=== PATIENT | male | born 1960 | race Caucasian/White ===

== ENCOUNTER 2016-12-08 14:59 | Outpatient (RCR) | payer MEDICAID ==
--- OUTSIDE RECORDS SUMMARY | 2016-09-20 13:55 | XMS REPORT | Continuity of Care Document ---
Author Author [facility] Organization [facility] Address Unknown Phone Unavailable Care Team Providers Care Search Analyst Name Role Phone [facility] PCP Insurance Providers Payer Name Policy Number Subscriber Name Relationship [facility]p [id number] Fior Bernal 18 Self / Same As Patient Advance Directives Directive Response Recorded Date/Time Advance Directives No 05/20/16 11:59am Health Care Power of Gate Supervisor No 05/20/16 11:59am Organ Donor No 05/20/16 11:59am Problems Active Problems Medical Problem Onset Date Status Abdominal wall pain Unknown Acute Atelectasis Unknown Acute Diarrhea Unknown Acute History of lymphoma Unknown Acute History of lymphoma Unknown Acute Nausea and vomiting Unknown Acute Right hip pain Unknown Acute Medications Current Home Medications Medication Dose Units Route Directions Days/Qty Instructions Start Date Metoprolol Tartrate (Lopressor) 50 Mg 50 Mg Oral Twice A Day Hydrocodone Bit/Acetaminophen 1 Each 1 Tab Oral Three Times A Day Escitalopram Oxalate 20 Mg 20 Mg Oral Daily 05/23/14 Potassium Chloride 20 Meq 20 Meq Oral Three Times A Day 05/23/14 Calcium Carbonate 500 Mg 500 Mg Oral As Needed for Indigestion 05/23 Ondansetron 8 Mg 8 Mg Oral Every 6 Hours as needed for Nausea/Vomiting 10 11/06/14 Ibrutinib 140 Mg 420 Mg Oral Daily@1100 take 3 (140mg) tabs 12/24/15 Cyclobenzaprine Hcl 10 Mg 10 Mg Oral Three Times A Day as needed for Muscle Spasms 12/24/15 Ibuprofen 800 Mg 800 Mg Oral Three Times A Day 12/24/15 Fluticasone/Vilanterol 1 Each 1 Each Inhalation Bedtime 12/24/15 Venlafaxine Hcl 37.5 Mg 37.5 Mg Oral Twice A Day 12/24/15 Tiotropium [place] 1 Inh 1 Inh Inhalation Daily 12/24/15 Trazodone Hcl 100 Mg 100 Mg Oral Twice A Day 12/24/15 Furosemide 40 Mg 40 Mg Oral Daily 12/24/15 Omeprazole 40 Mg 40 Mg Oral Daily 12/24/15 Diazepam 10 Mg 10 Mg Oral Twice A Day 12/24/15 Hydralazine Hcl 10 Mg 20 Mg Oral Bedtime take 2 (10mg) tabs 12/24/15 Amitriptyline Hcl 50 Mg 50 Mg Oral Bedtime 12/24/15 Prednisone 10 Mg 10 Mg Oral Daily 12/24/15 Levalbuterol Hcl 1.25 Mg/0.5 Ml 1.25 Mg Inhalation Every 8HRS as needed for Shortness Of Breath 12/25/15 Albuterol Sulfate 90 Mcg 90 Mcg Inhalation Every 4HRS as needed for Shortness Of Breath 12/25/15 Cyclosporine 1 Each 1 Each Ophthalmic Twice A Day 12/25/15 Cetirizine Hcl 10 Mg 10 Mg Oral Daily 12/25/15 Oxycodone Hcl/Acetaminophen 1 Each 1 Each Oral Every 4HRS as needed for Pain 14 05/20/16 Levofloxacin 750 Mg 750 Mg Oral Daily 5 05/20/16 Past Home Medications Medication Directions Ordered Status Lisinopril 10 Mg Tab, 20 Mg Oral Daily 09/24/08 Discontinued Cyclobenzaprine Hcl 10 Mg Tablet, 10 Mg Oral Three Times A Day as needed 25/07 Discontinued Duloxetine Hcl 20 Mg Cap, 09/24/08 Discontinued Omeprazole 20 Mg Capsule., 09/24/08 Discontinued [Clonopin] , 09/24/08 Discontinued Albuterol 17 Gm Inh, 09/24/08 Discontinued Acetaminophen/Hydrocodone Bitart 1 Ea Tab, 1 Tab Oral Every 4HRS as needed Discontinued Tramadol Hcl 50 Mg Tab, 09/24/08 Discontinued Multivitamins 1 Ea Tablet, 09/24/08 Discontinued Metoprolol Succinate (Toprol Xl) 50 Mg Tab.sr.24h, 08/05/09 Discontinued Trazodone Hcl 50 Mg Tablet, 100 Mg Oral Daily 08/05/09 Discontinued Diazepam 10 Mg Tablet, 1 Each Oral Three Times A Day 11/19/11 Discontinued Fluticasone Propionate 50 Mcg/16 G [place], 50 Mcg Nasal Twice A Day 11/19/11 Discontinued Montelukast Sodium 10 Mg Tablet, 1 Tab Oral Daily 11/19/11 Discontinued Prednisone 10 Mg Tab, 10 Mg Oral Three Times A Day 11/19/11 Discontinued Ipratropium/Albuterol Sulfate 14.7 Gm Aer.w.adap, 2 Puff Inhalation Four Times Daily as needed for Wheezing 11/19/11 Discontinued Furosemide (Lasix) 20 Mg Tablet, 1 Each Oral Daily 05/23/14 Discontinued Ibuprofen (Motrin) 200 Mg Capsule, 600 Mg Oral Three Times A Day 05/23/14 Discontinued Atorvastatin Calcium 10 Mg Tablet, 10 Mg Oral Daily 05/23/14 Discontinued Nicotine 1 Each Patch.td24, 1 Each Transderm Daily 05/23/14 Discontinued Omeprazole 20 Mg Capsule.dr, 20 Mg Oral Daily 05/23/14 Discontinued Social History Social History Problem Response Recorded Date/Time Alcohol Use Occasionally Uses 05/20/2016 11:59am Recreational Drug Use No 05/20/2016 11:59am Recent Foreign Travel N see kennedi 06/14/2016 12:52pm Sexually Transmitted Disease No 05/20/2016 11:59am Do you dip or chew tobacco? No 05/20/2016 11:59am Sexually Transmitted Disease No 05/20/2016 11:59am Hx Sexually Transmitted Disorders No 11/19/2011 11:35pm Hospital Discharge Instructions No hospital discharge instructions. Plan of Care Prescriptions See Medication Section Functional Status No functional status results. Allergies, Adverse Reactions, Alerts Allergen Type Severity Reaction Status Last Updated Alprazolam Adverse Reaction Unknown MAKES CRAZY Active 11/06/14 Immunizations No immunization records. Vital Signs No known vital signs results. Results Laboratory Results Test Name Result Units Flags Reference Collection Date/Time Result Date/ Time Comments White Blood Count 28.4 10^3/uL H 4.3-11.0 07/12/2016 10:35am 07/12/2016 10:47am Red Blood Count 3.90 10^6/uL L 4.35-5.85 07/12/2016 10:35am 07/12/2016 10 :47am Hemoglobin 12.2 G/DL L 13.3-17.7 07/12/2016 10:35am 07/12/2016 10:47am Hematocrit 37 % L 40-54 07/12/2016 10:35am 07/12/2016 10:47am Mean Corpuscular Volume 95 FL 80-99 07/12/2016 10:35am 07/12/2016 10: 47am Mean Corpuscular Hemoglobin 31 PG 25-34 07/12/2016 10:35am 07/12/2016 10:47am Mean Corpuscular Hemoglobin Concent 33 G/DL 32-36 07/12/2016 10:35am 10:47am Red Cell Distribution Width 16.6 % H 10.0-14.5 07/12/2016 10:35am 2015 10:47am Platelet Count 219 10^3/uL 130-400 07/12/2016 10:35am 07/12/2016 10: 47am Mean Platelet Volume 10.6 FL H 7.4-10.4 07/12/2016 10:35am 07/12/2016 10: 47am Neutrophils (%) (Auto) 25 % L 42-75 07/12/2016 10:35am 07/12/2016 10: 47am Lymphocytes (%) (Auto) 67 % H 12-44 07/12/2016 10:35am 07/12/2016 10: 47am Monocytes (%) (Auto) 6 % 0-12 07/12/2016 10:35am 07/12/2016 10:47am Eosinophils (%) (Auto) 2 % 0-10 07/12/2016 10:35am 07/12/2016 10:47am Basophils (%) (Auto) 0 % 0-10 07/12/2016 10:35am 07/12/2016 10:47am Neutrophils # (Auto) 6.9 X 10^3 1.8-7.8 07/12/2016 10:35am 07/12/2016 10:47am Lymphocytes # (Auto) 19.0 X 10^3 H 1.0-4.0 07/12/2016 10:35am 07/12/2016 10:47am Monocytes # (Auto) 1.8 X 10^3 H 0.0-1.0 07/12/2016 10:35am 07/12/2016 10: 47am Eosinophils # (Auto) 0.6 10^3/uL H 0.0-0.3 07/12/2016 10:35am 07/12/2016 10:47am Basophils # (Auto) 0.1 10^3/uL 0.0-0.1 07/12/2016 10:35am 07/12/2016 10 :47am Sodium Level 138 MMOL/L 135-145 07/12/2016 10:35am 07/12/2016 11:34am Potassium Level 4.3 MMOL/L 3.6-5.0 07/12/2016 10:35am 07/12/2016 11: 34am Chloride Level 107 MMOL/L 98-107 07/12/2016 10:35am 07/12/2016 11:34am Carbon Dioxide Level 22 MMOL/L 21-32 07/12/2016 10:35am 07/12/2016 11: 34am Anion Gap 9 MMOL/L 5-14 07/12/2016 10:35am 07/12/2016 11:34am Blood Urea Nitrogen 20 MG/DL H 7-18 07/12/2016 10:35am 07/12/2016 11: 34am Creatinine 1.24 MG/DL 0.60-1.30 07/12/2016 10:35am 07/12/2016 11:34am BUN/Creatinine Ratio 16 07/12/2016 10:35am 07/12/2016 11:34am Estimat Glomerular Filtration Rate > 60 07/12/2016 10:35am 2015 11:34am GFR INTERPRETIVE DATA UNITS FOR ESTIMATED GFR (eGFR): mL/min/1.73 M2 REFERENCE RANGE FOR ESTIMATED GFR (eGFR) eGFR NORMAL eGFR >60 MODERATELY DECREASED eGFR 30-59 SEVERLY DECREASED eGFR 15-29 KIDNEY FAILURE <15 (OR DIALYSIS) Glucose Level 115 MG/DL H 70-105 07/12/2016 10:35am 07/12/2016 11:34am Uric Acid 7.4 MG/DL H 2.6-7.2 07/12/2016 10:35am 07/12/2016 11:34am Calcium Level 8.9 MG/DL 8.5-10.1 07/12/2016 10:35am 07/12/2016 11:34am Magnesium Level 2.1 MG/DL 1.8-2.4 05/10/2016 1:24pm 05/10/2016 2:06pm Total Bilirubin 0.4 MG/DL 0.1-1.0 07/12/2016 10:35am 07/12/2016 11: 34am Alkaline Phosphatase 105 U/L 40-136 07/12/2016 10:35am 07/12/2016 11: 34am Aspartate Amino Transf (AST/SGOT) 31 U/L 5-34 07/12/2016 10:35am 2015 11:34am Alanine Aminotransferase (ALT/SGPT) 18 U/L 0-55 07/12/2016 10:35am 11:34am Lactate Dehydrogenase 319 U/L H 125-220 06/14/2016 1:05pm 06/14/2016 1: 53pm Total Protein 6.0 G/DL L 6.4-8.2 07/12/2016 10:35am 07/12/2016 11:34am Albumin 3.6 G/DL 3.2-4.5 07/12/2016 10:35am 07/12/2016 11:34am Cyae-5-Qkisircawxhxn 2.59 mg/L H 0.00-1.85 06/14/2016 1:05pm 06/15/2016 8 :19am Test performed at [facility], CLIA# [id number] [address] [place] [address] Procedures No known history of procedures. Encounters Encounter Location Arrival/Admit Date Discharge/Depart Date Attending Provider Discharged Recurring [facility] 07/12/16 10:26am 11:59pm MASOOD MEYER MD
[2016-09-20 14:07] LABS: BASOPHILS % (AUTO) 0 % (0-10); EOSINOPHILS # (AUTO) 0.1 10^3/uL (0.0-0.3); EOSINOPHILS % (AUTO) 1 % (0-10); LYMPHOCYTES % (AUTO) 33 % (12-44); MEAN CORPUSCULAR HEMOGLOBIN 31 PG (25-34); MEAN CORPUSCULAR HGB CONC 33 G/DL (32-36); MEAN CORPUSCULAR VOLUME 93 FL (80-99); MEAN PLATELET VOLUME 10.2 FL (7.4-10.4); MONOCYTES # (AUTO) 1.4 X 10^3 (0.0-1.0); MONOCYTES % (AUTO) 12 % (0-12); NEUTROPHILS # (AUTO) 6.6 X 10^3 (1.8-7.8); NEUTROPHILS % (AUTO) 54 % (42-75); PLATELET COUNT 221 10^3/uL (130-400); RED BLOOD COUNT 4.46 10^6/uL (4.35-5.85); RED CELL DISTRIBUTION WIDTH 14.1 % (10.0-14.5); WHITE BLOOD COUNT 12.2 10^3/uL (4.3-11.0)
[2016-09-20 14:33] LABS: ALANINE AMINOTRANSFERASE 14 U/L (0-55); ALBUMIN 3.7 G/DL (3.2-4.5); ANION GAP 9 MMOL/L (5-14); ASPARTATE AMINO TRANSFERASE 13 U/L (5-34); BILIRUBIN,TOTAL 0.3 MG/DL (0.1-1.0); BLOOD UREA NITROGEN 12 MG/DL (7-18); BUN/CREATININE RATIO 10; CALCIUM 8.9 MG/DL (8.5-10.1); CARBON DIOXIDE 24 MMOL/L (21-32); CHLORIDE 104 MMOL/L (98-107); CREATININE SERUM 1.24 MG/DL (0.60-1.30); GFR ESTIMATED > 60; GLUCOSE 92 MG/DL (70-105); LACTATE DEHYDROGENASE 194 U/L (125-220); POTASSIUM 4.3 MMOL/L (3.6-5.0); SODIUM 137 MMOL/L (135-145); TOTAL PROTEIN 6.4 G/DL (6.4-8.2); URIC ACID 5.2 MG/DL (2.6-7.2)
[2016-10-19 13:06] LABS: BASOPHILS # (AUTO) 0.1 10^3/uL (0.0-0.1); BASOPHILS % (AUTO) 0 % (0-10); EOSINOPHILS # (AUTO) 0.2 10^3/uL (0.0-0.3); EOSINOPHILS % (AUTO) 2 % (0-10); LYMPHOCYTES # (AUTO) 3.1 X 10^3 (1.0-4.0); LYMPHOCYTES % (AUTO) 27 % (12-44); MEAN CORPUSCULAR HEMOGLOBIN 30 PG (25-34); MEAN CORPUSCULAR HGB CONC 33 G/DL (32-36); MEAN CORPUSCULAR VOLUME 93 FL (80-99); MEAN PLATELET VOLUME 10.4 FL (7.4-10.4); MONOCYTES % (AUTO) 9 % (0-12); NEUTROPHILS # (AUTO) 7.1 X 10^3 (1.8-7.8); NEUTROPHILS % (AUTO) 62 % (42-75); PLATELET COUNT 213 10^3/uL (130-400); RED CELL DISTRIBUTION WIDTH 14.9 % (10.0-14.5); WHITE BLOOD COUNT 11.5 10^3/uL (4.3-11.0)
[2016-10-19 13:34] LABS: ALANINE AMINOTRANSFERASE 16 U/L (0-55); ALBUMIN 3.9 G/DL (3.2-4.5); ANION GAP 8 MMOL/L (5-14); ASPARTATE AMINO TRANSFERASE 15 U/L (5-34); BILIRUBIN,TOTAL 0.2 MG/DL (0.1-1.0); BLOOD UREA NITROGEN 13 MG/DL (7-18); BUN/CREATININE RATIO 11; CALCIUM 9.3 MG/DL (8.5-10.1); CARBON DIOXIDE 28 MMOL/L (21-32); CHLORIDE 102 MMOL/L (98-107); CREATININE SERUM 1.21 MG/DL (0.60-1.30); GFR ESTIMATED > 60; GLUCOSE 76 MG/DL (70-105); LACTATE DEHYDROGENASE 166 U/L (125-220); POTASSIUM 4.1 MMOL/L (3.6-5.0); SODIUM 138 MMOL/L (135-145); TOTAL PROTEIN 6.5 G/DL (6.4-8.2)
[2016-10-19 14:14] LABS: URIC ACID 5.2 MG/DL (2.6-7.2)
[~2016-12-08 14:59] MED LIST: ALB6.8IN; ALBU90AE IH; AMIT50TA3 PO; ATOR10TA PO; CETI10TA20 PO; CLC500CT PO; CLONOPIN; CYCL10TA45 PO; CYCL10TA9 PO; CYCL1DRO OP; DIAZ10TA PO; DIAZ10TA3 PO; DULO20CA; ESCI20TA2 PO; FLUT1BLS IH; FURO20TA4 PO; FURO40TA4 PO; HYDR-2890 PO; HYDR-31 PO; HYDR-3922 PO; IBRU140C PO; IBUP-1780 PO; IBUP200C PO; LEVA1.2521 IH; LEVO750T9 PO; LSNP10T PO; METO-272; MNTL10T PO; MTP50T PO; MULT1TAB63; NF-FLON16G; NICO1PAT6 TD; OMEP-10; OMEP20CA6 PO; OMEP40CA36 PO; ONDA8TAB13 PO; OXYC-12 PO; OXYC-201 PO; POTA20TA15 PO; PRD10T PO; RT-COMBINH IH; TIOT18CA2 IH; TRAZ100T92 PO; TRAZ50TA67 PO; TRM50T; VNL37.5T PO
[2016-12-08 15:49] LABS: BASOPHILS % (AUTO) 0 % (0-10); EOSINOPHILS # (AUTO) 0.1 10^3/uL (0.0-0.3); EOSINOPHILS % (AUTO) 1 % (0-10); LYMPHOCYTES # (AUTO) 2.3 X 10^3 (1.0-4.0); LYMPHOCYTES % (AUTO) 21 % (12-44); MEAN CORPUSCULAR HEMOGLOBIN 29 PG (25-34); MEAN CORPUSCULAR HGB CONC 32 G/DL (32-36); MEAN CORPUSCULAR VOLUME 91 FL (80-99); MEAN PLATELET VOLUME 11.2 FL (7.4-10.4); MONOCYTES # (AUTO) 0.7 X 10^3 (0.0-1.0); MONOCYTES % (AUTO) 6 % (0-12); NEUTROPHILS # (AUTO) 7.9 X 10^3 (1.8-7.8); NEUTROPHILS % (AUTO) 71 % (42-75); PLATELET COUNT 187 10^3/uL (130-400); RED BLOOD COUNT 4.31 10^6/uL (4.35-5.85); RED CELL DISTRIBUTION WIDTH 16.7 % (10.0-14.5); WHITE BLOOD COUNT 11.1 10^3/uL (4.3-11.0)
[2016-12-08 16:11] LABS: ALBUMIN 3.5 G/DL (3.2-4.5); BILIRUBIN,TOTAL 0.4 MG/DL (0.1-1.0); CALCIUM 8.4 MG/DL (8.5-10.1); CREATININE SERUM 1.33 MG/DL (0.60-1.30); POTASSIUM 4.1 MMOL/L (3.6-5.0); TOTAL PROTEIN 6.2 G/DL (6.4-8.2); URIC ACID 5.4 MG/DL (2.6-7.2)
[2016-12-08 16:32] LABS: THYROID STIMULATING HORMONE 1.56 UIU/ML (0.35-4.94)
== END 2016-12-19 | disposition home or self-care (01) ==
LOC: ONC 14:59
PROVIDERS: ATTEND Internal Medicine Hematology & Oncology
DX: C91.10 Chronic lymphocytic leukemia of B-cell type not having achieved remission (principal); J44.9 Chronic obstructive pulmonary disease, unspecified; K21.9 Gastro-esophageal reflux disease without esophagitis; N18.3 Chronic kidney disease, stage 3 (moderate); F17.210 Nicotine dependence, cigarettes, uncomplicated; B18.2 Chronic viral hepatitis C; Z92.21 Personal history of antineoplastic chemotherapy; Z79.899 Other long term (current) drug therapy
CPT/HCPCS: 36591; 80053; 82232; 83615; 84439; 84443; 84550; 85025; 99213

== ENCOUNTER 2017-02-01 17:42 | Inpatient (IN) | payer MEDICAID ==
[~2017-02-01] VITALS: Ht 177.8 cm; Wt 104.8 kg
--- OUTSIDE RECORDS SUMMARY | 2017-02-01 17:48 | XMS REPORT | Continuity of Care Document ---
Author Author [facility] Organization [facility] Address Unknown Phone Unavailable Care Team Providers Care Packing Line Operator Name Role Phone [facility] PCP Insurance Providers Payer Name Policy Number Subscriber Name Relationship [facility] Amerigrp [id number] Fior Bernal 18 Self / Same As Patient Advance Directives Directive Response Recorded Date/Time Advance Directives No 05/20/16 11:59am Health Care Power of Folder Seamer Automatic No 05/20/16 11:59am Organ Donor No 05/20/16 [...] Mg Oral Twice A Day 12/24/15 Tiotropium [place] 1 Inh 1 Inh Inhalation Daily 12/24/15 [...] 11/19/11 Discontinued Fluticasone Propionate 50 Mcg/16 G [place], 50 Mcg Nasal Twice A Day 11/19/11 [...] 3.6 G/DL 3.2-4.5 07/12/2016 10:35am 07/12/2016 11:34am Sqsy-4-Zrvvciieqvgdh 2.59 mg/L H 0.00-1.85 06/14/2016 1:05pm 06/15/2016 8 :19am Test performed at [facility], CLIA# [id number] [address] [place] [address] Procedures No known history of procedures. Encounters Encounter Location Arrival/Admit Date Discharge/Depart Date Attending Provider Discharged Recurring [facility] 07/12/16 10:26am 11:59pm MASOOD MEYER MD
--- NOTE | 2017-02-01 17:58 | ED General ---
General Stated Complaint: WEAKNESS Source of Information: Patient Exam Limitations: No Limitations History of Present Illness Time Seen by Provider: 17:55 Initial Comments 3.35 To ER from [facility] in [place] with reports of nausea vomiting and general malaise for the past few days. His brought him there seeking care for this complaint. He is currently being treated by Dr. Lopez for CLL. He was found to be hypotensive at that hospital with an initial blood pressure 50 systolic. He was given 1 L of fluids which increased his pressure to 70 systolic. He was given a second liter of fluids and then dopamine was started via a peripheral line. He does have a left [place]. X-ray reportedly showed a right lung base infiltrate. He was given 2 g of Rocephin in route to our hospital. Patient does report a productive cough quite intense for several days Timing/Duration: 2-3 Days Severity: Moderate Associated Systoms: CoughNo Fever/Chills, Weakness Allergies and Home Medications Allergies Coded Allergies: alprazolam (Unverified Adverse Reaction, Unknown, MAKES DIYA , 11/06/14) Home Medications Albuterol Sulfate 90 Mcg Aer.pow.ba 90 MCG IH Q4H PRN PRN SHORTNESS OF BREATH ( Reported) Amitriptyline HCl 50 Mg Tablet 50 MG PO HS (Reported) Calcium Carbonate 500 Mg Tab.chew 500 MG PO PRN (Reported) Cetirizine HCl 10 Mg Tablet 10 MG PO DAILY (Reported) Cyclobenzaprine HCl 10 Mg Tablet 10 MG PO TID PRN PRN MUSCLE SPASMS (Reported) Cyclosporine 1 Each [place] 1 EACH OP BID (Reported) Diazepam 10 Mg Tablet 10 MG PO BID (Reported) Escitalopram Oxalate 20 Mg Tablet 20 MG PO DAILY (Reported) Fluticasone/Vilanterol 1 Each Blst.w.dev 1 EACH IH HS (Reported) Furosemide 40 Mg Tablet 40 MG PO DAILY (Reported) Hydralazine HCl 10 Mg Tablet 20 MG PO HS (Reported) take 2 (10mg) tabs Hydrocodone Bit/Acetaminophen 1 Each Tablet 1 TAB PO TID (Reported) Ibrutinib 140 Mg Capsule 420 MG PO DAILY@1100 (Reported) take 3 (140mg) tabs Ibuprofen 800 Mg Tablet 800 MG PO TID (Reported) Levalbuterol HCl 1.25 Mg/0.5 Ml Vial.neb 1.25 MG IH Q8H PRN PRN SHORTNESS OF BREATH (Reported) Levofloxacin 750 Mg Tablet #5 750 MG PO DAILY Prescribed by: MARGARITA JOHNSON on 05/20/16 1509 Metoprolol Tartrate 50 Mg Tablet 50 MG PO BID (Reported) Omeprazole 40 Mg Capsule.dr 40 MG PO DAILY (Reported) Ondansetron 8 Mg Tab.rapdis #10 8 MG PO Q6H PRN PRN NAUSEA/VOMITING Prescribed by: IBETH CABRERA on 11/06/14 1512 Oxycodone HCl/Acetaminophen 1 Each Tablet #14 1 EACH PO Q4H PRN PRN PAIN Prescribed by: MARGARITA JOHNSON on 05/20/16 1509 Potassium Chloride 20 Meq Tab.prt.sr 20 MEQ PO TID (Reported) Prednisone 10 Mg Tab 10 MG PO DAILY (Reported) Tiotropium [place] 1 Inh Aerp 1 INH IH DAILY (Reported) Trazodone HCl 100 Mg Tablet 100 MG PO BID (Reported) Venlafaxine HCl 37.5 Mg Tab 37.5 MG PO BID (Reported) Constitutional: see HPI weakness EENTM: see HPI Respiratory: see HPI cough Cardiovascular: no symptoms reported Genitourinary: no symptoms reported Musculoskeletal: no symptoms reported Skin: no symptoms reported Psychiatric/Neurological: No Symptoms Reported Hematologic/Lymphatic: No Symptoms Reported Immunological/Allergic: no symptoms reported Past Tyhbrsp-Njjnfa-Gwzjpf Hx Immunizations Up To Date Date of Pneumonia Vaccine: Sep 30, 2014 Date of Influenza Vaccine: Sep 30, 2014 Surgeries HX Surgeries: Yes (lymph node biopsy x3, port placed and removed) Surgeries: Orthopedic Respiratory Hx Respiratory Disorders: Yes (COPD/CHRONIC BRONCHITIS) Respiratory Disorders: Asthma, Chronic Bronchitis, COPD, Emphysema Cardiovascular Hx Cardiac Disorders: Yes Cardiac Disorders: Hypertension Neurological Hx Neurological Disorders: No Reproductive System Hx Reproductive Disorders: No Sexually Transmitted Disease: No Genitourinary Hx Genitourinary Disorders: No Gastrointestinal Hx Gastrointestinal Disorders: Yes Gastrointestinal Disorders: Gastroesophageal Reflux, Hepatitis Musculoskeletal Hx Musculoskeletal Disorders: Yes (DJD CERVICAL SPINE) Endocrine Hx Endocrine Disorders: No HEENT HX ENT Disorders: Yes HEENT Disorders: Glaucoma Hearing Impairment: Hard of Hearing Cancer Hx Cancer: Yes (CLL, SLL) Cancer: Leukemia, Lymphoma Psychosocial Hx Psychiatric Problems: Yes Behavioral Health Disorders: Anxiety, Depression Integumentary HX Skin/Integumentary Disorder: No Blood Transfusions Hx Blood Disorders: Yes (LYMPHOMA AND LEUKEMIA HISTORY/HEP C) Adverse Reaction to a Blood Tr: No Physical Exam Vital Signs Vital Sign - Last 12Hours 02/01/17 02/01/17 02/01/17 17:45 19:35 20:18 Temp 97.0 Pulse 101 Resp 24 B/P 82/58 Pulse Ox 96 O2 Delivery Nasal Cannula O2 Flow Rate 5 Capillary Refill : General Appearance: No Apparent Distress WD/WN Eyes: Bilateral Eye EOMI, Bilateral Eye Normal Inspection, Bilateral Eye PERRL HEENT: PERRL/EOMI TMs Normal Neck: Full Range of Motion Normal Inspection Respiratory: No Accessory Muscle Use No Respiratory Distress Decreased Breath Sounds Cardiovascular: Regular Rate, Rhythm No Edema Other (weak peripheral pulses. Blanching of the fingertips bilaterally noted. Upon arrival to our ER initial blood pressure 128/63 ) Gastrointestinal: Non Tender Soft Extremity: Normal Capillary Refill Normal Inspection Neurologic/Psychiatric: Alert Oriented x3 Skin: Normal Color Warm/Dry Progress/Results/Core Measures Results/Orders Lab Results Laboratory Tests Test 02/01/17 17:54 02/01/17 17:55 02/01/17 17:58 02/01/17 19:52 Range/Units Glucometer 107 70-110 MG/DL Alanine Aminotransferase (ALT/SGPT) 8 0-55 U/L Albumin 2.5 L 3.2-4.5 G/DL Alkaline Phosphatase 53 40-136 U/L Anion Gap 11 5-14 MMOL/L Aspartate Amino Transf (AST/SGOT) 10 5-34 U/L BUN/Creatinine Ratio 6 Basophils # (Auto) 0.0 0.0-0.1 10^3/uL Basophils (%) (Auto) 2 0-10 % Blood Urea Nitrogen 12 7-18 MG/DL Calcium Level 7.4 L 8.5-10.1 MG/DL Carbon Dioxide Level 17 L 21-32 MMOL/L Chloride Level 107 98-107 MMOL/L Creatinine 1.99 H 0.60-1.30 MG/DL Eosinophils # (Auto) 0.1 0.0-0.3 10^3/uL Eosinophils (%) (Auto) 7 0-10 % Estimat Glomerular Filtration Rate 35 Glucose Level 104 70-105 MG/DL Hematocrit 31 L 40-54 % Hemoglobin 10.2 L 13.3-17.7 G/DL Lactic Acid Level 3.35 *H 5.84 *H 0.50-2.00 MMOL/L Lymphocytes # (Auto) 0.8 L 1.0-4.0 X 10^3 Lymphocytes (%) (Auto) 62 H 12-44 % Mean Corpuscular Hemoglobin 30 25-34 PG Mean Corpuscular Hemoglobin Concent 33 32-36 G/DL Mean Corpuscular Volume 91 80-99 FL Mean Platelet Volume 11.0 H 7.4-10.4 FL Monocytes # (Auto) 0.2 0.0-1.0 X 10^3 Monocytes (%) (Auto) 12 0-12 % Neutrophils # (Auto) 0.3 L 1.8-7.8 X 10^3 Neutrophils (%) (Auto) 18 L 42-75 % Platelet Count 167 130-400 10^3/uL Potassium Level 3.4 L 3.6-5.0 MMOL/L Red Blood Count 3.45 L 4.35-5.85 10^6/uL Red Cell Distribution Width 15.6 H 10.0-14.5 % Sodium Level 135 135-145 MMOL/L Total Bilirubin 0.3 0.1-1.0 MG/DL Total Protein 4.4 L 6.4-8.2 G/DL Troponin I < 0.30 <0.30 NG/ML White Blood Count 1.4 *L 4.3-11.0 10^3/uL INR Comment 1.2 0.8-1.4 Prothrombin Time 14.6 12.2-14.7 SEC Ur Tricyclic Antidepressants Screen POSITIVE H NEGATIVE Urine Amphetamines Screen POSITIVE H NEGATIVE Urine Bacteria NONE /HPF Urine Barbiturates Screen NEGATIVE NEGATIVE Urine Benzodiazepines Screen POSITIVE H NEGATIVE Urine Bilirubin NEGATIVE NEGATIVE Urine Cannabinoids Screen POSITIVE H NEGATIVE Urine Casts NONE /LPF Urine Clarity CLEAR Urine Cocaine Screen NEGATIVE NEGATIVE Urine Color YELLOW Urine Crystals NONE /LPF Urine Culture Indicated NO Urine Glucose (UA) NEGATIVE NEGATIVE Urine Ketones NEGATIVE NEGATIVE Urine Leukocyte Esterase NEGATIVE NEGATIVE Urine Methadone Screen NEGATIVE NEGATIVE Urine Methamphetamines Screen POSITIVE H NEGATIVE Urine Mucus NEGATIVE /LPF Urine Nitrite NEGATIVE NEGATIVE Urine Opiates Screen POSITIVE H NEGATIVE Urine Oxycodone Screen NEGATIVE NEGATIVE Urine Phencyclidine Screen NEGATIVE NEGATIVE Urine Propoxyphene Screen NEGATIVE NEGATIVE Urine Protein NEGATIVE NEGATIVE Urine RBC NONE /HPF Urine RBC (Auto) NEGATIVE NEGATIVE Urine Specific [place] 1.005 L 1.016-1.022 Urine Squamous Epithelial Cells RARE /HPF Urine Urobilinogen NORMAL NORMAL MG/DL Urine WBC NONE /HPF Urine pH 6 5-9 Test 02/01/17 20:00 Range/Units [place] Test YES-POS Arterial Blood Base Excess -7.7 L -2.5-2.5 MMOL/L Arterial Blood HCO3 17 *L 23-27 MMOL/L Arterial Blood Oxygen Saturation 88 L 94-100 % Arterial Blood Partial Pressure CO2 32 L 35-45 MMHG Arterial Blood Partial Pressure O2 55 L 79-93 MMHG Arterial Blood Total CO2 17.8 L 21.0-31.0 MMOL/L Arterial Blood pH 7.35 L 7.37-7.43 Blood Gas Inspired Oxygen 4L Blood Gas Patient Temperature 99.1 Blood Gas Puncture Site L RAD Blood Gas Ventilator Setting NO My Orders Orders-MARGARITA JOHNSON APRN Fentanyl Injection (Sublimaze Injection (02/01/17 18:15) D5w 250 Ml (Ivpb) (... W/Norepinephrine (02/01/17 18:15) Ns Iv 1000 Ml (Sodium Chloride 0.9%) (02/01/17 18:15) D5w 250 Ml (Ivpb) (Dextrose 5% Water Iv (02/01/17 18:03) Levofloxacin 750 Mg/150 Ml Iv (Levaquin (02/01/17 18:15) Protime With Inr (02/01/17 18:16) Drug Screen Stat (Urine) (02/01/17 18:23) Vancomycin Iv Add-[place] (Vancomycin Iv (02/01/17 19:30) Arterial Blood Gas (02/01/17 20:06) Medications Given in ED Current Medications Medications Dose Ordered Sig/Marly Route Start Time Stop Time Status Last Admin Dose Admin Fentanyl Citrate 50 mcg ONCE ONCE IVP 02/01/17 18:15 02/01/17 18:16 DC 02/01/17 19:17 50 MCG Levofloxacin/ Dextrose 150 ml @ 100 mls/hr ONCE ONCE IV 02/01/17 18:15 02/01/17 19:44 DC 02/01/17 18:19 100 MLS/HR Norepinephrine 4 mg 4 mg STK-MED ONCE IV 02/01/17 18:03 02/01/17 18:06 DC 02/01/17 18:13 4 MG Vital Signs/I&O Vital Sign - Last 12Hours 3/06/1302/01/17 02/01/17 02/01/17 17:45 19:35 19:58 20:18 Temp 97.0 99.6 Pulse 101 106 110 111 Resp 24 21 20 24 B/P 82/58 79/56 102/84 Pulse Ox 96 97 98 100 O2 Delivery Nasal Cannula O2 Flow Rate 5 5 4 Diagnostic Imaging Diagonstic Imaging: Xray Plain Films/CT/US/NM/MRI: chest Comments NAME: [facility] REC#: [id number] PT STATUS: REG ER : 1960 PHYSICIAN: SANJIV CORBIN MD ADMIT DATE: 02/01/17/ER Draft Date of Exam:02/01/17 CHEST 1 VIEW, AP/PA ONLY INDICATION: Febrile. Weakness. Comparison with 12/25/2015. FINDINGS: There is a dense consolidated infiltrate involving the right lower lung. Left lung is clear. Right upper lung is well-aerated and clear. Heart is mildly enlarged. No evidence of pulmonary edema. No pneumothorax or effusion. IMPRESSION: 1. Findings are consistent with consolidated pneumonia right lower lobe. Dictated on workstation # [id number] Dict: 02/01/17 1818 Trans: 02/01/17 1821 KB [id number] Interpreted by: TANGELA NAVARRO MD Electronically signed by: Departure Communication Communication 1808-BP 69/56 Pulse 85. Dopamine discontinued, levophed started at 5mcg. additional fluid bolus given which will be 3rd liter bolus. port accessed by RN. 2004-BP 82/53 with levophed at 15mcg/min. HR 109. levophed increased to 20mcg/ min. no urine in the Kang catheter which was placed at [facility]. This was replaced by our nurses and still no urine output over the course of the past hour. Bladder scan at the bedside showed 56 mL of urine in the bladder. I did update his fianc and daughter on the possibility that he may not pull through this/severity of his illness but that we were doing everything he could to support him. Oxygen remains 100 percent on 2 L nasal cannula. He does state that he feels short of breath. An ABG has been ordered. 2019-lactic elevated from previous measurement currently at 5. Patient has received 3.5 L of fluids as bolus and currently normal saline at 250 mL per hour. He is received Levaquin 750 mg IV here, vancomycin 1 g IV is infusing currently and he received Rocephin 2 g in route to this hospital. Currently we have fed running at 20 mics per minute with a blood pressure of 102/82, heart rate 115 sinus. Progress Notes 2012-I spoke with Dr. Lopez from [facility] to update him on the patient's status and treatments up to this point. Impression Impression: Primary Impression: RLL pneumonia Qualified Code: J18.1 - Lobar pneumonia, unspecified organism Additional Impression: Septic shock Disposition: ADMITTED INPATIENT Condition: Stable Decision to Admit Reason: Admit from ER (General) Decision to Admit/Date: Feb 01, 2017 Time/Decision to Admit Time: 18:08 Departure-Patient Inst. Referrals: [facility] (PCP[facility]Family) Primary Care Physician MARGARITA JOHNSON APRN Feb 01, 2017 17:58
[2017-02-01] MEDS ORDERED: NOREPINEPHRINE 4 MG/4 ML (LEVOPHED) AMP IV ONE (18:03)
[2017-02-01] MEDS ORDERED: D5W 250 ML (IVPB) 250 ML IV ONE (18:03)
[2017-02-01] MEDS ORDERED: LEVOFLOXACIN 750 MG/150 ML IV 150 ML IV ONE (18:15)
[2017-02-01] MEDS ORDERED: fentaNYL INJECTION 100 MCG/2 ML AMP IVP ONE (18:15)
[2017-02-01] MEDS ORDERED: NOREPINEPHRINE 4 MG in D5W 250 ML (IVPB) 250 ML IV SCH (18:15)
[2017-02-01] MEDS ORDERED: NS IV 1000 ML 1,000 ML IV SCH ×2 (18:15→21:30)
[2017-02-01 18:18] LABS: BASOPHILS % (AUTO) 2 % (0-10); EOSINOPHILS # (AUTO) 0.1 10^3/uL (0.0-0.3); EOSINOPHILS % (AUTO) 7 % (0-10); LYMPHOCYTES # (AUTO) 0.8 X 10^3 (1.0-4.0); LYMPHOCYTES % (AUTO) 62 % (12-44); MEAN CORPUSCULAR HEMOGLOBIN 30 PG (25-34); MEAN CORPUSCULAR HGB CONC 33 G/DL (32-36); MEAN CORPUSCULAR VOLUME 91 FL (80-99); MONOCYTES # (AUTO) 0.2 X 10^3 (0.0-1.0); MONOCYTES % (AUTO) 12 % (0-12); NEUTROPHILS # (AUTO) 0.3 X 10^3 (1.8-7.8); NEUTROPHILS % (AUTO) 18 % (42-75); PLATELET COUNT 167 10^3/uL (130-400); RED BLOOD COUNT 3.45 10^6/uL (4.35-5.85); RED CELL DISTRIBUTION WIDTH 15.6 % (10.0-14.5)
[2017-02-01 18:20] LABS: WHITE BLOOD COUNT 1.4 10^3/uL (4.3-11.0)
--- NOTE | 2017-02-01 18:21 | Diagnostic Imaging Report ---
INDICATION: Febrile. Weakness. Comparison with 12/25/2015. FINDINGS: There is a dense consolidated infiltrate involving the right lower lung. Left lung is clear. Right upper lung is well-aerated and clear. Heart is mildly enlarged. No evidence of pulmonary edema. No pneumothorax or effusion. IMPRESSION: 1. Findings are consistent with consolidated pneumonia right lower lobe. Dictated by: Dictated on workstation # [id number]
[2017-02-01 18:25] LABS: BILIRUBIN,URINE NEGATIVE (NEGATIVE); KETONES,URINE NEGATIVE (NEGATIVE); LEUKOCYTE ESTERASE ,URINE NEGATIVE (NEGATIVE); NITRITE,URINE NEGATIVE (NEGATIVE); PH,URINE 6 (5-9); PROTEIN,URINE NEGATIVE (NEGATIVE); UROBILINOGEN,URINE NORMAL (NORMAL)
[2017-02-01 18:26] LABS: SQUAMOUS EPITHELIAL CELL,UR RARE /HPF
[2017-02-01 18:27] LABS: INR 1.2 (0.8-1.4); PROTHROMBIN TIME PATIENT 14.6 SEC (12.2-14.7)
[2017-02-01 18:38] LABS: ALANINE AMINOTRANSFERASE 8 U/L (0-55); ALBUMIN 2.5 G/DL (3.2-4.5); ANION GAP 11 MMOL/L (5-14); ASPARTATE AMINO TRANSFERASE 10 U/L (5-34); BILIRUBIN,TOTAL 0.3 MG/DL (0.1-1.0); BLOOD UREA NITROGEN 12 MG/DL (7-18); BUN/CREATININE RATIO 6; CALCIUM 7.4 MG/DL (8.5-10.1); CARBON DIOXIDE 17 MMOL/L (21-32); CHLORIDE 107 MMOL/L (98-107); CREATININE SERUM 1.99 MG/DL (0.60-1.30); GFR ESTIMATED 35; GLUCOSE 104 MG/DL (70-105); POTASSIUM 3.4 MMOL/L (3.6-5.0); SODIUM 135 MMOL/L (135-145); TOTAL PROTEIN 4.4 G/DL (6.4-8.2)
[2017-02-01 18:48] LABS: TROPONIN I < 0.30 NG/ML (<0.30)
[2017-02-01] MEDS ORDERED: VANCOMYCIN IV ADD-VANTAGE 1,000 MG in SODIUM CHLORIDE (ADD-VANTAGE) 250 ML IV ONE (19:30)
[2017-02-01 19:58] VITALS: BP 79/56
[2017-02-01 20:11] LABS: ABG BASE EXCESS -7.7 MMOL/L (-2.5-2.5); ABG OXYGEN SATURATION 88 % (94-100); ABG PCO2 32 MMHG (35-45); ABG PH 7.35 (7.37-7.43); ABG PO2 55 MMHG (79-93); ABG TCO2 17.8 MMOL/L (21.0-31.0)
[2017-02-01 20:12] LABS: ALLENS TEST YES-POS; PATIENT TEMP 99.1
[2017-02-01 20:18] VITALS: BP 102/84
[2017-02-01 20:18] LABS: ABG HCO3 17 MMOL/L (23-27)
[2017-02-01] MEDS ORDERED: NS IV 1000 ML 1,000 ML ONE (20:55)
[2017-02-01 21:15] VITALS: BP 114/64
[2017-02-01] MEDS ORDERED: ACETAMINOPHEN 325 MG TABLET/CAPLET (TYLENOL) ONE (21:22)
[2017-02-01] MEDS: NS IV 1000 ML 1,000 ML IV SCH (21:29)
[2017-02-01] MEDS ORDERED: ENOXAPARIN 30 MG/0.3 ML (LOVENOX) SYR SC ONE (21:30)
[2017-02-01] MEDS ORDERED: PIPERACILLIN/TAZOBACTAM 4.5 GM/NS 100 ML IV ONE ×2 (21:30)
[2017-02-01] MEDS ORDERED: ACETAMINOPHEN 325 MG TABLET/CAPLET (TYLENOL) PO PRN ×2 (21:30)
[2017-02-01 22:00] VITALS: BP 96/38
[2017-02-01] MEDS ORDERED: VASOPRESSIN INJECTION 20 UNIT/ML VIAL ONE (22:42)
[2017-02-01] MEDS ORDERED: SODIUM BICARB 8.4% 50 MEQ/50 ML (ABBOTT) SYR ONE (22:42)
[2017-02-01] MEDS ORDERED: HYDROCORTISONE 100 MG/2 ML (Solu-CORTEF) VIAL ONE (22:42)
[2017-02-01] MEDS ORDERED: NS (IVPB) 50 ML ONE (22:43)
[2017-02-01 23:00] VITALS: BP 110/65
[2017-02-01] MEDS ORDERED: SODIUM BICARB 8.4% 50 MEQ/50 ML (ABBOTT) SYR IV ONE (23:00)
[2017-02-01] MEDS ORDERED: CATHETER FLUSH 10 ML SYR IV PRN (23:00)
[2017-02-01] MEDS: VASOPRESSIN INJECTION 20 UNIT in NS (IVPB) 50 ML IV SCH (23:11)
[2017-02-01] MEDS: NOREPINEPHRINE 4 MG in D5W 250 ML (IVPB) IV SCH (23:21)
[2017-02-01] MEDS ORDERED: MIDAZOLAM 5 MG/5 ML (VERSED) VIAL INJ ONE (23:59)
[2017-02-01] MEDS ORDERED: ROCURONIUM 50 MG/5 ML (ZEMURON) VIAL IV ONE (23:59)
[2017-02-02] VITALS (25 sets, daily range): BP systolic 83–181; BP diastolic 46–125
[2017-02-02] MEDS ORDERED: HYDROcodone/APAP 5 MG/325 MG (LORTAB) TAB PO ONE (00:30)
[2017-02-02] MEDS: fentaNYL INJECTION 100 MCG/2 ML AMP IVP PRN ×5 (00:43→23:01)
[2017-02-02] MEDS: NOREPINEPHRINE 4 MG in D5W 250 ML (IVPB) IV SCH ×7 (00:55→23:12)
[2017-02-02] MEDS: NS IV 1000 ML 1,000 ML IV SCH ×7 (00:56→23:07)
[2017-02-02] MEDS: RT-ALBUTEROL SULF 2.5 MG/3 ML PRE-MIX VIAL INH SCH ×2 (02:02→06:37)
[2017-02-02] MEDS ORDERED: NAPR500T3 PO (02:09)
[2017-02-02] MEDS ORDERED: MONT10TA21 PO (02:09)
[2017-02-02] MEDS ORDERED: BUDE10.2 IH (02:09)
[2017-02-02] MEDS: PIPERACILLIN/TAZOBACTAM 4.5 GM/NS 100 ML IVPB IV SCH ×6 (03:38→18:42)
[2017-02-02] MEDS ORDERED: PANTOPRAZOLE 40 MG/10 ML (PROTONIX) VIAL IV ONE (04:00)
[2017-02-02 04:01] LABS: BASOPHILS % (AUTO) 2 % (0-10); EOSINOPHILS # (AUTO) 0.1 10^3/uL (0.0-0.3); EOSINOPHILS % (AUTO) 8 % (0-10); LYMPHOCYTES # (AUTO) 0.8 X 10^3 (1.0-4.0); LYMPHOCYTES % (AUTO) 44 % (12-44); MEAN CORPUSCULAR HEMOGLOBIN 29 PG (25-34); MEAN CORPUSCULAR HGB CONC 33 G/DL (32-36); MEAN CORPUSCULAR VOLUME 90 FL (80-99); MEAN PLATELET VOLUME 11.1 FL (7.4-10.4); MONOCYTES # (AUTO) 0.2 X 10^3 (0.0-1.0); MONOCYTES % (AUTO) 11 % (0-12); NEUTROPHILS # (AUTO) 0.7 X 10^3 (1.8-7.8); NEUTROPHILS % (AUTO) 35 % (42-75); PLATELET COUNT 205 10^3/uL (130-400); RED BLOOD COUNT 3.42 10^6/uL (4.35-5.85); RED CELL DISTRIBUTION WIDTH 15.4 % (10.0-14.5); WHITE BLOOD COUNT 1.8 10^3/uL (4.3-11.0)
[2017-02-02] MEDS ORDERED: NS (IVPB) 50 ML ONE ×2 (04:13→21:45)
[2017-02-02] MEDS ORDERED: VASOPRESSIN INJECTION 20 UNIT/ML VIAL ONE ×2 (04:13→21:45)
[2017-02-02 04:25] LABS: ALBUMIN 2.4 G/DL (3.2-4.5); BILIRUBIN,TOTAL 0.3 MG/DL (0.1-1.0); CALCIUM 6.9 MG/DL (8.5-10.1); CREATININE SERUM 2.21 MG/DL (0.60-1.30); PHOSPHORUS 1.1 MG/DL (2.3-4.7); POTASSIUM 4.9 MMOL/L (3.6-5.0); TOTAL PROTEIN 4.3 G/DL (6.4-8.2)
[2017-02-02] MEDS: VASOPRESSIN INJECTION 20 UNIT in NS (IVPB) 50 ML IV SCH ×4 (04:45→23:11)
[2017-02-02] MEDS: CATHETER FLUSH 10 ML SYR IV SCH ×3 (04:48→19:46)
[2017-02-02 04:53] LABS: MAGNESIUM 0.7 MG/DL (1.8-2.4)
[2017-02-02] MEDS: POTASSIUM CL 10MEQ/50ML IVPB 50 ML IV SCH (04:59)
[2017-02-02] MEDS: KCL 20 MEQ TAB (K-DUR) PO SCH (05:00)
[2017-02-02] MEDS: inSUlin (REGULAR) HUMAN 1 UNIT/0.01 ML (CHARGE PER UNIT) SC SCH ×5 (05:00→23:08)
[2017-02-02] MEDS: MAGNESIUM 1 GM/100 ML IVPB 100 ML IV SCH ×7 (05:23→08:20)
[2017-02-02] MEDS: HYDROCORTISONE 100 MG/2 ML (Solu-CORTEF) VIAL IV SCH ×5 (05:27→23:07)
[2017-02-02] MEDS ORDERED: inSUlin (REGULAR) HUMAN 1 UNIT/0.01 ML (CHARGE PER UNIT) SC SCH (06:00)
--- NOTE | 2017-02-02 06:47 | Pulmonary Consultation ---
History of Present Illness History of Present Illness Date of Consultation 02/02/17 06:42 Date of Admission History of Present Illness 56yo with hx of CLL known to Dr. Lopez upon ED admission he was found to be hypotensive with SBP in50's. Pt was admitted to ICU and is currently on Levophed and vasopressin. He has severe sepsis with septic shock and has received over 30ml/kg of IVF. UDS is positive for marijuana and methamphetamines. No prior episodes like this. I am consulted for pulmonary/cc management. Allergies and Home Medications Allergies Coded Allergies: alprazolam (Unverified Adverse Reaction, Unknown, EZRA KEANE , 11/06/14) Home Medications Albuterol Sulfate 90 Mcg Aer.pow.ba 90 MCG IH Q4H PRN PRN SHORTNESS OF BREATH ( Reported) Amitriptyline HCl 50 Mg Tablet 75 MG PO HS (Reported) Budesonide/Formoterol Fumarate 10.2 Gm Hfa.aer.ad 2 PUFF IH BID (Reported) Calcium Carbonate 500 Mg Tab.chew 500 MG PO PRN (Reported) Cetirizine HCl 10 Mg Tablet 10 MG PO DAILY (Reported) Cyclobenzaprine HCl 10 Mg Tablet 10 MG PO BID (Reported) Diazepam 10 Mg Tablet 10 MG PO BID (Reported) Escitalopram Oxalate 20 Mg Tablet 20 MG PO DAILY (Reported) Furosemide 40 Mg Tablet 20 MG PO DAILY (Reported) Hydralazine HCl 10 Mg Tablet 20 MG PO HS (Reported) take 2 (10mg) tabs Hydrocodone Bit/Acetaminophen 1 Each Tablet 1 TAB PO TID (Reported) Ibrutinib 140 Mg Capsule 280 MG PO DAILY (Reported) take 3 (140mg) tabs Ibuprofen 800 Mg Tablet 800 MG PO TID (Reported) Levalbuterol HCl 1.25 Mg/0.5 Ml Vial.neb 1.25 MG IH Q8H PRN PRN SHORTNESS OF BREATH (Reported) Metoprolol Tartrate 50 Mg Tablet 50 MG PO BID (Reported) Montelukast Sodium 10 Mg Tablet 10 MG PO HS (Reported) Naproxen 500 Mg Tablet 500 MG PO BID (Reported) Omeprazole 40 Mg Capsule.dr 40 MG PO DAILY (Reported) Ondansetron 8 Mg Tab.rapdis #10 8 MG PO Q6H PRN PRN NAUSEA/VOMITING Prescribed by: IBETH CABRERA on 11/06/14 1512 Potassium Chloride 20 Meq Tab.prt.sr 20 MEQ PO TID (Reported) Prednisone 10 Mg Tab 5 MG PO DAILY (Reported) Trazodone HCl 100 Mg Tablet 100 MG PO BID (Reported) Venlafaxine HCl 37.5 Mg Tab 75 MG PO BID (Reported) Past Ougygqv-Mdfvkj-Vuqopu Hx Patient Social History Alcohol Use: Occasionally Uses Recreational Drug Use: Yes Drug of Choice: METH/POT Smoking Status: Current Everyday Smoker Type Used: Cigarettes Recent Foreign Travel: No Contact w/Someone Who Travel: No Recent Infectious Disease Expo: No Recent Hopitalizations: No Physical Abuse Screen: No Sexual Abuse: No Immunizations Up To Date PED Vaccines UTD: No Date of Pneumonia Vaccine: Sep 30, 2014 Date of Influenza Vaccine: Sep 30, 2014 Seasonal Allergies Seasonal Allergies: No Surgeries HX Surgeries: Yes (lymph node biopsy x3, port placed and removed) Surgeries: Orthopedic Respiratory Hx Respiratory Disorders: Yes (COPD/CHRONIC BRONCHITIS) Respiratory Disorders: Asthma, Chronic Bronchitis, COPD, Emphysema Cardiovascular Hx Cardiac Disorders: Yes Cardiac Disorders: Hypertension Neurological Hx Neurological Disorders: No Reproductive System Hx Reproductive Disorders: No Sexually Transmitted Disease: No HIV/AIDS: No Genitourinary Hx Genitourinary Disorders: No Gastrointestinal Hx Gastrointestinal Disorders: Yes Gastrointestinal Disorders: Gastroesophageal Reflux, Hepatitis Musculoskeletal Hx Musculoskeletal Disorders: Yes (DJD CERVICAL SPINE) Musculoskeletal Disorders: Chronic Back Pain Endocrine Hx Endocrine Disorders: No HEENT HX ENT Disorders: Yes HEENT Disorders: Glaucoma Loss of Vision: Denies Hearing Impairment: Hard of Hearing Cancer Hx Cancer: Yes (CLL, SLL) Cancer: Leukemia, Lymphoma Psychosocial Hx Psychiatric Problems: Yes Behavioral Health Disorders: Anxiety, Depression Integumentary HX Skin/Integumentary Disorder: No Blood Transfusions Hx Blood Disorders: Yes (LYMPHOMA AND LEUKEMIA HISTORY/HEP C) Adverse Reaction to a Blood Tr: No Family Medical History Family Medial History: Alcoholism G8 BROTHER Colon cancer G8 BROTHER, , Onset:Unknown FHx: heart disease G8 BROTHER, Onset:Unknown G8 BROTHER, Onset:Unknown Hypertension 19 MOTHER, , Onset:Unknown Myocardial infarction 19 FATHER, , Onset:60 years & older 19 MOTHER, , Onset:Unknown G8 BROTHER, , Onset:Unknown G8 BROTHER, , Onset:Unknown Neoplasm Exam Exam Vital Signs Date Time Temp Pulse Resp B/P Pulse Ox O2 Delivery O2 Flow Rate FiO2 02/02/17 06:37 94 2.00 02/02/17 06:00 105 28 92/58 92 Nasal Cannula 2.00 02/02/17 05:00 98.2 106 32 83/59 94 Nasal Cannula 2.00 02/02/17 03:43 99.0 112 26 88/73 94 Nasal Cannula 2.00 02/02/17 03:40 94 2.00 02/02/17 02:02 98 4.00 02/02/17 02:00 99.6 112 23 105/68 96 Nasal Cannula 2.00 02/02/17 01:00 99.8 114 26 134/81 94 Nasal Cannula 4.00 02/02/17 01:00 112 02/02/17 00:15 96 2.00 02/02/17 00:00 100.7 107 16 111/73 88 Nasal Cannula 2.00 02/01/17 23:00 113 36 110/65 96 Nasal Cannula 2.00 02/01/17 22:01 98 2.00 02/01/17 22:00 101.8 114 36 96/38 94 Nasal Cannula 2.00 02/01/17 21:57 98 02/01/17 21:27 101.0 02/01/17 21:22 116 02/01/17 21:15 101.0 116 30 114/64 100 Nasal Cannula 2.00 02/01/17 21:03 2.00 02/01/17 20:50 100.3 115 19 100 02/01/17 20:18 111 24 102/84 100 Nasal Cannula 4 02/01/17 19:58 110 20 79/56 98 5 02/01/17 19:35 99.6 106 21 82/58 97 5 02/01/17 17:45 97.0 101 24 96 I & O 02/02/17 07:00 Intake Total 5051 ml Output Total 250 ml Balance 4801 ml General Appearance: No Apparent Distress WD/WN HEENT: PERRL/EOMI TMs Normal Neck: Full Range of Motion Normal Inspection Respiratory: No Accessory Muscle Use No Respiratory Distress Decreased Breath Sounds Cardiovascular: Regular Rate, Rhythm No Edema Other (weak peripheral pulses. Blanching of the fingertips bilaterally noted. Upon arrival to our ER initial blood pressure 128/63 ) Capillary Refill: Less Than 3 Seconds Extremity: Normal Capillary Refill Normal Inspection Neurologic/Psychiatric: Alert Oriented x3 Skin: Normal Color Warm/Dry Results Lab Laboratory Tests 02/01/17 17:55 02/02/17 03:45 Assessment/Plan Assessment/Plan Acute severe sepsis with septic shock secondary to pneumonia -- immunosuppressed -Continue aggressive IVF -Pt currently has left Groshong -Olson cultures -continue broad spectrum Abx -solucortef Severe R>L pneumonia with dyspnea and accessory muscle use -check ABG -Pt will most likely end up needing ventilator will have low threshold for intubation UDS is + for methamphetamines and Marijuana -- pt denies use Anemia - monitor Metabolic lactic acidosis -IVF CLL -on chemotherapy Clinical Quality Measures DVT/VTE Risk/Contraindication: Risk Factor Score Per Nursin RFS Level Per Nursing on Admit: 4+=Very High LOLA CLAIRE DO Feb 02, 2017 06:47
[2017-02-02] MEDS ORDERED: ALLO300T2 PO (07:08)
[2017-02-02] MEDS ORDERED: ALLO100T PO ×2 (07:08→08:53)
[2017-02-02] MEDS ORDERED: RT-ALBUTEROL/IPRATROPIUM 3 ML (DUONEB) VIAL INH PRN (07:15)
[2017-02-02] MEDS ORDERED: VANCOMYCIN 1 GM/NS 250 ML IVPB IV SCH ×2 (07:30)
[2017-02-02 08:14] LABS: ABG OXYGEN SATURATION 81 % (94-100); ABG PCO2 31 MMHG (35-45); ABG PO2 47 MMHG (79-93); ABG TCO2 16.8 MMOL/L (21.0-31.0)
[2017-02-02 08:16] LABS: ABG HCO3 16 MMOL/L (23-27); ABG PH 7.33 (7.37-7.43); ALLENS TEST YES-POS
[2017-02-02] MEDS: PANTOPRAZOLE 40 MG/10 ML (PROTONIX) VIAL IV SCH ×2 (08:26→19:46)
[2017-02-02] MEDS ORDERED: PRED5TAB PO (08:36)
[2017-02-02] MEDS ORDERED: VNL75T PO (08:36)
[2017-02-02] MEDS ORDERED: ONDA8TAB12 PO (08:36)
[2017-02-02] MEDS ORDERED: TIOT18CA2 IH (08:53)
[2017-02-02] MEDS ORDERED: LEVA1.2527 NEB (08:53)
[2017-02-02] MEDS ORDERED: RT-ALBUINH INH (08:53)
[2017-02-02] MEDS ORDERED: ACET-2267 PO (08:54)
[2017-02-02] MEDS ORDERED: proPOfol 200 MG/20 ML (DIPRIVAN) VIAL IV ONE (09:37)
[2017-02-02] MEDS ORDERED: PHENYLEPHRINE INJ 10 MG/ML (NEO-SYNEPHRINE 1%) ONE (09:39)
[2017-02-02] MEDS ORDERED: PROPOFOL DRIP (ICU) 100 ML IV ONE (09:42)
--- NOTE | 2017-02-02 10:19 | Anesthesia-Procedure Note ---
Procedure Start/Stop Time Date of Procedure: Feb 02, 2017 Start Time: 09:40 Stop Time: 10:10 Procedures/Interventions Reason for Intubation: Sepsis, impending respiratory failure RSI: No 100% pre-Ox, [id number]: Yes Intubation Method: orotracheal Videoscope used: Yes Grade View: 1 Medications: Propofol (100 mg), Succinylcholine (80 mg), Versed (3 mg) Positive End Tide CO2: Yes Breath Sounds after Intubation: bilateral-equal ETT Securred @ (cm): 23 Intubated with ease: Yes Intubation Complications: no complications Post Intubation Xray-done: Yes Progress Care turned over to BRUSH PAINTER and RT Arterial Line Catheter: 20G Type: Radial Location: Right Procedure: prepped, draped in sterile fashion, good wave-form was obtained, patient tolerated procedure well, no immediate complications, post procedure area cleaned, post procedure dressing applied PILY DOWELL CRNA Feb 02, 2017 10:19
--- NOTE | 2017-02-02 11:17 | Diagnostic Imaging Report ---
INDICATION: Intubated patient. COMPARISON: Earlier same day FINDINGS: Single frontal radiographic view of the chest was obtained and demonstrates interval placement of endotracheal tube, tip of which is below the clavicular heads and above the max. Enteric tube extends inferiorly beyond the aqyon-ev-[id number]. Lung allred show interval progression of interstitial and likely early alveolar opacities within the left upper lung. Dense consolidations remain on the right. There is no large effusion or pneumothorax. Cardiac silhouette is enlarged. IMPRESSION: 1. Lines and tubes as above. 2. Increased infiltrates within the left upper lobe. 3. Stable diffuse infiltrates on the right. Dictated by: Dictated on workstation # [id number]
[2017-02-02 11:27] LABS: ABG BASE EXCESS -9.6 MMOL/L (-2.5-2.5); ABG HCO3 18 MMOL/L (23-27); ABG OXYGEN SATURATION 87 % (94-100); ABG PCO2 62 MMHG (35-45); ABG PO2 69 MMHG (79-93); ABG TCO2 20.3 MMOL/L (21.0-31.0)
[2017-02-02 11:32] LABS: ALLENS TEST YES-POS; PATIENT TEMP 99.1
[2017-02-02] MEDS: ENOXAPARIN 40 MG/0.4 ML (LOVENOX) SYR SC SCH (11:32)
--- NOTE | 2017-02-02 11:37 | Occ Therapy Progress Note ---
Therapy Progress Note Order received for OT eval and treat. Chart review completed. Pt is currently on vent. Will continue to monitor and will evaluate once pt is extubated. CHRIS PHAN OT Feb 02, 2017 11:37
[2017-02-02] MEDS: RT-ALBUTEROL/IPRATROPIUM 3 ML (DUONEB) VIAL INH SCH ×4 (11:50→22:13)
--- NOTE | 2017-02-02 12:03 | History & Physical-Hospitalist ---
HPI History of Present Illness: HPI/Chief Complaint CC: Fever and weakness HPI: This is a 56yoWM pt of [facility] that presented to ER from [facility] due to nausea and vomiting with fever. He is currently being treated by Dr. Lopez for CLL. He was hypotension with SBP of 50, receive IV fluids and improved SBP of 70. RLL revealed pneumonia, pt receive Rocephin before transfer , and pt has been treated for septic shock through the night, requiring presser therapy. He is currently being urgently intubated due to multisystem organ failure. Chart Review: WBC was 1.4 on admission, today 1.8 Hgb 10 ABG 7.33/31/47 requiring intubation Na+ 132 Creat 2.2 up from 1.9 Mg 0.7 Ua negative UDS positive for meth and marijuana Pt will be intubated Patient Interview: Pt not fully alert during visit. Pt requiring intubation urgently. Scribed by Paul Dejesus under the direct supervision of Dr. Ward. Source: RN/MD Exam Limitations: clinical condition Date Seen 02/02/17 Attending Physician Zackary Carpio MD PCP [facility] Referring Physician Date of Admission Feb 01, 2017 at 18:46 Home Medications & Allergies Home Medications Reviewed patient Home Medication Reconciliation Form Allergies Coded Allergies: alprazolam (Unverified Adverse Reaction, Unknown, MAKES DIYA , 11/06/14) Past Ojnedqt-Elkibr-Vaoczw Hx Patient Social History Employed/Student: unemployed Alcohol Use: Occasionally Uses Recreational Drug Use: Yes Drug of Choice: METH/POT Smoking Status: Current Everyday Smoker Type Used: Cigarettes Physical Abuse Screen: No Sexual Abuse: No Recent Foreign Travel: No Contact w/other who traveled: No Recent Hopitalizations: No Recent Infectious Disease Expo: No Immunizations Up To Date Date of Pneumonia Vaccine: Sep 30, 2014 Date of Influenza Vaccine: Sep 30, 2014 Seasonal Allergies Seasonal Allergies: No Surgeries HX Surgeries: Yes (lymph node biopsy x3, port placed and removed) Surgeries: Orthopedic Respiratory Hx Respiratory Disorders: Yes (COPD/CHRONIC BRONCHITIS) Respiratory Disorders: COPD Cardiovascular Hx Cardiovascular Disorders: Yes Cardiac Disorders: Hypertension Neurological Hx Neurological Disorders: No Reproductive System Hx Reproductive Disorders: No Sexually Transmitted Disease: No HIV/AIDS: No Genitourinary Hx Genitourinary Disorders: No Gastrointestinal Hx Gastrointestinal Disorders: Yes Gastrointestinal Disorders: Gastroesophageal Reflux, Hepatitis Musculoskeletal Hx Musculoskeletal Disorders: Yes (DJD CERVICAL SPINE) Musculoskeletal Disorders: Chronic Back Pain Endocrine Hx Endocrine Disorders: No HEENT HX ENT Disorders: Yes HEENT Disorders: Glaucoma Loss of Vision: Denies Hearing Impairment: Hard of Hearing Cancer Hx Cancer: Yes (CLL, SLL) Cancer: Leukemia, Lymphoma Psychosocial Hx Psychiatric Problems: Yes Behavioral Health Disorders: Anxiety, Depression Integumentary HX Skin/Integumentary Disorder: No Blood Transfusions Hx Blood Disorders: Yes (LYMPHOMA AND LEUKEMIA HISTORY/HEP C) Adverse Reaction to a Blood Tr: No Family Medical History Family Hx: Alcoholism G8 BROTHER Colon cancer G8 BROTHER, , Onset:Unknown FHx: heart disease G8 BROTHER, Onset:Unknown G8 BROTHER, Onset:Unknown Hypertension 19 MOTHER, , Onset:Unknown Myocardial infarction 19 FATHER, , Onset:60 years & older 19 MOTHER, , Onset:Unknown G8 BROTHER, , Onset:Unknown G8 BROTHER, , Onset:Unknown Neoplasm Review of Systems Constitutional: see HPI fever malaise weakness EENTM: no symptoms reported Respiratory: cough short of breath Cardiovascular: no symptoms reported Gastrointestinal: no symptoms reported Genitourinary: no symptoms reported Musculoskeletal: no symptoms reported Skin: no symptoms reported Psychiatric/Neurological: No Symptoms Reported All Other Systems Reviewed Negative Unless Noted: Yes Physical Exam Physical Exam Vital Signs Vital Sign - Last 12Hours 02/01/17 02/01/17 02/01/17 02/02/17 17:45 19:35 20:18 10:39 Temp 97.0 Pulse 101 Resp 24 B/P 82/58 Pulse Ox 96 O2 Delivery Nasal Cannula O2 Flow Rate 5 FiO2 95 Capillary Refill : Less Than 3 Seconds General Appearance: Anxious Chronically ill Obese HEENT: PERRL/EOMI Neck: Full Range of Motion Normal Inspection Non Tender Supple Respiratory: Crackles Decreased Breath Sounds Wheezing Cardiovascular: Regular Rate, Rhythm No Edema No Gallop No JVD Gastrointestinal: Normal Bowel Sounds No Organomegaly No Pulsatile Mass Non Tender Extremity: Non Tender Slow Capillary Refill Neurologic/Psychiatric: Alert Disoriented x3 Skin: Normal Color Warm/Dry Lymphatic: No Adenopathy Results Results/Procedures Lab Laboratory Tests 02/01/17 17:55 02/02/17 03:45 Assessment/Plan Admission Diagnosis Assessment: Multisystem organ failure due to immune suppression from chemo for CLL with RLL pneumonia with septic shock requiring intubation Methamphetamine on UDS with marijuana Assessment and Plan Plan: Intubation Monitor closely Poor prognosis long-term Clinical Quality Measures DVT/VTE Risk/Contraindication: Risk Factor Score Per Nursin RFS Level Per Nursing on Admit: 4+=Very High KIMBERLY WARD DO Feb 02, 2017 12:03
--- NOTE | 2017-02-02 12:16 | Diagnostic Imaging Report ---
INDICATION: Septic shock, pneumonia. COMPARISON: 02/01/2017. FINDINGS: Bilateral infiltrates right greater than left are not substantially changed. Upper limits heart size and some prominence of the upper lobe pulmonary venous structures not significantly changed. No pleural fluid or pneumothorax. Catheter via left subclavian has its tip overlying the lower SVC stable. IMPRESSION: No significant interval change in bilateral infiltrates greater right. Dictated by: Dictated on workstation # [id number]
[2017-02-02 12:58] LABS: ABG BASE EXCESS -9.2 MMOL/L (-2.5-2.5); ABG HCO3 19 MMOL/L (23-27); ABG OXYGEN SATURATION 90 % (94-100); ABG PCO2 58 MMHG (35-45); ABG PO2 74 MMHG (79-93); ABG TCO2 20.3 MMOL/L (21.0-31.0)
[2017-02-02 13:02] LABS: ABG PH 7.13 (7.37-7.43)
[2017-02-02 13:03] LABS: ALLENS TEST YES-POS; PATIENT TEMP 98.4
--- NOTE | 2017-02-02 13:34 | Consultation ---
History of Present Illness History of Present Illness Patient Consulted On(chanel/time) 02/02/17 13:24 Date of Admission 02/01/17 History of Present Illness This is a 56-year-old male who is well known to me and has been admitted admitted to the ICU bed 11 with septic shock. Patient has known history of CLL/SLL most recently was being treated with improvement, which was initially started in November 2015. He was last seen by me on 01/05/17 when his total WBC was 11,600 with an ANC of 7700. The last several months patient has had a WBC in the same range (around 11,000) with ANCs in the 7000 and total lymphocyte counts around 3000. Patient is currently intubated but medical record reflects that he had had fever nausea and vomiting for several days prior to admission. Chest x-ray was done and showed right lower lobe infiltrate /consolidation in [place] and here. He was transferred from [place] ER where he received IV fluids and IV Rocephin 2 gms prior to transfer. He continues to receive pressor support and is receiving IV Vancomycin, levofloxacin, and Zosyn. Patient has known history of COPD; he also has known history of polysubstance abuse including methamphetamines, marijuana, and alcohol. Urine drug screen is positive for methamphetamine, marijuana, among others. Allergies and Home Medications Allergies Coded Allergies: alprazolam (Unverified Adverse Reaction, Unknown, EZRA KEANE , 11/06/14) Home Medications Acetaminophen 500 Mg Tablet 500-1,000 MG PO Q6H PRN PRN PAIN (Reported) Albuterol Sulfate 1 Puff Puff 2 PUFF INH Q4H PRN PRN SHORTNESS OF BREATH ( Reported) Allopurinol 100 Mg Tablet 300 MG PO MoWeFr (Reported) TAKES 3 (100MG) TABLETS Allopurinol 100 Mg Tablet 200 MG PO SuTuThSa (Reported) TAKES 2 (100MG) TABLETS Amitriptyline HCl 50 Mg Tablet 75 MG PO HS (Reported) TAKES 1 & 1/2 (50MG) TABLETS Budesonide/Formoterol Fumarate 10.2 Gm Hfa.aer.ad 2 PUFF IH BID (Reported) Calcium Carbonate 500 Mg Tab.chew 500 MG PO TID PRN PRN INDIGESTION (Reported) Cetirizine HCl 10 Mg Tablet 10 MG PO DAILY (Reported) Cyclobenzaprine HCl 10 Mg Tablet 10 MG PO BID (Reported) Diazepam 10 Mg Tablet 10 MG PO BID (Reported) Escitalopram Oxalate 20 Mg Tablet 20 MG PO DAILY (Reported) Furosemide 40 Mg Tablet 20 MG PO DAILY (Reported) TAKES 1/2 (40MG) TABLET Hydralazine HCl 10 Mg Tablet 20 MG PO HS (Reported) TAKES 2 (10MG) TABLETS Hydrocodone Bit/Acetaminophen 1 Each Tablet 1 TAB PO TID (Reported) Ibrutinib 140 Mg Capsule 280 MG PO DAILY (Reported) TAKES 2 (140MG) CAPSULES Levalbuterol HCl 1.25 Mg/3 Ml Vial.neb 1.25 MG NEB Q8H PRN PRN SHORTNESS OF BREATH (Reported) Metoprolol Tartrate 50 Mg Tablet 50 MG PO BID (Reported) Montelukast Sodium 10 Mg Tablet 10 MG PO HS (Reported) Naproxen 500 Mg Tablet 500 MG PO BID (Reported) Omeprazole 40 Mg Capsule.dr 40 MG PO DAILY (Reported) Ondansetron HCl 8 Mg Tablet 8 MG PO TID PRN PRN NAUSEA/VOMITING (Reported) Potassium Chloride 20 Meq Tab.prt.sr 20 MEQ PO BID (Reported) Prednisone 5 Mg Tablet 5 MG PO DAILY (Reported) Tiotropium [place] 1 Inh Aerp 1 CAP IH DAILY (Reported) Trazodone HCl 100 Mg Tablet 100 MG PO BID (Reported) Venlafaxine HCl 75 Mg Tab 75 MG PO BID (Reported) Past Rowuzdz-Hebdtm-Clsjej Hx Patient Social History Alcohol Use: Occasionally Uses Recreational Drug Use: Yes Drug of Choice: METH/POT Smoking Status: Current Everyday Smoker Type Used: Cigarettes Recent Foreign Travel: No Contact w/Someone Who Travel: No Recent Infectious Disease Expo: No Recent Hopitalizations: No Physical Abuse Screen: No Sexual Abuse: No Immunizations Up To Date PED Vaccines UTD: No Date of Pneumonia Vaccine: Sep 30, 2014 Date of Influenza Vaccine: Sep 30, 2016 Seasonal Allergies Seasonal Allergies: No Surgeries HX Surgeries: Yes (lymph node biopsy x3, port placed and removed) Surgeries: Orthopedic Respiratory Hx Respiratory Disorders: Yes (COPD/CHRONIC BRONCHITIS) Respiratory Disorders: Asthma, Chronic Bronchitis, COPD, Emphysema Cardiovascular Hx Cardiac Disorders: Yes Cardiac Disorders: Hypertension Neurological Hx Neurological Disorders: No Reproductive System Hx Reproductive Disorders: No Sexually Transmitted Disease: No HIV/AIDS: No Genitourinary Hx Genitourinary Disorders: No Gastrointestinal Hx Gastrointestinal Disorders: Yes Gastrointestinal Disorders: Gastroesophageal Reflux, Hepatitis Musculoskeletal Hx Musculoskeletal Disorders: Yes (DJD CERVICAL SPINE) Musculoskeletal Disorders: Chronic Back Pain Endocrine Hx Endocrine Disorders: No HEENT HX ENT Disorders: Yes HEENT Disorders: Glaucoma Loss of Vision: Denies Hearing Impairment: Hard of Hearing Cancer Hx Cancer: Yes (CLL, SLL) Cancer: Leukemia, Lymphoma Psychosocial Hx Psychiatric Problems: Yes Behavioral Health Disorders: Anxiety, Depression Integumentary HX Skin/Integumentary Disorder: No Blood Transfusions Hx Blood Disorders: Yes (LYMPHOMA AND LEUKEMIA HISTORY/HEP C) Adverse Reaction to a Blood Tr: No Family Medical History Family Medial History: Alcoholism G8 BROTHER Colon cancer G8 BROTHER, , Onset:Unknown FHx: heart disease G8 BROTHER, Onset:Unknown G8 BROTHER, Onset:Unknown Hypertension 19 MOTHER, , Onset:Unknown Myocardial infarction 19 FATHER, , Onset:60 years & older 19 MOTHER, , Onset:Unknown G8 BROTHER, , Onset:Unknown G8 BROTHER, , Onset:Unknown Neoplasm Review of Systems-General Constitutional: see HPI fever weakness Respiratory: cough short of breath Physical Exam-General Problems Physical Exam Vital Signs Vital Sign - Last 12Hours 02/01/17 02/01/17 02/01/17 02/02/17 17:45 19:35 20:18 10:39 Temp 97.0 Pulse 101 Resp 24 B/P 82/58 Pulse Ox 96 O2 Delivery Nasal Cannula O2 Flow Rate 5 FiO2 95 Capillary Refill : Less Than 3 Seconds General Appearance: other (patient is intubated and sedated) Respiratory: crackles rhonchi Cardiovascular: tachycardia Gastrointestinal: normal bowel sounds soft Extremities: no pedal edema Comments Laboratory Tests 02/01/17 17:54: 02/01/17 17:55: Albumin 2.5L, Calcium Level 7.4L, Carbon Dioxide Level 17L, Creatinine 1.99H, Hematocrit 31L, Hemoglobin 10.2L, Lactic Acid Level 3.35*H, Lymphocytes # (Auto ) 0.8L, Lymphocytes (%) (Auto) 62H, Mean Platelet Volume 11.0H, Neutrophils # ( Auto) 0.3L, Neutrophils (%) (Auto) 18L, Potassium Level 3.4L, Red Blood Count 3.45L, Red Cell Distribution Width 15.6H, Total Protein 4.4L, White Blood Count 1.4*L 3/7/17 17:58: Ur Tricyclic Antidepressants Screen POSITIVEH, Urine Amphetamines Screen POSITIVEH, Urine Benzodiazepines Screen POSITIVEH, Urine Cannabinoids Screen POSITIVEH, Urine Methamphetamines Screen POSITIVEH, Urine Opiates Screen POSITIVEH, Urine Specific [place] 1.005L 02/01/17 19:52: Lactic Acid Level 5.84*H 02/01/17 20:00: Arterial Blood Base Excess -7.7L, Arterial Blood HCO3 17*L, Arterial Blood Oxygen Saturation 88L, Arterial Blood Partial Pressure CO2 32L, Arterial Blood Partial Pressure O2 55L, Arterial Blood Total CO2 17.8L, Arterial Blood pH 7.35L 02/01/17 23:19: 02/02/17 00:07: 02/02/17 01:21: 02/02/17 02:52: Glucometer 118H 02/02/17 03:45: Albumin 2.4L, Calcium Level 6.9L, Carbon Dioxide Level 17L, Creatinine 2.21H, Glucose Level 125H, Hematocrit 31L, Hemoglobin 10.0L, Lymphocytes # (Auto) 0.8L , Magnesium Level 0.7*L, Mean Platelet Volume 11.1H, Neutrophils # (Auto) 0.7L, Neutrophils (%) (Auto) 35L, Phosphorus Level 1.1L, Red Blood Count 3.42L, Red Cell Distribution Width 15.4H, Sodium Level 132L, Total Protein 4.3L, White Blood Count 1.8L 02/02/17 03:53: Glucometer 113H 02/02/17 08:05: Arterial Blood Base Excess -9.0L, Arterial Blood HCO3 16*L, Arterial Blood Oxygen Saturation 81L, Arterial Blood Partial Pressure CO2 31L, Arterial Blood Partial Pressure O2 47L, Arterial Blood Total CO2 16.8L, Arterial Blood pH 7.33* L 02/02/17 08:18: Glucometer 203H 02/02/17 10:34: Lactic Acid Level 4.41*H 02/02/17 11:23: Arterial Blood Base Excess -9.6L, Arterial Blood HCO3 18L, Arterial Blood Oxygen Saturation 87L, Arterial Blood Partial Pressure CO2 62H, Arterial Blood Partial Pressure O2 69L, Arterial Blood Total CO2 20.3L, Arterial Blood pH 7.10* L 02/02/17 12:51: Arterial Blood Base Excess -9.2L, Arterial Blood HCO3 19L, Arterial Blood Oxygen Saturation 90L, Arterial Blood Partial Pressure CO2 58H, Arterial Blood Partial Pressure O2 74L, Arterial Blood Total CO2 20.3L, Arterial Blood pH 7.13* L 02/02/17 12:59: Lactic Acid Level 2.22*H 02/02/17 15:25: Arterial Blood Base Excess -9.8L, Arterial Blood HCO3 17*L, Arterial Blood Partial Pressure CO2 46H, Arterial Blood Partial Pressure O2 138H, Arterial Blood Total CO2 18.3L, Arterial Blood pH 7.19*L 02/02/17 16:51: Laboratory Tests 02/01/17 17:55 02/02/17 03:45 Chest x-ray done in 02/02/17:FINDINGS: Single frontal radiographic view of the chest was obtained and demonstrates interval placement of endotracheal tube, tip of which is below the clavicular heads and above the max. Enteric tube extends inferiorly beyond the [id number]. Lung allred show interval progression of interstitial and likely early alveolar opacities within the left upper lung. Dense consolidations remain on the right. There isno large effusion or pneumothorax. Cardiac silhouette is enlarged. IMPRESSION: 1. Lines and tubes as above. 2. Increased infiltrates within the left upper lobe. 3. Stable diffuse infiltrates on the right. Assessment/Plan Assessment/Plan Admission Diagnosis/Plan 1. Septic shock in an immunocompromised host; chest x-ray showing multilobar pneumonia with dense consolidation and right lower lobe. a. Currently receiving aggressive IV fluid replacement 30ml/kg, IV vancomycin, levofloxacin and Zosyn, IV pressors, and ventilatory support. b. Multiorgan failure present with hypoxemia respiratory failure, resp acidosis, elevated creatinine. c. Continue management as outlined by ICU team 2. Neutropenia and fever impacted by number 1. 3. CLL/SLL was being treated with Imbruvica (Ibrutinib), 2 tabs daily with stable counts at last visit on 01/05/17. 4. Positive urine drug screen with agents that may have increased effective dose of Imbruvica (Ibrutinib). Well-documented history of prior use of heavy alcohol, marijuana, and methamphetamines which patient states he had eliminated prior to starting current therapy with Imbruvica (Ibrutinib). 5. Chronic hepatitis C 6. COPD 7. History of multiple comorbidities including chronic tobaccoism, depression, history of excessive alcohol intake, history of multiple head traumas, and history GERD and depression 8. [place] is poor. Clinical Quality Measures DVT/VTE Risk/Contraindication: Risk Factor Score Per Nursin RFS Level Per Nursing on Admit: 4+=Very High MASOOD MEYER MD Feb 02, 2017 13:34
[2017-02-02] MEDS: PROPOFOL DRIP (ICU) 100 ML IV SCH ×3 (13:35→21:45)
--- NOTE | 2017-02-02 13:59 | Physical Therapy Progress Note ---
Therapy Progress Note Evaluation attempted but patient is still intubated. Medical chart review complete. Will check back in the morning. LALITA COOK PT Feb 02, 2017 13:59
[2017-02-02 15:33] LABS: ABG BASE EXCESS -9.8 MMOL/L (-2.5-2.5); ABG OXYGEN SATURATION 98 % (94-100); ABG PCO2 46 MMHG (35-45); ABG PO2 138 MMHG (79-93); ABG TCO2 18.3 MMOL/L (21.0-31.0)
[2017-02-02 15:36] LABS: ABG PH 7.19 (7.37-7.43)
[2017-02-02 15:37] LABS: ABG HCO3 17 MMOL/L (23-27); ALLENS TEST YES-POS
[2017-02-02] MEDS ORDERED: SODIUM BICARB 8.4% 50 MEQ/50 ML (ABBOTT) SYR IV NR (16:00)
[2017-02-02] MEDS ORDERED: NS INJ ONE (16:58)
[2017-02-02] MEDS ORDERED: SODIUM PHOSPHATE INJ ONE (16:58)
[2017-02-02 17:22] LABS: MAGNESIUM 1.8 MG/DL (1.8-2.4); PHOSPHORUS 4.3 MG/DL (2.3-4.7)
[2017-02-02] MEDS ORDERED: LEVOFLOXACIN 750 MG/D5W 150 ML PRE-MIX IV SCH (18:00)
[2017-02-03] VITALS (30 sets, daily range): BP systolic 84–151; BP diastolic 42–73
[2017-02-03] MEDS: fentaNYL INJECTION 100 MCG/2 ML AMP IVP PRN ×2 (01:00→05:12)
[2017-02-03] MEDS: PROPOFOL DRIP (ICU) 100 ML IV SCH ×5 (01:58→20:32)
[2017-02-03] MEDS: RT-ALBUTEROL/IPRATROPIUM 3 ML (DUONEB) VIAL INH SCH ×5 (02:07→18:25)
[2017-02-03] MEDS: PIPERACILLIN/TAZOBACTAM 4.5 GM/NS 100 ML IVPB IV SCH ×4 (03:24→14:04)
[2017-02-03 04:21] LABS: ABG BASE EXCESS -6.3 MMOL/L (-2.5-2.5); ABG HCO3 21 MMOL/L (23-27); ABG OXYGEN SATURATION 97 % (94-100); ABG PCO2 57 MMHG (35-45); ABG PO2 93 MMHG (79-93); ABG TCO2 22.6 MMOL/L (21.0-31.0)
[2017-02-03 04:22] LABS: BASOPHILS % (AUTO) 0 % (0-10); EOSINOPHILS % (AUTO) 0 % (0-10); LYMPHOCYTES # (AUTO) 1.3 X 10^3 (1.0-4.0); LYMPHOCYTES % (AUTO) 14 % (12-44); MEAN CORPUSCULAR HEMOGLOBIN 30 PG (25-34); MEAN CORPUSCULAR HGB CONC 32 G/DL (32-36); MEAN CORPUSCULAR VOLUME 93 FL (80-99); MEAN PLATELET VOLUME 10.8 FL (7.4-10.4); MONOCYTES # (AUTO) 1.1 X 10^3 (0.0-1.0); MONOCYTES % (AUTO) 11 % (0-12); NEUTROPHILS # (AUTO) 6.9 X 10^3 (1.8-7.8); NEUTROPHILS % (AUTO) 74 % (42-75); PLATELET COUNT 156 10^3/uL (130-400); RED BLOOD COUNT 3.45 10^6/uL (4.35-5.85); RED CELL DISTRIBUTION WIDTH 16.4 % (10.0-14.5); WHITE BLOOD COUNT 9.4 10^3/uL (4.3-11.0)
[2017-02-03 04:25] LABS: ABG PH 7.18 (7.37-7.43); ALLENS TEST ART LINE; PATIENT TEMP 97.9
[2017-02-03 04:44] LABS: CREATININE SERUM 1.52 MG/DL (0.60-1.30)
[2017-02-03] MEDS: POTASSIUM CL 10MEQ/50ML IVPB 50 ML IV SCH (04:57)
[2017-02-03 05:10] LABS: MAGNESIUM 1.8 MG/DL (1.8-2.4); PHOSPHORUS 4.6 MG/DL (2.3-4.7)
[2017-02-03] MEDS: HYDROCORTISONE 100 MG/2 ML (Solu-CORTEF) VIAL IV SCH ×3 (05:11→18:53)
[2017-02-03] MEDS: KCL 20 MEQ TAB (K-DUR) PO SCH (05:12)
[2017-02-03] MEDS: CATHETER FLUSH 10 ML SYR IV SCH ×3 (05:12→20:28)
[2017-02-03 05:13] LABS: BAND NEUTROPHILS 40 %; BASOPHILS % (MANUAL) 0 %; EOSINOPHILS % (MANUAL) 0 %; LYMPHOCYTES % (MANUAL) 16 %; METAMYELOCYTES % 5 %; NEUTROPHILS % (MANUAL) 27 %
[2017-02-03] MEDS: NOREPINEPHRINE 4 MG in D5W 250 ML (IVPB) IV SCH (05:13)
[2017-02-03 05:14] LABS: ANISOCYTOSIS SLIGHT; CRENATED RBC MODERATE; POIKILOCYTOSIS SLIGHT; POLYCHROMASIA SLIGHT
[2017-02-03 05:15] LABS: SCHISTOCYTES SLIGHT
[2017-02-03] MEDS: inSUlin (REGULAR) HUMAN 1 UNIT/0.01 ML (CHARGE PER UNIT) SC SCH ×3 (05:16→17:31)
[2017-02-03] MEDS: MAGNESIUM 1 GM/100 ML IVPB 100 ML IV SCH (05:18)
[2017-02-03] MEDS ORDERED: ALBUMIN 25% 25 GM/100 ML 200 ML IV ONE (05:37)
[2017-02-03] MEDS ORDERED: SODIUM BICARB 8.4% 50 MEQ/50 ML (ABBOTT) SYR ONE (05:37)
--- NOTE | 2017-02-03 06:11 | Pulmonary Progress Note ---
Subjective Subjective/Events-last exam Pt appears worse today. Family at bedside. Exam Exam Vital Signs Date Time Temp Pulse Resp B/P Pulse Ox O2 Delivery O2 Flow Rate FiO2 02/03/17 06:03 106 02/03/17 05:55 97.8 02/03/17 04:07 115 20 94 70 02/03/17 04:03 98.1 02/03/17 04:00 91 70 02/03/17 03:30 97.8 02/03/17 02:07 128 22 93 70 02/03/17 02:00 129 22 137/59 93 Mechanical Ventilator 70.00 02/03/17 01:58 101.8 131 22 136/61 91 Mechanical Ventilator 4.00 02/03/17 01:00 131 02/03/17 01:00 101.8 02/03/17 01:00 131 21 151/56 92 Mechanical Ventilator 70.00 02/03/17 00:06 129 22 91 70 02/03/17 00:00 129 20 140/56 91 Mechanical Ventilator 70.00 02/03/17 00:00 91 70 02/02/17 23:48 100.8 Mechanical Ventilator 70.00 02/02/17 23:00 134 19 106/46 91 Mechanical Ventilator 70.00 02/02/17 22:13 123 26 94 70 02/02/17 22:00 118 21 145/68 94 Mechanical Ventilator 70.00 02/02/17 21:45 117 02/02/17 21:00 114 20 132/66 95 Mechanical Ventilator 70.00 02/02/17 20:02 118 22 94 70 02/02/17 20:00 92 70 02/02/17 20:00 118 22 118/68 94 Mechanical Ventilator 70.00 02/02/17 19:55 99.0 Mechanical Ventilator 70.00 02/02/17 19:00 116 20 117/68 94 Mechanical Ventilator 70.00 02/02/17 19:00 116 02/02/17 18:30 93 Mechanical Ventilator 70.00 02/02/17 18:26 113 20 95 80 02/02/17 18:00 94 Mechanical Ventilator 80.00 02/02/17 17:57 113 20 100/69 93 Mechanical Ventilator 80.00 02/02/17 17:53 97/67 02/02/17 16:01 112 20 99 80 02/02/17 16:00 94 Mechanical Ventilator 80.00 02/02/17 15:35 99.0 108 20 102/69 99 Mechanical Ventilator 100.00 02/02/17 15:34 92 95 02/02/17 14:30 100 24 92 100 02/02/17 14:00 108 21 110/79 96 Mechanical Ventilator 95.00 02/02/17 13:35 108/63 02/02/17 13:00 115 02/02/17 11:50 112 17 89 95 02/02/17 11:43 99.1 112 15 118/64 92 Mechanical Ventilator 95.00 02/02/17 11:40 92 95 02/02/17 11:00 112 17 181/80 89 Mechanical Ventilator 95.00 02/02/17 10:39 112 18 89 95 02/02/17 10:00 112 13 96 Mechanical Ventilator 95.00 02/02/17 10:00 Mechanical Ventilator 100.00 02/02/17 09:07 105 20 105/76 92 Nasal Cannula 4.00 02/02/17 08:13 98.0 105 31 112/78 91 Nasal Cannula 3.00 02/02/17 08:00 91 3.00 02/02/17 07:00 106 02/02/17 06:37 94 2.00 I & O 02/03/17 07:00 Intake Total 5450 ml Output Total 4000 ml Balance 1450 ml General Appearance: Chronically ill Moderate Distress Obese Other (sedated on vent ) HEENT: PERRL/EOMI Neck: Full Range of Motion Normal Inspection Non Tender Supple Respiratory: Crackles Decreased Breath Sounds Wheezing Cardiovascular: Regular Rate, Rhythm No Edema No Gallop No JVD Capillary Refill: Less Than 3 Seconds Gastrointestinal: normal bowel sounds soft Extremity: Non Tender Slow Capillary Refill Skin: Normal Color Warm/Dry Lymphatic: No Adenopathy Results Lab Laboratory Tests 02/01/17 17:55 02/02/17 03:45 02/03/17 04:15 Assessment/Plan Assessment/Plan Acute severe sepsis with septic shock secondary to pneumonia -- immunosuppressed Tm101.8 -currently on bicarb gtt -Pt is on Levophed and vasopressin - Pt has left [place], midline, and arterial line -Olson cultures - pending -Levaquin, Zosyn, Vanco -solucortef -Pt has had total 8751 NS since admission -UO was around 3liters over last 11hrs ARDS -- Pa02/Fi02 is 133 Severe R>L pneumonia with dyspnea and accessory muscle use -Currently requiring ventilator //10 and currently 60% fi02 UDS is + for methamphetamines and Marijuana -- COPD Anemia - monitor Metabolic lactic acidosis -IVF CLL/SLL -on chemotherapy---Imbruvica (Ibrutinib), 2 tabs daily since 01/05/17 Chronic hepatitis C I spent total of 60min working with patient, RN and discussing with family. They understand patient's prognosis is very poor. 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 They are going think about options. Clinical Quality Measures DVT/VTE Risk/Contraindication: Risk Factor Score Per Nursin RFS Level Per Nursing on Admit: 4+=Very High LOLA CLAIRE DO Feb 03, 2017 06:11 8. [place] is poor. Clinical Quality Measures DVT/VTE Risk/Contraindication: Risk Factor Score Per Nursin RFS Level Per Nursing on Admit: 4+=Very High LOLA CLAIRE DO Feb 03, 2017 06:11
[2017-02-03] MEDS ORDERED: SODIUM BICARB 8.4% 50 MEQ/50 ML (ABBOTT) SYR IV ONE (06:15)
[2017-02-03] MEDS ORDERED: SODIUM BICARBONATE 8.4% VIAL 150 MEQ in WATER FOR INJECTION, STERILE 1,000 ML IV SCH (06:15)
[2017-02-03] MEDS ORDERED: D5W 1000 ML IV SOLUTION 1,000 ML ONE (06:31)
[2017-02-03] MEDS: SODIUM BICARBONATE 8.4% VIAL 100 MEQ in D5W 1000 ML IV SOLUTION 1,000 ML IV SCH ×2 (06:51→17:31)
[2017-02-03] MEDS ORDERED: TROUGH ORDER-PHARMACY XX NR (07:00)
[2017-02-03] MEDS ORDERED: VANCOMYCIN INJECTION 1,500 MG in NS IV 500 ML 500 ML IV SCH (08:00)
[2017-02-03] MEDS ORDERED: LORazepam INJ 2 MG/ML (ATIVAN) VIAL IVP PRN (08:15)
--- NOTE | 2017-02-03 08:16 | Diagnostic Imaging Report ---
INDICATION: Septic shock. COMPARISON STUDY: Chest radiograph from yesterday. FINDINGS: Portable upright view of the chest demonstrates an endotracheal tube, enteric tube and Port-A-Cath remain in place. Heart size remains upper normal. Bilateral pulmonary infiltrates have increased in the right base. There is questionable right pleural effusion. IMPRESSION: Bilateral pulmonary infiltrates have increased in the right base. Dictated by: Dictated on workstation # [id number]
[2017-02-03] MEDS ORDERED: VANCOMYCIN 2000 MG/NS 500 ML IVPB IV NR ×2 (08:26)
[2017-02-03] MEDS: morphine INJ 4 MG/ML 1 ML (VIAL/SYRINGE) IVP PRN ×2 (08:33→10:50)
[2017-02-03] MEDS: PANTOPRAZOLE 40 MG/10 ML (PROTONIX) VIAL IV SCH ×2 (08:33→20:28)
[2017-02-03] MEDS ORDERED: SODIUM BICARB 8.4% 50 MEQ/50 ML (ABBOTT) SYR INJ ONE (10:40)
[2017-02-03] MEDS: ENOXAPARIN 40 MG/0.4 ML (LOVENOX) SYR SC SCH (11:00)
--- NOTE | 2017-02-03 11:04 | Physical Therapy Progress Note ---
Therapy Progress Note No skilled PT indicated due to patient's decline in medical status. HREA SANDERS PT Feb 03, 2017 11:04
--- NOTE | 2017-02-03 11:12 | Occ Therapy Progress Note ---
Therapy Progress Note 1100 Will discontinue OT. Per nursing, pt is being transitioned to [facility]. ABBEY HOUGH OT Feb 03, 2017 11:12
--- NOTE | 2017-02-03 11:13 | Progress Note-Hospitalist ---
Progress Note HPI/CC on Admission CC: Fever and weakness HPI: This is a 56yoWM pt of [facility] that presented to ER from [facility] due to nausea and vomiting with fever. He is currently being treated by Dr. Lopez for CLL. He was hypotension with SBP of 50, receive IV fluids and improved SBP of 70. RLL revealed pneumonia, pt receive Rocephin before transfer , and pt has been treated for septic shock through the night, requiring presser therapy. He is currently being urgently intubated due to multisystem organ failure. Chart Review: WBC was 1.4 on admission, today 1.8 Hgb 10 ABG 7.33/31/47 requiring intubation Na+ 132 Creat 2.2 up from 1.9 Mg 0.7 Ua negative UDS positive for meth and marijuana Pt will be intubated Patient Interview: Pt not fully alert during visit. Pt requiring intubation urgently. Scribed by Paul Dejesus under the direct supervision of Dr. Dawn. Progress Notes/Assess & Plan Date Seen 02/03/17 Admission Dx/Process Assessment: Multisystem organ failure due to immune suppression from chemo for CLL with RLL pneumonia with septic shock requiring intubation Methamphetamine on UDS with marijuana Diagonsis/Assessment & Plan Chart Review: Still febrile WBC 9.4 ABG reveals 7.18/57/93 Creat 1.5 Lactic acid more elevated now at 6.45 Patient Interview: Dr. Dawn discusses worsening labs with pt's family, and suggests palliative care. Family members are emotionally stable overall, and handing situation well. noted vitals, intubated, in no distress Assessment: Multisystem organ failure due to immune suppression from chemo for CLL with RLL pneumonia with septic shock requiring intubation now with further decline and unrecoverable placing on comfort care Methamphetamine on UDS with marijuana Plan: Palliative care Monitor closely Poor prognosis is imminent Scribed by Paul Dejesus under the direct supervision of Dr. Dawn. KIMBERLY DAWN DO Feb 03, 2017 11:13
--- NOTE | 2017-02-03 11:57 | Progress Note (SOAP) ---
Subjective Subjective/Events-last exam Patient remains on Ventilator with family at bedside. Family has reconsidered their options and wants the patient to be transferred to [facility] for higher level of care. Objective Exam Vital Signs Date Time Temp Pulse Resp B/P Pulse Ox O2 Delivery O2 Flow Rate FiO2 02/03/17 11:04 94 50 02/03/17 11:00 130 24 108/51 90 Mechanical Ventilator 50.00 02/03/17 10:45 140 160/84 02/03/17 10:18 131 25 91 50 02/03/17 10:00 130 25 129/64 90 Mechanical Ventilator 50.00 02/03/17 09:00 115 24 108/60 91 Mechanical Ventilator 50.00 02/03/17 08:53 91 50 02/03/17 08:40 100.8 02/03/17 08:36 114 23 131/67 95 Mechanical Ventilator 50.00 02/03/17 08:32 114 24 95 50 02/03/17 08:00 112 24 123/66 96 Mechanical Ventilator 50.00 02/03/17 07:00 Mechanical Ventilator 50.00 02/03/17 07:00 107 02/03/17 07:00 108 24 108/62 95 Mechanical Ventilator 50.00 02/03/17 06:32 105 26 99 60 02/03/17 06:03 106 02/03/17 06:00 106 24 95/58 100 Mechanical Ventilator 70.00 02/03/17 05:55 97.8 02/03/17 05:00 114 19 110/58 97 Mechanical Ventilator 70.00 02/03/17 04:07 115 20 94 70 02/03/17 04:03 98.1 02/03/17 04:00 116 20 114/52 94 Mechanical Ventilator 70.00 02/03/17 04:00 91 70 02/03/17 03:30 97.8 02/03/17 03:00 123 22 114/52 94 Mechanical Ventilator 70.00 02/03/17 02:07 128 22 93 70 02/03/17 02:00 129 22 137/59 93 Mechanical Ventilator 70.00 02/03/17 01:58 101.8 131 22 136/61 91 Mechanical Ventilator 4.00 02/03/17 01:00 131 02/03/17 01:00 101.8 02/03/17 01:00 131 21 151/56 92 Mechanical Ventilator 70.00 02/03/17 00:06 129 22 91 70 02/03/17 00:00 129 20 140/56 91 Mechanical Ventilator 70.00 02/03/17 00:00 91 70 02/02/17 23:48 100.8 Mechanical Ventilator 70.00 02/02/17 23:00 134 19 106/46 91 Mechanical Ventilator 70.00 02/02/17 22:13 123 26 94 70 02/02/17 22:00 118 21 145/68 94 Mechanical Ventilator 70.00 02/02/17 21:45 117 02/02/17 21:00 114 20 132/66 95 Mechanical Ventilator 70.00 02/02/17 20:02 118 22 94 70 02/02/17 20:00 92 70 02/02/17 20:00 118 22 118/68 94 Mechanical Ventilator 70.00 02/02/17 19:55 99.0 Mechanical Ventilator 70.00 02/02/17 19:00 116 20 117/68 94 Mechanical Ventilator 70.00 02/02/17 19:00 116 02/02/17 18:30 93 Mechanical Ventilator 70.00 02/02/17 18:26 113 20 95 80 02/02/17 18:00 94 Mechanical Ventilator 80.00 02/02/17 17:57 113 20 100/69 93 Mechanical Ventilator 80.00 02/02/17 17:53 97/67 02/02/17 16:01 112 20 99 80 02/02/17 16:00 94 Mechanical Ventilator 80.00 02/02/17 15:35 99.0 108 20 102/69 99 Mechanical Ventilator 100.00 02/02/17 15:34 92 95 02/02/17 14:30 100 24 92 100 02/02/17 14:00 108 21 110/79 96 Mechanical Ventilator 95.00 02/02/17 13:35 108/63 02/02/17 13:00 115 I & O 02/03/17 07:00 Intake Total 5450 ml Output Total 5250 ml Balance 200 ml Capillary Refill : Less Than 3 Seconds General Appearance: Other (Intubated acutely ill;) Respiratory: Crackles Decreased Breath Sounds Cardiovascular: Tachycardia Gastrointestinal: normal bowel sounds non tender soft Extremity: No Pedal Edema Results Lab Laboratory Tests 02/01/17 17:55 02/02/17 03:45 02/03/17 04:15 Laboratory Tests 02/02/17 12:51: Prince Test YES-POS, Arterial Blood Base Excess -9.2L, Arterial Blood HCO3 19L, Arterial Blood Oxygen Saturation 90L, Arterial Blood Partial Pressure CO2 58H, Arterial Blood Partial Pressure O2 74L, Arterial Blood Total CO2 20.3L, Arterial Blood pH 7.13*L, Blood Gas Inspired Oxygen 95%, Blood Gas Patient Temperature 98.4, Blood Gas Puncture Site RT RAD, Blood Gas Ventilator Setting YES 02/02/17 12:59: Lactic Acid Level 2.22*H 02/02/17 15:25: Prince Test YES-POS, Arterial Blood Base Excess -9.8L, Arterial Blood HCO3 17*L, Arterial Blood Oxygen Saturation 98, Arterial Blood Partial Pressure CO2 46H, Arterial Blood Partial Pressure O2 138H, Arterial Blood Total CO2 18.3L, Arterial Blood pH 7.19*L, Blood Gas Inspired Oxygen 100%, Blood Gas Patient Temperature 99.0, Blood Gas Puncture Site RT RAD, Blood Gas Ventilator Setting YES 02/02/17 16:51: Magnesium Level 1.8, Phosphorus Level 4.3 02/02/17 17:53: Glucometer 137H 02/02/17 23:08: Glucometer 131H 02/03/17 04:15: Prince Test ART LINE, Anion Gap 14, Anisocytosis SLIGHT, Arterial Blood Base Excess -6.3L, Arterial Blood HCO3 21L, Arterial Blood Oxygen Saturation 97, Arterial Blood Partial Pressure CO2 57H, Arterial Blood Partial Pressure O2 93, Arterial Blood Total CO2 22.6, Arterial Blood pH 7.18*L, BUN/Creatinine Ratio 13 , Band Neutrophils 40, Basophilic Stippling SLIGHT, Basophils # (Auto) 0.0, Basophils % (Manual) 0, Basophils (%) (Auto) 0, Blast Cells , Blood Gas Inspired Oxygen 70%, Blood Gas Patient Temperature 97.9, Blood Gas Puncture Site RT ARTLINE, Blood Gas Ventilator Setting YES, Blood Urea Nitrogen 19H, Calcium Level 7.0L, Carbon Dioxide Level 16L, Chloride Level 107, Creatinine 1.52H, Crenated Cell MODERATE, Dohle Bodies MODERATE, Elliptocytes SLIGHT, Eosinophils # (Auto) 0.0, Eosinophils % (Manual) 0, Eosinophils (%) (Auto) 0, Estimat Glomerular Filtration Rate 48, Glucose Level 143H, Hematocrit 32L, Hemoglobin 10.3L, Lactic Acid Level 4.13*H, Lymphocytes # (Auto) 1.3, Lymphocytes % (Manual) 16, Lymphocytes (%) (Auto) 14, Magnesium Level 1.8, Mean Corpuscular Hemoglobin 30, Mean Corpuscular Hemoglobin Concent 32, Mean Corpuscular Volume 93, Mean Platelet Volume 10.8H, Metamyelocytes % 5, Monocytes # (Auto) 1.1H, Monocytes % (Manual) 12, Monocytes (%) (Auto) 11, Neutrophils # (Auto) 6.9, Neutrophils % (Manual) 27, Neutrophils (%) (Auto) 74, Nucleated Red Blood Cells 2, Phosphorus Level 4.6, Platelet Count 156, Poikilocytosis SLIGHT, Polychromasia SLIGHT, Potassium Level 4.0, Red Blood Count 3.45L, Red Cell Distribution Width 16.4H, Schistocytes SLIGHT, Sodium Level 137, Toxic Granulation 2+, White Blood Count 9.4 02/03/17 07:09: Lactic Acid Level 6.45*H, Vancomycin Level Trough 3.2L Microbiology 02/02/17 Blood Culture - Preliminary, Resulted No growth 02/02/17 Gram Stain - Final, Resulted 02/02/17 Sputum Culture - Preliminary, Resulted No growth Radiology Chest x-ray done in 02/03/17: FINDINGS: Portable upright view of the chest demonstrates an endotracheal tube, enteric tube and Port-A-Cath remain in place. Heart size remains upper normal. Bilateral pulmonary infiltrates have increased in the right base. There is questionable right pleural effusion. IMPRESSION: Bilateral pulmonary infiltrates have increased in the right base. Assessment/Plan Assessment/Plan Assess & Plan/Chief Complaint 1. Septic shock in an immunocompromised host; chest x-ray showing multilobar pneumonia with dense consolidation and right lower lobe. a. Currently receiving aggressive IV fluid replacement 30ml/kg, IV vancomycin, levofloxacin and Zosyn, IV pressors, and ventilatory support. b. 02/02/17: Multiorgan failure present with hypoxemia respiratory failure, resp acidosis, elevated creatinine. 02/03/17: Cr has improved; WBC improved; c. Family is requesting transfer to [facility]. 2. Neutropenia has resolved and WBC is now 9. 3. CLL/SLL was being treated with Imbruvica (Ibrutinib), 2 tabs daily with stable counts at last visit on 01/05/17. 4. Positive urine drug screen with agents that may have increased effective dose of Imbruvica (Ibrutinib). Well-documented history of prior use of heavy alcohol, marijuana, and methamphetamines which patient states he had eliminated prior to starting current therapy with Imbruvica (Ibrutinib). 5. Chronic hepatitis C 6. COPD 7. History of multiple comorbidities including chronic tobaccoism, depression, history of excessive alcohol intake, history of multiple head traumas, and history GERD and depression 8. Family is requesting transfer to [facility]. Clinical Quality Measures DVT/VTE Risk/Contraindication: Risk Factor Score Per Nursin RFS Level Per Nursing on Admit: 4+=Very High MASOOD MEYER MD Feb 03, 2017 11:57
[2017-02-03] MEDS ORDERED: ALBUMIN 25% 25 GM/100 ML 100 ML IV ONE ×2 (12:00→12:30)
[2017-02-03] MEDS ORDERED: VANCOMYCIN 1000 MG/VIAL ONE (13:45)
[2017-02-03] MEDS ORDERED: NS (IVPB) 250 ML ONE (13:46)
[2017-02-03] MEDS: VASOPRESSIN INJECTION 20 UNIT in NS (IVPB) 50 ML IV SCH (16:40)
[2017-02-03] MEDS ORDERED: VANCOMYCIN 1 GM/NS 250 ML IVPB IV SCH ×4 (17:00)
[2017-02-03] MEDS ORDERED: LEVOFLOXACIN 750 MG/150 ML IV 150 ML IV SCH (18:00)
--- NOTE | 2017-03-02 12:40 | Discharge Summary ---
Diagnosis/Chief Complaint Date of Admission Feb 01, 2017 at 18:46 Date of Discharge Feb 03, 2017 at 21:31 Discharge Diagnosis Acute severe sepsis with septic shock secondary to pneumonia -- immunosuppressed -Continue aggressive IVF -Pt currently has left Groshong -Olson cultures -continue broad spectrum Abx -solucortef Severe R>L pneumonia with dyspnea and accessory muscle use -check ABG -Pt will most likely end up needing ventilator will have low threshold for intubation UDS is + for methamphetamines and Marijuana -- pt denies use Anemia - monitor Metabolic lactic acidosis -IVF CLL -on chemotherapy Discharge Summary Procedures None. Discharge Physical Examination Allergies: Coded Allergies: alprazolam (Unverified Adverse Reaction, Unknown, MAKES DIYA , 11/06/14) Discharge Home Medications Reviewed and agree with Discharge Medication list on patient's Discharge Instruction sheet Instructions to Patient/Family Please see electonic discharge instructions given to patient. Clinical Quality Measures DVT/VTE Risk/Contraindication: Risk Factor Score Per Nursin RFS Level Per Nursing on Admit: 4+=Very High LOLA CLAIRE DO Mar 02, 2017 12:40
== END 2017-02-03 21:31 | disposition short-term general hospital (02) | DRG 871 ==
LOC: EDUNIT# 17:42 → ER 17:43 → ICU 18:46
PROVIDERS: ADMIT Internal Medicine; ATTEND Internal Medicine
PROC: 5A1945Z Respiratory Ventilation, 24-96 Consecutive Hours (ICD-10-PCS; principal; 2017-02-02)
DX: A41.9 Sepsis, unspecified organism (principal); J18.9 Pneumonia, unspecified organism; R65.21 Severe sepsis with septic shock; E87.2 Acidosis; C91.10 Chronic lymphocytic leukemia of B-cell type not having achieved remission; J44.9 Chronic obstructive pulmonary disease, unspecified; F17.210 Nicotine dependence, cigarettes, uncomplicated; B18.2 Chronic viral hepatitis C; D64.9 Anemia, unspecified; F15.90 Other stimulant use, unspecified, uncomplicated; F12.90 Cannabis use, unspecified, uncomplicated; I10 Essential (primary) hypertension; K21.9 Gastro-esophageal reflux disease without esophagitis; H91.90 Unspecified hearing loss, unspecified ear; F32.9 Major depressive disorder, single episode, unspecified
CPT/HCPCS: 36415; 71010; 76937; 80048; 80053; 80202; 80306; 81000; 82805; 82962; 83605; 83735; 84100; 84484; 85007; 85025; 85027; 85610; 87040; 87070; 87077; 87081; 87205; 94002; 94003; 94640; 94664; 94799; 96365; 96367; 96375

== ENCOUNTER 2017-03-15 08:34 | Outpatient (RCR) | payer MEDICAID ==
--- OUTSIDE RECORDS SUMMARY | 2017-01-05 15:03 | XMS REPORT | Continuity of Care Document ---
Author Author [facility] Organization [facility] Address Unknown Phone Unavailable Care Team Providers Care Jitney Driver Name Role Phone [facility] PCP Insurance Providers Payer Name Policy Number Subscriber Name Relationship [facility] Amerigrp [id number] Fior Bernal 18 Self / Same As Patient Advance Directives Directive Response Recorded Date/Time Advance Directives No 05/20/16 11:59am Health Care Power of Meeting Facilitator No 05/20/16 11:59am Organ Donor No 05/20/16 [...] Mg Oral Twice A Day 12/24/15 Tiotropium [place] 1 Inh 1 Inh Inhalation Daily 12/24/15 [...] 11/19/11 Discontinued Fluticasone Propionate 50 Mcg/16 G [place], 50 Mcg Nasal Twice A Day 11/19/11 [...] 3.6 G/DL 3.2-4.5 07/12/2016 10:35am 07/12/2016 11:34am Ygwh-2-Xclaoidnphpaf 2.59 mg/L H 0.00-1.85 06/14/2016 1:05pm 06/15/2016 8 :19am Test performed at [facility], CLIA# [id number] [address] [place] [address] Procedures No known history of procedures. Encounters Encounter Location Arrival/Admit Date Discharge/Depart Date Attending Provider Discharged Recurring [facility] 07/12/16 10:26am 11:59pm MASOOD MEYER MD
[2017-01-05 15:55] LABS: BASOPHILS # (AUTO) 0.1 10^3/uL (0.0-0.1); BASOPHILS % (AUTO) 1 % (0-10); EOSINOPHILS # (AUTO) 0.2 10^3/uL (0.0-0.3); EOSINOPHILS % (AUTO) 2 % (0-10); LYMPHOCYTES # (AUTO) 2.9 X 10^3 (1.0-4.0); LYMPHOCYTES % (AUTO) 25 % (12-44); MEAN CORPUSCULAR HEMOGLOBIN 29 PG (25-34); MEAN CORPUSCULAR HGB CONC 32 G/DL (32-36); MEAN CORPUSCULAR VOLUME 92 FL (80-99); MEAN PLATELET VOLUME 11.2 FL (7.4-10.4); MONOCYTES # (AUTO) 0.8 X 10^3 (0.0-1.0); MONOCYTES % (AUTO) 7 % (0-12); NEUTROPHILS # (AUTO) 7.7 X 10^3 (1.8-7.8); NEUTROPHILS % (AUTO) 66 % (42-75); PLATELET COUNT 218 10^3/uL (130-400); RED BLOOD COUNT 4.23 10^6/uL (4.35-5.85); RED CELL DISTRIBUTION WIDTH 17.2 % (10.0-14.5); WHITE BLOOD COUNT 11.6 10^3/uL (4.3-11.0)
[2017-01-05 16:17] LABS: ALBUMIN 3.7 G/DL (3.2-4.5); BILIRUBIN,TOTAL 0.2 MG/DL (0.1-1.0); CREATININE SERUM 1.3 MG/DL (0.60-1.30); POTASSIUM 4.4 MMOL/L (3.6-5.0); TOTAL PROTEIN 6.5 G/DL (6.4-8.2); URIC ACID 5.3 MG/DL (2.6-7.2)
[2017-02-22 11:26] LABS: BASOPHILS # (AUTO) 0.1 10^3/uL (0.0-0.1); BASOPHILS % (AUTO) 1 % (0-10); EOSINOPHILS % (AUTO) 11 % (0-10); LYMPHOCYTES # (AUTO) 2.9 X 10^3 (1.0-4.0); LYMPHOCYTES % (AUTO) 33 % (12-44); MEAN CORPUSCULAR HEMOGLOBIN 29 PG (25-34); MEAN CORPUSCULAR HGB CONC 33 G/DL (32-36); MEAN CORPUSCULAR VOLUME 89 FL (80-99); MEAN PLATELET VOLUME 10.1 FL (7.4-10.4); MONOCYTES # (AUTO) 1.5 X 10^3 (0.0-1.0); MONOCYTES % (AUTO) 18 % (0-12); NEUTROPHILS # (AUTO) 3.2 X 10^3 (1.8-7.8); NEUTROPHILS % (AUTO) 37 % (42-75); PLATELET COUNT 414 10^3/uL (130-400); RED BLOOD COUNT 3.47 10^6/uL (4.35-5.85); RED CELL DISTRIBUTION WIDTH 15.8 % (10.0-14.5); WHITE BLOOD COUNT 8.6 10^3/uL (4.3-11.0)
[2017-02-22 11:52] LABS: ALANINE AMINOTRANSFERASE 12 U/L (0-55); ALBUMIN 3.1 G/DL (3.2-4.5); ANION GAP 9 MMOL/L (5-14); ASPARTATE AMINO TRANSFERASE 17 U/L (5-34); BILIRUBIN,TOTAL 0.2 MG/DL (0.1-1.0); BLOOD UREA NITROGEN 7 MG/DL (7-18); BUN/CREATININE RATIO 6; CALCIUM 9.6 MG/DL (8.5-10.1); CARBON DIOXIDE 22 MMOL/L (21-32); CHLORIDE 106 MMOL/L (98-107); CREATININE SERUM 1.19 MG/DL (0.60-1.30); GFR ESTIMATED > 60; GLUCOSE 116 MG/DL (70-105); LACTATE DEHYDROGENASE 217 U/L (125-220); POTASSIUM 3.8 MMOL/L (3.6-5.0); SODIUM 137 MMOL/L (135-145); TOTAL PROTEIN 5.6 G/DL (6.4-8.2)
[2017-03-08 13:04] LABS: BASOPHILS # (AUTO) 0.1 10^3/uL (0.0-0.1); BASOPHILS % (AUTO) 1 % (0-10); EOSINOPHILS # (AUTO) 1.2 10^3/uL (0.0-0.3); EOSINOPHILS % (AUTO) 9 % (0-10); LYMPHOCYTES # (AUTO) 4.3 X 10^3 (1.0-4.0); LYMPHOCYTES % (AUTO) 34 % (12-44); MEAN CORPUSCULAR HEMOGLOBIN 28 PG (25-34); MEAN CORPUSCULAR HGB CONC 32 G/DL (32-36); MEAN CORPUSCULAR VOLUME 88 FL (80-99); MEAN PLATELET VOLUME 9.9 FL (7.4-10.4); MONOCYTES # (AUTO) 1.8 X 10^3 (0.0-1.0); MONOCYTES % (AUTO) 14 % (0-12); NEUTROPHILS # (AUTO) 5.4 X 10^3 (1.8-7.8); NEUTROPHILS % (AUTO) 42 % (42-75); PLATELET COUNT 154 10^3/uL (130-400); RED BLOOD COUNT 3.69 10^6/uL (4.35-5.85); RED CELL DISTRIBUTION WIDTH 14.8 % (10.0-14.5); WHITE BLOOD COUNT 12.7 10^3/uL (4.3-11.0)
[2017-03-08 14:20] LABS: ALANINE AMINOTRANSFERASE < 6 U/L (0-55); ALBUMIN 3.2 G/DL (3.2-4.5); ANION GAP 10 MMOL/L (5-14); ASPARTATE AMINO TRANSFERASE 14 U/L (5-34); BILIRUBIN,TOTAL 0.3 MG/DL (0.1-1.0); BLOOD UREA NITROGEN 3 MG/DL (7-18); BUN/CREATININE RATIO 3; CALCIUM 8.8 MG/DL (8.5-10.1); CARBON DIOXIDE 26 MMOL/L (21-32); CHLORIDE 104 MMOL/L (98-107); CREATININE SERUM 1.05 MG/DL (0.60-1.30); GFR ESTIMATED > 60; GLUCOSE 118 MG/DL (70-105); LACTATE DEHYDROGENASE 214 U/L (125-220); POTASSIUM 3.6 MMOL/L (3.6-5.0); SODIUM 140 MMOL/L (135-145); TOTAL PROTEIN 5.8 G/DL (6.4-8.2)
[~2017-03-15 08:34] MED LIST changes: +ACET-2267 PO; +ALLO100T PO; +ALLO300T2 PO; +BUDE10.2 IH; +LEVA1.2527 NEB; +MONT10TA21 PO; +NAPR500T3 PO; +ONDA8TAB12 PO; +PRED5TAB PO; +RT-ALBUINH INH; +VNL75T PO
[2017-03-15 09:08] LABS: BASOPHILS # (AUTO) 0.1 10^3/uL (0.0-0.1); BASOPHILS % (AUTO) 1 % (0-10); EOSINOPHILS # (AUTO) 1.6 10^3/uL (0.0-0.3); EOSINOPHILS % (AUTO) 12 % (0-10); LYMPHOCYTES # (AUTO) 4.1 X 10^3 (1.0-4.0); LYMPHOCYTES % (AUTO) 32 % (12-44); MEAN CORPUSCULAR HEMOGLOBIN 28 PG (25-34); MEAN CORPUSCULAR HGB CONC 32 G/DL (32-36); MEAN CORPUSCULAR VOLUME 88 FL (80-99); MEAN PLATELET VOLUME 9.8 FL (7.4-10.4); MONOCYTES # (AUTO) 1.9 X 10^3 (0.0-1.0); MONOCYTES % (AUTO) 14 % (0-12); NEUTROPHILS # (AUTO) 5.3 X 10^3 (1.8-7.8); NEUTROPHILS % (AUTO) 41 % (42-75); PLATELET COUNT 219 10^3/uL (130-400); RED CELL DISTRIBUTION WIDTH 14.8 % (10.0-14.5)
[2017-03-15 09:33] LABS: ALANINE AMINOTRANSFERASE < 6 U/L (0-55); ANION GAP 9 MMOL/L (5-14); ASPARTATE AMINO TRANSFERASE 10 U/L (5-34); BILIRUBIN,TOTAL 0.2 MG/DL (0.1-1.0); BLOOD UREA NITROGEN 11 MG/DL (7-18); BUN/CREATININE RATIO 10; CALCIUM 8.4 MG/DL (8.5-10.1); CARBON DIOXIDE 25 MMOL/L (21-32); CHLORIDE 105 MMOL/L (98-107); CREATININE SERUM 1.14 MG/DL (0.60-1.30); GFR ESTIMATED > 60; GLUCOSE 92 MG/DL (70-105); POTASSIUM 3.7 MMOL/L (3.6-5.0); SODIUM 139 MMOL/L (135-145); TOTAL PROTEIN 5.3 G/DL (6.4-8.2)
== END 2017-04-05 | disposition home or self-care (01) ==
LOC: ONC 08:34
PROVIDERS: ATTEND Internal Medicine Hematology & Oncology
DX: C91.10 Chronic lymphocytic leukemia of B-cell type not having achieved remission (principal); J44.9 Chronic obstructive pulmonary disease, unspecified; K21.9 Gastro-esophageal reflux disease without esophagitis; N18.3 Chronic kidney disease, stage 3 (moderate); F17.210 Nicotine dependence, cigarettes, uncomplicated; B18.2 Chronic viral hepatitis C; Z92.21 Personal history of antineoplastic chemotherapy; Z79.899 Other long term (current) drug therapy
CPT/HCPCS: 36415; 36591; 80053; 82232; 83615; 84550; 85025; 99213

== ENCOUNTER 2017-05-04 14:39 | Outpatient (RCR) | payer MEDICAID ==
[2017-04-06 15:08] LABS: BASOPHILS # (AUTO) 0.1 10^3/uL (0.0-0.1); BASOPHILS % (AUTO) 0 % (0-10); EOSINOPHILS # (AUTO) 0.8 10^3/uL (0.0-0.3); EOSINOPHILS % (AUTO) 3 % (0-10); LYMPHOCYTES # (AUTO) 20.1 X 10^3 (1.0-4.0); LYMPHOCYTES % (AUTO) 66 % (12-44); MEAN CORPUSCULAR HEMOGLOBIN 28 PG (25-34); MEAN CORPUSCULAR HGB CONC 32 G/DL (32-36); MEAN CORPUSCULAR VOLUME 89 FL (80-99); MEAN PLATELET VOLUME 10.7 FL (7.4-10.4); MONOCYTES # (AUTO) 1.9 X 10^3 (0.0-1.0); MONOCYTES % (AUTO) 6 % (0-12); NEUTROPHILS # (AUTO) 7.7 X 10^3 (1.8-7.8); NEUTROPHILS % (AUTO) 25 % (42-75); PLATELET COUNT 274 10^3/uL (130-400); RED BLOOD COUNT 3.41 10^6/uL (4.35-5.85)
[2017-04-06 15:10] LABS: WHITE BLOOD COUNT 30.6 10^3/uL (4.3-11.0)
[2017-04-06 15:32] LABS: ALANINE AMINOTRANSFERASE < 6 U/L (0-55); ALBUMIN 3.1 G/DL (3.2-4.5); ANION GAP 9 MMOL/L (5-14); ASPARTATE AMINO TRANSFERASE 9 U/L (5-34); BILIRUBIN,TOTAL 0.3 MG/DL (0.1-1.0); BLOOD UREA NITROGEN 5 MG/DL (7-18); BUN/CREATININE RATIO 5; CALCIUM 8.8 MG/DL (8.5-10.1); CARBON DIOXIDE 26 MMOL/L (21-32); CHLORIDE 105 MMOL/L (98-107); CREATININE SERUM 1.04 MG/DL (0.60-1.30); GFR ESTIMATED > 60; GLUCOSE 113 MG/DL (70-105); LACTATE DEHYDROGENASE 188 U/L (125-220); POTASSIUM 3.5 MMOL/L (3.6-5.0); SODIUM 140 MMOL/L (135-145); TOTAL PROTEIN 5.7 G/DL (6.4-8.2); URIC ACID 5.8 MG/DL (2.6-7.2)
[2017-05-04 15:09] LABS: BASOPHILS # (AUTO) 0.1 10^3/uL (0.0-0.1); BASOPHILS % (AUTO) 0 % (0-10); EOSINOPHILS # (AUTO) 2.1 10^3/uL (0.0-0.3); EOSINOPHILS % (AUTO) 6 % (0-10); LYMPHOCYTES # (AUTO) 21.7 X 10^3 (1.0-4.0); LYMPHOCYTES % (AUTO) 62 % (12-44); MEAN CORPUSCULAR HEMOGLOBIN 28 PG (25-34); MEAN CORPUSCULAR HGB CONC 31 G/DL (32-36); MEAN CORPUSCULAR VOLUME 90 FL (80-99); MEAN PLATELET VOLUME 11.1 FL (7.4-10.4); MONOCYTES # (AUTO) 2.1 X 10^3 (0.0-1.0); MONOCYTES % (AUTO) 6 % (0-12); NEUTROPHILS # (AUTO) 9.2 X 10^3 (1.8-7.8); NEUTROPHILS % (AUTO) 26 % (42-75); PLATELET COUNT 187 10^3/uL (130-400); RED BLOOD COUNT 3.49 10^6/uL (4.35-5.85)
[2017-05-04 15:10] LABS: WHITE BLOOD COUNT 35.3 10^3/uL (4.3-11.0)
[2017-05-04 15:28] LABS: ALANINE AMINOTRANSFERASE < 6 U/L (0-55); ALBUMIN 3.4 G/DL (3.2-4.5); ANION GAP 6 MMOL/L (5-14); ASPARTATE AMINO TRANSFERASE 10 U/L (5-34); BILIRUBIN,TOTAL 0.3 MG/DL (0.1-1.0); BLOOD UREA NITROGEN 8 MG/DL (7-18); BUN/CREATININE RATIO 7; CALCIUM 8.4 MG/DL (8.5-10.1); CARBON DIOXIDE 26 MMOL/L (21-32); CHLORIDE 107 MMOL/L (98-107); CREATININE SERUM 1.14 MG/DL (0.60-1.30); GFR ESTIMATED > 60; GLUCOSE 92 MG/DL (70-105); LACTATE DEHYDROGENASE 214 U/L (125-220); POTASSIUM 3.8 MMOL/L (3.6-5.0); SODIUM 139 MMOL/L (135-145); TOTAL PROTEIN 6.1 G/DL (6.4-8.2)
[2017-05-25] MEDS ORDERED: PRD20T PO (14:21)
[2017-05-25] MEDS ORDERED: OXYC-201 PO (14:43)
[2017-06-01] MEDS ORDERED: ESCI20TA45 PO (11:09)
[2017-06-01] MEDS ORDERED: CETI10TA17 PO (11:09)
[2017-06-01] MEDS ORDERED: HYDR-3820 PO (11:09)
[2017-06-01] MEDS ORDERED: TR1C15 TP (11:09)
[2017-06-01] MEDS ORDERED: METO50TA2 PO (11:09)
[2017-06-01] MEDS ORDERED: FLUT16SP22 NSEACH (11:09)
== END 2017-06-01 | disposition home or self-care (01) ==
LOC: ONC 14:39
PROVIDERS: ATTEND Internal Medicine Hematology & Oncology
DX: C91.10 Chronic lymphocytic leukemia of B-cell type not having achieved remission (principal); J44.9 Chronic obstructive pulmonary disease, unspecified; K21.9 Gastro-esophageal reflux disease without esophagitis; N18.3 Chronic kidney disease, stage 3 (moderate); F17.210 Nicotine dependence, cigarettes, uncomplicated; B18.2 Chronic viral hepatitis C; Z92.21 Personal history of antineoplastic chemotherapy; Z79.899 Other long term (current) drug therapy
CPT/HCPCS: 36591; 80053; 82232; 83615; 84550; 85025; 99213

== ENCOUNTER → 2017-05-23 | Outpatient (CLI) | payer MEDICAID ==
[~2017-05-23] MED LIST changes: +CATHETER FLUSH 10 ML SYR IV PRN; +IOHEXOL 350 MG/ML 100 ML (OMNIPAQUE 350) VIAL IV ONE; +NS 100 ML (IVPB) BAG IV ONE; +PRD20T PO
--- NOTE | 2017-05-23 15:04 | Diagnostic Imaging Report ---
PROCEDURE: CT chest with contrast, CT abdomen and pelvis with and without contrast. TECHNIQUE: Pre and post intravenous contrast axial imaging of the abdomen and pelvis and post contrast axial imaging of the chest were performed. INDICATION: Leukemia. COMPARISON: CT abdomen and pelvis of 05/20/[address] chest of 03/24/2016. FINDINGS: CT CHEST: There is lymphadenopathy seen bilaterally in the axilla with short axis measurements of the largest lymph node on the left side is 2.5 cm and on the right side is 2.2 cm. This is compared to measurements of 4.8 cm on the left and 3.5 cm on the right side on 03/24/2016. There is also lymphadenopathy in the mediastinum and the vishnu. This is improved compared to 2015 exam. The right paratracheal lymph node measuring 1.3 cm compared to 1.7 cm measurement previously. 1.4 cm measurement in an infracarinal lymph node compared to 1.7 cm previously. Hilar nodes are also smaller compared to the previous study but overall larger on the right side. The heart size is normal. No pericardial effusion. No pleural effusion. The thoracic aorta is normal in caliber. The lungs demonstrate emphysema changes. Mild consolidation in the right lower lobe could relate to pneumonitis or atelectasis. There is no lung mass or suspicious nodule seen. The osseous structures appear grossly unremarkable. CT ABDOMEN AND PELVIS: The liver, the gallbladder, the spleen, and the adrenal glands appear unremarkable. The kidneys have symmetric enhancement and contrast excretion. There are no stones seen on the unenhanced phase. There are mildly enlarged lymph nodes up to 1.8 cm in size in the left para-aortic station. Other mildly enlarged aortocaval lymph nodes up to 1.3 cm and celiac 1.2 cm lymph nodes were previously less than a centimeter in size. 1.5 cm right common iliac lymph node and other bilateral external iliac mildly enlarged lymph nodes have developed from the previous study. The abdominal aorta is normal in caliber. The pelvis demonstrates normal appearance of the bladder. No fluid collection or free fluid in the abdomen or pelvis seen. The appendix is normal. No bowel obstruction. There is mild bilateral inguinal lymphadenopathy also seen. The osseous structures demonstrate advanced degenerative changes of the hip joints worse on the right side. IMPRESSION: CT CHEST: There is prominent lymphadenopathy in the axilla, the vishnu and in the mediastinum, generally smaller in size compared to February [address] ABDOMEN AND PELVIS: There is development of mild lymphadenopathy in the abdomen and pelvis since 05/20/2016. Dictated by: Dictated on workstation # [id number]
== END ==
LOC: RAD 13:19
PROVIDERS: ATTEND Internal Medicine Hematology & Oncology
DX: C91.10 Chronic lymphocytic leukemia of B-cell type not having achieved remission (principal)
CPT/HCPCS: 71260; 74178

== ENCOUNTER 2017-05-25 12:38 | Emergency (ER) | payer MEDICAID ==
[~2017-05-25] VITALS: Ht 177.8 cm; Wt 88.5 kg
[~2017-05-25 12:38] MED LIST changes: -CATHETER FLUSH 10 ML SYR IV PRN; -IOHEXOL 350 MG/ML 100 ML (OMNIPAQUE 350) VIAL IV ONE; -NS 100 ML (IVPB) BAG IV ONE; -PRD20T PO
--- OUTSIDE RECORDS SUMMARY | 2017-05-25 12:48 | XMS REPORT | Continuity of Care Document ---
Author Author [facility] Organization [facility] Address Unknown Phone Unavailable Care Team Providers Care Disk Recordist Name Role Phone No Pcp, Na PCP Unavailable Source Comments Some departments are not documenting in the electronic medical record. If you do not see the information that you expected, contact Release of Information in the Health Information Management department at [phone] for further assistance in locating additional records.[facility] Active Allergies and Adverse Reactions Allergen Noted Date Severity Reactions Comments Xanax 02/04/2017 Low UNKNOWN Current Medications Prescription Sig. Disp. Refills Start End Date Status Date acetaminophen (TYLENOL) Take 500-1,000 mg by Active 500 mg tablet mouth every 6 hours as needed for Pain. Max of 4,000 mg of acetaminophen in 24 hours. calcium carbonate Chew 1 Tab by mouth three Active (OS-KIMBERLI) 500 mg calcium times daily as needed (1,250 mg) chewable (indigestion). tablet naproxen (NAPROSYN) 500 Take 500 mg by mouth Active mg tablet twice daily. Take with food. levalbuterol (XOPENEX) Inhale 1.25 mg solution Active 1.25 mg/3 mL nebulizer by nebulizer as directed solution three times daily as needed for Wheezing (Shortness of breath). ibrutinib (IMBRUVICA) 140 Take 280 mg by mouth Active mg cap capsule daily. Take at the same time every day with a full glass of water CYTOTOXIC folic acid (FOLVITE) 1 mg Take 1 Tab by mouth 90 Tab 02/18/20 Active tablet daily. 17 thiamine (VITAMIN B-1) Take 1 Tab by mouth 90 Tab 3 02/18/20 Active 100 mg tablet daily. 17 diazePAM (VALIUM) 10 mg Take 1 Tab by mouth twice 10 Tab 0 02/18/20 Active tablet daily. 17 tiotropium (SPIRIVA) 18 Place 1 Cap into inhaler 90 Cap 3 02/18/20 Active mcg capsule for inhaler and inhale into lungs as 17 directed daily. ondansetron (ZOFRAN) 8 mg Take 1 Tab by mouth every 15 Tab 0 02/18/20 Active tablet 8 hours as needed for 17 Nausea or Vomiting. cetirizine (ZYRTEC) 10 mg Take 1 Tab by mouth 30 Tab 3 02/18/20 Active tablet daily. 17 hydrALAZINE (APRESOLINE) Take 2 Tabs by mouth at 30 Tab 1 02/18/20 Active 10 mg tablet bedtime daily. 17 albuterol (VENTOLIN HFA, Inhale 1-2 Puffs by mouth 3 Inhaler 3 Active PROAIR HFA, PROVENTIL into the lungs every 4 17 HFA) 90 mcg/actuation hours as needed for inhaler Shortness of Breath. Shake well before use. budesonide/formoterol Inhale 2 Puffs by mouth 3 Inhaler 1 02/18/20 Active (SYMBICORT HFA) 160/4.5 into the lungs twice 17 mcg inhalation daily. metoprolol tartrate Take 1 Tab by mouth twice 60 Tab 1 02/18/20 Active (LOPRESSOR) 50 mg tablet daily. 17 prednisone (DELTASONE) 5 Take 1 Tab by mouth 30 Tab 0 02/18/20 Active mg tablet daily. 17 allopurinol (ZYLOPRIM) Take 300mg by mouth on 68 Tab 1 02/18/20 Active 100 mg tablet Mon, Wed, and Fri and 17 200mg by mouth on Sun, , , and Sat montelukast (SINGULAIR) Take 1 Tab by mouth at 30 Tab 1 02/18/20 Active 10 mg tablet bedtime daily. 17 furosemide (LASIX) 40 mg Take 0.5 Tabs by mouth 30 Tab 0 02/18/20 Active tablet daily. 17 HYDROcodone/acetaminophen Take 1 Tab by mouth three 12 Tab 0 02/18/20 Active (+) (NORCO) 10/325 mg times daily Earliest Fill 17 tablet Date: 02/17/17 potassium chloride SR Take 1 Tab by mouth twice 60 Cap 0 02/18/20 Active (K-DUR) 20 mEq tablet daily. Take with a meal 17 and a full glass of water. omeprazole DR(+) Take 1 Cap by mouth 30 Cap 1 02/18/20 Active (PRILOSEC) 40 mg capsule daily. 17 escitalopram oxalate Take 1 Tab by mouth 30 Tab 1 02/18/20 Active (LEXAPRO) 20 mg tablet daily. 17 traZODone (DESYREL) 100 Take 1 Tab by mouth twice 60 Tab 1 02/18/20 Active mg tablet daily. 17 venlafaxine (EFFEXOR) 75 Take 1 Tab by mouth twice 60 Tab 1 02/18/20 Active mg tablet daily. 17 cyclobenzaprine Take 1 Tab by mouth twice 60 Tab 1 02/18/20 Active (FLEXERIL) 10 mg tablet daily. 17 amitriptyline (ELAVIL) 50 Take 1.5 Tabs by mouth at 30 Tab 1 02/18/20 Active mg tablet bedtime daily. 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/05/2017 Resolved Problems Problem Noted Date Resolved Date Septic shock ([facility]) 02/03/2017 02/05/2017 Social History Tobacco Use Types Packs/Day Years Used Date Never Assessed Last Filed Vital Signs Vital Sign Reading Time Taken Blood Pressure 137/88 02/17/2017 7:04 AM CDT Pulse 78 02/17/2017 1:05 PM CDT Temperature 36.9 C (98.4 F) 02/17/2017 7:04 AM CDT Respiratory Rate - - Height 1.753 m (5' 9.02") 02/11/2017 6:00 AM CDT Weight 87.3 kg (192 lb 7.4 oz) 02/13/2017 4:00 AM CDT Body Mass Index 28.41 02/13/2017 4:00 AM CDT Oxygen Saturation 97% 02/17/2017 1:05 PM CDT Plan of Care Health Maintenance Due Date Last Done Comments Physical (Comprehensive) 1969 Exam Pertussis Vaccine 1973 Tetanus Vaccine 1979 Colorectal Cancer 2012 Screening Influenza Vaccine 07/29/2017 Procedures from Last 3 Months Procedure Name Priority Date/Time Associated Diagnosis Comments ECG UNCONFIRMED-SCAN 02/23/2017 Results for this 7:02 AM CDT procedure are in the results section. ECG UNCONFIRMED-SCAN 02/23/2017 Results for this 7:01 AM CDT procedure are in the results section. ECG UNCONFIRMED-SCAN 02/23/2017 Results for this 7:01 AM CDT procedure are in the results section. TELEMETRY STRIPS-SCAN 02/22/2017 Results for this 7:49 AM CDT procedure are in the results section. Results from Last 3 Months * ECG UNCONFIRMED-SCAN (02/23/2017 7:02 AM) Narrative Ordered by an unspecified provider. * ECG UNCONFIRMED-SCAN (02/23/2017 7:01 AM) Narrative Ordered by an unspecified provider. * ECG UNCONFIRMED-SCAN (02/23/2017 7:01 AM) Narrative Ordered by an unspecified provider. * TELEMETRY STRIPS-SCAN (02/22/2017 7:49 AM) Narrative Ordered by an unspecified provider.
--- OUTSIDE RECORDS SUMMARY | 2017-05-25 12:49 | XMS REPORT ---
Author Author [facility] [employer] Address Unknown Phone Unavailable Care Team Providers Care Culinary Manager Name Role Phone ACE DE LOS SANTOS CP Unavailable Allergies, Adverse Reactions, Alerts Substance Reaction Event Type N.K.D.A. Info Not Available Non Drug Allergy Problems Problem Type Condition Code Onset Dates Condition Status Problem Chronic bronchitis, unspecified chronic bronchitis type J42 Active Problem CLL (chronic lymphocytic leukemia) C91.10 Active Problem DDD (degenerative disc disease), lumbosacral M51.37 Active Problem Pain in left hip M25.552 Active Problem Osteoarthritis of right hip, unspecified osteoarthritis type M16.11 Active Problem Pain in right hip M25.551 Active Problem Urinary frequency R35.0 Active Problem Chronic hepatitis C without hepatic coma B18.2 Active Problem 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 Active Problem Acute diffuse otitis externa of left ear H60.312 Active Problem Reflux gastritis K29.60 Active Problem Coronary artery disease involving [place]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[place] heart without angina pectoris I25.10 Active Assessment Pain in left hip M25.552 Active Problem Dysthymia F34.1 Active Assessment Pain in right hip M25.551 Active Problem Essential hypertension I10 Active Medications Medication Code System Code Instructions Start Date End Date Status Dosage Symbicort [facility] [address]-94 160-4.5 MCG/ACT Inhalation Twice a day Sep 10, 2016 2 puffs Zyrtec Allergy [facility] 08001511557 10 mg Orally not defined HydrALAZINE HCl [facility] [address]-49 10 mg Orally Once a day 2 tablet Oxygen ND 0 HS 3.5 literes Singulair [facility] [address]-89 10 MG Orally Once a day 1 tablet in the evening PredniSONE [facility] [address]-90 5 MG Orally Once a day 1 tablet Levalbuterol HCl [facility] [address]-72 1.25 MG/3ML Inhalation every 8 hrs 3 ml Diazepam [facility] [address]-95 10 mg Orally Twice a day 1 tablet as needed Omeprazole [facility] [address]-65 40 mg Orally Once a day 1 capsule Metoprolol Tartrate [facility] 91756489262 50 mg Orally Twice a day 1 tablet Nicotine [facility] [address]-57 21 MG/24HR Transdermal Once a day 1 patch to skin Fluticasone Propionate [facility] [address]-35 50 MCG/ACT Nasally Once a day 1 spray in each nostril Naproxen [facility] [address]-57 500 MG Orally every 12 hrs May 06, 2016 1 tablet as needed Imbruvica [facility] [address]-56 140 MG Orally twice a day 1 capsule Spiriva HandiHaler [facility] 48797937739 18 MCG INHALE THE CONTENTS OF ONE (1) CAPSULE ONCE DAILY... C-PAP Machine ND 0 not defined Escitalopram Oxalate [facility] 56519232360 20 mg Orally Once a day 0.5 tablet Restasis [facility] 02689949497 0.05 % Ophthalmic Twice a day not defined Trazodone HCl [facility] 28951632886 100 MG Orally 2 times a day 1 tablet at bedtime Zofran [facility] 51036309897 8 MG ...TAKE ONE (1) TABLET BY MOUTH THREE (3) TIMES DAILY NEEDED... Albuterol Sulfate HFA [facility] [address]-08 108 (90 Base) MCG/ACT Inhalation every 4 hrs 2 puffs as needed Amitriptyline HCl [facility] 47285380403 50 mg Orally Once a day 1 tablet Furosemide [facility] [address]-24 20 mg Orally every other day 1 tablet Venlafaxine HCl [facility] [address]-38 75 MG Orally Twice a day 1 tablet with food Potassium Chloride ER [facility] [address]-35 20 MEQ Orally 3 times a day 1 tablet with food Cyclobenzaprine HCl [facility] 59864994367 10 mg Orally 2 times a day 1 tablet Potassium Chloride ER [facility] 22900272664 20 MEQ Orally 3 times a day 1 tablet with food Hydrocodone-Acetaminophen [facility] [address]-84 10-325 MG Orally every 6 hrs 1 tablet as needed Procedures Procedure Coding System Code Date DRAIN/INJECT, JOINT/BURSA CPT-4 11584 Sep 15, 2016 Office Visit, Est Pt., Level 3 CPT-4 88239 Sep 15, 2016 Vital Signs Date/Time: Sep 15, 2016 Cardiac Monitoring Heart Rate 68 bpm Weight 238.0 lbs Height 69 in BMI 35.14 Index Blood Pressure Diastolic 78 mmHg Blood Pressure Systolic 130 mmHg Results No Known Results Summary Purpose [employer] Submission
--- OUTSIDE RECORDS SUMMARY | 2017-05-25 12:49 | XMS REPORT ---
Author Author ALISSA SANTAMARIA [facility] eClinicalWorks Address Unknown Phone Unavailable Care Team Providers Care Patient Svcs Mgr Name Role Phone ALISSA SANTAMARIA CP Unavailable Allergies, Adverse Reactions, Alerts Substance Reaction Event Type N.K.D.A. Info Not Available Non Drug Allergy Problems Problem Type Condition Code Onset Dates Condition Status Assessment Dental examination V72.2 Active Medications Medication Code System Code Instructions Start Date End Date Status Dosage Dexamethasone [facility] [address]-04 not defined Furosemide [facility] [address]-03 not defined Breo Ellipta [facility] [address]-82 not defined Theophylline [facility] [address]-80 not defined Restasis [facility] [address]-15 not defined Spiriva HandiHaler [facility] [address]-46 not defined Trazodone HCl [facility] [address]-88 not defined Hydrocodone-Acetaminophen [facility] [address]-45 not defined ProAir HFA [facility] [address]-34 not defined Potassimin [facility] [address]-86 not defined Escitalopram Oxalate [facility] [address]-67 not defined Xopenex [facility] [address]-06 not defined Amoxicillin [facility] [address]-53 500 MG Orally Three times a day Aug 27, 2015 Aug 28, 2015 1 capsule Omeprazole NDC 0 not defined Zofran [facility] [address]-27 not defined Diazepam [facility] [address]-17 not defined Metoprolol Succinate NDC 0 not defined HydrALAZINE HCl [facility] [address]-48 not defined Procedures Procedure Coding System Code Date PANORAMIC FILM SEE ALSO CODE 31636 CPT-4 D0330 Aug 27, 2015 LTD ORAL EVALUATION - PROBLEM FOCUS CPT-4 D0140 Aug 27, 2015 Vital Signs Date/Time: Aug 27, 2015 Blood Pressure Diastolic 84 mmHg Blood Pressure Systolic 133 mmHg Cardiac Monitoring Heart Rate 74 bpm Results No Known Results Summary Purpose eClinicalWorks Submission
--- OUTSIDE RECORDS SUMMARY | 2017-05-25 12:49 | XMS REPORT ---
Author Author ACE DE LOS SANTOS Organization eClinicalWorks Address Unknown Phone Unavailable Care Team Providers Care Inorganic Chemistry Professor Name Role Phone ACE DE LOS SANTOS CP Unavailable Allergies No Known Allergies Problems Problem Type Condition Code Onset Dates Condition Status Problem Dysthymia F34.1 Active Problem Chronic bronchitis, unspecified chronic bronchitis type J42 Active Problem Essential hypertension I10 Active Problem Reflux gastritis K29.60 Active Problem Coronary artery disease involving [place]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[place] heart without angina pectoris I25.10 Active Problem 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 Active Problem Acute diffuse otitis externa of left ear H60.312 Active Problem Osteoarthritis of right hip, unspecified osteoarthritis type M16.11 Active Problem CLL (chronic lymphocytic leukemia) C91.10 Active Problem DDD (degenerative disc disease), lumbosacral M51.37 Active Problem Urinary frequency R35.0 Active Problem Chronic hepatitis C without hepatic coma B18.2 Active Medications Medication Code System Code Instructions Start Date End Date Status Dosage MiraLax [facility] [address]-32 - Orally Once a day, PRN Jul 15, 2016 1 cap Results No Known Results Summary Purpose eClinicalWorks Submission
--- OUTSIDE RECORDS SUMMARY | 2017-05-25 12:49 | XMS REPORT ---
Author Author ACE DE LOS SANTOS Organization eClinicalWorks Address Unknown Phone Unavailable Care Team Providers Care Surgical Dental Assistant Name Role Phone ACE DE LOS SANTOS CP Unavailable Allergies No Known Allergies Problems Problem Type Condition Code Onset Dates Condition Status Problem Dysthymia F34.1 Active Problem Chronic bronchitis, unspecified chronic bronchitis type J42 Active Problem Essential hypertension I10 Active Problem Reflux gastritis K29.60 Active Problem Coronary artery disease involving [place]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[place] heart without angina pectoris I25.10 Active Problem [...] C without hepatic coma B18.2 Active Medications No Known Medications Results No Known Results Summary Purpose eClinicalWorks Submission
--- OUTSIDE RECORDS SUMMARY | 2017-05-25 12:49 | XMS REPORT ---
Author Author ACE DE LOS SANTOS Organization eClinicalWorks Address Unknown Phone Unavailable Care Team Providers Care Aircraft Avionics Technician Name Role Phone ACE DE LOS SANTOS CP Unavailable Allergies No Known Allergies Problems Problem Type Condition Code Onset Dates Condition Status Problem Reflux gastritis K29.60 Active Problem CLL (chronic lymphocytic leukemia) C91.10 Active Problem DDD (degenerative disc disease), lumbosacral M51.37 Active Problem Chronic hepatitis C without hepatic coma B18.2 Active Problem Dysthymia F34.1 Active Problem Coronary artery disease involving [place]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[place] heart without angina pectoris I25.10 Active Problem Chronic bronchitis, unspecified chronic bronchitis type J42 Active Problem Essential hypertension I10 Active Medications Medication Code System Code Instructions Start Date End Date Status Dosage HydrALAZINE HCl [facility] [address]-98 10 MG Orally Once a day 2 tablet Results No Known Results Summary Purpose eClinicalWorks Submission
--- OUTSIDE RECORDS SUMMARY | 2017-05-25 12:49 | XMS REPORT ---
Author Author ACE DE LOS SANTOS Organization eClinicalWorks Address Unknown Phone Unavailable Care Team Providers Care Welfare Supervisor Name Role Phone ACE DE LOS SANTOS CP Unavailable Allergies No Known Allergies Problems Problem Type Condition Code Onset Dates Condition Status Problem Reflux gastritis K29.60 Active Problem CLL (chronic lymphocytic leukemia) C91.10 Active Problem DDD (degenerative disc disease), lumbosacral M51.37 Active Problem Chronic hepatitis C without hepatic coma B18.2 Active Problem Dysthymia F34.1 Active Problem Coronary artery disease involving [place]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[place] heart without angina pectoris I25.10 Active Problem Chronic bronchitis, unspecified chronic bronchitis type J42 Active Problem Essential hypertension I10 Active Medications Medication Code System Code Instructions Start Date End Date Status Dosage Ibuprofen [facility] [address]-90 800 MG Orally Three times a day Sep 09, 2015 1 tablet Cyclobenzaprine HCl [facility]] [address]-74 10 MG Orally 2 times a day Sep 09, 2015 1 tablet Amitriptyline HCl [facility] 2] [address]-51 50 MG Orally Once a day Sep 09, 2015 1 tablet Venlafaxine HCl [facility] 2] [address]-32 37.5 MG Orally Twice a day Sep 09, 2015 1 tablet with food PredniSONE [facility] 2] [address]-99 10 MG Orally Once a day Sep 09, 2015 1 tablet with food or milk Results No Known Results Summary Purpose eClinicalWorks Submission
--- OUTSIDE RECORDS SUMMARY | 2017-05-25 12:50 | XMS REPORT ---
Author Author ALISSA SANTAMARIA [facility] eClinicalWorks Address Unknown Phone Unavailable Care Team Providers Care Miller Head Wet Process Name Role Phone ALISSA SANTAMARIA CP Unavailable Allergies, Adverse Reactions, Alerts Substance Reaction Event Type N.K.D.A. Info Not Available Non Drug Allergy Problems Problem Type Condition Code Onset Dates Condition Status Assessment Dental caries, unspecified K02.9 Active Assessment Dental examination Z01.20 Active Medications Medication Code System Code Instructions Start Date End Date Status Dosage Amoxicillin [facility] [address]-60 500 MG Orally Three times a day Sep 03, 2015 Sep 13, 2015 1 [place] [address]-57 600 MG Orally every 6 hrs Sep 03, 2015Aug 1 tablet Procedures Procedure Coding System Code Date EXTRAC ERUPTED TOOTH/EXPOSED ROOT CPT-4 D7140 Aug 27, 2015 SURG REMOVAL ERUPTED TOOTH CPT-4 D7210 Sep 03, 2015 EXTRAC ERUPTED TOOTH/EXPOSED ROOT CPT-4 D7140 Aug 27, 2015 SURG REMOVAL ERUPTED TOOTH CPT-4 D7210 Sep 03, 2015 SURG REMOVAL ERUPTED TOOTH CPT-4 D7210 Sep 03, 2015 SURG REMOVAL ERUPTED TOOTH CPT-4 D7210 Sep 03, 2015 SURG REMOVAL ERUPTED TOOTH CPT-4 D7210 Sep 03, 2015 Vital Signs Date/Time: Sep 03, 2015 Blood Pressure Diastolic 86 mmHg Blood Pressure Systolic 145 mmHg Cardiac Monitoring Heart Rate 73 bpm Results No Known Results Summary Purpose eClinicalWorks Submission
--- OUTSIDE RECORDS SUMMARY | 2017-05-25 12:50 | XMS REPORT ---
Author Author ACE DE LOS SANTOS Organization eClinicalWorks Address Unknown Phone Unavailable Care Team Providers Care Senior Case Manager Name Role Phone ACE DE LOS SANTOS CP Unavailable Allergies No Known Allergies Problems Problem Type Condition Code Onset Dates Condition Status Problem Reflux gastritis K29.60 Active Problem CLL (chronic lymphocytic leukemia) C91.10 Active Problem DDD (degenerative disc disease), lumbosacral M51.37 Active Problem Chronic hepatitis C without hepatic coma B18.2 Active Problem Dysthymia F34.1 Active Problem Coronary artery disease involving [place]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[place] heart without angina pectoris I25.10 Active Problem Chronic bronchitis, unspecified chronic bronchitis type J42 Active Problem Essential hypertension I10 Active Medications Medication Code System Code Instructions Start Date End Date Status Dosage PredniSONE [facility] [address]-68 10 MG Orally Once a day Sep 09, 2015 1 tablet with food or milk Amitriptyline HCl [facility] [address]-58 50 MG Orally Once a day Sep 09, 2015 1 tablet Cyclobenzaprine HCl [facility] [address]-06 10 MG Orally 2 times a day Sep 09, 2015 1 tablet Ibuprofen [facility] [address]-51 800 MG Orally Three times a day Sep 09, 2015 1 tablet Venlafaxine HCl [facility] [address]-43 37.5 MG Orally Twice a day Sep 09, 2015 1 tablet with food Results No Known Results Summary Purpose eClinicalWorks Submission
--- OUTSIDE RECORDS SUMMARY | 2017-05-25 12:50 | XMS REPORT ---
Author Author ACE DE LOS SANTOS Organization eClinicalWorks Address Unknown Phone Unavailable Care Team Providers Care Behavioral Specialist Name Role Phone ACE DE LOS SANTOS CP Unavailable Allergies No Known Allergies Problems Problem Type Condition Code Onset Dates Condition Status Problem Reflux gastritis K29.60 Active Problem CLL (chronic lymphocytic leukemia) C91.10 Active Problem DDD (degenerative disc disease), lumbosacral M51.37 Active Problem Chronic hepatitis C without hepatic coma B18.2 Active Problem Dysthymia F34.1 Active Problem Coronary artery disease involving [place]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[place] heart without angina pectoris I25.10 Active Problem Chronic bronchitis, unspecified chronic bronchitis type J42 Active Problem Essential hypertension I10 Active Medications Medication Code System Code Instructions Start Date End Date Status Dosage HydrALAZINE HCl [facility] [address]-07 10 MG Orally Once a day 2 tablet Results No Known Results Summary Purpose eClinicalWorks Submission
--- OUTSIDE RECORDS SUMMARY | 2017-05-25 12:50 | XMS REPORT ---
Author Author ACE DE LOS SANTOS [facility] eClinicalWorks Address Unknown Phone Unavailable Care Team Providers Care Alcohol Rubber Name Role Phone ACE DE LOS SANTOS [...] otitis externa of left ear H60.312 Active Assessment Dysthymia F34.1 Active Problem Reflux gastritis K29.60 Active Problem Coronary artery disease involving [place]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[place] heart without angina pectoris I25.10 Active Assessment DDD (degenerative disc disease), lumbosacral M51.37 Active Problem Dysthymia F34.1 Active Assessment 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 Active Problem Essential hypertension I10 Active Medications Medication Code System Code Instructions Start Date End Date Status Dosage HydrALAZINE HCl [facility] 99384036362 10 mg Orally Once a day 2 tablet Trazodone HCl [facility] 45970822313 100 MG Orally 2 times a day 1 tablet at bedtime Metoprolol Tartrate [facility] 06294970473 50 mg Orally Twice a day 1 tablet Nicotine [facility] [address]-68 21 MG/24HR Transdermal Once a day 1 patch to skin Omeprazole [facility] [address]-55 40 mg Orally Once a day 1 capsule Oxygen ND 0 HS 3.5 literes Hydrocodone-Acetaminophen [facility] [address]-19 10-325 MG Orally every 6 hrs must last 1 m 1 tablet as needed Symbicort [facility] [address]-93 160-4.5 MCG/ACT Inhalation Twice a day Sep 10, 2016 2 puffs Naproxen [facility] [address]-41 500 MG Orally every 12 hrs May 06, 2016 1 tablet as needed Restasis [facility] 26529090181 0.05 % Ophthalmic Twice a day not defined Zofran [facility] 07077737019 8 MG ...TAKE ONE (1) TABLET BY MOUTH THREE (3) TIMES DAILY NEEDED... Albuterol Sulfate HFA [facility] [address]-62 108 (90 Base) MCG/ACT Inhalation every 4 hrs 2 puffs as needed PredniSONE [facility] [address]-10 5 mg Orally Once a day 1 tablet Diazepam [facility] [address]-04 10 mg Orally Twice a day Must last 1 m 1 tablet as needed Zyrtec Allergy [facility] 17872299630 10 mg Orally not defined Levalbuterol HCl [facility] [address]-12 1.25 MG/3ML Inhalation every 8 hrs 3 ml Venlafaxine HCl [facility] [address]-17 75 MG Orally Twice a day 1 tablet with food Escitalopram Oxalate [facility] [address]-83 20 mg Orally Once a day 0.5 tablet C-PAP Machine ND 0 not defined Cyclobenzaprine HCl [facility] 58918207417 10 mg Orally 2 times a day 1 tablet Amitriptyline HCl [facility] [address]-23 50 mg Orally Once a day 1 tablet Singulair [facility] [address]-95 10 MG Orally Once a day 1 tablet in the evening Spiriva HandiHaler [facility] 84307787955 18 MCG INHALE THE CONTENTS OF ONE (1) CAPSULE ONCE DAILY... Imbruvica [facility] [address]-47 140 MG Orally twice a day 1 capsule Furosemide [facility] [address]-97 20 mg Orally every other day 1 tablet Potassium Chloride ER [facility] 75722758261 20 MEQ Orally 3 times a day 1 tablet with food Fluticasone Propionate [facility] [address]-11 50 MCG/ACT Nasally Once a day 1 spray in each nostril Procedures Procedure Coding System Code Date Office Visit, Est Pt., Level 3 CPT-4 99871 Oct 07, 2016 Vital Signs Date/Time: Oct 07, 2016 Cardiac Monitoring Heart Rate 60 bpm Weight 232.2 lbs Height 69 in BMI 34.29 Index Blood Pressure Diastolic 72 mmHg Blood Pressure Systolic 120 mmHg Results No Known Results Summary Purpose eClinicalWorks Submission
--- OUTSIDE RECORDS SUMMARY | 2017-05-25 12:51 | XMS REPORT ---
Author Author ACE DE LOS SANTOS Organization eClinicalWorks Address Unknown Phone Unavailable Care Team Providers Care Production Maintenance Technician Name Role Phone ACE DE LOS SANTOS CP Unavailable Allergies No Known Allergies Problems Problem Type Condition Code Onset Dates Condition Status Problem Reflux gastritis K29.60 Active Problem CLL (chronic lymphocytic leukemia) C91.10 Active Problem DDD (degenerative disc disease), lumbosacral M51.37 Active Problem Chronic hepatitis C without hepatic coma B18.2 Active Problem Dysthymia F34.1 Active Problem Coronary artery disease involving [place]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[place] heart without angina pectoris I25.10 Active Problem Chronic bronchitis, unspecified chronic bronchitis type J42 Active Problem Essential hypertension I10 Active Medications Medication Code System Code Instructions Start Date End Date Status Dosage Furosemide [facility] [address]-85 40 MG Orally Once a day 1 tablet Results No Known Results Summary Purpose eClinicalWorks Submission
--- OUTSIDE RECORDS SUMMARY | 2017-05-25 12:51 | XMS REPORT ---
Author Author ACE DE LOS SANTOS Organization eClinicalWorks Address Unknown Phone Unavailable Care Team Providers Care Distribution Lineman Name Role Phone ACE DE LOS SANTOS CP Unavailable Allergies No Known Allergies Problems Problem Type Condition Code Onset Dates Condition Status Assessment Dysthymia F34.1 Active Problem Reflux gastritis K29.60 Active Assessment DDD (degenerative disc disease), lumbosacral M51.37 Active Problem CLL (chronic lymphocytic leukemia) C91.10 Active Problem DDD (degenerative disc disease), lumbosacral M51.37 Active Problem Chronic hepatitis C without hepatic coma B18.2 Active Problem Dysthymia F34.1 Active Problem Coronary artery disease involving [place]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[place] heart without angina pectoris I25.10 Active Problem Chronic bronchitis, unspecified chronic bronchitis type J42 Active Problem Essential hypertension I10 Active Medications Medication Code System Code Instructions Start Date End Date Status Dosage Hydrocodone-Acetaminophen [facility] [address]-94 10-325 MG Orally 2 times a day 1 tablet as needed Diazepam [facility] [address]-38 10 MG Orally 2 times a day as needed 1 tab Results No Known Results Summary Purpose eClinicalWorks Submission
--- OUTSIDE RECORDS SUMMARY | 2017-05-25 12:51 | XMS REPORT ---
Author Author ACE DE LOS SANTOS [facility] eClinicalWorks Address Unknown Phone Unavailable Care Team Providers Care Email Specialist Name Role Phone ACE DE LOS SANTOS CP Unavailable Allergies, Adverse Reactions, Alerts Substance Reaction Event Type N.K.D.A. Info Not Available Non Drug Allergy Problems Problem Type Condition Code Onset Dates Condition Status Problem Reflux gastritis K29.60 Active Assessment DDD (degenerative disc disease), lumbosacral M51.37 Active Problem CLL (chronic lymphocytic leukemia) C91.10 Active Problem DDD (degenerative disc disease), lumbosacral M51.37 Active Problem Chronic hepatitis C without hepatic coma B18.2 Active Problem Dysthymia F34.1 Active Problem Coronary artery disease involving [place]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[place] heart without angina pectoris I25.10 Active Problem Chronic bronchitis, unspecified chronic bronchitis type J42 Active Problem Essential hypertension I10 Active Medications Medication Code System Code Instructions Start Date End Date Status Dosage Hydrocodone-Acetaminophen [facility] [address]-77 10-325 MG Orally every 3 hrs 1 tablet as needed Diazepam [facility] [address]-93 10 MG Orally 2 times a day as needed 1 tab Cyclobenzaprine HCl [facility] [address]-10 10 MG Orally 2 times a day Sep 09, 2015 1 tablet Metoprolol Tartrate [facility] [address]-51 50 MG Orally Twice a day 1 tablet ProAir HFA [facility] [address]-78 108 (90 Base) MCG/ACT Inhalation not defined HydrALAZINE HCl [facility] [address]-42 10 MG Orally Once a day 2 tablet Potassium Chloride ER [facility] [address]-34 20 MEQ Orally 3 times a day 1 capsule Albuterol Sulfate HFA [facility] [address]-01 108 (90 Base) MCG/ACT Inhalation every 4 hrs Sep 16, 2015 2 puffs as needed Furosemide [facility] [address]-21 40 MG Orally Once a day 1 tablet PredniSONE [facility] [address]-40 10 MG Orally Once a day Sep 09, 2015 1 tablet with food or milk Venlafaxine HCl [facility] [address]-14 37.5 MG Orally Twice a day Sep 09, 2015 1 tablet with food Breo Ellipta [facility] [address]-46 200-25 MCG/INH Inhalation Once a day 1 puff Spiriva HandiHaler [facility] [address]-85 18 MCG Inhalation Once a day 1 capsule Trazodone HCl [facility] [address]-79 100 MG Orally 2 times a day 1 tab Zofran [facility] [address]-14 8 MG Orally 3 times a day as needed 1 tablet Restasis [facility] [address]-92 0.05 % Ophthalmic Twice a day 1 into affected eye Ibuprofen [facility] [address]-11 800 MG Orally Three times a day Sep 09, 2015 1 tablet Amitriptyline HCl [facility] [address]-21 50 MG Orally Once a day Sep 09, 2015 1 tablet Escitalopram Oxalate [facility] [address]-44 20 MG Orally Once a day 1 tablet Omeprazole [facility] [address]-34 40 MG Orally Once a day 1 tablet Procedures Procedure Coding System Code Date Office Visit, Est Pt., Level 3 CPT-4 84107 Nov 17, 2015 Vital Signs Date/Time: Nov 17, 2015 Temperature 97.5 F Weight 240.6 lbs Height 69 in BMI 35.53 Index Blood Pressure Diastolic 94 mmHg Blood Pressure Systolic 130 mmHg Cardiac Monitoring Heart Rate 72 bpm Results No Known Results Summary Purpose eClinicalWorks Submission
--- OUTSIDE RECORDS SUMMARY | 2017-05-25 12:51 | XMS REPORT ---
Author Author ACE DE LOS SANTOS [facility] eClinicalWorks Address Unknown Phone Unavailable Care Team Providers Care Embroidery Patternmaker Name Role Phone ACE DE LOS SANTOS CP Unavailable Allergies, Adverse Reactions, Alerts Substance Reaction Event Type N.K.D.A. Info Not Available Non Drug Allergy Problems Problem Type Condition Code Onset Dates Condition Status Assessment Essential hypertension I10 Active Assessment Encounter for immunization Z23 Active Assessment Chronic bronchitis, unspecified chronic bronchitis type J42 Active Problem Chronic bronchitis, unspecified chronic bronchitis type J42 Active Problem Essential hypertension I10 Active Problem DDD (degenerative disc disease), lumbosacral M51.37 Active Problem Reflux gastritis K29.60 Active Assessment DDD (degenerative disc disease), lumbosacral M51.37 Active Problem Dysthymia F34.1 Active Problem Coronary artery disease involving [place]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[place] heart without angina pectoris I25.10 Active Assessment Reflux gastritis K29.60 Active Assessment Coronary artery disease involving [place]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[place] heart without angina pectoris I25.10 Active Assessment Dysthymia F34.1 Active Medications Medication Code System Code Instructions Start Date End Date Status Dosage Diazepam [facility] [address]-25 10 MG Orally 2 times a day 1 tab Escitalopram Oxalate [facility] [address]-89 20 MG Orally Once a day not defined Zofran [facility] [address]-94 8 MG Orally not defined ProAir HFA [facility] [address]-94 108 (90 Base) MCG/ACT Inhalation not defined Ibuprofen [facility] [address]-40 800 MG Orally Three times a day Sep 09, 2015 1 tablet Amoxicillin [facility] [address]-80 500 MG Orally Three times a day Sep 03, 2015 Sep 13, 2015 1 capsule Cyclobenzaprine HCl [facility] [address]-38 10 MG Orally 2 times a day Sep 09, 2015 1 tablet Trazodone HCl [facility] [address]-68 100 MG Orally 2 times a day 1 tab HydrALAZINE HCl [facility] [address]-02 10 MG Orally Once a day 2 tablet Venlafaxine HCl [facility] [address]-51 37.5 MG Orally Twice a day Sep 09, 2015 1 tablet with food Potassium Chloride ER [facility] [address]-41 20 MEQ Orally not defined Hydrocodone-Acetaminophen [facility] [address]-36 10-325 MG Orally 2 times a day not defined Furosemide [facility] [address]-83 40 MG Orally Once a day not defined Breo Ellipta [facility] [address]-05 200-25 MCG/INH Inhalation not defined Restasis [facility] [address]-28 0.05 % Ophthalmic Twice a day not defined Amitriptyline HCl [facility] [address]-03 50 MG Orally Once a day Sep 09, 2015 1 tablet Spiriva HandiHaler [facility] [address]-23 18 MCG Inhalation not defined PredniSONE [facility] [address]-37 10 MG Orally Once a day Sep 09, 2015 1 tablet with food or milk Omeprazole [facility] [address]-44 40 MG Orally Once a day not defined Metoprolol Tartrate [facility] [address]-45 50 MG Orally Twice a day 1 tablet Procedures Procedure Coding System Code Date FLUARIX QUAD (3 & UP)-Bebitos-2014 CPT-4 85816 Sep 09, 2015 SINGLE IMMUNIZATION ADMIN CPT-4 56520 Sep 09, 2015 Office Visit, New Pt., Level 3 CPT-4 07823 Sep 09, 2015 Vital Signs Date/Time: Sep 09, 2015 Cardiac Monitoring Heart Rate 70 bpm Temperature 97.4 F Weight 252 lbs Blood Pressure Diastolic 70 mmHg Blood Pressure Systolic 145 mmHg Results No Known Results Immunizations Vaccine Administration Date FLUARIX QUAD (3 & UP)-Bebitos-2014Sep 09, 2015 Summary Purpose eClinicalWorks Submission
--- OUTSIDE RECORDS SUMMARY | 2017-05-25 12:52 | XMS REPORT ---
Author Author ACE DE LOS SANTOS Organization eClinicalWorks Address Unknown Phone Unavailable Care Team Providers Care Prison Officer Name Role Phone ACE DE LOS SANTOS CP Unavailable Allergies No Known Allergies Problems Problem Type Condition Code Onset Dates Condition Status Problem Dysthymia F34.1 Active Problem Chronic bronchitis, unspecified chronic bronchitis type J42 Active Problem Essential hypertension I10 Active Problem Reflux gastritis K29.60 Active Problem Coronary artery disease involving [place]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[place] heart without angina pectoris I25.10 Active Problem [...] Instructions Start Date End Date Status Dosage Omeprazole [facility] [address]-49 40 mg Orally Once a day 1 capsule Metoprolol Tartrate [facility] [address]-98 50 mg Orally Twice a day 1 tablet HydrALAZINE HCl [facility] [address]-92 10 mg Orally Once a day 2 tablet Results No Known Results Summary Purpose eClinicalWorks Submission
--- OUTSIDE RECORDS SUMMARY | 2017-05-25 12:52 | XMS REPORT ---
Author Author ACE DE LOS SANTOS [facility] eClinicalWorks Address Unknown Phone Unavailable Care Team Providers Care Bone Tender Name Role Phone ACE DE LOS SANTOS CP Unavailable Allergies, Adverse Reactions, Alerts Substance Reaction Event Type N.K.D.A. 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 Active Problem Acute diffuse otitis externa of left ear H60.312 Active Problem Osteoarthritis of right hip, unspecified osteoarthritis type M16.11 Active Problem CLL (chronic lymphocytic leukemia) C91.10 Active Problem DDD (degenerative disc disease), lumbosacral M51.37 Active Problem Urinary frequency R35.0 Active Problem Chronic hepatitis C without hepatic coma B18.2 Active Assessment Encounter for immunization Z23 Active Assessment Essential hypertension I10 Active Assessment DDD (degenerative disc disease), lumbosacral M51.37 Active Assessment Osteoarthritis of right hip, unspecified osteoarthritis type M16.11 Active Problem Reflux gastritis K29.60 Active Assessment CLL (chronic lymphocytic leukemia) C91.10 Active Problem Coronary artery disease involving [place]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[place] heart without angina pectoris I25.10 Active Medications Medication Code System Code Instructions Start Date End Date Status Dosage PredniSONE [facility] [address]-96 5 MG Orally Once a day 1 tablet Potassium Chloride ER [facility] [address]-72 20 MEQ Orally 3 times a day 1 tablet with food Naproxen [facility] [address]-87 500 MG Orally every 12 hrs May 06, 2016 1 tablet as needed Fluticasone Propionate [facility] [address]-80 50 MCG/ACT Nasally Once a day 1 spray in each nostril HydrALAZINE HCl [facility] [address]-97 10 mg Orally Once a day 2 tablet Cyclobenzaprine HCl [facility] 84160263573 10 mg Orally 2 times a day 1 tablet Metoprolol Tartrate [facility] [address]-30 50 mg Orally Twice a day 1 tablet Levalbuterol HCl [facility] [address]-41 1.25 MG/3ML Inhalation every 8 hrs 3 ml Diazepam [facility] [address]-93 10 mg Orally Twice a day 1 tablet as needed Zyrtec Allergy [facility] [address]-11 10 mg Orally Once a day 1 tablet Venlafaxine HCl [facility] [address]-27 75 MG Orally Twice a day 1 tablet with food Breo Ellipta [facility] 97661481456 200-25 MCG/INH INHALE (1) PUFF BY MOUTH ONCE DAILY. Imbruvica [facility] [address]-27 140 MG Orally twice a day 1 capsule Restasis [facility] 47070076408 0.05 % Ophthalmic Twice a day not defined Zofran [facility] 58979072696 8 MG ...TAKE ONE (1) TABLET BY MOUTH THREE (3) TIMES DAILY NEEDED... Potassium Chloride ER [facility] 97916264147 20 MEQ Orally 3 times a day 1 tablet with food Furosemide [facility] [address]-36 20 mg Orally every other day 1 tablet Singulair [facility] [address]-21 10 MG Orally Once a day 1 tablet in the evening Nicotine [facility] [address]-05 21 MG/24HR Transdermal Once a day 1 patch to skin Oxygen NDC 0 HS 3.5 literes Escitalopram Oxalate [facility] 14633697857 20 mg Orally Once a day 0.5 tablet Amitriptyline HCl [facility] 61882988389 50 mg Orally Once a day 1 tablet Hydrocodone-Acetaminophen [facility] [address]-44 10-325 MG Orally every 6 hrs 1 tablet as needed C-PAP Machine NDC 0 not defined Omeprazole [facility] [address]-89 40 mg Orally Once a day 1 capsule Albuterol Sulfate HFA [facility] [address]-92 108 (90 Base) MCG/ACT Inhalation every 4 hrs 2 puffs as needed Spiriva HandiHaler [facility] 76210895136 18 MCG Inhalation Once a day 1 capsule Trazodone HCl [facility] 46850692689 100 MG Orally 2 times a day 1 tablet at bedtime Procedures Procedure Coding System Code Date FLUARIX QUAD P-FREE 3 AND UP .50 2015 CPT-4 27244 Sep 09, 2016 SINGLE IMMUNIZATION ADMIN CPT-4 66555 Sep 09, 2016 Office Visit, Est Pt., Level 3 CPT-4 56464 Sep 09, 2016 Vital Signs Date/Time: Sep 09, 2016 Cardiac Monitoring Heart Rate 68 bpm Weight 234 lbs Height 69 in BMI 34.55 Index Blood Pressure Diastolic 80 mmHg Blood Pressure Systolic 140 mmHg Results No Known Results Immunizations Vaccine Administration Date FLUARIX QUAD P-FREE 3 AND UP .50 2015Sep 09, 2016 Summary Purpose eClinicalWorks Submission
--- OUTSIDE RECORDS SUMMARY | 2017-05-25 12:52 | XMS REPORT ---
Author Author ALISSA SANTAMARIA [facility] [place] eClinicalWorks Address Unknown Phone Unavailable Care Team Providers Care Document Image Technician Name Role Phone ALISSA SANTAMARIA CP Unavailable Allergies, Adverse Reactions, Alerts Substance Reaction Event Type N.K.D.A. Info Not Available Non Drug Allergy Problems Problem Type Condition Code Onset Dates Condition Status Problem Reflux gastritis K29.60 Active Assessment Encounter for dental examination Z01.20 Active Problem CLL (chronic lymphocytic leukemia) C91.10 Active Problem DDD (degenerative disc disease), lumbosacral M51.37 Active Problem Chronic hepatitis C without hepatic coma B18.2 Active Problem Dysthymia F34.1 Active Problem Coronary artery disease involving [place]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[place] heart without angina pectoris I25.10 Active Problem Chronic bronchitis, unspecified chronic bronchitis type J42 Active Problem Essential hypertension I10 Active Medications Medication Code System Code Instructions Start Date End Date Status Dosage Amoxicillin [facility] [address]-05 500 MG Orally 3 times a day Oct 08, 2015 Oct 15, 2015 1 [place] [address]-55 500 MG Orally 3 times a day Oct 08, 2015 Oct 15, 2015 1 tablet Procedures Procedure Coding System Code Date Dental no charge CPT-4 D0099 Oct 08, 2015 Vital Signs Date/Time: Oct 08, 2015 Blood Pressure Diastolic 93 mmHg Blood Pressure Systolic 132 mmHg Cardiac Monitoring Heart Rate 87 bpm Results No Known Results Summary Purpose eClinicalWorks Submission
--- OUTSIDE RECORDS SUMMARY | 2017-05-25 12:52 | XMS REPORT ---
Author Author ACE DE LOS SANTOS Organization eClinicalWorks Address Unknown Phone Unavailable Care Team Providers Care Supervisor Scenic Arts Name Role Phone ACE DE LOS SANTOS CP Unavailable Allergies No Known Allergies Problems Problem Type Condition Code Onset Dates Condition Status Problem Dysthymia F34.1 Active Problem Chronic bronchitis, unspecified chronic bronchitis type J42 Active Problem Essential hypertension I10 Active Problem Reflux gastritis K29.60 Active Problem Coronary artery disease involving [place]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[place] heart without angina pectoris I25.10 Active Problem [...] Start Date End Date Status Dosage Symbicort [facility] [address]-14 160-4.5 MCG/ACT Inhalation Twice a day Sep 10, 2016 2 puffs Results No Known Results Summary Purpose eClinicalWorks Submission
--- OUTSIDE RECORDS SUMMARY | 2017-05-25 12:52 | XMS REPORT ---
Author Author ACE DE LOS SANTOS Organization eClinicalWorks Address Unknown Phone Unavailable Care Team Providers Care Field Service Specialist Name Role Phone ACE DE LOS SANTOS CP Unavailable Allergies No Known Allergies Problems Problem Type Condition Code Onset Dates Condition Status Problem Dysthymia F34.1 Active Problem Chronic bronchitis, unspecified chronic bronchitis type J42 Active Problem Essential hypertension I10 Active Problem Reflux gastritis K29.60 Active Problem Coronary artery disease involving [place]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[place] heart without angina pectoris I25.10 Active Problem [...] Instructions Start Date End Date Status Dosage Cortisporin-TC [facility] [address]-82 3.3-3-10-0.5 MG/ML Otic 4 times a day June 23, 2016 4 drops into affected ear Results No Known Results Summary Purpose eClinicalWorks Submission
--- OUTSIDE RECORDS SUMMARY | 2017-05-25 12:53 | XMS REPORT ---
Author Author ACE DE LOS SANTOS Organization eClinicalWorks Address Unknown Phone Unavailable Care Team Providers Care Ceo And Founder Name Role Phone ACE DE LOS SANTOS CP Unavailable Allergies No Known Allergies Problems Problem Type Condition Code Onset Dates Condition Status Problem Coronary artery disease involving [place]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[place] heart without angina pectoris I25.10 Active Problem Essential hypertension I10 Active Problem Dysthymia F34.1 Active Problem Reflux gastritis K29.60 Active Problem Acute diffuse otitis externa of left ear H60.312 Active Problem Urinary frequency R35.0 Active Problem 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
--- OUTSIDE RECORDS SUMMARY | 2017-05-25 12:53 | XMS REPORT ---
Author Author ACE DE LOS SANTOS Organization eClinicalWorks Address Unknown Phone Unavailable Care Team Providers Care Pediatric Geneticist Name Role Phone ACE DE LOS SANTOS CP Unavailable Allergies No Known Allergies Problems Problem Type Condition Code Onset Dates Condition Status Problem Coronary artery disease involving [place]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[place] heart without angina pectoris I25.10 Active Problem [...] CLL (chronic lymphocytic leukemia) C91.10 Active Medications Medication Code System Code Instructions Start Date End Date Status Dosage Venlafaxine HCl [facility] [address]-28 37.5 MG Orally Twice a day 1 tablet with food Results No Known Results Summary Purpose eClinicalWorks Submission
--- OUTSIDE RECORDS SUMMARY | 2017-05-25 12:53 | XMS REPORT ---
Author Author ALISSA SANTAMARIA [facility] eClinicalWorks Address Unknown Phone Unavailable Care Team Providers Care Rubber Roller Grinder Operator Name Role Phone ALISSA SANTAMARIA Unavailable Allergies, Adverse Reactions, Alerts Substance Reaction [...] F34.1 Active Problem Coronary artery disease involving [place]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[place] heart without angina pectoris I25.10 Active Problem Chronic bronchitis, unspecified chronic bronchitis type J42 Active Problem Essential hypertension I10 Active Medications Medication Code System Code Instructions Start Date End Date Status Dosage Clindamycin HCl [facility] [address]-28 300 MG Orally every 8 hrs Sep 25, 2015 Oct 02, 2015 1 capsule Zofran [facility] [address]-88 8 MG Orally 3 times a day as needed 1 tablet Diazepam [facility] [address]-82 10 MG Orally 2 times a day 1 tab Potassium Chloride ER [facility] [address]-97 20 MEQ Orally not defined Trazodone HCl [facility] [address]-75 100 MG Orally 2 times a day 1 tab Omeprazole [facility] [address]-05 40 MG Orally Once a day 1 tablet Metoprolol Tartrate [facility] [address]-24 50 MG Orally Twice a day 1 tablet Escitalopram Oxalate [facility] [address]-25 20 MG Orally Once a day 1 tablet Cyclobenzaprine HCl [facility] [address]-91 10 MG Orally 2 times a day Sep 09, 2015 1 tablet Hydrocodone-Acetaminophen [facility] [address]-03 10-325 MG Orally 2 times a day 1 tablet as needed Furosemide [facility] [address]-82 40 MG Orally Once a day 1 tablet Amitriptyline HCl [facility] [address]-32 50 MG Orally Once a day Sep 09, 2015 1 tablet Breo Ellipta [facility] [address]-37 200-25 MCG/INH Inhalation Once a day 1 puff Procedures Procedure Coding System Code Date INTRAORL-PERIAPICAL 1 FILM 21565 CPT-4 D0220 Sep 25, 2015 Dental no charge CPT-4 D0099 Sep 25, 2015 LTD ORAL EVALUATION - PROBLEM FOCUS CPT-4 D0140 Sep 25, 2015 Vital Signs Date/Time: Sep 25, 2015 Blood Pressure Diastolic 88 mmHg Blood Pressure Systolic 125 mmHg Results No Known Results Summary Purpose eClinicalWorks Submission
--- OUTSIDE RECORDS SUMMARY | 2017-05-25 12:53 | XMS REPORT ---
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 Active Assessment Osteoarthritis of right hip, unspecified osteoarthritis type M16.11 Active Assessment Essential hypertension I10 Active Problem Reflux gastritis K29.60 Active Assessment DDD (degenerative disc disease), lumbosacral M51.37 Active Problem Coronary artery disease involving [place]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[place] heart without angina pectoris I25.10 Active Medications Medication Code System Code Instructions Start Date End Date Status Dosage Magic Mouthwash ND 0 30 ML each of 2% Viscous Lidocaine/Maalox/Benadryl Oral Swish and Spit 4 times daily Jan 20, 2016 5 ML Levalbuterol HCl [facility] [address]-48 1.25 MG/3ML Inhalation every 8 hrs 3 ml Metoprolol Tartrate [facility] [address]-75 50 mg Orally Twice a day 1 tablet Fluticasone Propionate [facility] [address]-44 50 MCG/ACT Nasally Once a day 1 spray in each nostril Amitriptyline HCl [facility] 34821026333 50 mg Orally Once a day 1 tablet Trazodone HCl [facility] 31688587780 100 MG Orally 2 times a day 1 tablet at bedtime Venlafaxine HCl [facility] [address]-32 75 MG Orally Twice a day 1 tablet with food Imbruvica [facility] [address]-93 140 MG Orally twice a day 1 capsule Naproxen [facility] [address]-55 500 MG Orally every 12 hrs May 06, 2016 1 tablet as needed Diazepam [facility] [address]-81 10 mg Orally Twice a day 1 tablet as needed Zofran [facility] 33451533712 8 MG ...TAKE ONE (1) TABLET BY MOUTH THREE (3) TIMES DAILY NEEDED... Spiriva HandiHaler [facility] 38645313747 18 MCG Inhalation Once a day 1 capsule Omeprazole [facility] [address]-40 40 mg Orally Once a day 1 capsule Cortisporin-TC [facility] [address]-62 3.3-3-10-0.5 MG/ML Otic 4 times a day June 23, 2016 4 drops into affected ear Restasis [facility] 89142783517 0.05 % Ophthalmic Twice a day not defined Potassium Chloride ER [facility] [address]-01 20 MEQ Orally 3 times a day 1 tablet with food Furosemide [facility] [address]-86 20 MG Orally every other day 1 tablet Singulair [facility] [address]-02 10 MG Orally Once a day 1 tablet in the evening Nicotine [facility] [address]-98 21 MG/24HR Transdermal Once a day 1 patch to skin Hydrocodone-Acetaminophen [facility] [address]-13 10-325 MG Orally every 6 hrs 1 tablet as needed Zyrtec Allergy [facility] [address]-40 10 mg Orally Once a day 1 tablet Parafon Forte DSC [facility] 31555486872 500 MG Orally 2 times a day 1 tablet Breo Ellipta [facility] [address]-64 200-25 MCG/INH Inhalation Once a day 1 puff HydrALAZINE HCl [facility] [address]-46 10 mg Orally Once a day 2 tablet Cyclobenzaprine HCl [facility] 09917620546 10 mg Orally 2 times a day 1 tablet PredniSONE [facility] [address]-50 5 MG Orally Once a day 1 tablet Albuterol Sulfate HFA [facility] [address]-89 108 (90 Base) MCG/ACT Inhalation every 4 hrs 2 puffs as needed Escitalopram Oxalate [facility] 22322816970 20 mg Orally Once a day 0.5 tablet Procedures Procedure Coding System Code Date Office Visit, Est Pt., Level 3 CPT-4 59612 Jul 08, 2016 Vital Signs Date/Time: Jul 08, 2016 Cardiac Monitoring Heart Rate 68 bpm Weight 232.8 lbs Height 69 in BMI 34.37 Index Blood Pressure Diastolic 76 mmHg Blood Pressure Systolic 120 mmHg Results No Known Results Summary Purpose eClinicalWorks Submission
--- OUTSIDE RECORDS SUMMARY | 2017-05-25 12:53 | XMS REPORT ---
Author Author ACE DE LOS SANTOS [facility] eClinicalWorks Address Unknown Phone Unavailable Care Team Providers Care Instructor Weaving Name Role Phone ACE DE LOS SANTOS CP Unavailable Allergies, Adverse Reactions, Alerts Substance Reaction Event Type N.K.D.A. 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 Active Problem DDD (degenerative disc disease), lumbosacral M51.37 Active Problem Chronic bronchitis, unspecified chronic bronchitis type J42 Active Problem Chronic hepatitis C without hepatic coma B18.2 Active Problem CLL (chronic lymphocytic leukemia) C91.10 Active Assessment DDD (degenerative disc disease), lumbosacral M51.37 Active Assessment Dysthymia F34.1 Active Assessment 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 Active Problem Reflux gastritis K29.60 Active Medications Medication Code System Code Instructions Start Date End Date Status Dosage Magic Mouthwash ND 0 30 ML each of 2% Viscous Lidocaine/Maalox/Benadryl Oral Swish and Spit 4 times daily Jan 20, 2016 5 ML Metoprolol Tartrate [facility] [address]-63 50 MG Orally Twice a day 1 tablet Spiriva HandiHaler [facility] [address]-52 18 MCG Inhalation Once a day 1 capsule Breo Ellipta [facility] [address]-68 200-25 MCG/INH Inhalation Once a day 1 puff Venlafaxine HCl [facility] [address]-03 50 MG Orally Twice a day 1 tablet with food Amitriptyline HCl [facility] [address]-27 50 mg Orally Once a day 1 tablet HydrALAZINE HCl [facility] [address]-53 10 MG Orally Once a day 2 tablet Zofran [facility] [address]-91 8 MG Orally prn 3 times a day 1 tablet Omeprazole [facility] [address]-74 40 MG Orally Once a day 1 capsule Rukhsanafon Kal DSC [facility] [address]-63 500 MG Orally 2 times a day Jan 20, 2016 1 tablet Cyclobenzaprine HCl [facility] [address]-27 10 mg Orally 2 times a day 1 tablet Trazodone HCl [facility] [address]-08 100 MG Orally 2 times a day 1 tablet at bedtime Singulair [facility] [address]-90 10 MG Orally Once a day 1 tablet in the evening Albuterol Sulfate HFA [facility] [address]-35 108 (90 Base) MCG/ACT Inhalation every 4 hrs 2 puffs as needed Nicotine [facility] [address]-90 21 MG/24HR Transdermal Once a day 1 patch to skin Escitalopram Oxalate [facility] [address]-26 20 mg Orally Once a day 1 tablet Potassium Chloride ER [facility] [address]-10 20 MEQ Orally 3 times a day 1 tablet with food PredniSONE [facility] [address]-41 5 MG Orally Once a day 1 tablet Hydrocodone-Acetaminophen [facility] [address]-73 10-325 MG Orally every 6 hrs 1 tablet as needed Fluticasone Propionate [facility] [address]-16 50 MCG/ACT Nasally Once a day 1 spray in each nostril Zyrtec Allergy [facility] [address]-45 10 MG Orally not defined Levalbuterol HCl [facility] [address]-20 1.25 MG/3ML Inhalation every 8 hrs 3 ml Restasis [facility] [address]-60 0.05 % Ophthalmic Twice a day 1 into affected eye Diazepam [facility] [address]-03 10 MG Orally Twice a day 1 tablet as needed Furosemide [facility] [address]-91 20 MG Orally every other day 1 tablet Procedures Procedure Coding System Code Date Office Visit, Est Pt., Level 3 CPT-4 91961 March 16, 2016 Vital Signs Date/Time: March 16, 2016 Temperature 97.9 F Weight 241.2 lbs Height 69 in BMI 35.62 Index Blood Pressure Diastolic 78 mmHg Blood Pressure Systolic 124 mmHg Cardiac Monitoring Heart Rate 66 bpm Results No Known Results Summary Purpose eClinicalWorks Submission
--- OUTSIDE RECORDS SUMMARY | 2017-05-25 12:53 | XMS REPORT ---
Author Author FATMATA WEEKS eClinicalWorks Address Unknown Phone Unavailable Care Team Providers Care Costume Specialist Name Role Phone FATMATA WEEKS Unavailable Allergies, Adverse Reactions, Alerts Substance Reaction Event Type N.K.D.A. Info Not Available Non Drug Allergy Problems Problem Type Condition Code Onset Dates Condition Status Assessment Acute suppurative otitis media of left ear without spontaneous rupture of tympanic membrane, recurrence not specified H66.002 Active Problem Coronary artery disease involving [place]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[place] heart without angina pectoris I25.10 Active Problem Reflux gastritis K29.60 Active Problem Chronic hepatitis C without hepatic coma B18.2 Active Problem CLL (chronic lymphocytic leukemia) C91.10 Active Problem Urinary frequency R35.0 Active Problem Essential hypertension I10 Active Problem Dysthymia F34.1 Active Problem DDD (degenerative disc disease), lumbosacral M51.37 Active Problem Chronic bronchitis, unspecified chronic bronchitis type J42 Active Medications Medication Code System Code Instructions Start Date End Date Status Dosage Ibuprofen [facility] [address]-83 800 MG Orally Three times a day Sep 09, 2015 1 tablet Omeprazole [facility] [address]-47 40 MG Orally Once a day 1 tablet Escitalopram Oxalate [facility] [address]-76 20 MG Orally Once a day 1 tablet Amoxicillin [facility] [address]-44 875 MG Orally Twice a day Jan 09, 2016 Jan 16, 2016 1 tablet Restasis [facility] [address]-57 0.05 % Ophthalmic Twice a day 1 into affected eye Breo Ellipta [facility] [address]-77 200-25 MCG/INH Inhalation Once a day 1 puff Furosemide [facility] [address]-56 40 MG Orally Once a day 1 tablet ZyrTEC ND 0 10 MG Orally Dec 22, 2015 as directed Trazodone HCl [facility] [address]-21 100 MG Orally 2 times a day 1 tab Cyclobenzaprine HCl [facility] [address]-16 10 MG Orally 2 times a day Sep 09, 2015 1 tablet Imbruvica [facility] [address]-09 140 MG Orally Once a day 3 capsule ProAir HFA [facility] [address]-75 108 (90 Base) MCG/ACT Inhalation not defined PredniSONE [facility] [address]-54 10 MG Orally Once a day Sep 09, 2015 1 tablet with food or milk Potassium Chloride ER [facility] [address]-59 20 MEQ Orally 3 times a day 1 capsule HydrALAZINE HCl [facility] [address]-37 10 MG Orally Once a day 2 tablet Zofran [facility] [address]-17 8 MG Orally 3 times a day as needed 1 tablet Venlafaxine HCl [facility] [address]-49 37.5 MG Orally Twice a day Sep 09, 2015 1 tablet with food Spiriva HandiHaler [facility] [address]-82 18 MCG Inhalation Once a day 1 capsule Albuterol Sulfate HFA [facility] [address]-82 108 (90 Base) MCG/ACT Inhalation every 4 hrs Sep 16, 2015 2 puffs as needed Hydrocodone-Acetaminophen [facility] [address]-80 10-325 MG Orally 3 times a day 1 tablet as needed Amitriptyline HCl [facility] [address]-78 50 MG Orally Once a day Sep 09, 2015 1 tablet Diazepam [facility] [address]-37 10 MG Orally 2 times a day as needed 1 tab Metoprolol Tartrate [facility] [address]-79 50 MG Orally Twice a day 1 tablet Procedures Procedure Coding System Code Date Office Visit, Est Pt., Level 3 CPT-4 50119 Jan 09, 2016 Vital Signs Date/Time: Jan 09, 2016 Temperature 98.5 F Weight 245.2 lbs Height 69 in BMI 36.21 Index Blood Pressure Diastolic 76 mmHg Blood Pressure Systolic 110 mmHg Cardiac Monitoring Heart Rate 79 bpm Results No Known Results Summary Purpose eClinicalWorks Submission
--- OUTSIDE RECORDS SUMMARY | 2017-05-25 12:54 | XMS REPORT ---
Author Author ALISSA SANTAMARIA [facility] eClinicalWorks Address Unknown Phone Unavailable Care Team Providers Care Binding Dyer Name Role Phone ALISSA SANTAMARIA CP Unavailable Allergies, Adverse Reactions, Alerts Substance Reaction Event Type N.K.D.A. Info Not Available Non Drug Allergy Problems Problem Type Condition Code Onset Dates Condition Status Assessment Dental caries, unspecified K02.9 Active Problem Reflux gastritis K29.60 Active Assessment Encounter for dental examination Z01.20 Active Problem CLL (chronic lymphocytic leukemia) C91.10 Active Problem DDD (degenerative disc disease), lumbosacral M51.37 Active Problem Chronic hepatitis C without hepatic coma B18.2 Active Problem Dysthymia F34.1 Active Problem Coronary artery disease involving [place]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[place] heart without angina pectoris I25.10 Active Problem Chronic bronchitis, unspecified chronic bronchitis type J42 Active Problem Essential hypertension I10 Active Medications Medication Code System Code Instructions Start Date End Date Status Dosage Hydrocodone-Acetaminophen [facility][NOTE 3] [address]-07 10-325 MG Orally 2 times a day 1 tablet as needed Metoprolol Tartrate [facility][NOTE 3] [address]-66 50 MG Orally Twice a day 1 tablet Escitalopram Oxalate [facility][NOTE 3] [address]-12 20 MG Orally Once a day 1 tablet Restasis [facility][NOTE 3] [address]-80 0.05 % Ophthalmic Twice a day 1 into affected eye HydrALAZINE HCl [facility][NOTE 3] [address]-68 10 MG Orally Once a day 2 tablet Potassium Chloride ER [facility][NOTE 3] [address]-34 20 MEQ Orally not defined Spiriva HandiHaler [facility][NOTE 3] [address]-12 18 MCG Inhalation not defined Diazepam [facility][NOTE 3] [address]-31 10 MG Orally 2 times a day 1 tab Amoxicillin [facility][NOTE 3] [address]-04 500 MG Orally Three times a day Sep 17, 2015 Sep 24, 2015 1 capsule Furosemide [facility][NOTE 3] [address]-33 40 MG Orally Once a day 1 tablet Cyclobenzaprine HCl [facility][NOTE 3] [address]-13 10 MG Orally 2 times a day Sep 09, 2015 1 tablet Amitriptyline HCl [facility][NOTE 3] [address]-21 50 MG Orally Once a day Sep 09, 2015 1 tablet Albuterol Sulfate HFA [facility][NOTE 3] [address]-26 108 (90 Base) MCG/ACT Inhalation every 4 hrs Sep 16, 2015 2 puffs as needed PredniSONE [facility][NOTE 3] [address]-10 10 MG Orally Once a day Sep 09, 2015 1 tablet with food or milk Trazodone HCl [facility][NOTE 3] [address]-68 100 MG Orally 2 times a day 1 tab Breo Ellipta [facility][NOTE 3] [address]-02 200-25 MCG/INH Inhalation Once a day 1 puff Ibuprofen [facility][NOTE 3] [address]-04 800 MG Orally Three times a day Sep 09, 2015 1 tablet Venlafaxine HCl [facility][NOTE 3] [address]-19 37.5 MG Orally Twice a day Sep 09, 2015 1 tablet with food Omeprazole [facility][NOTE 3] [address]-07 40 MG Orally Once a day 1 tablet Zofran [facility][NOTE 3] [address]-07 8 MG Orally 3 times a day as needed 1 tablet ProAir HFA [facility][NOTE 3] [address]-56 108 (90 Base) MCG/ACT Inhalation not defined Procedures Procedure Coding System Code Date SURG REMOVAL ERUPTED TOOTH CPT-4 D7210 Sep 17, 2015 SURG REMOVAL ERUPTED TOOTH CPT-4 D7210 Sep 17, 2015 EXTRAC ERUPTED TOOTH/EXPOSED ROOT CPT-4 D7140 Aug 27, 2015 Vital Signs Date/Time: Sep 17, 2015 Blood Pressure Diastolic 83 mmHg Blood Pressure Systolic 126 mmHg Results No Known Results Summary Purpose eClinicalWorks Submission
--- OUTSIDE RECORDS SUMMARY | 2017-05-25 12:54 | XMS REPORT ---
Author Author ACE DE LOS SANTOS [facility] Address [address] [place] [address] Care Team Providers Care Electrician Control Equipment Name Role Phone ACE DE LOS SANTOS Unavailable PROBLEMS Type Condition ICD9-CM Code [id number] Code Onset Dates Condition Status SNOMED Code Problem Essential hypertension I10 Active 58926859 Problem DDD (degenerative disc disease), lumbosacral M51.37 Active 08146287 Problem Chronic bronchitis, unspecified chronic bronchitis type J42 Active 69394875 Assessment DDD (degenerative disc disease), lumbosacral M51.37 Jul, Active 81518522 Problem Reflux gastritis K29.60 Active 10212446 Problem Coronary artery disease involving [place]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[place] heart without angina pectoris I25.10 Active 2089742966766 Problem Dysthymia F34.1 Active 64248738 Problem Osteoarthritis of right hip, unspecified osteoarthritis type M16.11 Active 502584415 Problem 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 Unknown Non Drug Allergy Jul, Unknown SOCIAL HISTORY No smoking Hx information available PLAN OF CARE VITAL SIGNS Height 69 in 2016-08-10 Weight 243.6 lbs 2016-08-10 Heart Rate 70 bpm 2016-08-10 Respiratory Rate 16 2016-08-10 BMI 35.97 kg/m2 2016-08-10 Blood pressure systolic 130 mmHg 2016-08-10 Blood pressure diastolic 70 mmHg 2016-08-10 MEDICATIONS Medication Instructions Dosage Frequency Start Date End Date Duration Status Fluticasone Propionate 50 MCG/ACT Nasally Once a day 1 spray in each nostril 24h Active Amitriptyline HCl 50 mg Orally Once a day 1 tablet 24h Active MiraLax - Orally Once a day, PRN 1 cap 18 Jun, 2016 Active Albuterol Sulfate HFA 108 (90 Base) MCG/ACT Inhalation every 4 hrs 2 puffs as needed 4h Active Potassium Chloride ER 20 MEQ Orally 3 times a day 1 tablet with food 8h Active Breo Ellipta 200-25 MCG/INH Inhalation Once a day 1 puff 24h Active Imbruvica 140 MG Orally twice a day 1 capsule 12h Active Parafon Forte DSC 500 MG Orally 2 times a day 1 tablet 12h Active Restasis 0.05 % Ophthalmic Twice a day 12h Active PredniSONE 5 MG Orally Once a day 1 tablet 24h Active Nicotine 21 MG/24HR Transdermal Once a day 1 patch to skin 24h Active Potassium Chloride ER 20 MEQ Orally 3 times a day 1 tablet with food 8h Active HydrALAZINE HCl 10 mg Orally Once a day 2 tablet 24h Active Cyclobenzaprine HCl 10 mg Orally 2 times a day 1 tablet 12h Active Zofran 8 MG ...TAKE ONE (1) TABLET BY MOUTH THREE (3) TIMES DAILY NEEDED... Active Escitalopram Oxalate 20 mg Orally Once a day 0.5 tablet 24h Active Levalbuterol HCl 1.25 MG/3ML Inhalation every 8 hrs 3 ml 8h Active Furosemide 20 mg Orally every other day 1 tablet Active Venlafaxine HCl 75 MG Orally Twice a day 1 tablet with food 12h Active Omeprazole 40 mg Orally Once a day 1 capsule 24h Active Zyrtec Allergy 10 mg Orally Once a day 1 tablet 24h Active Metoprolol Tartrate 50 mg Orally Twice a day 1 tablet 12h Active Hydrocodone-Acetaminophen 10-325 MG Orally every 6 hrs 1 tablet as needed 6h Active Cortisporin-TC 3.3-3-10-0.5 MG/ML Otic 4 times a day 4 drops into affected ear 6h May, 10 day(s) Active Spiriva HandiHaler 18 MCG Inhalation Once a day 1 capsule 24h Active Singulair 10 MG Orally Once a day 1 tablet in the evening 24h Active Trazodone HCl 100 MG Orally 2 times a day 1 tablet at bedtime 12h Active Magic Mouthwash 30 ML each of 2% Viscous Lidocaine/Maalox/Benadryl Oral Swish and Spit 4 times daily 5 ML Dec, Active Naproxen 500 MG Orally every 12 hrs 1 tablet as needed 12h Apr, Active Diazepam 10 mg Orally Twice a day 1 tablet as needed 12h Active RESULTS No Results PROCEDURES Procedure Date Ordered Related Diagnosis Body Site Office Visit, Est Pt., Level 3 Aug 10, 2016 IMMUNIZATIONS No Known Immunizations
--- OUTSIDE RECORDS SUMMARY | 2017-05-25 12:54 | XMS REPORT ---
Author Author ACE DE LOS SANTOS [facility] Address [address] [place] [address] Care Team Providers Care Lime Plant Operator Name Role Phone ACE DE LOS SANTOS Unavailable PROBLEMS Type Condition ICD9-CM Code [id number] Code Onset Dates Condition Status SNOMED Code Problem DDD (degenerative disc disease), lumbosacral M51.37 Active 13518498 Problem Chronic hepatitis C without hepatic coma B18.2 Active 246945554 Problem CLL (chronic lymphocytic leukemia) C91.10 Active 56609838 Problem Pain in right hip M25.551 Active 79808438 Problem Pain in left hip M25.552 Active 56532316 Problem Acute diffuse otitis externa of left ear H60.312 Active 65492318 Problem Urinary frequency R35.0 Active 756660716 Problem Osteoarthritis of right hip, unspecified osteoarthritis type M16.11 Active 024335415 Problem 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 Active 259016997 Problem Coronary artery disease involving [place]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[place] heart without angina pectoris I25.10 Active 7255453561796 Problem Dysthymia F34.1 Active 45914531 Problem Essential hypertension I10 Active 93006797 Problem Reflux gastritis K29.60 Active 70272587 Problem Chronic bronchitis, unspecified chronic bronchitis type J42 Active 74891363 ALLERGIES Unknown Allergies SOCIAL HISTORY No smoking Hx information available PLAN OF CARE VITAL SIGNS MEDICATIONS Unknown Medications RESULTS No Results PROCEDURES No Known procedures IMMUNIZATIONS No Known Immunizations
--- OUTSIDE RECORDS SUMMARY | 2017-05-25 12:54 | XMS REPORT ---
Author Author ACE DE LOS SANTOS [facility] eClinicalWorks Address Unknown Phone Unavailable Care Team Providers Care Sausage Smoker Name Role Phone ACE DE LOS SANTOS CP Unavailable Allergies, Adverse Reactions, Alerts Substance Reaction Event Type N.K.D.A. Info Not Available Non Drug Allergy Problems Problem Type Condition Code Onset Dates Condition Status Assessment CLL (chronic lymphocytic leukemia) C91.10 Active Problem Coronary artery disease involving [place]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[place] heart without angina pectoris I25.10 Active Problem Reflux gastritis K29.60 Active Problem Chronic hepatitis C without hepatic coma B18.2 Active Problem CLL (chronic lymphocytic leukemia) C91.10 Active Problem Urinary frequency R35.0 Active Problem Essential hypertension I10 Active Problem Dysthymia F34.1 Active Problem DDD (degenerative disc disease), lumbosacral M51.37 Active Problem Chronic bronchitis, unspecified chronic bronchitis type J42 Active Assessment Urinary frequency R35.0 Active Assessment DDD (degenerative disc disease), lumbosacral M51.37 Active Assessment Chronic bronchitis, unspecified chronic bronchitis type J42 Active Assessment Essential hypertension I10 Active Medications Medication Code System Code Instructions Start Date End Date Status Dosage ZyrTEC NDC 0 10 MG Orally Dec 22, 2015 as directed Diazepam [facility] [address]-05 10 MG Orally 2 times a day as needed 1 tab Furosemide [facility] [address]-48 40 MG Orally Once a day 1 tablet Potassium Chloride ER [facility] [address]-99 20 MEQ Orally 3 times a day 1 capsule Zofran [facility] [address]-52 8 MG Orally 3 times a day as needed 1 tablet ProAir HFA [facility] [address]-25 108 (90 Base) MCG/ACT Inhalation not defined Restasis [facility] [address]-03 0.05 % Ophthalmic Twice a day 1 into affected eye Hydrocodone-Acetaminophen [facility] [address]-38 10-325 MG Orally 3 times a day 1 tablet as needed HydrALAZINE HCl [facility] [address]-79 10 MG Orally Once a day 2 tablet Spiriva HandiHaler [facility] [address]-68 18 MCG Inhalation Once a day 1 capsule Metoprolol Tartrate [facility] [address]-00 50 MG Orally Twice a day 1 tablet Breo Ellipta [facility] [address]-52 200-25 MCG/INH Inhalation Once a day 1 puff Albuterol Sulfate HFA [facility] [address]-13 108 (90 Base) MCG/ACT Inhalation every 4 hrs Sep 16, 2015 2 puffs as needed Omeprazole [facility] [address]-27 40 MG Orally Once a day 1 tablet Escitalopram Oxalate [facility] [address]-41 20 MG Orally Once a day 1 tablet Cyclobenzaprine HCl [facility] [address]-45 10 MG Orally 2 times a day Sep 09, 2015 1 tablet Amitriptyline HCl [facility] [address]-02 50 MG Orally Once a day Sep 09, 2015 1 tablet Imbruvica [facility] [address]-89 140 MG Orally Once a day 3 capsule PredniSONE [facility] [address]-34 10 MG Orally Once a day Sep 09, 2015 1 tablet with food or milk Ibuprofen [facility] [address]-19 800 MG Orally Three times a day Sep 09, 2015 1 tablet Venlafaxine HCl [facility] [address]-34 37.5 MG Orally Twice a day Sep 09, 2015 1 tablet with food Trazodone HCl [facility] [address]-09 100 MG Orally 2 times a day 1 tab Procedures Procedure Coding System Code Date COMPREHEN METABOLIC PANEL CPT-4 75628 Dec 22, 2015 COMPLETE CBC W/AUTO DIFF WBC CPT-4 74436 Dec 22, 2015 Office Visit, Est Pt., Level 3 CPT-4 78135 Dec 22, 2015 VENIPUNCT, ROUTINE* CPT-4 33627 Dec 22, 2015 RENAL FUNCTION PANEL CPT-4 17793 Dec 22, 2015 URINALYSIS, AUTO, W/O SCOPE CPT-4 56749 Dec 22, 2015 Vital Signs Date/Time: Dec 22, 2015 Temperature 97.9 F Weight 243.6 lbs Height 69 in BMI 35.97 Index Blood Pressure Diastolic 70 mmHg Blood Pressure Systolic 120 mmHg Cardiac Monitoring Heart Rate 66 bpm Results Name Result Date Reference Range Unit Abnormality Flag RENAL PROFILE ----Phosphorus, Serum 3.8 20151222 2.5-4.5 mg/dL UA LONG DIP (IN HOUSE) ----NIT neg 20151222 ----Odor no 20151222 ----Color color 20151222 ----URO 0.2 20151222 ----DALE neg 20151222 ----Protein neg 20151222 ----GLU neg 20151222 ----pH 5.5 20151222 ----Lot # [id number] 20151222 ----Clarity yellow 20151222 ----JENNI neg 20151222 ----Exp date 20151222 ----BLO neg 20151222 ----KET neg 20151222 ----SG 1.015 20151222 CBC ----Neutrophils (Absolute) 5.1 20151222 1.4-7.0 x10E3/uL ----Basos 0 20151222 % ----Monocytes(Absolute) 0.0 20151222 0.1-0.9 x10E3/uL L ----Lymphs (Absolute) 121.2 20151222 0.7-3.1 x10E3/uL H ----Platelets 185 [id number] 150-379 x10E3/uL ----Baso (Absolute) 0.0 20151222 0.0-0.2 x10E3/uL ----RDW 14.1 20151222 12.3-15.4 % ----Eos (Absolute) 0.0 20151222 0.0-0.4 x10E3/uL ----MCHC 31.5 20151222 31.5-35.7 g/dL ----MCH 31.5 20151222 26.6-33.0 pg ----MCV 100 20151222 79-97 fL H ----Lymphs 96 20151222 % ----Neutrophils 4 29957041 % ----Eos 0 65691285 % ----Monocytes 0 32833319 % ----Hematology Comments: Note: 20151222 ----WBC 126.3 20151222 3.4-10.8 x10E3/uL > ----RBC 4.25 20151222 4.14-5.80 x10E6/uL ----Hemoglobin 13.4 20151222 12.6-17.7 g/dL ----Hematocrit 42.6 16397102 37.5-51.0 % CMP ----Sodium, Serum 140 20151222 134-144 mmol/L ----BUN/Creatinine Ratio 11 20151222 9-20 ----Chloride, Serum 100 20151222 97-108 mmol/L ----Potassium, Serum 4.9 20151222 3.5-5.2 mmol/L ----Calcium, Serum 9.5 20151222 8.7-10.2 mg/dL ----Protein, Total, Serum 6.3 69238855 6.0-8.5 g/dL ----Carbon Dioxide, Total 25 20151222 18-29 mmol/L ----A/G Ratio 1.9 [id number] 1.1-2.5 ----eGFR If NonAfricn Am 62 [id number] >59 mL/min/1.73 ----Bilirubin, Total <0.2 41453662 0.0-1.2 mg/dL ----eGFR If Africn Am 72 13635993 >59 mL/min/1.73 ----BUN 14 20151222 6-24 mg/dL ----Albumin, Serum 4.1 19585761 3.5-5.5 g/dL ----Globulin, Total 2.2 49149888 1.5-4.5 g/dL ----Creatinine, Serum 1.30 86102145 0.76-1.27 mg/dL H ----ALT (SGPT) 10 20151222 0-44 IU/L ----Glucose, Serum 100 20151222 65-99 mg/dL H ----Alkaline Phosphatase, S 102 20151222 39-117 IU/L ----AST (SGOT) 15 20151222 0-40 IU/L Summary Purpose eClinicalWorks Submission
--- OUTSIDE RECORDS SUMMARY | 2017-05-25 12:55 | XMS REPORT ---
Author Author ACE DE LOS SANTOS [facility] eClinicalWorks Address Unknown Phone Unavailable Care Team Providers Care Door Tender Name Role Phone ACE DE LOS SANTOS CP Unavailable Allergies, Adverse Reactions, Alerts Substance Reaction Event Type N.K.D.A. Info Not Available Non Drug Allergy Problems Problem Type Condition Code Onset Dates Condition Status Assessment Essential hypertension I10 Active Problem Reflux gastritis K29.60 Active Assessment DDD (degenerative disc disease), lumbosacral M51.37 Active Assessment Dysthymia F34.1 Active Assessment CLL (chronic lymphocytic leukemia) C91.10 Active Problem CLL (chronic lymphocytic leukemia) C91.10 Active Problem DDD (degenerative disc disease), lumbosacral M51.37 Active Problem Chronic hepatitis C without hepatic coma B18.2 Active Problem Dysthymia F34.1 Active Problem Coronary artery disease involving [place]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[place] heart without angina pectoris I25.10 Active Problem Chronic bronchitis, unspecified chronic bronchitis type J42 Active Problem Essential hypertension I10 Active Medications Medication Code System Code Instructions Start Date End Date Status Dosage Omeprazole [facility] [address]-86 40 MG Orally Once a day 1 tablet Cyclobenzaprine HCl [facility] [address]-61 10 MG Orally 2 times a day Sep 09, 2015 1 tablet Potassium Chloride ER [facility] [address]-03 20 MEQ Orally 3 times a day 1 capsule Furosemide [facility] [address]-20 40 MG Orally Once a day 1 tablet Zofran [facility] [address]-75 8 MG Orally 3 times a day as needed 1 tablet Diazepam [facility] [address]-16 10 MG Orally 2 times a day as needed 1 tab Spiriva HandiHaler [facility] [address]-22 18 MCG Inhalation not defined Venlafaxine HCl [facility] [address]-65 37.5 MG Orally Twice a day Sep 09, 2015 1 tablet with food ProAir HFA [facility] [address]-37 108 (90 Base) MCG/ACT Inhalation not defined Escitalopram Oxalate [facility] [address]-51 20 MG Orally Once a day 1 tablet Amitriptyline HCl [facility] [address]-05 50 MG Orally Once a day Sep 09, 2015 1 tablet Hydrocodone-Acetaminophen [facility] [address]-04 10-325 MG Orally 2 times a day 1 tablet as needed HydrALAZINE HCl [facility] [address]-64 10 MG Orally Once a day 2 tablet Restasis [facility] [address]-22 0.05 % Ophthalmic Twice a day 1 into affected eye Breo Ellipta [facility] [address]-57 200-25 MCG/INH Inhalation Once a day 1 puff Ibuprofen [facility] [address]-22 800 MG Orally Three times a day Sep 09, 2015 1 tablet Trazodone HCl [facility] [address]-49 100 MG Orally 2 times a day 1 tab Albuterol Sulfate HFA [facility] [address]-82 108 (90 Base) MCG/ACT Inhalation every 4 hrs Sep 16, 2015 2 puffs as needed Metoprolol Tartrate [facility] [address]-16 50 MG Orally Twice a day 1 tablet PredniSONE [facility] [address]-19 10 MG Orally Once a day Sep 09, 2015 1 tablet with food or milk Procedures Procedure Coding System Code Date Office Visit, Est Pt., Level 3 CPT-4 50138 Oct 20, 2015 Vital Signs Date/Time: Oct 20, 2015 Cardiac Monitoring Heart Rate 68 bpm Weight 244.4 lbs Height 69 in BMI 36.09 Index Blood Pressure Diastolic 90 mmHg Blood Pressure Systolic 130 mmHg Results No Known Results Summary Purpose eClinicalWorks Submission
--- OUTSIDE RECORDS SUMMARY | 2017-05-25 12:55 | XMS REPORT ---
Author Author ACE DE LOS SANTOS Organization eClinicalWorks Address Unknown Phone Unavailable Care Team Providers Care Telecommunications Sales Representative Name Role Phone ACE DE LOS SANTOS CP Unavailable Allergies No Known Allergies Problems Problem Type Condition Code Onset Dates Condition Status Problem Reflux gastritis K29.60 Active Assessment Essential hypertension I10 Active Problem CLL (chronic lymphocytic leukemia) C91.10 Active Problem DDD (degenerative disc disease), lumbosacral M51.37 Active Problem Chronic hepatitis C without hepatic coma B18.2 Active Problem Dysthymia F34.1 Active Problem Coronary artery disease involving [place]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[place] heart without angina pectoris I25.10 Active Problem Chronic bronchitis, unspecified chronic bronchitis type J42 Active Problem Essential hypertension I10 Active Medications Medication Code System Code Instructions Start Date End Date Status Dosage Furosemide [facility] [address]-89 40 MG Orally Once a day 1 tablet Results No Known Results Summary Purpose eClinicalWorks Submission
--- OUTSIDE RECORDS SUMMARY | 2017-05-25 12:56 | XMS REPORT ---
Author Author ACE DE LOS SANTOS [facility] eClinicalWorks Address Unknown Phone Unavailable Care Team Providers Care Floor Tech Name Role Phone ACE DE LOS SANTOS CP Unavailable Allergies, Adverse Reactions, Alerts Substance Reaction Event Type N.K.D.A. Info Not Available Non Drug Allergy Problems Problem Type Condition Code Onset Dates Condition Status Assessment Chronic bronchitis, unspecified chronic bronchitis type J42 Active Problem Reflux gastritis K29.60 Active Assessment DDD (degenerative disc disease), lumbosacral M51.37 Active Problem CLL (chronic lymphocytic leukemia) C91.10 Active Problem DDD (degenerative disc disease), lumbosacral M51.37 Active Problem Chronic hepatitis C without hepatic coma B18.2 Active Problem Dysthymia F34.1 Active Problem Coronary artery disease involving [place]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[place] heart without angina pectoris I25.10 Active Problem Chronic bronchitis, unspecified chronic bronchitis type J42 Active Problem Essential hypertension I10 Active Assessment CLL (chronic lymphocytic leukemia) C91.10 Active Assessment Chronic hepatitis C without hepatic coma B18.2 Active Assessment Dysthymia F34.1 Active Medications Medication Code System Code Instructions Start Date End Date Status Dosage Cyclobenzaprine HCl [facility] [address]-67 10 MG Orally 2 times a day Sep 09, 2015 1 tablet Amitriptyline HCl [facility] [address]-33 50 MG Orally Once a day Sep 09, 2015 1 tablet Escitalopram Oxalate [facility] [address]-17 20 MG Orally Once a day 1 tablet Trazodone HCl [facility] [address]-84 100 MG Orally 2 times a day 1 tab Breo Ellipta [facility] [address]-18 200-25 MCG/INH Inhalation Once a day 1 puff Zofran [facility] [address]-26 8 MG Orally 3 times a day as needed 1 tablet Venlafaxine HCl [facility] [address]-46 37.5 MG Orally Twice a day Sep 09, 2015 1 tablet with food ProAir HFA [facility] [address]-50 108 (90 Base) MCG/ACT Inhalation not defined Potassium Chloride ER [facility] [address]-92 20 MEQ Orally not defined Restasis [facility] [address]-88 0.05 % Ophthalmic Twice a day 1 into affected eye Spiriva HandiHaler [facility] [address]-57 18 MCG Inhalation not defined Omeprazole [facility] [address]-55 40 MG Orally Once a day 1 tablet Metoprolol Tartrate [facility] [address]-68 50 MG Orally Twice a day 1 tablet Ibuprofen [facility] [address]-03 800 MG Orally Three times a day Sep 09, 2015 1 tablet PredniSONE [facility] [address]-15 10 MG Orally Once a day Sep 09, 2015 1 tablet with food or milk Furosemide [facility] [address]-97 40 MG Orally Once a day 1 tablet Albuterol Sulfate HFA [facility] [address]-95 108 (90 Base) MCG/ACT Inhalation every 4 hrs Sep 16, 2015 2 puffs as needed Hydrocodone-Acetaminophen [facility] [address]-18 10-325 MG Orally 2 times a day 1 tablet as needed Diazepam [facility] [address]-05 10 MG Orally 2 times a day 1 tab HydrALAZINE HCl [facility] [address]-35 10 MG Orally Once a day 2 tablet Procedures Procedure Coding System Code Date Office Visit, Est Pt., Level 3 CPT-4 04347 Sep 16, 2015 Vital Signs Date/Time: Sep 16, 2015 Temperature 98.7 F Weight 244.2 lbs Height 69 in BMI 36.06 Index Blood Pressure Diastolic 90 mmHg Blood Pressure Systolic 140 mmHg Cardiac Monitoring Heart Rate 100 bpm Results No Known Results Summary Purpose eClinicalWorks Submission
--- OUTSIDE RECORDS SUMMARY | 2017-05-25 12:56 | XMS REPORT ---
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 Name Role Phone ACE DE LOS [...] C without hepatic coma B18.2 Active Assessment Osteoarthritis of right hip, unspecified osteoarthritis type M16.11 Active Assessment DDD (degenerative disc disease), lumbosacral M51.37 Active Problem Reflux gastritis K29.60 Active Assessment Dysthymia F34.1 Active Problem Coronary artery disease involving [place]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[place] heart without angina pectoris I25.10 Active Medications Medication Code System Code Instructions Start Date End Date Status Dosage Naproxen [facility] [address]-85 500 MG Orally every 12 hrs May 06, 2016 1 tablet as needed Metoprolol Tartrate [facility] 44780215741 50 MG Orally Twice a day 1 tablet [place] DSC [facility] 82363752437 500 MG Orally 2 times a day 1 tablet Furosemide [facility] [address]-90 20 MG Orally every other day 1 tablet Breo Ellipta [facility] [address]-15 200-25 MCG/INH Inhalation Once a day 1 puff Spiriva HandiHaler [facility] 48363480706 18 MCG Inhalation Once a day 1 capsule Zofran [facility] 19002958632 8 MG ...TAKE ONE (1) TABLET BY MOUTH THREE (3) TIMES DAILY NEEDED... Restasis [facility] 58567806070 0.05 % Ophthalmic Twice a day not defined Omeprazole [facility] [address]-37 40 MG Orally Once a day 1 capsule HydrALAZINE HCl [facility] 78001133283 10 MG Orally Once a day 2 tablet Zyrtec Allergy [facility] [address]-02 10 mg Orally Once a day 1 tablet Albuterol Sulfate HFA [facility] [address]-21 108 (90 Base) MCG/ACT Inhalation every 4 hrs 2 puffs as needed Cyclobenzaprine HCl [facility] 51773073641 10 mg Orally 2 times a day 1 tablet Escitalopram Oxalate [facility] 75246800742 20 mg Orally Once a day 0.5 tablet Hydrocodone-Acetaminophen [facility] [address]-45 10-325 MG Orally every 6 hrs 1 tablet as needed Fluticasone Propionate [facility] [address]-52 50 MCG/ACT Nasally Once a day 1 spray in each nostril Amitriptyline HCl [facility] 68900147227 50 mg Orally Once a day 1 tablet Magic Mouthwash [facility] 0 30 ML each of 2% Viscous Lidocaine/Maalox/Benadryl Oral Swish and Spit 4 times daily Jan 20, 2016 5 ML Potassium Chloride ER [facility] [address]-23 20 MEQ Orally 3 times a day 1 tablet with food Nicotine [facility] [address]-27 21 MG/24HR Transdermal Once a day 1 patch to skin Diazepam [facility] [address]-04 10 mg Orally Twice a day 1 tablet as needed Imbruvica [facility] [address]-05 140 MG Orally twice a day 1 capsule Singulair [facility] [address]-56 10 MG Orally Once a day 1 tablet in the evening PredniSONE [facility] [address]-27 5 MG Orally Once a day 1 tablet Venlafaxine HCl [facility] [address]-39 75 MG Orally Twice a day 1 tablet with food Trazodone HCl [facility] 16409681532 100 MG Orally 2 times a day 1 tablet at bedtime Levalbuterol HCl [facility] [address]-66 1.25 MG/3ML Inhalation every 8 hrs 3 ml Procedures Procedure Coding System Code Date Office Visit, Est Pt., Level 3 CPT-4 13801 June 10, 2016 Vital Signs Date/Time: June 10, 2016 Cardiac Monitoring Heart Rate 84 bpm Weight 235.0 lbs Height 69 in Blood Pressure Diastolic 80 mmHg Blood Pressure Systolic 124 mmHg Results No Known Results Summary Purpose eClinicalWorks Submission
--- OUTSIDE RECORDS SUMMARY | 2017-05-25 12:58 | XMS REPORT | Continuity of Care Document ---
Author Author [facility] Organization [facility] Address Unknown Phone Unavailable Allergies Active Description Code Type Severity Reaction Onset Reported/Identified Relationship to Patient Clinical Status Yes No Known Drug Allergies [id number] Drug Allergy Unknown N/ A 09/24/2008 Yes alprazolam [id number] Drug Allergy Unknown EZRA KEANE 11/06/2014 Medications Problems Date Dx Coded Attending Type Code Diagnosis Diagnosed By 10/27/1057 BETSY WAGNER, MASOOD Brandt Ot B18.2 CHRONIC VIRAL HEPATITIS C 10/27/1057 MASOOD MEYER MD, Ot C91.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 LYMPHOCYTIC LEUK OF B-CELL TYPE 10/27/1057 MASOOD MEYER MD Ot F17.210 NICOTINE DEPENDENCE, CIGARETTES, UNCOMPL 10/27/1057 BETSY WAGNER, MASOOD Brandt Ot J44.9 CHRONIC OBSTRUCTIVE PULMONARY DISEASE, U 10/27/1057 MASOOD MEYER MD Ot K21.9 GASTRO-ESOPHAGEAL REFLUX DISEASE WITHOUT 10/27/1057 BETSY WAGNER, MASOOD Brandt Ot N18.3 CHRONIC KIDNEY DISEASE, STAGE 3 (MODERAT 10/27/1057 BETSY WAGNER, MASOOD Brandt Ot Z79.899 OTHER PATCH DRILLER (CURRENT) DRUG THERAPY 10/27/1057 BETSY WAGNER, MASOOD Brandt Ot Z92.21 PERSONAL HISTORY OF ANTINEOPLASTIC CHEMO 12/07/2010 Ot 070.70 UNSPECIFIED VIRAL HEPATITIS C WITHOUT HE 12/07/2010 Ot 200.10 LYMPHOSARCOMA, EXTRANODAL SOLID ORGAN 12/07/2010 Ot 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, 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 12/07/2010 Ot 311 DEPRESSIVE DISORDER NEC 12/07/2010 Ot 401.9 HYPERTENSION NOS 12/07/2010 Ot 530.81 ESOPHAGEAL REFLUX 12/07/2010 Ot V12.61 PERSONAL HISTORY, PNEUMONIA (RECURRENT) 12/07/2010 Ot V58.11 ENCOUNTER FOR ANTINEOPLASTIC CHEMOTHERAP 12/07/2010 Ot V58.69 OTH MED,LT,CURRENT USE 03/09/2011 Ot 200.10 LYMPHOSARCOMA, EXTRANODAL SOLID ORGAN 03/09/2011 Ot 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, 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 03/09/2011 Ot V58.11 ENCOUNTER FOR ANTINEOPLASTIC CHEMOTHERAP 11/21/2011 Ot 070.54 CHRONIC HEPATITIS C W/O HEPATIC COMA 11/21/2011 Ot 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, 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 11/21/2011 Ot 276.8 HYPOPOTASSEMIA 11/21/2011 Ot 288.60 LEUKOCYTOSIS, UNSPECIFIED 11/21/2011 Ot 305.1 TOBACCO USE DISORDER 11/21/2011 Ot 311 DEPRESSIVE DISORDER NEC 11/21/2011 Ot 383.9 MASTOIDITIS NOS 11/21/2011 Ot 471.8 NASAL SINUS POLYP NEC 11/21/2011 Ot 473.0 CHR MAXILLARY SINUSITIS 11/21/2011 Ot 496 CHR AIRWAY OBSTRUCT NEC 11/21/2011 Ot 780.39 OTHER CONVULSIONS 11/21/2011 Ot 780.97 ALTERED MENTAL STATUS 11/21/2011 Ot 969.05 POISONING BY TRICYCLIC ANTIDEPRESSANTS 11/21/2011 Ot 969.4 POIS-BENZODIAZEPINE BERNARDO 11/21/2011 Ot E853.2 ACC POISN-BENZDIAZ TRANQ 11/21/2011 Ot E854.0 ACC POISON-ANTIDEPRESSNT 11/21/2011 Ot V12.54 PERSONAL HX OF TIA, CEREBRAL INFARCTION 10/16/2012 Ot 200.10 LYMPHOSARCOMA, EXTRANODAL SOLID ORGAN 10/16/2012 Ot 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, 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 01/24/2013 Ot 200.10 LYMPHOSARCOMA, EXTRANODAL SOLID ORGAN 01/24/2013 Ot 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, 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 08/31/2013 MASOOD MEYER MD Ot 070.54 CHRONIC HEPATITIS C W/O HEPATIC COMA 08/31/2013 MASOOD MEYER MD Ot 200.10 LYMPHOSARCOMA, EXTRANODAL SOLID ORGAN 08/31/2013 MASOOD MEYER MD Ot 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, 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 08/31/2013 MASOOD MEYER MD Ot 305.1 TOBACCO USE DISORDER 08/31/2013 MASOOD MEYER MD Ot 311 DEPRESSIVE DISORDER NEC 08/31/2013 MASOOD MEYER MD Ot 401.9 HYPERTENSION NOS 08/31/2013 MASOOD MEYER MD Ot 496 CHR AIRWAY OBSTRUCT NEC 08/31/2013 MASOOD MEYER MD Ot V58.11 ENCOUNTER FOR ANTINEOPLASTIC CHEMOTHERAP 08/31/2013 MASOOD MEYER MD Ot V58.69 OTH MED,LT,CURRENT USE 12/03/2013 MASOOD MEYER MD Ot 070.54 CHRONIC HEPATITIS C W/O HEPATIC COMA 12/03/2013 MASOOD MEYER MD Ot 200.10 LYMPHOSARCOMA, EXTRANODAL SOLID ORGAN 12/03/2013 MASOOD MEYER MD Ot 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, 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 12/03/2013 MASOOD MEYER MD Ot 305.1 TOBACCO USE DISORDER 12/03/2013 MASOOD MEYER MD Ot 311 DEPRESSIVE DISORDER NEC 12/03/2013 MASOOD MEYER MD Ot 401.9 HYPERTENSION NOS 12/03/2013 MASOOD MEYER MD Ot 496 CHR AIRWAY OBSTRUCT NEC 12/03/2013 MASOOD MEYER MD Ot V58.11 ENCOUNTER FOR ANTINEOPLASTIC CHEMOTHERAP 12/03/2013 MASOOD MEYER MD Ot V58.69 OTH MED,LT,CURRENT USE 03/12/2014 MASOOD MEYER MD Ot 070.54 CHRONIC HEPATITIS C W/O HEPATIC COMA 03/12/2014 MASOOD MEYER MD Ot 200.10 LYMPHOSARCOMA, EXTRANODAL SOLID ORGAN 03/12/2014 MASOOD MEYER MD Ot 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, 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 03/12/2014 MASOOD MEYER MD Ot 305.1 TOBACCO USE DISORDER 03/12/2014 MASOOD MEYER MD Ot 311 DEPRESSIVE DISORDER NEC 03/12/2014 MASOOD MEYER MD Ot 401.9 HYPERTENSION NOS 03/12/2014 MASOOD MEYER MD Ot 496 CHR AIRWAY OBSTRUCT NEC 03/12/2014 MASOOD MEYER MD Ot V58.11 ENCOUNTER FOR ANTINEOPLASTIC CHEMOTHERAP 03/12/2014 MASOOD MEYER MD Ot V58.69 OTH MED,LT,CURRENT USE 05/23/2014 HASMUKH KERR MD Ot V64.3 NO PROC FOR REASONS NEC 05/23/2014 HASMUKH KERR MD Ot V76.51 SCREEN MAL NEOP-COLON 07/17/2014 MASOOD MEYER MD Ot 070.54 CHRONIC HEPATITIS C W/O HEPATIC COMA 07/17/2014 MASOOD MEYER MD Ot 200.10 LYMPHOSARCOMA, EXTRANODAL SOLID ORGAN 07/17/2014 MASOOD MEYER MD Ot 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, 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 07/17/2014 MASOOD MEYER MD Ot 305.1 TOBACCO USE DISORDER 07/17/2014 MASOOD MEYER MD Ot 311 DEPRESSIVE DISORDER NEC 07/17/2014 MASOOD MEYER MD Ot 401.9 HYPERTENSION NOS 07/17/2014 MASOOD MEYER MD Ot 496 CHR AIRWAY OBSTRUCT NEC 07/17/2014 MASOOD MEYER MD Ot V58.69 OTH MED,LT,CURRENT USE 11/06/2014 IBETH EDWARDS Ot 202.80 OTH LYMPHOMAS EXTRANODAL SOLID ORGAN U 11/06/2014 IBETH EDWARDS Ot 401.9 HYPERTENSION NOS 11/06/2014 IBETH EDWARDS Ot 787.01 NAUSEA WITH VOMITING 11/06/2014 IBETH EDWARDS Ot 787.91 DIARRHEA 11/06/2014 IBETH EDWARDS Ot 789.00 ABDOMINAL PAIN, UNSPECIFIED SITE 11/13/2014 MASOOD MEYER MD Ot 070.54 CHRONIC HEPATITIS C W/O HEPATIC COMA 11/13/2014 MASOOD MEYER MD Ot 200.10 LYMPHOSARCOMA, EXTRANODAL SOLID ORGAN 11/13/2014 MASOOD MEYER MD Ot 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, 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 11/13/2014 MASOOD MEYRE MD Ot 305.1 TOBACCO USE DISORDER 11/13/2014 MASOOD MEYER MD Ot 311 DEPRESSIVE DISORDER NEC 11/13/2014 MASOOD MEYER MD Ot 401.9 HYPERTENSION NOS 11/13/2014 MASOOD MEYER MD Ot 496 CHR AIRWAY OBSTRUCT NEC 11/13/2014 MASOOD MEYER MD Ot V58.69 OTH MED,LT,CURRENT USE 12/12/2014 MASOOD MEYER MD Ot 070.54 12/12/2014 MASOOD MEYER MD Ot 200.10 12/12/2014 MASOOD MEYER MD Ot 204.10 12/12/2014 MASOOD MEYER MD Ot 305.1 12/12/2014 MASOOD MEYER MD Ot 311 12/12/2014 MASOOD MEYER MD Ot 401.9 12/12/2014 MASOOD MEYER MD Ot 496 12/12/2014 MASOOD MEYER MD Ot V58.69 12/19/2014 MASOOD MEYER MD Ot 070.54 12/19/2014 MASOOD MEYER MD Ot 200.10 12/19/2014 MASOOD MEYER MD K Ot 204.10 12/19/2014 BETSY WAGNER, MASOOD Brandt Ot 305.1 12/19/2014 BETSY WAGNER, MASOOD Brandt Ot 311 12/19/2014 BETSY WAGNER, MASOOD Brandt Ot 401.9 12/19/2014 BETSY WAGNER, MASOOD Brandt Ot 496 12/19/2014 BETSY WAGNER, MASOOD Brandt Ot V58.69 12/20/2014 BETSY WAGNER, MASOOD Brandt Ot 070.54 12/20/2014 BETSY WAGNER, MASOOD Brandt Ot 200.10 12/20/2014 BETSY WAGNER, MASOOD Brandt Ot 204.10 12/20/2014 BETSY WAGNER, MASOOD Brandt Ot 305.1 12/20/2014 BETSY WAGNER, MASOOD Brandt Ot 311 12/20/2014 BETSY WAGNER, MASOOD Brandt Ot 401.9 12/20/2014 BETSY WAGNER, MASOOD Brandt Ot 496 12/20/2014 BETSY WAGNER, MASOOD Brandt Ot V58.69 01/13/2015 MASOOD MEYER MD Ot 070.54 01/13/2015 MASOOD MEYER MD Ot 200.10 01/13/2015 BETSY WAGNER, MASOOD Brandt Ot 204.10 01/13/2015 BETSY WAGNER, MASOOD Brandt Ot 305.1 01/13/2015 MASOOD MEYER MD Ot 311 01/13/2015 BETSY WAGNER, MASOOD Brandt Ot 401.9 01/13/2015 BETSY WAGNER, MASOOD Brandt Ot 496 01/13/2015 MASOOD MEYER MD Ot V58.69 03/19/2015 MASOOD MEYER MD Ot 070.54 CHRONIC HEPATITIS C W/O HEPATIC COMA 03/19/2015 BETSY WAGNER, MASOOD Brandt Ot 200.10 LYMPHOSARCOMA, EXTRANODAL SOLID ORGAN 03/19/2015 BETSY WAGNER, MASOOD Brandt Ot 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, 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 03/19/2015 MASOOD MEYER MD Ot 305.1 TOBACCO USE DISORDER 03/19/2015 MASOOD MEYER MD Ot 311 DEPRESSIVE DISORDER NEC 03/19/2015 MASOOD MEYER MD Ot 401.9 HYPERTENSION NOS 03/19/2015 BETSY WAGNER, MASOOD Brandt Ot 496 CHR AIRWAY OBSTRUCT NEC 03/19/2015 MASOOD MEYER MD Ot V58.69 OTH MED,LT,CURRENT USE 03/25/2015 MASOOD MEYER MD Ot 070.54 03/25/2015 BETSY WAGNER, MASOOD Brandt Ot 200.10 03/25/2015 BETSY MD, MASOOD K Ot 204.10 03/25/2015 BETSY WAGNER, MASOOD K Ot 305.1 03/25/2015 BETSY AWGNER, MASOOD K Ot 311 03/25/2015 BETSY WAGNER, MASOOD K Ot 401.9 03/25/2015 BETSY WAGNER, MASOOD Karly Ot 496 03/25/2015 BETSY WAGNER, MASOOD K Ot V58.69 03/26/2015 BETSY WAGNER, MASOOD Karly Ot 070.54 03/26/2015 BETSY WAGNER, MASOOD Karly Ot 200.10 03/26/2015 BETSY WAGNER, MASOOD K Ot 204.10 03/26/2015 BETSY WAGNER, MASOOD K Ot 305.1 03/26/2015 BETSY WAGNER, MASOOD K Ot 311 03/26/2015 BETSY WAGNER, MASOOD K Ot 401.9 03/26/2015 BETSY WAGNER, MASOOD Karly Ot 496 03/26/2015 BETSY WAGNER, MASOOD Karly Ot V58.69 03/27/2015 BETSY WAGNER, MASOOD Karly Ot 070.54 03/27/2015 BETSY WAGNER, MASOOD Karly Ot 200.10 03/27/2015 BETSY WAGNER, MASOOD Brandt Ot 204.10 03/27/2015 BETSY WAGNER, MASOOD K Ot 305.1 03/27/2015 BETSY WAGNER, MASOOD K Ot 311 03/27/2015 BETSY WAGNER, MASOOD K Ot 401.9 03/27/2015 BETSY WAGNER, MASOOD Karly Ot 496 03/27/2015 BETSY WAGNER, MASOOD Karly Ot V58.69 03/28/2015 BETSY WAGNER, MASOOD Karly Ot 070.54 03/28/2015 BETSY WAGNER, MASOOD Karly Ot 200.10 03/28/2015 BETSY WAGNER, MASOOD K Ot 204.10 03/28/2015 BETSY WAGNER, MASOOD K Ot 305.1 03/28/2015 BETSY WAGNER, MASOOD K Ot 311 03/28/2015 BETSY WAGNER, MASOOD K Ot 401.9 03/28/2015 BETSY WAGNER, MASOOD K Ot 496 03/28/2015 BETSY WAGNER, MASOOD K Ot V58.69 05/20/2015 BETSY WAGNER, MASOOD Karly Ot 070.54 05/20/2015 BETSY WAGNER, MASOOD K Ot 200.10 05/20/2015 BETSY WAGNER, MASOOD K Ot 204.10 05/20/2015 BETSY WAGNER, MASOOD K Ot 305.1 05/20/2015 BETSY WAGNER, MASOOD K Ot 311 05/20/2015 BETSY WAGNER, MASOOD K Ot 401.9 05/20/2015 BETSY WAGNER, MASOOD Karly Ot 496 05/20/2015 BETSY WAGNER, MASOOD Brandt Ot V58.69 06/24/2015 BETSY WAGNER, MASOOD Brandt Ot 070.54 CHRONIC HEPATITIS C W/O HEPATIC COMA 06/24/2015 BETSY WAGNER, MASOOD Brandt Ot 200.10 LYMPHOSARCOMA, EXTRANODAL SOLID ORGAN 06/24/2015 BETSY WAGNER, MSAOOD Brandt Ot 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, 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 06/24/2015 BETSY WAGNER, MASOOD Brandt Ot 305.1 TOBACCO USE DISORDER 06/24/2015 BETSY WAGNER, MASOOD Brandt Ot 311 DEPRESSIVE DISORDER NEC 06/24/2015 BETSY WAGNER, MASOOD Brandt Ot 401.9 HYPERTENSION NOS 06/24/2015 BETSY WAGNER, MASOOD Brandt Ot 496 CHR AIRWAY OBSTRUCT NEC 06/24/2015 BETSY WAGNER, MASOOD Brandt Ot V58.69 OTH MED,LT,CURRENT USE 06/25/2015 BETSY WAGNER, MASOOD Brandt Ot 070.54 06/25/2015 BETSY WAGNER, MASOOD Brandt Ot 200.10 06/25/2015 BETSY WAGNER, MASOOD Brandt Ot 204.10 06/25/2015 BETSY WAGNER, MASOOD Brandt Ot 305.1 06/25/2015 BETSY WAGNER, MASOOD Brandt Ot 311 06/25/2015 BETSY WAGNER, MASOOD Brandt Ot 401.9 06/25/2015 BETSY WAGNER, MASOOD Brandt Ot 496 06/25/2015 BETSY WAGNER, MASOOD Brandt Ot V58.69 06/26/2015 BETSY WAGNER, MASOOD Brandt Ot 070.54 06/26/2015 BETSY WAGNER, MASOOD Brandt Ot 200.10 06/26/2015 BETSY WAGNER, MASOOD Brandt Ot 204.10 06/26/2015 BETSY WAGNER, MASOOD Brandt Ot 305.1 06/26/2015 BETSY WAGNER, MASOOD Karly Ot 311 06/26/2015 BETSY WAGNER, MASOOD Brandt Ot 401.9 06/26/2015 BETSY WAGNER, MASOOD Brandt Ot 496 06/26/2015 BETSY WAGNER, MASOOD Brandt Ot V58.69 06/26/2015 BETSY WAGNER, MASOOD Brandt Ot 070.54 06/26/2015 BETSY WAGNER, MASOOD Brandt Ot 200.10 06/26/2015 BETSY WAGNER, MASOOD Brandt Ot 204.10 06/26/2015 BETSY WAGNER, MASOOD Brandt Ot 305.1 06/26/2015 BETSY WAGNER, MASOOD Brandt Ot 311 06/26/2015 BETSY WAGNER, MASOOD Brandt Ot 401.9 06/26/2015 BETSY WAGNER, MASOOD Karly Ot 496 06/26/2015 BETSY WAGNER, MASOOD Brandt Ot V58.69 06/26/2015 BETSY WAGNER, MASOOD Brandt Ot 070.54 06/26/2015 BETSY WAGNER, MASOOD Brandt Ot 200.10 06/26/2015 BETSY WAGNER, MASOOD Brandt Ot 204.10 06/26/2015 BETSY WAGNER, MASOOD Brandt Ot 305.1 06/26/2015 BETSY WAGNER, MASOOD Brandt Ot 311 06/26/2015 BETSY WAGNER, MASOOD Brandt Ot 401.9 06/26/2015 BETSY WAGNER, MASOOD Brandt Ot 496 06/26/2015 BETSY WAGNER, MASOOD Brandt Ot V58.69 06/26/2015 BETSY WAGNER, MASOOD Brandt Ot 070.54 06/26/2015 BETSY WAGNER, MASOOD Brandt Ot 200.10 06/26/2015 BETSY WAGNER, MASOOD Brandt Ot 204.10 06/26/2015 BETSY WAGNER, MASOOD Brandt Ot 305.1 06/26/2015 BETSY WAGNER, MASOOD Brandt Ot 311 06/26/2015 BETSY WAGNER, MASOOD Brandt Ot 401.9 06/26/2015 BETSY WAGNER, MASOOD Brandt Ot 496 06/26/2015 BETSY WAGNER, MASOOD Brandt Ot V58.69 07/11/2015 BETSY WAGNER, MASOOD Brandt Ot 070.54 07/11/2015 BETSY WAGNER, MASOOD Brandt Ot 200.10 07/11/2015 BETSY WAGNER, MASOOD Brandt Ot 204.10 07/11/2015 BETSY WAGNER, MASOOD Brandt Ot 305.1 07/11/2015 BETSY WAGNER, MASOOD Brandt Ot 311 07/11/2015 BETSY WAGNER, MASOOD Brandt Ot 401.9 07/11/2015 BETSY WAGNER, MASOOD Brandt Ot 496 07/11/2015 BETSY WAGNER, MASOOD Brandt Ot V58.69 08/26/2015 STEVE WAGNER, ACE Canales Ot 327.23 OBSTRUCTIVE SLEEP APNEA (ADULT) (PEDIATR 08/27/2015 BETSY WAGNER, MASOOD Brandt Ot 070.54 CHRONIC HEPATITIS C W/O HEPATIC COMA 08/27/2015 BETSY WAGNER, MASOOD Brandt Ot 200.10 LYMPHOSARCOMA, EXTRANODAL SOLID ORGAN 08/27/2015 BETSY WAGNER, MASOOD Brandt Ot 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, 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 08/27/2015 BETSY WAGNER, MASOOD Brandt Ot 305.1 TOBACCO USE DISORDER 08/27/2015 BETSY WAGNER, MASOOD Brandt Ot 311 DEPRESSIVE DISORDER NEC 08/27/2015 BETSY WAGNER, MASOOD Brandt Ot 401.9 HYPERTENSION NOS 08/27/2015 BETSY WAGNER, MASOOD Brandt Ot 496 CHR AIRWAY OBSTRUCT NEC 08/27/2015 BETSY WAGNER, MASOOD Brandt Ot V58.69 [facility] MED,LT,CURRENT USE 09/30/2015 BETSY WAGNER, MASOOD Brandt Ot C91.10 09/30/2015 BETSY WAGNER, MASOOD Brandt Ot Z86.19 10/10/2015 BETSY WAGNER, MASOOD Brandt Ot C91.10 10/10/2015 BETSY WAGNER, MASOOD Brandt Ot Z86.19 12/09/2015 BETSY WAGNER, MASOOD Brandt Ot C91.10 12/09/2015 BETSY WAGNER, MASOOD Brandt Ot Z86.19 12/23/2015 BETSY WAGNER, MASOOD Brandt Ot C91.10 CHRONIC LYMPHOCYTIC LEUK OF B-CELL TYPE 12/23/2015 BETSY WAGNER, MASOOD Brandt Ot Z86.19 PERSONAL HISTORY OF OTHER INFECTIOUS AND 12/24/2015 CHERI ONEAL DO Ot C85.90 12/24/2015 CHERI ONEAL DO Ot Z01.818 12/24/2015 CHERI ONEAL DO Ot C85.90 12/24/2015 CHERI ONEAL DO Ot Z01.818 12/25/2015 CHERI ONEAL DO Ot C91.10 CHRONIC LYMPHOCYTIC LEUK OF B-CELL TYPE 12/25/2015 ONEAL CHERI KIRKLAND Ot Z11.2 ENCOUNTER FOR SCREENING FOR OTHER BACTER 12/25/2015 BETSY WAGNER, MASOOD Brandt Ot C91.10 12/25/2015 BETSY WAGNER, MASOOD Brandt Ot Z51.81 12/25/2015 BETSY WAGNER, MASOOD Brandt Ot Z79.899 01/05/2016 BETSY WAGNER, MASOOD Brandt Ot C91.10 01/05/2016 BETSY WAGNER, MASOOD Brandt Ot Z86.19 01/12/2016 BETSY WAGNER, MASOOD Brandt Ot C91.10 01/12/2016 BETSY WAGNER, MASOOD Brandt Ot Z86.19 01/14/2016 BETSY WAGNER, MASOOD Brandt Ot C91.10 01/14/2016 BETSY WAGNER, MASOOD Brandt Ot Z86.19 01/23/2016 KAUSHIK SHARIF RE DYE HAND Ot B18.2 01/23/2016 KAUSHIK SHARIF RE DYE HAND Ot C91.10 01/23/2016 KAUSHIK SHARIFP Ot F17.210 01/23/2016 KAUSHIK SHARIFP Ot J44.9 01/23/2016 KAUSHIK SHARIF RE DYE HAND Ot K21.9 01/23/2016 KAUSHIK SHARIF S RE DYE HAND Ot N18.3 01/23/2016 SHARIF KAUSHIK Moises RE DYE HAND Ot Z79.899 01/23/2016 NIVIA SHARIFCONCHA Moises RE DYE HAND Ot Z92.21 02/06/2016 BETSY WAGNER, MASOOD Karly Ot C91.10 03/24/2016 Ot 200.10 LYMPHOSARCOMA, EXTRANODAL SOLID ORGAN 03/24/2016 Ot 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, 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 03/24/2016 Ot 492.8 EMPHYSEMA NEC 03/24/2016 Ot 785.6 ENLARGEMENT LYMPH NODES 03/24/2016 MASOOD MEYER MD Ot 070.54 CHRONIC HEPATITIS C W/O HEPATIC COMA 03/24/2016 MASOOD EMYER MD Ot 200.10 LYMPHOSARCOMA, EXTRANODAL SOLID ORGAN 03/24/2016 BETSY WAGNER MASOOD Karly Ot 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, 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 03/24/2016 MASOOD MEYER MD Ot 305.1 TOBACCO USE DISORDER 03/24/2016 MASOOD MEYER MD Ot 311 DEPRESSIVE DISORDER NEC 03/24/2016 BETSY WAGNER MASOOD Karly Ot 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 03/24/2016 MASOOD MEYER MD Ot 401.9 HYPERTENSION NOS 03/24/2016 BETSY WAGNER, MASOOD Karly Ot 496 CHR AIRWAY OBSTRUCT NEC 03/24/2016 BETSY WAGNER MASOOD Karly Ot V58.69 OTH MED,LT,CURRENT USE 03/24/2016 BETSY WAGNER, MASOOD Karly Ot 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, 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 03/24/2016 ADAM WAGNER, DHRUV Mandel Ot 208.90 UNSPECIFIED LEUKEMIA, W/O MENTION OF HAV 03/24/2016 DHRUV MEDINA MD Ot V72.84 EXAM PRE-OPERATIVE NOS 03/24/2016 MASOOD MEYER MD Ot 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, 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 03/24/2016 MASOOD MEYER MD Ot 569.9 INTESTINAL DISORDER NOS 03/24/2016 MASOOD MEYER MD Ot 596.89 OTHER SPECIFIED DISORDERS OF BLADDER 03/24/2016 HASMUKH KERR MD Ot V72.84 EXAM PRE-OPERATIVE NOS 03/24/2016 BETSY WAGNER MASOOD Karly Ot C91.10 CHRONIC LYMPHOCYTIC LEUK OF B-CELL TYPE 03/24/2016 BETSY WAGNER MASOOD Karly Ot Z86.19 PERSONAL HISTORY OF OTHER INFECTIOUS AND 03/24/2016 MASOOD MEYER MD Ot C91.10 CHRONIC LYMPHOCYTIC LEUK OF B-CELL TYPE 03/24/2016 MASOOD MEYER MD Ot Z51.81 ENCOUNTER FOR THERAPEUTIC DRUG LEVEL MON 03/24/2016 MASOOD MEYER MD Ot Z79.899 OTHER PATCH DRILLER (CURRENT) DRUG THERAPY 03/24/2016 KAUSHIK SHARIF Ot C91.10 CHRONIC LYMPHOCYTIC LEUK OF B-CELL TYPE 03/24/2016 KAUSHIK SHARIF Ot Z79.899 OTHER LONGTERM (CURRENT) DRUG THERAPY 03/24/2016 CHERI ONEAL DO Ot C85.90 NON-HODGKIN LYMPHOMA, UNSPECIFIED, UNSPE 03/24/2016 CHERI ONEAL DO Ot Z01.818 ENCOUNTER FOR OTHER PREPROCEDURAL EXAMIN 03/24/2016 MASOOD MEYER MD Ot C91.10 CHRONIC LYMPHOCYTIC LEUK OF B-CELL TYPE 03/24/2016 KAUSHIK SHARIFP Ot B18.2 CHRONIC VIRAL HEPATITIS C 03/24/2016 KAUSHIK SHARIFP Ot C91.10 CHRONIC LYMPHOCYTIC LEUK OF B-CELL TYPE 03/24/2016 KAUSHIK SHARIFP Ot F17.210 NICOTINE DEPENDENCE, CIGARETTES, UNCOMPL 03/24/2016 KAUSHIK SHARIFP Ot J44.9 CHRONIC OBSTRUCTIVE PULMONARY DISEASE, U 03/24/2016 KAUSHIK SHARIFP Ot K21.9 GASTRO-ESOPHAGEAL REFLUX DISEASE WITHOUT 03/24/2016 KAUSHIK SHARIFP Ot N18.3 CHRONIC KIDNEY DISEASE, STAGE 3 ( MODERAT 03/24/2016 KAUSHIK SHARIFP Ot Z79.899 OTHER LONGTERM (CURRENT) DRUG THERAPY 03/24/2016 KAUSHIK SHARIFP Ot Z92.21 PERSONAL HISTORY OF ANTINEOPLASTIC CHEMO 03/30/2016 JAVON ENRIQUE APRN Ot C91.10 CHRONIC LYMPHOCYTIC LEUK OF B-CELL TYPE 03/30/2016 JAVON ENRIQUE APRN Ot J44.9 CHRONIC OBSTRUCTIVE PULMONARY DISEASE , U 03/30/2016 JAVON ENRIQUE APRN Ot J45.998 OTHER ASTHMA 03/30/2016 JAVON ENRIQUE APRN Ot Z72.0 TOBACCO USE 04/06/2016 JAVON ENRIQUE APRN Ot C91.10 CHRONIC LYMPHOCYTIC LEUK OF B-CELL TYPE 04/06/2016 JAVON ENRIQUE INNOVATION MANAGER Ot J44.9 CHRONIC OBSTRUCTIVE PULMONARY DISEASE , U 04/06/2016 JAVON ENRIQUE INNOVATION MANAGER Ot J45.998 OTHER ASTHMA 04/06/2016 JAVON ENRIQUE INNOVATION MANAGER Ot Z72.0 TOBACCO USE 04/12/2016 MASOOD MEYER MD Ot C91.10 CHRONIC LYMPHOCYTIC LEUK OF B-CELL TYPE 05/03/2016 MASOOD MEYER MD Ot C91.10 CHRONIC LYMPHOCYTIC LEUK OF B-CELL TYPE 05/12/2016 MASOOD MEYER MD Ot C91.10 CHRONIC LYMPHOCYTIC LEUK OF B-CELL TYPE 05/20/2016 Ot 200.10 LYMPHOSARCOMA, EXTRANODAL SOLID ORGAN 05/20/2016 Ot 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, 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 05/20/2016 Ot 492.8 EMPHYSEMA NEC 05/20/2016 Ot 785.6 ENLARGEMENT LYMPH NODES 05/20/2016 MASOOD MEYER MD Ot 070.54 CHRONIC HEPATITIS C W/O HEPATIC COMA 05/20/2016 MASOOD MEYER MD Ot 200.10 LYMPHOSARCOMA, EXTRANODAL SOLID ORGAN 05/20/2016 MASOOD MEYER MD Ot 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, 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 05/20/2016 BETSY WAGNER MASOOD Karly Ot 305.1 TOBACCO USE DISORDER 05/20/2016 MASOOD MEYER MD Ot 311 DEPRESSIVE DISORDER NEC 05/20/2016 MASOOD MEYER MD Ot 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 05/20/2016 MASOOD MEYER MD Ot 401.9 HYPERTENSION NOS 05/20/2016 MASOOD MEYER MD Ot 496 CHR AIRWAY OBSTRUCT NEC 05/20/2016 MASOOD MEYER MD Ot V58.69 OTH MED,LT,CURRENT USE 05/20/2016 BETSY WAGNER MASOOD Karly Ot 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, 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 05/20/2016 DRHUV MEDINA MD Ot 208.90 UNSPECIFIED LEUKEMIA, W/O MENTION OF HAV 05/20/2016 DHRUV MEDINA MD Ot V72.84 EXAM PRE-OPERATIVE NOS 05/20/2016 MASOOD MEYER MD Ot 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, 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 05/20/2016 MASOOD MEYER MD Ot 569.9 INTESTINAL DISORDER NOS 05/20/2016 MASOOD MEYER MD Ot 596.89 OTHER SPECIFIED DISORDERS OF BLADDER 05/20/2016 USHA WAGNER, HASMUKH S Ot V72.84 EXAM PRE-OPERATIVE NOS 05/20/2016 MASOOD MEYER MD Ot C91.10 CHRONIC LYMPHOCYTIC LEUK OF B-CELL TYPE 05/20/2016 MASOOD MEYER MD Ot Z86.19 PERSONAL HISTORY OF OTHER INFECTIOUS AND 05/20/2016 MASOOD MEYER MD Ot C91.10 CHRONIC LYMPHOCYTIC LEUK OF B-CELL TYPE 05/20/2016 MASOOD MEYER MD Ot Z51.81 ENCOUNTER FOR THERAPEUTIC DRUG LEVEL MON 05/20/2016 MASOOD MEYER MD Ot Z79.899 OTHER PATCH DRILLER (CURRENT) DRUG THERAPY 05/20/2016 KAUSHIK SHARIF Ot C91.10 CHRONIC LYMPHOCYTIC LEUK OF B-CELL TYPE 05/20/2016 KAUSHIK SHARIF Ot Z79.899 OTHER PATCH DRILLER (CURRENT) DRUG THERAPY 05/20/2016 CHERI ONEAL DO Ot C85.90 NON-H[place] LYMPHOMA, UNSPECIFIED, UNSPE 05/20/2016 CHERI ONEAL DO Ot Z01.818 ENCOUNTER FOR OTHER PREPROCEDURAL EXAMIN 05/20/2016 KAUSHIK SHARIF Ot B18.2 CHRONIC VIRAL HEPATITIS C 05/20/2016 KAUSHIK SHARIF Ot C91.10 CHRONIC LYMPHOCYTIC LEUK OF B-CELL TYPE 05/20/2016 KAUSHIK SHARIF Ot F17.210 NICOTINE DEPENDENCE, CIGARETTES, UNCOMPL 05/20/2016 KAUSHIK SHARIF Ot J44.9 CHRONIC OBSTRUCTIVE PULMONARY DISEASE, U 05/20/2016 KAUSHIK SHARIF Ot K21.9 GASTRO-ESOPHAGEAL REFLUX DISEASE WITHOUT 05/20/2016 KAUSHIK SHARIFP Ot N18.3 CHRONIC KIDNEY DISEASE, STAGE 3 ( MODERAT 05/20/2016 KAUSHKI SHARIF Ot Z79.899 OTHER LONGTERM (CURRENT) DRUG THERAPY 05/20/2016 KAUSHIK SHARIF Ot Z92.21 PERSONAL HISTORY OF ANTINEOPLASTIC CHEMO 05/20/2016 JAVON ENRIQUE APRN Ot C91.10 CHRONIC LYMPHOCYTIC LEUK OF B-CELL TYPE 05/20/2016 JAVON ENRIQUE APRN Ot J44.9 CHRONIC OBSTRUCTIVE PULMONARY DISEASE , U 05/20/2016 JAVON ENRIQUE APRN Ot J45.998 OTHER ASTHMA 05/20/2016 JAVON ENRIQUE APRN Ot Z72.0 TOBACCO USE 05/20/2016 MASOOD MEYER MD Ot B18.2 CHRONIC VIRAL HEPATITIS C 05/20/2016 MASOOD MEYER MD Ot C91.10 CHRONIC LYMPHOCYTIC LEUK OF B-CELL TYPE 05/20/2016 MASOOD MEYER MD Ot F17.210 NICOTINE DEPENDENCE, CIGARETTES, UNCOMPL 05/20/2016 MASOOD MEYER MD Ot J44.9 CHRONIC OBSTRUCTIVE PULMONARY DISEASE, U 05/20/2016 MASOOD EMYER MD Ot K21.9 GASTRO-ESOPHAGEAL REFLUX DISEASE WITHOUT 05/20/2016 MASOOD MEYER MD Ot N18.3 CHRONIC KIDNEY DISEASE, STAGE 3 (MODERAT 05/20/2016 MASOOD MEYER MD Ot Z79.899 OTHER PATCH DRILLER (CURRENT) DRUG THERAPY 05/20/2016 MASOOD MEYER MD Ot Z92.21 PERSONAL HISTORY OF ANTINEOPLASTIC CHEMO 05/20/2016 MARGARITA JOHNSON APRN Ot C85.90 NON-HODGKIN LYMPHOMA, UNSPECIFIED, UNSPE 05/20/2016 MARGARITA JOHNSON APRN Ot C95.90 LEUKEMIA, UNSPECIFIED NOT HAVING ACHIEVE 05/20/2016 MARGARITA JOHNSON APRN Ot M16.7 OTHER UNILATERAL SECONDARY OSTEOARTHRITI 05/20/2016 MARGARITA JOHNSON APRN Ot M47.896 OTHER SPONDYLOSIS, LUMBAR REGION 05/20/2016 MARGARITA JOHNSON INNOVATION MANAGER Ot 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 05/20/2016 MARGARITA JOHNSON APRN Ot R91.8 OTHER NONSPECIFIC ABNORMAL FINDING OF ELIJAH 05/20/2016 MARGARITA JOHNSON INNOVATION MANAGER Ot Z79.899 OTHER LONGTERM (CURRENT) DRUG THERAPY 05/21/2016 MARGARITA JOHNSON APRN Ot C85.90 NON-HODGKIN LYMPHOMA, UNSPECIFIED, UNSPE 05/21/2016 MARGARITA JOHNSON APRN Ot C95.90 LEUKEMIA, UNSPECIFIED NOT HAVING ACHIEVE 05/21/2016 MARGARITA JOHNSON INNOVATION MANAGER Ot M16.7 OTHER UNILATERAL SECONDARY OSTEOARTHRITI 05/21/2016 MARGARITA JOHNSON INNOVATION MANAGER Ot M47.896 OTHER SPONDYLOSIS, LUMBAR REGION 05/21/2016 MARGARITA JOHNSON INNOVATION MANAGER Ot 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 05/21/2016 MARGARITA JOHNSON INNOVATION MANAGER Ot R91.8 OTHER NONSPECIFIC ABNORMAL FINDING OF ELIJAH 05/21/2016 MARGARITA JOHNSON INNOVATION MANAGER Ot Z79.899 OTHER LONGTERM (CURRENT) DRUG THERAPY 06/08/2016 MASOOD MEYER MD, Ot B18.2 CHRONIC VIRAL HEPATITIS C 06/08/2016 MASOOD MEYER MD Ot C91.10 CHRONIC LYMPHOCYTIC LEUK OF B-CELL TYPE 06/08/2016 MASOOD MEYER MD, Ot F17.210 NICOTINE DEPENDENCE, CIGARETTES, UNCOMPL 06/08/2016 MASOOD MEYER MD Ot J44.9 CHRONIC OBSTRUCTIVE PULMONARY DISEASE, U 06/08/2016 MASOOD MEYER MD, Ot K21.9 GASTRO-ESOPHAGEAL REFLUX DISEASE WITHOUT 06/08/2016 MASOOD MEYER MD, Ot N18.3 CHRONIC KIDNEY DISEASE, STAGE 3 (MODERAT 06/08/2016 MASOOD MEYER MD Ot Z79.899 OTHER PATCH DRILLER (CURRENT) DRUG THERAPY 06/08/2016 MASOOD MEYER MD Ot Z92.21 PERSONAL HISTORY OF ANTINEOPLASTIC CHEMO 06/09/2016 JAVON ENRIQUE INNOVATION MANAGER Ot J98.4 OTHER DISORDERS OF LUNG 06/09/2016 JAVON ENRIQUE INNOVATION MANAGER Ot R06.00 DYSPNEA, UNSPECIFIED 06/09/2016 JAVON ENRIQUE INNOVATION MANAGER Ot Z72.0 TOBACCO USE 06/24/2016 JAVON ENRIQUE INNOVATION MANAGER Ot J98.4 OTHER DISORDERS OF LUNG 06/24/2016 JAVON ENRIQUE INNOVATION MANAGER Ot R06.00 DYSPNEA, UNSPECIFIED 06/24/2016 JAVON ENRIQUE INNOVATION MANAGER Ot Z72.0 TOBACCO USE 08/08/2016 MASOOD MEYER MD, Ot B18.2 CHRONIC VIRAL HEPATITIS C 08/08/2016 MASOOD MEYER MD Ot C91.10 CHRONIC LYMPHOCYTIC LEUK OF B-CELL TYPE 08/08/2016 MASOOD MEYER MD Ot F17.210 NICOTINE DEPENDENCE, CIGARETTES, UNCOMPL 08/08/2016 MASOOD MEYER MD Ot J44.9 CHRONIC OBSTRUCTIVE PULMONARY DISEASE, U 08/08/2016 MASOOD MEYER MD Ot K21.9 GASTRO-ESOPHAGEAL REFLUX DISEASE WITHOUT 08/08/2016 MASOOD MEYER MD Ot N18.3 CHRONIC KIDNEY DISEASE, STAGE 3 (MODERAT 08/08/2016 MASOOD MEYER MD, Ot Z79.899 OTHER LONGTERM (CURRENT) DRUG THERAPY 08/08/2016 MASOOD MEYER MD Ot Z92.21 PERSONAL HISTORY OF ANTINEOPLASTIC CHEMO 08/10/2016 MASOOD MEYER MD, Ot B18.2 CHRONIC VIRAL HEPATITIS C 08/10/2016 MASOOD MEYER MD, Ot C91.10 CHRONIC LYMPHOCYTIC LEUK OF B-CELL TYPE 08/10/2016 MASOOD MEYER MD Ot F17.210 NICOTINE DEPENDENCE, CIGARETTES, UNCOMPL 08/10/2016 MASOOD MEYER MD Ot J44.9 CHRONIC OBSTRUCTIVE PULMONARY DISEASE, U 08/10/2016 MASOOD MEYER MD, Ot K21.9 GASTRO-ESOPHAGEAL REFLUX DISEASE WITHOUT 08/10/2016 MASOOD MEYER MD Ot N18.3 CHRONIC KIDNEY DISEASE, STAGE 3 (MODERAT 08/10/2016 MASOOD MEYER MD Ot Z79.899 OTHER PATCH DRILLER (CURRENT) DRUG THERAPY 08/10/2016 MASOOD MEYER MD Ot Z92.21 PERSONAL HISTORY OF ANTINEOPLASTIC CHEMO 08/14/2016 MASOOD MEYER MD, Ot B18.2 CHRONIC VIRAL HEPATITIS C 08/14/2016 MASOOD MEYER MD, Ot C91.10 CHRONIC LYMPHOCYTIC LEUK OF B-CELL TYPE 08/14/2016 MASOOD MEYER MD Ot F17.210 NICOTINE DEPENDENCE, CIGARETTES, UNCOMPL 08/14/2016 MASOOD MEYER MD, Ot J44.9 CHRONIC OBSTRUCTIVE PULMONARY DISEASE, U 08/14/2016 MASOOD MEYER MD Ot K21.9 GASTRO-ESOPHAGEAL REFLUX DISEASE WITHOUT 08/14/2016 MASOOD MEYER MD Ot N18.3 CHRONIC KIDNEY DISEASE, STAGE 3 (MODERAT 08/14/2016 MASOOD MEYER MD Ot Z79.899 OTHER LONGTERM (CURRENT) DRUG THERAPY 08/14/2016 MASOOD MEYER MD Ot Z92.21 PERSONAL HISTORY OF ANTINEOPLASTIC CHEMO 08/30/2016 MASOOD MEYER MD Ot B18.2 CHRONIC VIRAL HEPATITIS C 08/30/2016 MASOOD MEYER MD, Ot C91.10 CHRONIC LYMPHOCYTIC LEUK OF B-CELL TYPE 08/30/2016 MASOOD MEYER MD Ot F17.210 NICOTINE DEPENDENCE, CIGARETTES, UNCOMPL 08/30/2016 MASOOD MEYER MD Ot J44.9 CHRONIC OBSTRUCTIVE PULMONARY DISEASE, U 08/30/2016 MASOOD MEYER MD Ot K21.9 GASTRO-ESOPHAGEAL REFLUX DISEASE WITHOUT 08/30/2016 MASOOD MEYER MD, Ot N18.3 CHRONIC KIDNEY DISEASE, STAGE 3 (MODERAT 08/30/2016 MASOOD MEYER MD Ot Z79.899 OTHER LONGTERM (CURRENT) DRUG THERAPY 08/30/2016 MASOOD MEYER MD Ot Z92.21 PERSONAL HISTORY OF ANTINEOPLASTIC CHEMO 09/23/2016 MASOOD MEYER MD, Ot B18.2 CHRONIC VIRAL HEPATITIS C 09/23/2016 MASOOD MEYER MD, Ot C91.10 CHRONIC LYMPHOCYTIC LEUK OF B-CELL TYPE 09/23/2016 MASOOD MEYER MD Ot F17.210 NICOTINE DEPENDENCE, CIGARETTES, UNCOMPL 09/23/2016 MASOOD MEYER MD Ot J44.9 CHRONIC OBSTRUCTIVE PULMONARY DISEASE, U 09/23/2016 MASOOD MEYER MD, Ot K21.9 GASTRO-ESOPHAGEAL REFLUX DISEASE WITHOUT 09/23/2016 MASOOD MEYER MD, Ot N18.3 CHRONIC KIDNEY DISEASE, STAGE 3 (MODERAT 09/23/2016 MASOOD MEYER MD, Ot Z79.899 OTHER PATCH DRILLER (CURRENT) DRUG THERAPY 09/23/2016 MASOOD MEYER MD Ot Z92.21 PERSONAL HISTORY OF ANTINEOPLASTIC CHEMO 10/11/2016 MASOOD MEYER MD, Ot B18.2 CHRONIC VIRAL HEPATITIS C 10/11/2016 MASOOD MEYER MD, Ot C91.10 CHRONIC LYMPHOCYTIC LEUK OF B-CELL TYPE 10/11/2016 MASOOD MEYER MD Ot F17.210 NICOTINE DEPENDENCE, CIGARETTES, UNCOMPL 10/11/2016 MASOOD MEYER MD, Ot J44.9 CHRONIC OBSTRUCTIVE PULMONARY DISEASE, U 10/11/2016 MASOOD MEYER MD, Ot K21.9 GASTRO-ESOPHAGEAL REFLUX DISEASE WITHOUT 10/11/2016 MASOOD MEYER MD Ot N18.3 CHRONIC KIDNEY DISEASE, STAGE 3 (MODERAT 10/11/2016 MASOOD MEYER MD Ot Z79.899 OTHER PATCH DRILLER (CURRENT) DRUG THERAPY 10/11/2016 MASOOD MEYER MD Ot Z92.21 PERSONAL HISTORY OF ANTINEOPLASTIC CHEMO 12/19/2016 MASOOD MEYER MD, Ot B18.2 CHRONIC VIRAL HEPATITIS C 12/19/2016 MASOOD MEYER MD, Ot C91.10 CHRONIC LYMPHOCYTIC LEUK OF B-CELL TYPE 12/19/2016 MASOOD MEYER MD Ot F17.210 NICOTINE DEPENDENCE, CIGARETTES, UNCOMPL 12/19/2016 MASOOD MEYER MD Ot J44.9 CHRONIC OBSTRUCTIVE PULMONARY DISEASE, U 12/19/2016 MASOOD MEYER MD Ot K21.9 GASTRO-ESOPHAGEAL REFLUX DISEASE WITHOUT 12/19/2016 MASOOD MEYER MD Ot N18.3 CHRONIC KIDNEY DISEASE, STAGE 3 (MODERAT 12/19/2016 MASOOD MEYER MD Ot Z79.899 OTHER LONGTERM (CURRENT) DRUG THERAPY 12/19/2016 MASOOD MEYER MD Ot Z92.21 PERSONAL HISTORY OF ANTINEOPLASTIC CHEMO 01/06/2017 MASOOD MEYER MD Ot B18.2 CHRONIC VIRAL HEPATITIS C 01/06/2017 MASOOD MEYER MD Ot C91.10 CHRONIC LYMPHOCYTIC LEUK OF B-CELL TYPE 01/06/2017 MASOOD MEYER MD Ot F17.210 NICOTINE DEPENDENCE, CIGARETTES, UNCOMPL 01/06/2017 MASOOD MEYER MD Ot J44.9 CHRONIC OBSTRUCTIVE PULMONARY DISEASE, U 01/06/2017 MASOOD MEYER MD Ot K21.9 GASTRO-ESOPHAGEAL REFLUX DISEASE WITHOUT 01/06/2017 MASOOD MEYER MD Ot N18.3 CHRONIC KIDNEY DISEASE, STAGE 3 (MODERAT 01/06/2017 MASOOD MEYER MD Ot Z79.899 OTHER PATCH DRILLER (CURRENT) DRUG THERAPY 01/06/2017 MASOOD MEYER MD Ot Z92.21 PERSONAL HISTORY OF ANTINEOPLASTIC CHEMO 02/01/2017 Ot 200.10 LYMPHOSARCOMA, EXTRANODAL SOLID ORGAN 02/01/2017 Ot 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, 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 02/01/2017 Ot 492.8 EMPHYSEMA NEC 02/01/2017 Ot 785.6 ENLARGEMENT LYMPH NODES 02/01/2017 MASOOD MEYER MD Ot 070.54 CHRONIC HEPATITIS C W/O HEPATIC COMA 02/01/2017 MASOOD MEYER MD Ot 200.10 LYMPHOSARCOMA, EXTRANODAL SOLID ORGAN 02/01/2017 MASOOD MEYER MD Ot 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, 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 02/01/2017 MASOOD MEYER MD Ot 305.1 TOBACCO USE DISORDER 02/01/2017 MASOOD MEYER MD Ot 311 DEPRESSIVE DISORDER NEC 02/01/2017 MASOOD MEYER MD Ot 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 02/01/2017 MASOOD MEYER MD Ot 401.9 HYPERTENSION NOS 02/01/2017 MASOOD MEYER MD Ot 496 CHR AIRWAY OBSTRUCT NEC 02/01/2017 MASOOD MEYER MD Ot V58.69 OTH MED,LT,CURRENT USE 02/01/2017 MASOOD MEYER MD Ot 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, 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 02/01/2017 ADAM WAGNER, DHRUV Mandel Ot 208.90 UNSPECIFIED LEUKEMIA, W/O MENTION OF HAV 02/01/2017 ADAM WAGNER, DHRUV Mandel Ot V72.84 EXAM PRE-OPERATIVE NOS 02/01/2017 MASOOD MEYER MD Ot 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, 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 02/01/2017 MASOOD MEYER MD Ot 569.9 INTESTINAL DISORDER NOS 02/01/2017 MASOOD MEYER MD Ot 596.89 OTHER SPECIFIED DISORDERS OF BLADDER 02/01/2017 USHA WAGNER, HASMUKH S Ot V72.84 EXAM PRE-OPERATIVE NOS 02/01/2017 MASOOD MEYER MD Ot C91.10 CHRONIC LYMPHOCYTIC LEUK OF B-CELL TYPE 02/01/2017 MASOOD MEYER MD Ot Z86.19 PERSONAL HISTORY OF OTHER INFECTIOUS AND 02/01/2017 MASOOD MEYER MD Ot C91.10 CHRONIC LYMPHOCYTIC LEUK OF B-CELL TYPE 02/01/2017 MASOOD MEYER MD Ot Z51.81 ENCOUNTER FOR THERAPEUTIC DRUG LEVEL MON 02/01/2017 MASOOD MEYER MD Ot Z79.899 OTHER PATCH DRILLER (CURRENT) DRUG THERAPY 02/01/2017 KAUSHIK SHARIF Ot C91.10 CHRONIC LYMPHOCYTIC LEUK OF B-CELL TYPE 02/01/2017 KAUSHIK SHARIF Ot Z79.899 OTHER PATCH DRILLER (CURRENT) DRUG THERAPY 02/01/2017 CHERI ONEAL DO Ot C85.90 NON-HODGKIN LYMPHOMA, UNSPECIFIED, UNSPE 02/01/2017 CHERI ONEAL DO Ot Z01.818 ENCOUNTER FOR OTHER PREPROCEDURAL EXAMIN 02/01/2017 KAUSHIK SHARIF Ot B18.2 CHRONIC VIRAL HEPATITIS C 02/01/2017 KAUSHIK SHARIF Ot C91.10 CHRONIC LYMPHOCYTIC LEUK OF B-CELL TYPE 02/01/2017 KAUSHIK SHARIF Ot F17.210 NICOTINE DEPENDENCE, CIGARETTES, UNCOMPL 02/01/2017 KAUSHIK SHARIF Ot J44.9 CHRONIC OBSTRUCTIVE PULMONARY DISEASE, U 02/01/2017 KAUSHIK SHARIF Ot K21.9 GASTRO-ESOPHAGEAL REFLUX DISEASE WITHOUT 02/01/2017 KAUSHIK SHARIF S RE DYE HAND Ot N18.3 CHRONIC KIDNEY DISEASE, STAGE 3 ( MODERAT 02/01/2017 SHARIFKAUSHIK [place] RE DYE HAND Ot Z79.899 OTHER PATCH DRILLER (CURRENT) DRUG THERAPY 02/01/2017 SHARIFKAUSHIK [place] RE DYE HAND Ot Z92.21 PERSONAL HISTORY OF ANTINEOPLASTIC CHEMO 02/01/2017 JAVON ENRIQUE APRN Ot C91.10 CHRONIC LYMPHOCYTIC LEUK OF B-CELL TYPE 02/01/2017 JAVON ENRIQUE INNOVATION MANAGER Ot J44.9 CHRONIC OBSTRUCTIVE PULMONARY DISEASE , U 02/01/2017 JAVON ENRIQUE INNOVATION MANAGER Ot J45.998 OTHER ASTHMA 02/01/2017 IVAJAVON PAREDES INNOVATION MANAGER Ot Z72.0 TOBACCO USE 02/01/2017 JAVON ENRIQUE APRN Ot J98.4 OTHER DISORDERS OF LUNG 02/01/2017 JAVON ENRIQUE INNOVATION MANAGER Ot R06.00 DYSPNEA, UNSPECIFIED 02/01/2017 JAVON ENRIQUE INNOVATION MANAGER Ot Z72.0 TOBACCO USE 02/01/2017 MASOOD MEYER MD Ot B18.2 CHRONIC VIRAL HEPATITIS C 02/01/2017 MASOOD MEYER MD Ot C91.10 CHRONIC LYMPHOCYTIC LEUK OF B-CELL TYPE 02/01/2017 MASOOD MEYER MD Ot F17.210 NICOTINE DEPENDENCE, CIGARETTES, UNCOMPL 02/01/2017 MASOOD MEYER MD Ot J44.9 CHRONIC OBSTRUCTIVE PULMONARY DISEASE, U 02/01/2017 MASOOD MEYER MD Ot K21.9 GASTRO-ESOPHAGEAL REFLUX DISEASE WITHOUT 02/01/2017 MASOOD MEYER MD Ot N18.3 CHRONIC KIDNEY DISEASE, STAGE 3 (MODERAT 02/01/2017 MASOOD MEYER MD Ot Z79.899 OTHER PATCH DRILLER (CURRENT) DRUG THERAPY 02/01/2017 MASOOD MEYER MD Ot Z92.21 PERSONAL HISTORY OF ANTINEOPLASTIC CHEMO 02/02/2017 SANJIV CORBIN MD Ot A41.9 SEPSIS, UNSPECIFIED ORGANISM 02/02/2017 SANJIV CORBIN MD, Ot B18.2 CHRONIC VIRAL HEPATITIS C 02/02/2017 SANJIV CORBIN MD Ot C91.10 CHRONIC LYMPHOCYTIC LEUK OF B-CELL TYPE 02/02/2017 SANJIV CORBIN MD Ot D64.9 ANEMIA, UNSPECIFIED 02/02/2017 SANJIV CORBIN MD, Ot E87.2 ACIDOSIS 02/02/2017 SANJIV CORBIN MD Ot F12.90 CANNABIS USE, UNSPECIFIED, UNCOMPLICATED 02/02/2017 SANJIV CORBIN MD Ot F15.90 OTHER STIMULANT USE, UNSPECIFIED, UNCOMP 02/02/2017 SANJIV CORBIN MD Ot F17.210 NICOTINE DEPENDENCE, CIGARETTES, UNCOMPL 02/02/2017 SANJIV CORBIN MD Ot J18.9 PNEUMONIA, UNSPECIFIED ORGANISM 02/02/2017 SANJIV CORBIN MD Ot J44.9 CHRONIC OBSTRUCTIVE PULMONARY DISEASE, U 02/02/2017 SANJIV CORBIN MD Ot R65.21 SEVERE SEPSIS WITH SEPTIC SHOCK 02/03/2017 SANJIV CORBIN MD Ot A41.9 SEPSIS, UNSPECIFIED ORGANISM 02/03/2017 SANJIV CORBIN MD Ot B18.2 CHRONIC VIRAL HEPATITIS C 02/03/2017 SANJIV CORBIN MD Ot C91.10 CHRONIC LYMPHOCYTIC LEUK OF B-CELL TYPE 02/03/2017 SANJIV CORBIN MD Ot D64.9 ANEMIA, UNSPECIFIED 02/03/2017 SANJIV CORBIN MD Ot E87.2 ACIDOSIS 02/03/2017 SANJIV CORBIN MD Ot F12.90 CANNABIS USE, UNSPECIFIED, UNCOMPLICATED 02/03/2017 SANJIV CORBIN MD Ot F15.90 OTHER STIMULANT USE, UNSPECIFIED, UNCOMP 02/03/2017 SANJIV CORBIN MD Ot F17.210 NICOTINE DEPENDENCE, CIGARETTES, UNCOMPL 02/03/2017 SANJIV CORBIN MD Ot J18.9 PNEUMONIA, UNSPECIFIED ORGANISM 02/03/2017 SANJIV CORBIN MD Ot J44.9 CHRONIC OBSTRUCTIVE PULMONARY DISEASE, U 02/03/2017 SANJIV CORBIN MD Ot R65.21 SEVERE SEPSIS WITH SEPTIC SHOCK 02/03/2017 SANJIV CORBIN MD Ot A41.9 SEPSIS, UNSPECIFIED ORGANISM 02/03/2017 SANJIV CORBIN MD Ot B18.2 CHRONIC VIRAL HEPATITIS C 02/03/2017 SANJIV CORBIN MD Ot C91.10 CHRONIC LYMPHOCYTIC LEUK OF B-CELL TYPE 02/03/2017 SANJIV CORBIN MD Ot D64.9 ANEMIA, UNSPECIFIED 02/03/2017 SANJIV CORBIN MD Ot E87.2 ACIDOSIS 02/03/2017 SANJIV CORBIN MD Ot F12.90 CANNABIS USE, UNSPECIFIED, UNCOMPLICATED 02/03/2017 SANJIV CORBIN MD, Ot F15.90 OTHER STIMULANT USE, UNSPECIFIED, UNCOMP 02/03/2017 SANJIV CORBIN MD, Ot F17.210 NICOTINE DEPENDENCE, CIGARETTES, UNCOMPL 02/03/2017 SANJIV CORBIN MD Ot F32.9 MAJOR DEPRESSIVE DISORDER, SINGLE EPISOD 02/03/2017 SANJIV CORBIN MD, Ot H91.90 UNSPECIFIED HEARING LOSS, UNSPECIFIED EA 02/03/2017 SANJIV CORBIN MD Ot I10 ESSENTIAL (PRIMARY) HYPERTENSION 02/03/2017 SANJIV CORBIN MD, Ot J18.9 PNEUMONIA, UNSPECIFIED ORGANISM 02/03/2017 SANJIV CORBIN MD, Ot J44.9 CHRONIC OBSTRUCTIVE PULMONARY DISEASE, U 02/03/2017 SANJIV CORBIN MD, Ot K21.9 GASTRO-ESOPHAGEAL REFLUX DISEASE WITHOUT 02/03/2017 SANJIV CORBIN MD Ot R65.21 SEVERE SEPSIS WITH SEPTIC SHOCK 02/08/2017 MASOOD MEYER MD, Ot B18.2 CHRONIC VIRAL HEPATITIS C 02/08/2017 MASOOD MEYER MD, Ot C91.10 CHRONIC LYMPHOCYTIC LEUK OF B-CELL TYPE 02/08/2017 MASOOD MEYER MD, Ot F17.210 NICOTINE DEPENDENCE, CIGARETTES, UNCOMPL 02/08/2017 MASOOD MEYER MD, Ot J44.9 CHRONIC OBSTRUCTIVE PULMONARY DISEASE, U 02/08/2017 MASOOD MEYER MD, Ot K21.9 GASTRO-ESOPHAGEAL REFLUX DISEASE WITHOUT 02/08/2017 MASOOD MEYER MD Ot N18.3 CHRONIC KIDNEY DISEASE, STAGE 3 (MODERAT 02/08/2017 MASOOD MEYER MD, Ot Z79.899 OTHER LONGTERM (CURRENT) DRUG THERAPY 02/08/2017 MASOOD MEYER MD Ot Z92.21 PERSONAL HISTORY OF ANTINEOPLASTIC CHEMO 04/05/2017 MASOOD MEYER MD, Ot B18.2 CHRONIC VIRAL HEPATITIS C 04/05/2017 MASOOD MEYER MD, Ot C91.10 CHRONIC LYMPHOCYTIC LEUK OF B-CELL TYPE 04/05/2017 MASOOD MEYER MD Ot F17.210 NICOTINE DEPENDENCE, CIGARETTES, UNCOMPL 04/05/2017 MASOOD MEYER MD, Ot J44.9 CHRONIC OBSTRUCTIVE PULMONARY DISEASE, U 04/05/2017 MASOOD MEYER MD, Ot K21.9 GASTRO-ESOPHAGEAL REFLUX DISEASE WITHOUT 04/05/2017 MASOOD MEYER MD, Ot N18.3 CHRONIC KIDNEY DISEASE, STAGE 3 (MODERAT 04/05/2017 MASOOD MEYER MD, Ot Z79.899 OTHER PATCH DRILLER (CURRENT) DRUG THERAPY 04/05/2017 MASOOD MEYER MD, Ot Z92.21 PERSONAL HISTORY OF ANTINEOPLASTIC CHEMO 04/07/2017 MASOOD MEYER MD, Ot B18.2 CHRONIC VIRAL HEPATITIS C 04/07/2017 MASOOD MEYER MD, Ot C91.10 CHRONIC LYMPHOCYTIC LEUK OF B-CELL TYPE 04/07/2017 MASOOD MEYER MD, Ot F17.210 NICOTINE DEPENDENCE, CIGARETTES, UNCOMPL 04/07/2017 MASOOD MEYER MD, Ot J44.9 CHRONIC OBSTRUCTIVE PULMONARY DISEASE, U 04/07/2017 MASOOD MEYER MD, Ot K21.9 GASTRO-ESOPHAGEAL REFLUX DISEASE WITHOUT 04/07/2017 MASOOD MEYER MD, Ot N18.3 CHRONIC KIDNEY DISEASE, STAGE 3 (MODERAT 04/07/2017 MASOOD MEYER MD, Ot Z79.899 OTHER PATCH DRILLER (CURRENT) DRUG THERAPY 04/07/2017 MASOOD MEYER MD, Ot Z92.21 PERSONAL HISTORY OF ANTINEOPLASTIC CHEMO 05/10/2017 MASOOD MEYER MD, Ot B18.2 CHRONIC VIRAL HEPATITIS C 05/10/2017 MASOOD MEYER MD, Ot C91.10 CHRONIC LYMPHOCYTIC LEUK OF B-CELL TYPE 05/10/2017 MASOOD MEYER MD, Ot F17.210 NICOTINE DEPENDENCE, CIGARETTES, UNCOMPL 05/10/2017 MASOOD MEYER MD, Ot J44.9 CHRONIC OBSTRUCTIVE PULMONARY DISEASE, U 05/10/2017 MASOOD MEYER MD, Ot K21.9 GASTRO-ESOPHAGEAL REFLUX DISEASE WITHOUT 05/10/2017 MASOOD MEYER MD, Ot N18.3 CHRONIC KIDNEY DISEASE, STAGE 3 (MODERAT 05/10/2017 MASOOD MEYER MD, Ot Z79.899 OTHER PATCH DRILLER (CURRENT) DRUG THERAPY 05/10/2017 MASOOD MEYER MD, Ot Z92.21 PERSONAL HISTORY OF ANTINEOPLASTIC CHEMO Procedures Code Description Performed By Performed On [id number] INSERTION OF ENDOTRACHEAL AIRWAY INTO TR 02/02/2017 [id number] RESPIRATORY VENTILATION, 24-96 CONSECUTI 02/02/2017 Results Test Result Range Capillary blood glucose measurement by glucometer (mass/volume) - 02/01/17 17: 54 Capillary blood glucose measurement by glucometer (mass/volume) 107 mg/dL 70-110 Complete blood count (CBC) with automated white blood cell (WBC) differential - 02/01/17 17:55 Blood leukocytes automated count (number/volume) 1.4 10*3/ uL 4.3-11.0 Blood erythrocytes automated count (number/volume) 3.45 10*6 /uL 4.35-5.85 Venous blood hemoglobin measurement (mass/volume) 10.2 g/dL 13.3-17.7 Blood hematocrit (volume fraction) 31 % 40-54 Automated erythrocyte mean corpuscular volume 91 [foz_us] 80-99 Automated erythrocyte mean corpuscular hemoglobin (mass per erythrocyte) 30 pg 25-34 Automated erythrocyte mean corpuscular hemoglobin concentration measurement ( mass/volume) 33 g/dL 32-36 Automated erythrocyte distribution width ratio 15.6 % 10.0-14.5 Automated blood platelet count (count/volume) 167 10*3/uL 130-400 Automated blood platelet mean volume measurement 11.0 [foz_ us] 7.4-10.4 Automated blood neutrophils/100 leukocytes 18 % 42-75 Automated blood lymphocytes/100 leukocytes 62 % 12-44 Blood monocytes/100 leukocytes 12 % 0-12 Automated blood eosinophils/100 leukocytes 7 % 0-10 Automated blood basophils/100 leukocytes 2 % 0-10 Blood neutrophils automated count (number/volume) 0.3 10*3 1.8-7.8 Blood lymphocytes automated count (number/volume) 0.8 10*3 1.0-4.0 Blood monocytes automated count (number/volume) 0.2 10*3 0.0-1.0 Automated eosinophil count 0.1 10*3/uL 0.0-0.3 Automated blood basophil count (count/volume) 0.0 10*3/uL 0.0-0.1 Blood lactic acid measurement (moles/volume) - 02/01/17 17:55 Blood lactic acid measurement (moles/volume) 3.35 mmol/L 0.50-2.00 Comprehensive metabolic panel - 02/01/17 17:55 Serum or plasma sodium measurement (moles/volume) 135 mmol/ L 135-145 Serum or plasma potassium measurement (moles/volume) 3.4 mmol/L 3.6-5.0 Serum or plasma chloride measurement (moles/volume) 107 mmol /L 98-107 Carbon dioxide 17 mmol/L 21-32 Serum or plasma anion gap determination (moles/volume) 11 mmol/L 5-14 Serum or plasma urea nitrogen measurement (mass/volume) 12 mg/dL 7-18 Serum or plasma creatinine measurement (mass/volume) 1.99 mg /dL 0.60-1.30 Serum or plasma urea nitrogen/creatinine mass ratio 6 NRG Serum or plasma creatinine measurement with calculation of estimated glomerular filtration rate 35 NRG Serum or plasma glucose measurement (mass/volume) 104 mg/dL 70-105 Serum or plasma calcium measurement (mass/volume) 7.4 mg/dL 8.5-10.1 Serum or plasma total bilirubin measurement (mass/volume) 0.3 mg/dL 0.1-1.0 Serum or plasma alkaline phosphatase measurement (enzymatic activity/volume) 53 U/L 40-136 Serum or plasma aspartate aminotransferase measurement (enzymatic activity/ volume) 10 U/L 5-34 Serum or plasma alanine aminotransferase measurement (enzymatic activity/volume ) 8 U/L 0-55 Serum or plasma protein measurement (mass/volume) 4.4 g/dL 6.4-8.2 Serum or plasma albumin measurement (mass/volume) 2.5 g/dL 3.2-4.5 Serum or plasma troponin i.cardiac measurement (mass/volume) - 02/01/17 17:55 Serum or plasma troponin i.cardiac measurement (mass/volume) < ng/mL <0.30 Bacterial blood culture - 02/01/17 17:55 Bacterial blood culture NG NRG Complete urinalysis with reflex to culture - 02/01/17 17:58 Urine color determination YELLOW NRG Urine clarity determination CLEAR NRG Urine pH measurement by test strip 6 5- 9 Specific gravity of urine by test strip 1.005 1.016-1.022 Urine protein assay by test strip, semi-quantitative NEGATIVE NEGATIVE Urine glucose detection by automated test strip NEGATIVE NEGATIVE Erythrocytes detection in urine sediment by light microscopy NEGATIVE NEGATIVE Urine ketones detection by automated test strip NEGATIVE NEGATIVE Urine nitrite detection by test strip NEGATIVE NEGATIVE Urine total bilirubin detection by test strip NEGATIVE NEGATIVE Urine urobilinogen measurement by automated test strip (mass/volume) NORMAL NORMAL Urine leukocyte esterase detection by dipstick NEGATIVE NEGATIVE Automated urine sediment erythrocyte count by microscopy (number/high power field) NONE NRG Automated urine sediment leukocyte count by microscopy (number/high power field ) NONE NRG Bacteria detection in urine sediment by light microscopy NONE NRG Squamous epithelial cells detection in urine sediment by light microscopy RARE NRG Crystals detection in urine sediment by light microscopy NONE NRG Casts detection in urine sediment by light microscopy NONE NRG Mucus detection in urine sediment by light microscopy NEGATIVE NRG Complete urinalysis with reflex to culture NO NRG PT panel in platelet poor plasma by coagulation assay - 02/01/17 17:58 Prothrombin time (PT) in platelet poor plasma by coagulation assay 14.6 s 12.2-14.7 INR in platelet poor plasma or blood by coagulation assay 1.2 0.8-1.4 Urine drug screening test - 02/01/17 17:58 Urine phencyclidine detection by screening method NEGATIVE NEGATIVE Urine benzodiazepines detection by screening method POSITIVE NEGATIVE Urine cocaine detection NEGATIVE NEGATIVE Urine amphetamines detection by screening method POSITIVE NEGATIVE Urine methamphetamine detection by screening method POSITIVE NEGATIVE Urine cannabinoids detection by screening method POSITIVE NEGATIVE Urine opiates detection by screening method POSITIVE NEGATIVE Urine barbiturates detection NEGATIVE NEGATIVE Screening urine tricyclic antidepressants detection POSITIVE NEGATIVE Urine methadone detection by screening method NEGATIVE NEGATIVE Urine oxycodone detection NEGATIVE NEGATIVE Urine propoxyphene detection NEGATIVE NEGATIVE Bacterial blood culture - 02/01/17 18:00 Bacterial blood culture NG NRG Serum or plasma lactate measurement (moles/volume) - 02/01/17 19:52 Serum or plasma lactate measurement (moles/volume) 5.84 mmol /L 0.50-2.00 Arterial blood gas measurement - 02/01/17 20:00 Blood pCO2 32 mm[Hg] 35-45 Blood pO2 55 mm[Hg] 79-93 Arterial blood bicarbonate measurement (moles/volume) 17 mmol/L 23-27 Arterial blood base excess by calculation -7.7 mmol/L -2.5-2.5 Arterial blood oxygen saturation measurement 88 % 94-100 * Inhaled oxygen flow rate 4L NRG Arterial blood pH measurement with patient temperature correction 7.35 7.37-7.43 Arterial blood carbon dioxide, total measurement (moles/volume) 17.8 mmol/L 21.0-31.0 Body site L RAD NRG Assessment of wrist artery patency prior to arterial puncture YES-POS NRG Setting of ventilation mode NO NRG Measurement of body temperature 99.1 NRG Methicillin resistant Staphylococcus aureus (MRSA) screening culture - 21:20 Methicillin resistant Staphylococcus aureus (MRSA) screening culture NEG NRG Capillary blood glucose measurement by glucometer (mass/volume) - 02/01/17 23: 19 Capillary blood glucose measurement by glucometer (mass/volume) 92 mg/dL 70-110 Capillary blood glucose measurement by glucometer (mass/volume) - 02/02/17 00: 07 Capillary blood glucose measurement by glucometer (mass/volume) 79 mg/dL 70-110 Sputum Gram stain - 02/02/17 01:15 GRAM STAIN SPUTUM AND MIXED BACTERIAL MARIA FERNANDA NRG Bacterial sputum culture - 02/02/17 01:15 Bacterial sputum culture NORMAL NRG Capillary blood glucose measurement by glucometer (mass/volume) - 02/02/17 01: 21 Capillary blood glucose measurement by glucometer (mass/volume) 107 mg/dL 70-110 Capillary blood glucose measurement by glucometer (mass/volume) - 02/02/17 02: 52 Capillary blood glucose measurement by glucometer (mass/volume) 118 mg/dL 70-110 Complete blood count (CBC) with automated white blood cell (WBC) differential - 02/02/17 03:45 Blood leukocytes automated count (number/volume) 1.8 10*3/ uL 4.3-11.0 Blood erythrocytes automated count (number/volume) 3.42 10*6 /uL 4.35-5.85 Venous blood hemoglobin measurement (mass/volume) 10.0 g/dL 13.3-17.7 Blood hematocrit (volume fraction) 31 % 40-54 Automated erythrocyte mean corpuscular volume 90 [foz_us] 80-99 Automated erythrocyte mean corpuscular hemoglobin (mass per erythrocyte) 29 pg 25-34 Automated erythrocyte mean corpuscular hemoglobin concentration measurement ( mass/volume) 33 g/dL 32-36 Automated erythrocyte distribution width ratio 15.4 % 10.0-14.5 Automated blood platelet count (count/volume) 205 10*3/uL 130-400 Automated blood platelet mean volume measurement 11.1 [foz_ us] 7.4-10.4 Automated blood neutrophils/100 leukocytes 35 % 42-75 Automated blood lymphocytes/100 leukocytes 44 % 12-44 Blood monocytes/100 leukocytes 11 % 0-12 Automated blood eosinophils/100 leukocytes 8 % 0-10 Automated blood basophils/100 leukocytes 2 % 0-10 Blood neutrophils automated count (number/volume) 0.7 10*3 1.8-7.8 Blood lymphocytes automated count (number/volume) 0.8 10*3 1.0-4.0 Blood monocytes automated count (number/volume) 0.2 10*3 0.0-1.0 Automated eosinophil count 0.1 10*3/uL 0.0-0.3 Automated blood basophil count (count/volume) 0.0 10*3/uL 0.0-0.1 Comprehensive metabolic panel - 02/02/17 03:45 Serum or plasma sodium measurement (moles/volume) 132 mmol/ L 135-145 Serum or plasma potassium measurement (moles/volume) 4.9 mmol/L 3.6-5.0 Serum or plasma chloride measurement (moles/volume) 104 mmol /L 98-107 Carbon dioxide 17 mmol/L 21-32 Serum or plasma anion gap determination (moles/volume) 11 mmol/L 5-14 Serum or plasma urea nitrogen measurement (mass/volume) 18 mg/dL 7-18 Serum or plasma creatinine measurement (mass/volume) 2.21 mg /dL 0.60-1.30 Serum or plasma urea nitrogen/creatinine mass ratio 8 NRG Serum or plasma creatinine measurement with calculation of estimated glomerular filtration rate 31 NRG Serum or plasma glucose measurement (mass/volume) 125 mg/dL 70-105 Serum or plasma calcium measurement (mass/volume) 6.9 mg/dL 8.5-10.1 Serum or plasma total bilirubin measurement (mass/volume) 0.3 mg/dL 0.1-1.0 Serum or plasma alkaline phosphatase measurement (enzymatic activity/volume) 42 U/L 40-136 Serum or plasma aspartate aminotransferase measurement (enzymatic activity/ volume) 12 U/L 5-34 Serum or plasma alanine aminotransferase measurement (enzymatic activity/volume ) 9 U/L 0-55 Serum or plasma protein measurement (mass/volume) 4.3 g/dL 6.4-8.2 Serum or plasma albumin measurement (mass/volume) 2.4 g/dL 3.2-4.5 Serum or plasma phosphate measurement (mass/volume) - 02/02/17 03:45 Serum or plasma phosphate measurement (mass/volume) 1.1 mg/ dL 2.3-4.7 Magnesium - 02/02/17 03:45 Magnesium 0.7 mg/dL 1.8-2.4 Capillary blood glucose measurement by glucometer (mass/volume) - 02/02/17 03: 53 Capillary blood glucose measurement by glucometer (mass/volume) 113 mg/dL 70-110 Arterial blood gas measurement - 02/02/17 08:05 Blood pCO2 31 mm[Hg] 35-45 Blood pO2 47 mm[Hg] 79-93 Arterial blood bicarbonate measurement (moles/volume) 16 mmol/L 23-27 Arterial blood base excess by calculation -9.0 mmol/L -2.5-2.5 Arterial blood oxygen saturation measurement 81 % 94-100 * Inhaled oxygen flow rate 2L NRG Arterial blood pH measurement with patient temperature correction 7.33 7.37-7.43 Arterial blood carbon dioxide, total measurement (moles/volume) 16.8 mmol/L 21.0-31.0 Body site RT RADIAL NRG Assessment of wrist artery patency prior to arterial puncture YES-POS NRG Setting of ventilation mode NO NRG Measurement of body temperature 98.0 NRG Capillary blood glucose measurement by glucometer (mass/volume) - 02/02/17 08: 18 Capillary blood glucose measurement by glucometer (mass/volume) 203 mg/dL 70-110 Bacterial blood culture - 02/02/17 10:12 Bacterial blood culture NG NRG Bacterial blood culture - 02/02/17 10:23 QUANTITY OF GROWTH Isolated NRG Bacterial blood culture [id number] NRG Sputum Gram stain - 02/02/17 10:25 GRAM STAIN SPUTUM FEW WBC'S, NO BACTERIA NRG Bacterial sputum culture - 02/02/17 10:25 FREE TEXT EXTERNAL SENDING SUB TO [facility] FOR SENSITIVITY 3-12 NRG QUANTITY OF GROWTH Scant Growth NRG Bacterial sputum culture [id number] NRG Blood lactic acid measurement (moles/volume) - 02/02/17 10:34 Blood lactic acid measurement (moles/volume) 4.41 mmol/L 0.50-2.00 Bacterial blood culture - 02/02/17 10:34 Bacterial blood culture NG NRG Arterial blood gas measurement - 02/02/17 11:23 Blood pCO2 62 mm[Hg] 35-45 Blood pO2 69 mm[Hg] 79-93 Arterial blood bicarbonate measurement (moles/volume) 18 mmol/L 23-27 Arterial blood base excess by calculation -9.6 mmol/L -2.5-2.5 Arterial blood oxygen saturation measurement 87 % 94-100 * Inhaled oxygen flow rate 95% NRG Arterial blood pH measurement with patient temperature correction 7.10 7.37-7.43 Arterial blood carbon dioxide, total measurement (moles/volume) 20.3 mmol/L 21.0-31.0 Body site RT RAD NRG Assessment of wrist artery patency prior to arterial puncture YES-POS NRG Setting of ventilation mode YES NRG Measurement of body temperature 99.1 NRG Capillary blood glucose measurement by glucometer (mass/volume) - 02/02/17 11: 41 Capillary blood glucose measurement by glucometer (mass/volume) 120 mg/dL 70-110 Arterial blood gas measurement - 02/02/17 12:51 Blood pCO2 58 mm[Hg] 35-45 Blood pO2 74 mm[Hg] 79-93 Arterial blood bicarbonate measurement (moles/volume) 19 mmol/L 23-27 Arterial blood base excess by calculation -9.2 mmol/L -2.5-2.5 Arterial blood oxygen saturation measurement 90 % 94-100 * Inhaled oxygen flow rate 95% NRG Arterial blood pH measurement with patient temperature correction 7.13 7.37-7.43 Arterial blood carbon dioxide, total measurement (moles/volume) 20.3 mmol/L 21.0-31.0 Body site RT RAD NRG Assessment of wrist artery patency prior to arterial puncture YES-POS NRG Setting of ventilation mode YES NRG Measurement of body temperature 98.4 NRG Serum or plasma lactate measurement (moles/volume) - 02/02/17 12:59 Serum or plasma lactate measurement (moles/volume) 2.22 mmol /L 0.50-2.00 Arterial blood gas measurement - 02/02/17 15:25 Blood pCO2 46 mm[Hg] 35-45 Blood pO2 138 mm[Hg] 79-93 Arterial blood bicarbonate measurement (moles/volume) 17 mmol/L 23-27 Arterial blood base excess by calculation -9.8 mmol/L -2.5-2.5 Arterial blood oxygen saturation measurement 98 % 94-100 * Inhaled oxygen flow rate 100% NRG Arterial blood pH measurement with patient temperature correction 7.19 7.37-7.43 Arterial blood carbon dioxide, total measurement (moles/volume) 18.3 mmol/L 21.0-31.0 Body site RT RAD NRG Assessment of wrist artery patency prior to arterial puncture YES-POS NRG Setting of ventilation mode YES NRG Measurement of body temperature 99.0 NRG Serum or plasma phosphate measurement (mass/volume) - 02/02/17 16:51 Serum or plasma phosphate measurement (mass/volume) 4.3 mg/ dL 2.3-4.7 Magnesium - 02/02/17 16:51 Magnesium 1.8 mg/dL 1.8-2.4 Capillary blood glucose measurement by glucometer (mass/volume) - 02/02/17 17: 53 Capillary blood glucose measurement by glucometer (mass/volume) 137 mg/dL 70-110 Capillary blood glucose measurement by glucometer (mass/volume) - 02/02/17 23: 08 Capillary blood glucose measurement by glucometer (mass/volume) 131 mg/dL 70-110 Arterial blood gas measurement - 02/03/17 04:15 Blood pCO2 57 mm[Hg] 35-45 Blood pO2 93 mm[Hg] 79-93 Arterial blood bicarbonate measurement (moles/volume) 21 mmol/L 23-27 Arterial blood base excess by calculation -6.3 mmol/L -2.5-2.5 Arterial blood oxygen saturation measurement 97 % 94-100 * Inhaled oxygen flow rate 70% NRG Arterial blood pH measurement with patient temperature correction 7.18 7.37-7.43 Arterial blood carbon dioxide, total measurement (moles/volume) 22.6 mmol/L 21.0-31.0 Body site RT ARTLINE NRG Assessment of wrist artery patency prior to arterial puncture ART LINE NRG Setting of ventilation mode YES NRG Measurement of body temperature 97.9 NRG Complete blood count (CBC) with automated white blood cell (WBC) differential - 02/03/17 04:15 Blood leukocytes automated count (number/volume) 9.4 10*3/ uL 4.3-11.0 Blood erythrocytes automated count (number/volume) 3.45 10*6 /uL 4.35-5.85 Venous blood hemoglobin measurement (mass/volume) 10.3 g/dL 13.3-17.7 Blood hematocrit (volume fraction) 32 % 40-54 Automated erythrocyte mean corpuscular volume 93 [foz_us] 80-99 Automated erythrocyte mean corpuscular hemoglobin (mass per erythrocyte) 30 pg 25-34 Automated erythrocyte mean corpuscular hemoglobin concentration measurement ( mass/volume) 32 g/dL 32-36 Automated erythrocyte distribution width ratio 16.4 % 10.0-14.5 Automated blood platelet count (count/volume) 156 10*3/uL 130-400 Automated blood platelet mean volume measurement 10.8 [foz_ us] 7.4-10.4 Automated blood neutrophils/100 leukocytes 74 % 42-75 Automated blood lymphocytes/100 leukocytes 14 % 12-44 Blood monocytes/100 leukocytes 11 % 0-12 Automated blood eosinophils/100 leukocytes 0 % 0-10 Automated blood basophils/100 leukocytes 0 % 0-10 Blood neutrophils automated count (number/volume) 6.9 10*3 1.8-7.8 Blood lymphocytes automated count (number/volume) 1.3 10*3 1.0-4.0 Blood monocytes automated count (number/volume) 1.1 10*3 0.0-1.0 Automated eosinophil count 0.0 10*3/uL 0.0-0.3 Automated blood basophil count (count/volume) 0.0 10*3/uL 0.0-0.1 Blood lactic acid measurement (moles/volume) - 02/03/17 04:15 Blood lactic acid measurement (moles/volume) 4.13 mmol/L 0.50-2.00 Whole blood basic metabolic panel - 02/03/17 04:15 Serum or plasma sodium measurement (moles/volume) 137 mmol/ L 135-145 Serum or plasma potassium measurement (moles/volume) 4.0 mmol/L 3.6-5.0 Serum or plasma chloride measurement (moles/volume) 107 mmol /L 98-107 Carbon dioxide 16 mmol/L 21-32 Serum or plasma anion gap determination (moles/volume) 14 mmol/L 5-14 Serum or plasma urea nitrogen measurement (mass/volume) 19 mg/dL 7-18 Serum or plasma creatinine measurement (mass/volume) 1.52 mg /dL 0.60-1.30 Serum or plasma urea nitrogen/creatinine mass ratio 13 NRG Serum or plasma creatinine measurement with calculation of estimated glomerular filtration rate 48 NRG Serum or plasma glucose measurement (mass/volume) 143 mg/dL 70-105 Serum or plasma calcium measurement (mass/volume) 7.0 mg/dL 8.5-10.1 Serum or plasma phosphate measurement (mass/volume) - 02/03/17 04:15 Serum or plasma phosphate measurement (mass/volume) 4.6 mg/ dL 2.3-4.7 Magnesium - 02/03/17 04:15 Magnesium 1.8 mg/dL 1.8-2.4 Blood manual differential performed detection - 02/03/17 04:15 Blood monocytes/100 leukocytes 12 % NRG Manual blood segmented neutrophils/100 leukocytes 27 % NRG Blood band neutrophils/100 leukocytes 40 % NRG Manual blood lymphocytes/100 leukocytes 16 % NRG Manual eosinophils/100 leukocytes in nose 0 % NRG Manual blood basophils/100 leukocytes 0 % NRG Blood polychromasia detection by light microscopy SLIGHT NRG Blood anisocytosis detection by light microscopy SLIGHT NRG Blood ovalocytes detection by light microscopy SLIGHT NRG Blood toxic granules detection by light microscopy 2+ NRG Manual blood metamyelocytes/100 leukocytes 5 % NRG Blood dohle body detection by light microscopy MODERATE NRG Blood poikilocytosis detection by light microscopy SLIGHT NRG Manual blood nucleated erythrocytes/100 leukocytes ratio 2 NRG Blood shantanu cells detection by light microscopy MODERATE NRG Blood schistocytes detection by light microscopy SLIGHT NRG Blood basophilic stippling detection by light microscopy SLIGHT NRG Blood blasts/100 leukocytes NRG Serum or plasma lactate measurement (moles/volume) - 02/03/17 07:09 Serum or plasma lactate measurement (moles/volume) 6.45 mmol /L 0.50-2.00 Vancomycin trough - 02/03/17 07:09 Vancomycin trough 3.2 ug/mL 10.0-20.0 Capillary blood glucose measurement by glucometer (mass/volume) - 02/03/17 17: 29 Capillary blood glucose measurement by glucometer (mass/volume) 132 mg/dL 70-110 Encounters ACCT No. Visit Date/Time Discharge Status Pt. Type Provider Facility Loc./Unit Complaint [id number] 03/15/2017 08:34:00 2016 00:01:00 DIS Outpatient MASOOD MEYER MD [facility] ONC [id number] 02/01/2017 18:46:00 2016 21:31:00 DIS Inpatient SANJIV CORBIN MD [facility] ICU SEPTIC SHOCK,CIL,RLL PNEUMONIA [id number] 12/08/2016 14:59:00 2016 00:01:00 DIS Outpatient MASOOD MEYER MD [facility] ONC [id number] 08/09/2016 13:57:00 2015 10:58:00 DIS Outpatient MASOOD MEYER MD [facility] ONC [id number] 07/12/2016 10:26:00 2015 00:01:00 DIS Outpatient MASOOD MEYER MD [facility] ONC [id number] 05/20/2016 10:35:00 2015 15:33:00 DIS Emergency MARGARITA JOHNSON APRN [facility] ER BACK/LEG PAIN [id number] 04/12/2016 14:08:00 2015 00:01:00 DIS Outpatient MASOOD MEYER MD [facility] ONC [id number] 12/15/2015 13:01:00 2015 00:01:00 DIS Outpatient MASOOD MEYER MD [facility] ONC [id number] 09/18/2015 11:47:00 2014 23:59:59 CLS Outpatient MASOOD MEYER MD [facility] RAD LEUKEMIA LYMPHOCYTIC [id number] 06/25/2015 14:15:00 2014 00:01:00 DIS Outpatient MASOOD MEYER MD [facility] ONC [id number] 08/25/2015 21:01:00 2014 08:18:00 DIS Outpatient ACE WILSON MD [facility] SLEEP SNORING [id number] 03/26/2015 14:06:00 2014 00:01:00 DIS Outpatient MASOOD MEYER MD [facility] ONC [id number] 12/19/2014 14:25:00 2014 00:01:00 DIS Outpatient MASOOD MEYER MD [facility] ONC [id number] 08/15/2014 13:03:00 2013 00:01:00 DIS Outpatient MASOOD MEYER MD [facility] ONC [id number] 11/06/2014 13:15:00 2013 16:28:00 DIS Emergency IBETH EDWARDS [facility] ER ABD/BACK PAIN [id number] 04/18/2014 13:15:00 2013 00:01:00 DIS Outpatient MASOOD MEYER MD [facility] ONC [id number] 05/23/2014 08:38:00 2013 09:15:00 DIS Outpatient HASMUKH KERR MD [facility] SDC ANEMIA,GERD, [id number] 05/08/2014 07:17:00 2013 23:59:59 CLS Outpatient HASMUKH KERR MD [facility] PREOP ANEMIA [id number] 02/13/2014 13:48:00 2013 00:01:00 DIS Outpatient MASOOD MEYER MD [facility] ONC [id number] 02/08/2014 13:42:00 2013 23:59:59 CLS Outpatient MASOOD MEYER MD [facility] RAD CLL [id number] 11/16/2013 14:06:00 2013 00:01:00 DIS Outpatient MASOOD MEYER MD [facility] ONC [id number] 08/08/2013 13:12:00 2012 13:06:00 DIS Outpatient MASOOD MEYER MD [facility] ONC [id number] 08/10/2013 08:13:00 2012 23:59:59 CLS Preadmit DHRUV MEDINA MD [facility] PREOP LEUKEMIA [id number] 07/16/2013 07:37:00 2012 23:59:59 CLS Outpatient DHRUV MEDINA MD [facility] PREOP LEUKIMIA [id number] 06/26/2013 09:45:00 2012 23:59:59 CLS Outpatient MASOOD MEYER MD [facility] RAD CLL [id number] 04/17/2013 10:15:00 2012 23:59:59 CLS Outpatient MASOOD MEYER MD [facility] ONC [id number] 05/23/2017 13:15:00 PEN Preadmit MASOOD MEYER MD [facility] RAD LEUKEMIA C91.10 [id number] 05/04/2017 14:39:00 ACT Outpatient MASOOD MEYER MD [facility] ONC [id number] 06/07/2016 11:32:00 ACT Outpatient JAVON ENRIQUE APRN [facility] RT RESTRICTIVE LUNG DISEASE [id number] 03/24/2016 12:44:00 Document Registration [id number] 03/24/2016 12:44:00 Document Registration [id number] 03/24/2016 12:44:00 Document Registration [id number] 03/24/2016 12:43:00 ACT Outpatient JAVON ENRIQUE APRN [facility] RT COPD,ASTHMA [id number] 01/13/2016 09:37:00 ACT Outpatient KAUSHIK SHARIF [facility] ONC [id number] 12/25/2015 07:29:00 ACT Outpatient CHERI ONEAL DO [facility] SDC LYMPHOMA [id number] 12/24/2015 05:38:00 ACT Outpatient CHERI ONEAL DO [facility] PREOP CANCER [id number] 12/15/2015 13:00:00 ACT Outpatient KAUSHIK SHARIF [facility] ONC [id number] 12/12/2015 14:56:00 ACT Outpatient MASOOD MEYER MD [facility] CARD MONITORING CARDIOTOXIC DRUG THERAPY [id number] 11/06/2014 13:27:00 Document Registration [id number] 11/06/2014 13:27:00 Document Registration [id number] 11/06/2014 13:27:00 Document Registration [id number] 11/06/2014 13:27:00 Document Registration [id number] 11/06/2014 13:27:00 Document Registration [id number] 11/06/2014 07:24:00 Document Registration [id number] 11/02/2012 14:07:00 Document Registration [id number] 07/27/2012 11:27:00 Document Registration [id number] 07/25/2012 11:53:00 Document Registration [id number] 11/19/2011 21:04:00 Document Registration [id number] 01/25/2011 15:50:00 Document Registration [id number] 11/26/2010 13:23:00 Document Registration
--- NOTE | 2017-05-25 13:33 | ED Hip Pain/Injury ---
General Chief Complaint: Hip/Pelvic Problems Stated Complaint: RT HIP PAIN Nursing Triage Note: patient reports bilateral hip pain. p;atient denies new injury. patient reports pain isn't being controlled by his lortab 10 Source: patient, family Exam Limitations: no limitations History of Present Illness Time seen by provider: 13:33 Initial Comments 56-year-old male patient presents to the emergency department complains of bilateral hip pain. States he has chronic hip pain, worse over the last 2 days. Patient was seen by Harpreet Thomas at [facility] yesterday, but was seen for follow-up on another problem. Patient does have a history of leukemia and lymphoma. Patient states he is scheduled as an outpatient for CT scan of the chest, abdomen, and pelvis. Denies bowel or bladder incontinence. Patient states he was previously told he needed bilateral hip surgery, but due to his severe COPD he is not able to have surgery. Location Injury Occurred: denies known recent injury Timing/Duration: getting worse, other (chronic pain, worse in the last 2 days.) Location: hip (R), hip (L) Method of Injury: unknown Modifying Factors: Improves With Immobilization, Worse With Movement Associated Symptoms: No fever, No lumps, No pain radiating to knees, trouble walking Allergies and Home Medications Allergies Coded Allergies: alprazolam (Unverified Adverse Reaction, Unknown, MAKES EMERALDNEO , 11/06/14) Home Medications Acetaminophen 500 Mg Tablet, 500-1,000 MG PO Q6H PRN for PAIN, (Reported) Albuterol Sulfate 1 Puff Puff, 2 PUFF INH Q4H PRN for SHORTNESS OF BREATH, ( Reported) Allopurinol 100 Mg Tablet, 300 MG PO MoWeFr, (Reported) TAKES 3 (100MG) TABLETS Allopurinol 100 Mg Tablet, 200 MG PO SuTuThSa, (Reported) TAKES 2 (100MG) TABLETS Amitriptyline HCl 50 Mg Tablet, 75 MG PO HS, (Reported) TAKES 1 & 1/2 (50MG) TABLETS Budesonide/Formoterol Fumarate 10.2 Gm Hfa.aer.ad, 2 PUFF IH BID, (Reported) Calcium Carbonate 500 Mg Tab.chew, 500 MG PO TID PRN for INDIGESTION, (Reported) Cetirizine HCl 10 Mg Tablet, 10 MG PO DAILY, (Reported) Cyclobenzaprine HCl 10 Mg Tablet, 10 MG PO BID, (Reported) Diazepam 10 Mg Tablet, 10 MG PO BID, (Reported) Escitalopram Oxalate 20 Mg Tablet, 20 MG PO DAILY, (Reported) Furosemide 40 Mg Tablet, 20 MG PO DAILY, (Reported) TAKES 1/2 (40MG) TABLET Hydralazine HCl 10 Mg Tablet, 20 MG PO HS, (Reported) TAKES 2 (10MG) TABLETS Hydrocodone Bit/Acetaminophen 1 Each Tablet, 1 TAB PO TID, (Reported) Ibrutinib 140 Mg Capsule, 280 MG PO DAILY, (Reported) TAKES 2 (140MG) CAPSULES Levalbuterol HCl 1.25 Mg/3 Ml Vial.neb, 1.25 MG NEB Q8H PRN for SHORTNESS OF BREATH, (Reported) Metoprolol Tartrate 50 Mg Tablet, 50 MG PO BID, (Reported) Montelukast Sodium 10 Mg Tablet, 10 MG PO HS, (Reported) Naproxen 500 Mg Tablet, 500 MG PO BID, (Reported) Omeprazole 40 Mg Capsule.dr, 40 MG PO DAILY, (Reported) Ondansetron HCl 8 Mg Tablet, 8 MG PO TID PRN for NAUSEA/VOMITING, (Reported) Oxycodone HCl/Acetaminophen 1 Each Tablet, 1 EACH PO Q4H PRN for pain, #20 Ref 0 Prescribed by: IBETH CABRERA on 05/25/17 1443 Potassium Chloride 20 Meq Tab.prt.sr, 20 MEQ PO BID, (Reported) Prednisone 5 Mg Tablet, 5 MG PO DAILY, (Reported) Prednisone 20 Mg Tab, 40 MG PO DAILY, #10 Ref 0 Prescribed by: IBETH CABRERA on 05/25/17 1421 Tiotropium [place] 1 Inh Aerp, 1 CAP IH DAILY, (Reported) Trazodone HCl 100 Mg Tablet, 100 MG PO BID, (Reported) Venlafaxine HCl 75 Mg Tab, 75 MG PO BID, (Reported) Constitutional: No chills, No fever Respiratory: no symptoms reported Cardiovascular: no symptoms reported Gastrointestinal: No abdominal pain, No constipation, No diarrhea, No nausea, No vomiting Genitourinary: No decreased output, No dysuria, No frequency, No hematuria Musculoskeletal: No back pain, joint pain, No joint swelling Skin: no symptoms reported Psychiatric/Neurological: No Symptoms Reported All Other Systems Reviewed Negative Unless Noted: Yes (Negative excepted noted.) Past Ftzrnvl-Rgamud-Rskpao Hx Patient Social History Alcohol Use: Past History Recreational Drug Use: Yes Drug of Choice: THC Smoking Status: Current Everyday Smoker Type Used: Cigarettes Recent Foreign Travel: No Contact w/Someone Who Travel: No Recent Infectious Disease Expo: No Recent Hopitalizations: No Immunizations Up To Date Tetanus Booster (TDap): Unknown PED Vaccines UTD: No Date of Pneumonia Vaccine: Sep 30, 2014 Date of Influenza Vaccine: Sep 30, 2016 Seasonal Allergies Seasonal Allergies: No Surgeries HX Surgeries: Yes (lymph node biopsy x3, port placed and removed) Surgeries: Orthopedic Respiratory Hx Respiratory Disorders: Yes (COPD/CHRONIC BRONCHITIS) Respiratory Disorders: Asthma, Chronic Bronchitis, COPD, Emphysema Cardiovascular Hx Cardiac Disorders: Yes Cardiac Disorders: Hypertension Neurological Hx Neurological Disorders: No Reproductive System Hx Reproductive Disorders: No Sexually Transmitted Disease: No HIV/AIDS: No Genitourinary Hx Genitourinary Disorders: No Gastrointestinal Hx Gastrointestinal Disorders: Yes Gastrointestinal Disorders: Gastroesophageal Reflux, Hepatitis Musculoskeletal Hx Musculoskeletal Disorders: Yes (DJD CERVICAL SPINE. CHRONIC BILAT HIP PAIN) Musculoskeletal Disorders: Chronic Back Pain Endocrine Hx Endocrine Disorders: No HEENT HX ENT Disorders: Yes HEENT Disorders: Glaucoma Loss of Vision: Denies Hearing Impairment: Hard of Hearing Cancer Hx Cancer: Yes (CLL, SLL) Cancer: Leukemia, Lymphoma Psychosocial Hx Psychiatric Problems: Yes Behavioral Health Disorders: Anxiety, Depression Integumentary HX Skin/Integumentary Disorder: No Blood Transfusions Hx Blood Disorders: Yes (LYMPHOMA AND LEUKEMIA HISTORY/HEP C) Adverse Reaction to a Blood Tr: No Reviewed Nursing Assessment Reviewed/Agree w Nursing PMH: Yes Family Medical History Significant Family History: No Pertinent Family Hx Family Medial History: Alcoholism G8 BROTHER Colon cancer G8 BROTHER, , Onset:Unknown FHx: heart disease G8 BROTHER, Onset:Unknown G8 BROTHER, Onset:Unknown Hypertension 19 MOTHER, , Onset:Unknown Myocardial infarction 19 FATHER, , Onset:60 years & older 19 MOTHER, , Onset:Unknown G8 BROTHER, , Onset:Unknown G8 BROTHER, , Onset:Unknown Neoplasm Physical Exam Vital Signs Vital Sign - Last 12Hours 05/25/17 12:41 Temp 98.2 Pulse 67 Resp 18 B/P (MAP) 148/90 Pulse Ox 94 O2 Delivery Nasal Cannula O2 Flow Rate 2.00 Capillary Refill : Less Than 3 Seconds General Appearance: Chronically ill, Mild Distress Cardiovascular: Regular Rate, Rhythm, No Edema, No Murmur, Normal Peripheral Pulses Respiratory: Lungs Clear, Normal Breath Sounds, No Respiratory Distress Gastrointestinal: Normal Bowel Sounds, No Organomegaly, Non Tender, Soft, No Distended Back: Normal Inspection, No Decreased Range of Motion Extremity: Normal Capillary Refill, Normal Inspection, Other (bilateral hip show generalized tenderness without ecchymosis, swelling, or deformity. Patient refuses range of motion of the right hip. Left hip shows normal range of motion.) Neurologic/Psychiatric: Alert, Oriented x3, No Motor/Sensory Deficits, Normal Mood/Affect Skin: Normal Color, Warm/Dry, Other (multiple scabbed lesions of the bilateral forearms noted.) Date of ETT Placement: Feb 02, 2017 Time of ETT Placement: 954 Progress/Results/Core Measures Results/Orders My Orders Orders - IBETH CABRERA Pelvis/[place]dez Hips 5> Views (05/25/17 13:15) Morphine Injection (Morphine Injection (05/25/17 14:05) Ketorolac Injection (Toradol Injection) (05/25/17 14:11) Oxycodone/Apap 5/325mg Tablet (Percocet (05/25/17 14:11) Vital Signs/I&O Vital Sign - Last 12Hours 05/25/17 05/25/17 12:41 14:53 Temp 98.2 Pulse 67 80 Resp 18 18 B/P (MAP) 148/90 Pulse Ox 94 95 O2 Delivery Nasal Cannula O2 Flow Rate 2.00 Blood Pressure Mean: 109 Diagnostic Imaging Diagonstic Imaging: Xray Plain Films/CT/US/NM/MRI: pelvis, hip Comments FINDINGS: There is severe arthritis of the right hip with [id number] appearance compatible with complete loss of cartilage along the vertical lateral aspect of the right hip joint. There is subchondral sclerosis and cyst formation with small osteophytes seen. The sclerotic and cystic changes in the right humeral head with normal contour are favored to be old degenerative although element of osteonecrosis without subchondral collapse can mimic this appearance and might be present. The SI joints appear unremarkable. Phleboliths are seen in the pelvis. The left hip demonstrate mild joint space narrowing and subchondral sclerosis. IMPRESSION: Markedly severe right hip osteoarthritis. Changes in the right femoral head could relate to degenerative changes with or without evidence of avascular necrosis. There is no subchondral collapse of deformity of the femoral head. Dictated by: Dictated on workstation # [id number] Reviewed: Reviewed by Me (radiology report reviewed by me) Departure Communication Progress Notes Diagnostic findings discussed with the patient and family per patient reports improvement in symptoms with Toradol and Percocet. Patient now has full range of motion of the right hip. Patient case was discussed with Harpreet Thomas APRN. Prescription for Percocet to be sent home with the patient was authorized by Harpreet Thomas prior to patient discharge. Patient instructed to not use more pain pills then directed and to not use the oxycodone with hydrocodone. Patient voices understanding. Patient instructed to follow-up with Harpreet Thomas is an outpatient for a recheck. Patient discharged to home. Patient was able to stand and transfer himself to the wheelchair without difficulty. Impression Impression: Primary Impression: Osteoarthritis of left hip Qualified Codes: M16.12 - Unilateral primary osteoarthritis, left hip Additional Impression: Bilateral hip pain Disposition: HOME, SELF-CARE Condition: Improved Departure-Patient Inst. Decision time for Depature: 14:20 Referrals: ABLIN CHRIS DO (PCP/Family) Primary Care Physician Patient Instructions: MANAGING YOUR CHRONIC PAIN Add. Discharge Instructions: All discharge instructions reviewed with patient and/or family. Voiced understanding. Medications as instructed. Do not use the hydrocodone with the oxycodone. Continue usual home medications with the exception of the prednisone prescribed yesterday. Follow-up with Harpreet Thomas as an outpatient for recheck. Return to the emergency department for worsened symptoms or any other concerns. Scripts Oxycodone HCl/Acetaminophen (Percocet 7.5-325 mg Tablet) 1 Each Tablet 1 EACH PO Q4H Y for pain, #20 TAB 0 Refills Prov: IBETH CABRERA 05/25/17 Prednisone (Prednisone) 20 Mg Tab 40 MG PO DAILY, #10 TAB 0 Refills Prov: IBETH CABRERA 05/25/17 IBETH CABRERA May 25, 2017 13:33
--- NOTE | 2017-05-25 13:36 | Diagnostic Imaging Report ---
AP pelvis and bilateral 2 views of the hip. INDICATION: Bilateral hip pain. FINDINGS: There is severe arthritis of the right hip with [id number] appearance compatible with complete loss of cartilage along the vertical lateral aspect of the right hip joint. There is subchondral sclerosis and cyst formation with small osteophytes seen. The sclerotic and cystic changes in the right humeral head with normal contour are favored to be old degenerative although element of osteonecrosis without subchondral collapse can mimic this appearance and might be present. The SI joints appear unremarkable. Phleboliths are seen in the pelvis. The left hip demonstrate mild joint space narrowing and subchondral sclerosis. IMPRESSION: Markedly severe right hip osteoarthritis. Changes in the right femoral head could relate to degenerative changes with or without evidence of avascular necrosis. There is no subchondral collapse of deformity of the femoral head. Dictated by: Dictated on workstation # [id number]
[2017-05-25] MEDS ORDERED: morphine INJ 10 MG/ML 1ML (SYR OR VIAL) IM STA (14:05)
[2017-05-25] MEDS ORDERED: oxyCODONE/APAP 5/325MG (PERCOCET 5) TABLET PO STA (14:11)
[2017-05-25] MEDS ORDERED: KETOROLAC 60 MG/2 ML VIAL IM STA (14:11)
[2017-05-25] MEDS ORDERED: PRD20T PO (14:21)
[2017-05-25] MEDS ORDERED: OXYC-201 PO (14:43)
[2017-05-25 14:53] VITALS: BP 169/98
== END 2017-05-25 14:53 | disposition home or self-care (01) ==
LOC: EDUNIT# 12:38 → ER 12:40
DX: M17.4 Other bilateral secondary osteoarthritis of knee (principal)
CPT/HCPCS: 73523; 96372; 99283

== ENCOUNTER 2017-05-31 08:16 | Inpatient (IN) | payer MEDICAID ==
[~2017-05-31] VITALS: Ht 177.8 cm; Wt 95.3 kg
[2017-05-31] VITALS (36 sets, daily range): BP systolic 52–125; BP diastolic 34–95
[~2017-05-31 08:16] MED LIST changes: -NAPR500T3 PO; +NAPR500T4 PO; +PRD20T PO
[2017-05-31] MEDS ORDERED: NS IV 1000 ML 1,000 ML IV ONE ×3 (08:24→09:50)
[2017-05-31] MEDS ORDERED: morphine INJ 10 MG/ML 1ML (SYR OR VIAL) IVP ONE ×2 (08:30→09:15)
[2017-05-31] MEDS ORDERED: LORazepam INJ 2 MG/ML (ATIVAN) VIAL IVP ONE ×2 (08:30→09:30)
[2017-05-31 08:52] LABS: BASOPHILS % (AUTO) 0 % (0-10); EOSINOPHILS # (AUTO) 0.1 10^3/uL (0.0-0.3); EOSINOPHILS % (AUTO) 1 % (0-10); LYMPHOCYTES # (AUTO) 2.4 X 10^3 (1.0-4.0); LYMPHOCYTES % (AUTO) 48 % (12-44); MEAN CORPUSCULAR HEMOGLOBIN 27 PG (25-34); MEAN CORPUSCULAR HGB CONC 33 G/DL (32-36); MEAN CORPUSCULAR VOLUME 81 FL (80-99); MONOCYTES # (AUTO) 0.2 X 10^3 (0.0-1.0); MONOCYTES % (AUTO) 3 % (0-12); NEUTROPHILS # (AUTO) 2.4 X 10^3 (1.8-7.8); NEUTROPHILS % (AUTO) 48 % (42-75); RED BLOOD COUNT 3.39 10^6/uL (4.35-5.85); RED CELL DISTRIBUTION WIDTH 15.4 % (10.0-14.5)
[2017-05-31 09:11] LABS: ALBUMIN 2.5 GM/DL (3.2-4.5); BILIRUBIN,TOTAL 2.6 MG/DL (0.1-1.0); CREATININE SERUM 2.49 MG/DL (0.60-1.30); POTASSIUM 3.2 MMOL/L (3.6-5.0); TOTAL PROTEIN 5.4 GM/DL (6.4-8.2); URIC ACID 7.3 MG/DL (2.6-7.2)
[2017-05-31] MEDS ORDERED: RT-ALBUTEROL/IPRATROPIUM 3 ML (DUONEB) VIAL INH ONE (09:15)
[2017-05-31 09:21] LABS: INR 1.3 (0.8-1.4); PROTHROMBIN TIME PATIENT 15.6 SEC (12.2-14.7)
--- NOTE | 2017-05-31 09:36 | ED General ---
General Chief Complaint: General Problems/Pain Stated Complaint: HIP PAIN Nursing Triage Note: TO ED PER [facility] WITH CHRONIC PAIN ALL OVER PATIENT IS CANCER PATIENT. Nursing Sepsis Screen: No Definite Risk Source of Information: Patient, EMS, Family, Old Records Exam Limitations: No Limitations History of Present Illness Time Seen by Provider: 08:17 Initial Comments This 56-year-old man presents to the emergency room with primary complaint of right hip pain. Additionally he complains of pain on the top of the left foot and in the back. He is in distress following out. He is a poor historian. He appears very dry on exam. He arrives via EMS. His fiance arrives a short time later. She reports he has problems with chronic pain in the right hip due to degenerative disease and [id number] findings on x-ray. She reports he slept most of the day and also had some coughing productive of a foamy sputum. He has been taking Percocet at home and last took a dose at midnight. He has some mild audible wheezing in the exam room. He is a poor historian himself but his fiance provides some additional history. He has a history of leukemia and lymphoma for which she sees Dr. Lopez. He also has history of hepatitis C. Fiance reports that he has quit drinking alcohol within the last week. He has a history of prior admission in January for pneumonia, septic shock, and multiorgan system failure. He was intubated and transferred to [facility]. Patient has numerous sores on his skin and areas of erythema including much of the left upper extremity and on the left ankle/foot. Allergies and Home Medications Allergies Coded Allergies: alprazolam (Unverified Adverse Reaction, Unknown, EZRA DIYA , 11/06/14) Home Medications Acetaminophen 500 Mg Tablet, 500-1,000 MG PO Q6H PRN for PAIN, (Reported) Albuterol Sulfate 1 Puff Puff, 2 PUFF INH Q4H PRN for SHORTNESS OF BREATH, ( Reported) Allopurinol 100 Mg Tablet, 300 MG PO MoWeFr, (Reported) TAKES 3 (100MG) TABLETS Allopurinol 100 Mg Tablet, 200 MG PO SuTuThSa, (Reported) TAKES 2 (100MG) TABLETS Amitriptyline HCl 50 Mg Tablet, 75 MG PO HS, (Reported) TAKES 1 & 1/2 (50MG) TABLETS Budesonide/Formoterol Fumarate 10.2 Gm Hfa.aer.ad, 2 PUFF IH BID, (Reported) Calcium Carbonate 500 Mg Tab.chew, 500 MG PO TID PRN for INDIGESTION, (Reported) Cetirizine HCl 10 Mg Tablet, 10 MG PO DAILY, (Reported) Cyclobenzaprine HCl 10 Mg Tablet, 10 MG PO BID, (Reported) Diazepam 10 Mg Tablet, 10 MG PO BID, (Reported) Escitalopram Oxalate 20 Mg Tablet, 20 MG PO DAILY, (Reported) Furosemide 40 Mg Tablet, 20 MG PO DAILY, (Reported) TAKES 1/2 (40MG) TABLET Hydralazine HCl 10 Mg Tablet, 20 MG PO HS, (Reported) TAKES 2 (10MG) TABLETS Hydrocodone Bit/Acetaminophen 1 Each Tablet, 1 TAB PO TID, (Reported) Ibrutinib 140 Mg Capsule, 280 MG PO DAILY, (Reported) TAKES 2 (140MG) CAPSULES Levalbuterol HCl 1.25 Mg/3 Ml Vial.neb, 1.25 MG NEB Q8H PRN for SHORTNESS OF BREATH, (Reported) Metoprolol Tartrate 50 Mg Tablet, 50 MG PO BID, (Reported) Montelukast Sodium 10 Mg Tablet, 10 MG PO HS, (Reported) Naproxen 500 Mg Tablet, 500 MG PO BID, (Reported) Omeprazole 40 Mg Capsule.dr, 40 MG PO DAILY, (Reported) Ondansetron HCl 8 Mg Tablet, 8 MG PO TID PRN for NAUSEA/VOMITING, (Reported) Oxycodone HCl/Acetaminophen 1 Each Tablet, 1 EACH PO Q4H PRN for pain, #20 Ref 0 Prescribed by: IBETH CABRERA on 05/25/17 1443 Potassium Chloride 20 Meq Tab.prt.sr, 20 MEQ PO BID, (Reported) Prednisone 5 Mg Tablet, 5 MG PO DAILY, (Reported) Prednisone 20 Mg Tab, 40 MG PO DAILY, #10 Ref 0 Prescribed by: IBETH CABRERA on 05/25/17 1421 Tiotropium [place] 1 Inh Aerp, 1 CAP IH DAILY, (Reported) Trazodone HCl 100 Mg Tablet, 100 MG PO BID, (Reported) Venlafaxine HCl 75 Mg Tab, 75 MG PO BID, (Reported) Constitutional: see HPI EENTM: other (extremely dry mucous membranes) Respiratory: see HPI Cardiovascular: other (tachycardia) Gastrointestinal: no symptoms reported Genitourinary: no symptoms reported Musculoskeletal: see HPI Skin: see HPI Psychiatric/Neurological: See HPI Hematologic/Lymphatic: See HPI Immunological/Allergic: see HPI Past Ztzzple-Bjxmrs-Bgyyor Hx Patient Social History Alcohol Use: Past History Recreational Drug Use: No (ALCHOLIC) Drug of Choice: THC Smoking Status: Current Everyday Smoker Type Used: Cigarettes Recent Foreign Travel: No Contact w/Someone Who Travel: No Recent Infectious Disease Expo: No Recent Hopitalizations: No Immunizations Up To Date Tetanus Booster (TDap): Unknown PED Vaccines UTD: No Date of Pneumonia Vaccine: Sep 30, 2014 Date of Influenza Vaccine: Sep 30, 2016 Seasonal Allergies Seasonal Allergies: No Surgeries HX Surgeries: Yes (lymph node biopsy x3, port placed and removed) Surgeries: Orthopedic Respiratory Hx Respiratory Disorders: Yes (COPD/CHRONIC BRONCHITIS) Respiratory Disorders: Asthma, Chronic Bronchitis, Sleep Apnea, COPD ( supplemental oxygen at 3.5 L, CPAP), Emphysema Cardiovascular Hx Cardiac Disorders: Yes Cardiac Disorders: Hypertension Neurological Hx Neurological Disorders: No Reproductive System Hx Reproductive Disorders: No Sexually Transmitted Disease: No HIV/AIDS: No Genitourinary Hx Genitourinary Disorders: No Gastrointestinal Hx Gastrointestinal Disorders: Yes Gastrointestinal Disorders: Gastroesophageal Reflux, Hepatitis (hepatitis C) Musculoskeletal Hx Musculoskeletal Disorders: Yes (DJD CERVICAL SPINE. CHRONIC BILAT HIP PAIN) Musculoskeletal Disorders: Chronic Back Pain Endocrine Hx Endocrine Disorders: No HEENT HX ENT Disorders: Yes HEENT Disorders: Glaucoma Loss of Vision: Denies Hearing Impairment: Hard of Hearing Cancer Hx Cancer: Yes (CLL, SLL) Cancer: Leukemia, Lymphoma Psychosocial Hx Psychiatric Problems: Yes Behavioral Health Disorders: Anxiety, Depression Integumentary HX Skin/Integumentary Disorder: No Blood Transfusions Hx Blood Disorders: Yes (LYMPHOMA AND LEUKEMIA HISTORY/HEP C) Adverse Reaction to a Blood Tr: No Family Medical History Significant Family History: No Pertinent Family Hx Family Medial History: Alcoholism G8 BROTHER Colon cancer G8 BROTHER, , Onset:Unknown FHx: heart disease G8 BROTHER, Onset:Unknown G8 BROTHER, Onset:Unknown Hypertension 19 MOTHER, , Onset:Unknown Myocardial infarction 19 FATHER, , Onset:60 years & older 19 MOTHER, , Onset:Unknown G8 BROTHER, , Onset:Unknown G8 BROTHER, , Onset:Unknown Neoplasm Physical Exam-Suspected Sepsis Physical Exam Vital Signs Vital Sign - Last 12Hours 05/31/17 05/31/17 08:16 09:34 Temp 98.8 Pulse 132 Resp 20 B/P (MAP) 126/68 Pulse Ox 90 O2 Delivery Nasal Cannula O2 Flow Rate 5.00 Capillary Refill : Less Than 3 Seconds Blood Pressure Mean: 87 General Appearance: WD/WN, Moderate Distress HEENT: PERRL/EOMI (reactivity to light is sluggish), Normal ENT Inspection, Other (oropharynx extremely dry) Neck: Normal Inspection Respiratory: No Accessory Muscle Use, No Respiratory Distress, Pleural Rub ( right chest), Wheezing Cardiovascular: No Edema, No Murmur, Tachycardia Gastrointestinal: Normal Bowel Sounds, Non Tender, Soft, Distended (slightly) Extremity: Normal Capillary Refill, Swelling (mild lower extremity edema), Other (erythema and tenderness over the anterior left foot and ankle) Neurologic/Psychiatric: Alert, No Motor/Sensory Deficits, Other (patient mildly confused/disoriented) Skin: normal color, warm/dry, other (patchy erythema on the left extremities including the left upper arm and elbow area and the left foot and ankle. Multiple scabbed skin lesions scattered throughout the body.) Focused Exam Evaluation Sepsis Stage: Severe Sepsis Possible Source: Pulmonary Time of Focused Exam: 12:02 Respiratory: Accessory Muscle Use, Crackles (bibasilar), Wheezing Cardiovascular: No Edema, No Murmur, Tachycardia Capillary Refill: Less Than 3 Seconds Skin: normal color, warm/dry Lactic Acid Level Laboratory Tests Test 05/31/17 15:51 Lactic Acid Level 4.02 MMOL/L (0.50-2.00) *H Date of ETT Placement: Feb 02, 2017 Time of ETT Placement: 954 Progress/Results/Core Measures Suspected Sepsis Recent Fever Within 48 Hours: No Infection Criteria Present: None New/Unexplained Altered Menta: No Sepsis Screen: No Definite Risk Sepsis Diagnosis: SIRS Temperature:98.8 Pulse: 132 Respiratory Rate: 20 Laboratory Tests 05/31/17 08:40: White Blood Count 5.0 05/31/17 14:28: White Blood Count 2.4L Blood Pressure 126 /68 Mean: 87 Laboratory Tests 05/31/17 08:40: Creatinine 2.49H, INR Comment 1.3, Platelet Count 30*L, Total Bilirubin 2.6H 05/31/17 14:28: Platelet Count 23*L Results/Orders Lab Results Laboratory Tests Test 05/31/17 08:40 05/31/17 08:45 05/31/17 09:17 05/31/17 09:41 Range/Units White Blood Count 5.0 4.3-11.0 10^3/uL Red Blood Count 3.39 L 4.35-5.85 10^6/uL Hemoglobin 9.1 L 13.3-17.7 G/DL Hematocrit 27 L 40-54 % Mean Corpuscular Volume 81 80-99 FL Mean Corpuscular Hemoglobin 27 25-34 PG Mean Corpuscular Hemoglobin Concent 33 32-36 G/DL Red Cell Distribution Width 15.4 H 10.0-14.5 % Platelet Count 30 *L 130-400 10^3/uL Mean Platelet Volume 7.4-10.4 FL Neutrophils (%) (Auto) 48 42-75 % Lymphocytes (%) (Auto) 48 H 12-44 % Monocytes (%) (Auto) 3 0-12 % Eosinophils (%) (Auto) 1 0-10 % Basophils (%) (Auto) 0 0-10 % Neutrophils # (Auto) 2.4 1.8-7.8 X 10^3 Lymphocytes # (Auto) 2.4 1.0-4.0 X 10^3 Monocytes # (Auto) 0.2 0.0-1.0 X 10^3 Eosinophils # (Auto) 0.1 0.0-0.3 10^3/uL Basophils # (Auto) 0.0 0.0-0.1 10^3/uL Neutrophils % (Manual) 34 % Lymphocytes % (Manual) 55 % Monocytes % (Manual) 10 % Eosinophils % (Manual) 1 % Basophils % (Manual) 0 % Band Neutrophils 0 % Anisocytosis SLIGHT Absolute Reticulocyte Count 9 L 24-90 10e9/L Percent Reticulocyte Count 0.28 L 0.50-2.40 % Prothrombin Time 15.6 H 12.2-14.7 SEC INR Comment 1.3 0.8-1.4 Activated Partial Thromboplast Time 47 H 24-35 SEC D-Dimer 11.55 H 0.00-0.49 UG/ML Sodium Level 134 L 135-145 MMOL/L Potassium Level 3.2 L 3.6-5.0 MMOL/L Chloride Level 97 L 98-107 MMOL/L Carbon Dioxide Level 19 L 21-32 MMOL/L Anion Gap 18 H 5-14 MMOL/L Blood Urea Nitrogen 64 H 7-18 MG/DL Creatinine 2.49 H 0.60-1.30 MG/DL Estimat Glomerular Filtration Rate 27 BUN/Creatinine Ratio 26 Glucose Level 95 70-105 MG/DL Uric Acid 7.3 H 2.6-7.2 MG/DL Calcium Level 8.0 L 8.5-10.1 MG/DL Total Bilirubin 2.6 H 0.1-1.0 MG/DL Aspartate Amino Transf (AST/SGOT) 22 5-34 U/L Alanine Aminotransferase (ALT/SGPT) 12 0-55 U/L Alkaline Phosphatase 106 40-136 U/L B-Type Natriuretic Peptide 517.5 H <100.0 PG/ML Total Protein 5.4 L 6.4-8.2 GM/DL Albumin 2.5 L 3.2-4.5 GM/DL Magnesium Level 1.5 L 1.8-2.4 MG/DL Serum Alcohol < 10 <10 MG/DL Lactic Acid Level 4.06 *H 0.50-2.00 MMOL/L Ammonia 32 11-32 UMOL/L C-Reactive Protein High Sensitivity 29.90 H 0.00-0.50 MG/DL Test 05/31/17 09:51 05/31/17 11:16 05/31/17 13:15 05/31/17 14:28 Range/Units Urine Color YELLOW Urine Clarity SLIGHTLY CLOUDY Urine pH 7 5-9 Urine Specific Baird 1.005 L 1.016-1.022 Urine Protein 3+ H NEGATIVE Urine Glucose (UA) NEGATIVE NEGATIVE Urine Ketones NEGATIVE NEGATIVE Urine Nitrite NEGATIVE NEGATIVE Urine Bilirubin 1+ H NEGATIVE Urine Urobilinogen 4 H NORMAL MG/DL Urine Leukocyte Esterase 1+ H NEGATIVE Urine RBC (Auto) 3+ H NEGATIVE Urine RBC RARE /HPF Urine WBC NONE /HPF Urine Squamous Epithelial Cells NONE /HPF Urine Crystals NONE /LPF Urine Amorphous Sediment LARGE ANGE URATES H /LPF Urine Bacteria NEGATIVE /HPF Urine Casts NONE /LPF Urine Mucus NEGATIVE /LPF Urine Culture Indicated NO Urine Opiates Screen POSITIVE H NEGATIVE Urine Oxycodone Screen POSITIVE H NEGATIVE Urine Methadone Screen NEGATIVE NEGATIVE Urine Propoxyphene Screen NEGATIVE NEGATIVE Urine Barbiturates Screen NEGATIVE NEGATIVE Ur Tricyclic Antidepressants Screen POSITIVE H NEGATIVE Urine Phencyclidine Screen NEGATIVE NEGATIVE Urine Amphetamines Screen NEGATIVE NEGATIVE Urine Methamphetamines Screen NEGATIVE NEGATIVE Urine Benzodiazepines Screen POSITIVE H NEGATIVE Urine Cocaine Screen NEGATIVE NEGATIVE Urine Cannabinoids Screen POSITIVE H NEGATIVE Lactic Acid Level 3.92 *H 0.50-2.00 MMOL/L Blood Gas Puncture Site LT RAD Blood Gas Patient Temperature 97.9 Arterial Blood pH 7.32 *L 7.37-7.43 Arterial Blood Partial Pressure CO2 36 35-45 MMHG Arterial Blood Partial Pressure O2 67 L 79-93 MMHG Arterial Blood HCO3 18 L 23-27 MMOL/L Arterial Blood Total CO2 19.1 L 21.0-31.0 MMOL/L Arterial Blood Oxygen Saturation 91 L 94-100 % Arterial Blood Base Excess -7.1 L -2.5-2.5 MMOL/L Prince Test YES-POS Blood Gas Ventilator Setting NO Blood Gas Inspired Oxygen 35%BIPAP White Blood Count 2.4 L 4.3-11.0 10^3/uL Red Blood Count 3.15 L 4.35-5.85 10^6/uL Hemoglobin 8.5 L 13.3-17.7 G/DL Hematocrit 26 L 40-54 % Mean Corpuscular Volume 82 80-99 FL Mean Corpuscular Hemoglobin 27 25-34 PG Mean Corpuscular Hemoglobin Concent 33 32-36 G/DL Red Cell Distribution Width 15.5 H 10.0-14.5 % Platelet Count 23 *L 130-400 10^3/uL Mean Platelet Volume 7.4-10.4 FL Neutrophils (%) (Auto) 46 42-75 % Lymphocytes (%) (Auto) 47 H 12-44 % Monocytes (%) (Auto) 6 0-12 % Eosinophils (%) (Auto) 2 0-10 % Basophils (%) (Auto) 0 0-10 % Neutrophils # (Auto) 1.1 L 1.8-7.8 X 10^3 Lymphocytes # (Auto) 1.2 1.0-4.0 X 10^3 Monocytes # (Auto) 0.1 0.0-1.0 X 10^3 Eosinophils # (Auto) 0.0 0.0-0.3 10^3/uL Basophils # (Auto) 0.0 0.0-0.1 10^3/uL Test 05/31/17 15:51 05/31/17 18:07 Range/Units Lactic Acid Level 4.02 *H 0.50-2.00 MMOL/L Glucometer 95 70-110 MG/DL My Orders Orders - CARLOS DELATORRE MD Comprehensive Metabolic Panel (05/31/17 08:24) Ua Culture If Indicated (05/31/17 08:24) Saline Lock/Iv-Start (05/31/17 08:24) Ns Iv 1000 Ml (Sodium Chloride 0.9%) (05/31/17 08:24) Morphine Injection (Morphine Injection (05/31/17 08:30) Lorazepam Injection (Ativan Injection) (05/31/17 08:30) Uric Acid (05/31/17 08:29) Lactic Acid Analyzer (05/31/17 09:08) Blood Culture (05/31/17 09:08) Sputum Culture (05/31/17 09:08) Protime With Inr (05/31/17 09:08) Partial Thromboplastin Time (05/31/17 09:08) Chest 1 View, Ap/Pa Only (05/31/17 09:08) O2 (05/31/17 09:08) Vital Signs Adult Sepsis Patie Q1HR (05/31/17 09:08) Remove Rings In Anticipation O (05/31/17 09:08) Hs C Reactive Protein (05/31/17 09:08) Ammonia (05/31/17 09:08) Morphine Injection (Morphine Injection (05/31/17 09:15) Albuterol/Ipra Inhalation Soln (Duoneb I (05/31/17 09:15) Svn Sm Volume Nebulizer Rt-Rfs (05/31/17 09:12) Fibrin Degradation Products (05/31/17 09:15) Pelvis (05/31/17 09:22) Alcohol (05/31/17 09:25) Lorazepam Injection (Ativan Injection) (05/31/17 09:30) Piperacillin Sodium/Tazobactam (Zosyn Vi (05/31/17 10:00) BNP (05/31/17 09:47) Drug Screen Stat (Urine) (05/31/17 09:47) Lactated Ringers (Lr 1000 Ml Iv Solution (05/31/17 09:48) Lactated Ringers (Lr 1000 Ml Iv Solution (05/31/17 09:49) Ns Iv 1000 Ml (Sodium Chloride 0.9%) (05/31/17 09:50) Ns Iv 1000 Ml (Sodium Chloride 0.9%) (05/31/17 09:50) Smear For Path Review (05/31/17 08:40) Red Cells Leukocytes Reduced (05/31/17 11:26) Type And Screen (05/31/17 11:26) Vancomycin Injection (Vancomycin Injecti (05/31/17 11:30) Albuterol/Ipra Inhalation Soln (Duoneb I (05/31/17 11:50) Chest 1 View, Ap/Pa Only (05/31/17 11:57) Arterial Blood Gas (05/31/17 12:46) Bipap Rt-Rfs (05/31/17 12:51) Medications Given in ED Current Medications Medications Dose Ordered Sig/Marly Route Start Time Stop Time Status Last Admin Dose Admin Albuterol/ Ipratropium 3 ml ONCE ONCE INH 05/31/17 09:15 05/31/17 09:16 DC 05/31/17 09:34 3 ML Albuterol/ Ipratropium 3 ml STK-MED ONCE .ROUTE 05/31/17 11:50 05/31/17 11:56 DC 05/31/17 12:01 3 ML Lorazepam 0.5 mg ONCE ONCE IVP 05/31/17 08:30 05/31/17 08:31 DC 05/31/17 08:43 0.5 MG Lorazepam 1 mg ONCE ONCE IVP 05/31/17 09:30 05/31/17 09:31 DC 05/31/17 09:33 1 MG Morphine Sulfate 5 mg ONCE ONCE IVP 05/31/17 08:30 05/31/17 08:31 DC 05/31/17 08:43 5 MG Morphine Sulfate 5 mg ONCE ONCE IVP 05/31/17 09:15 05/31/17 09:16 DC 05/31/17 09:24 5 MG Piperacillin Sod/ Tazobactam Sod 4.5 gm/Sodium Chloride 100 ml @ 200 mls/hr ONCE ONCE IV 05/31/17 10:00 05/31/17 10:29 DC 05/31/17 10:10 200 MLS/HR Sodium Chloride 1,000 ml @ 0 mls/hr Q0M ONCE IV 05/31/17 08:24 05/31/17 08:25 DC 05/31/17 08:42 1,000 MLS/HR Sodium Chloride 1,000 ml @ 0 mls/hr Q0M ONCE IV 05/31/17 09:50 05/31/17 09:52 DC 05/31/17 09:56 1,000 MLS/HR Sodium Chloride 1,000 ml @ 0 mls/hr Q0M ONCE IV 05/31/17 09:50 05/31/17 09:52 DC 05/31/17 11:17 1,000 MLS/HR Vancomycin HCl 1000 mg/Sodium Chloride 250 ml @ 250 mls/hr ONCE ONCE IV 05/31/17 11:30 05/31/17 12:29 DC 05/31/17 11:52 250 MLS/HR Vital Signs/I&O Vital Sign - Last 12Hours 05/31/17 05/31/17 05/31/17 05/31/17 08:16 08:16 09:34 09:37 Temp 98.8 Pulse 132 124 Resp 20 20 B/P (MAP) 126/68 125/95 Pulse Ox 90 95 O2 Delivery Nasal Cannula Nasal Cannula Nasal Cannula O2 Flow Rate 5.00 3.00 05/31/17 05/31/17 05/31/17 05/31/17 12:01 12:47 13:25 13:47 Pulse 132 132 134 Resp 31 18 22 Pulse Ox 92 94 95 97 O2 Delivery OxyMask NIV Bilevel O2 Flow Rate 4.00 40.00 35.00 05/31/17 05/31/17 05/31/17 05/31/17 14:00 15:00 15:11 16:00 Pulse 137 137 140 144 Resp 21 24 23 24 B/P (MAP) 102/75 90/71 109/58 Pulse Ox 95 94 96 93 O2 Delivery NIV Bilevel NIV Bilevel NIV Bilevel O2 Flow Rate 30.00 30.00 35.00 30.00 05/31/17 05/31/17 05/31/17 05/31/17 17:00 17:04 18:00 18:09 Pulse 147 147 149 149 Resp 26 32 26 26 B/P (MAP) 96/68 94/61 Pulse Ox 95 96 94 100 O2 Delivery NIV Bilevel NIV Bilevel O2 Flow Rate 30.00 45.00 30.00 100.00 05/31/17 05/31/17 18:25 18:28 Pulse 149 149 Resp 28 29 Pulse Ox 100 97 O2 Flow Rate 50.00 50.00 Capillary Refill : Less Than 3 Seconds Blood Pressure Mean: 87 Progress Note #1: Time: 09:30 Progress Note After assessment, patient was suspected to be septic. He has multiple areas of skin erythema on the left arm and the left foot/ankle. He is notably tachycardic. IV fluids are infusing. He was noted to have acute renal failure and appears very dry on exam. Patient has now received 10 mg of morphine which seems to have dulled his pain. He has received Ativan 1.5 mg as well. Patient' s fianc arrived to the ER and gives additional history that he primarily complains of pain in the right hip. He last had Percocet at midnight. She also reports he has had some cough with production of foamy sputum. Patient was noted to have pleural rub on the right. Patient has a notable thrombocytopenia which is new to him. Zosyn will be given for initial antibiotic therapy. Source of infection is not yet known but cellulitis is suspected. Progress Note #2: Time: 12:47 Progress Note Patient's blood pressure and oxygen saturations have remained stable on Oxymizer mask. Work of breathing gradually increased and he developed crackles in the bilateral bases. Repeat chest x-ray showed slight increase in pulmonary congestion and infiltrate. A repeat DuoNeb was administered which improved his breathing. BiPAP is being applied to prevent further pulmonary edema. Case has been reviewed with Dr. Alex, Dr. Weller, and Dr. Lopez. All feel it is appropriate to keep him at this facility at this time as risks of transfer do not outweigh benefits. Bilateral lower extremity ultrasound will be performed after admission to help evaluate for possible thrombosis. Patient is not a candidate for anticoagulation at this time due to thrombocytopenia. Patient has received Zosyn and is receiving vancomycin. He has received approximately 2500 mL of normal saline. The third liter bolus was halted after 500 mL infusion due to wet lung sounds. Patient remains tachycardic. EKG was obtained and appears to show a rhythm of sinus tachycardia. Patient is now comfortable. He is not complaining of any further pain and is resting quietly. He is arousable. I had a lengthy conversation with the family regarding disposition, prognosis, and transfer versus admission at this facility. After our conversation, all parties involved are agreeable that admission to this facility is most appropriate at this time. Family is aware that prognosis is guarded and transfer and/or intubation may be necessary at a later time if his condition changes. Plan at this time is to keep patient on BiPAP with an ABG performed in about one hour per discussion with Dr. Weller. ECG Initial ECG Impression Date: May 31, 2017 Initial ECG Rhythm: S.Tach Comment Sinus tachycardia with no ST elevation or depression. No abnormal intervals or axis deviation. Diagnostic Imaging Diagonstic Imaging: Xray Plain Films/CT/US/NM/MRI: chest Comments Chest x-ray viewed by me and report reviewed. See report below: NAME: FIOR LUJAN [employer] REC#: [id number] PT STATUS: REG ER : 1960 PHYSICIAN: CARLOS DELATORRE MD ADMIT DATE: 05/31/17/ER Draft Date of Exam:05/31/17 CHEST 1 VIEW, AP/PA ONLY INDICATION: History of cancer. Generalized pain. TECHNIQUE: Single view chest 9:21 AM. CORRELATION STUDY: 02/03/2017 FINDINGS: Left sided Pmrlhs-u-Etls catheter tip projects at the cavoatrial junction. Heart size enlarged. Vasculature is slightly prominent. Mediastinum and hilar structures are prominent suspect for potential lymphadenopathy. There are scattered patchy areas of infiltrate-like density throughout both lung allred. Multiple areas of nodularity are present worrisome for metastatic pulmonary nodules. IMPRESSION: 1. Cardiac enlargement with at least mild severity pulmonary vascular congestion. 2. Scattered patchy areas of infiltrate within both lung allred could be reflective of underlying multifocal pneumonia. However, there is somewhat overall nodular appearance does raise concern for potential pulmonary metastatic disease. Slight mediastinal prominence and hilar prominence may be reflective of underlying lymphadenopathy. Continued followup imaging is recommended. Dictated on workstation # [id number] Dict: 05/31/17 0932 Trans: 05/31/17 0938 JAMILA [id number] Interpreted by: ДМИТРИЙ HILL DO Diagonstic Imaging: Xray Plain Films/CT/US/NM/MRI: chest Comments Chest x-ray reviewed by me and report reviewed. See report below: NAME: FIOR LUJAN [facility] REC#: [id number] PT STATUS: REG ER : 1960 PHYSICIAN: CARLOS DELATORRE MD ADMIT DATE: 05/31/17/ER Draft Date of Exam:05/31/17 CHEST 1 VIEW, AP/PA ONLY INDICATION: Difficulty breathing Upright portable chest shows cardiomegaly with mild pulmonary venous distention. There are interstitial infiltrates which are more prominent on the right than the left but stable compared to the earlier study. There is no effusion or pneumothorax. IMPRESSION: Stable chest. Dictated on workstation # [id number] Dict: 05/31/17 1219 Trans: 05/31/17 1222 [facility] [id number] Interpreted by: OFELIA WHITMORE MD Critical Care Note Critical Care Start Time: 09:30 Stop Time: 13:00 Departure Impression Impression: Primary Impression: Severe sepsis Additional Impressions: Cellulitis Qualified Codes: L03.90 - Cellulitis, unspecified Gout Qualified Codes: M10.9 - Gout, unspecified Acute renal failure Qualified Codes: N17.9 - Acute kidney failure, unspecified Thrombocytopenia Anemia Qualified Codes: D64.9 - Anemia, unspecified Hypokalemia Dehydration COPD exacerbation Tachycardia Disposition: ADMITTED INPATIENT Condition: Improved Departure-Patient Inst. Referrals: ALBIN CHRIS DO (PCP/Family) Primary Care Physician CARLOS DELATORRE MD May 31, 2017 09:36
--- NOTE | 2017-05-31 09:39 | Diagnostic Imaging Report ---
INDICATION: History of cancer. Generalized pain. TECHNIQUE: Single view chest 9:21 AM. CORRELATION STUDY: 02/03/2017 FINDINGS: Left sided Alltqz-t-Kkvf catheter tip projects at the cavoatrial junction. Heart size enlarged. Vasculature is slightly prominent. Mediastinum and hilar structures are prominent suspect for potential lymphadenopathy. There are scattered patchy areas of infiltrate-like density throughout both lung allred. Multiple areas of nodularity are present worrisome for metastatic pulmonary nodules. IMPRESSION: 1. Cardiac enlargement with at least mild severity pulmonary vascular congestion. 2. Scattered patchy areas of infiltrate within both lung allred could be reflective of underlying multifocal pneumonia. However, there is somewhat overall nodular appearance does raise concern for potential pulmonary metastatic disease. Slight mediastinal prominence and hilar prominence may be reflective of underlying lymphadenopathy. Continued followup imaging is recommended. Dictated by: Dictated on workstation # [id number]
[2017-05-31] MEDS ORDERED: LACTATED RINGERS 1,000 ML IV ONE ×4 (09:48→21:45)
[2017-05-31 09:53] LABS: hs C REACTIVE PROTEIN 29.9 MG/DL (0.00-0.50)
[2017-05-31 09:56] LABS: KETONES,URINE NEGATIVE (NEGATIVE); LEUKOCYTE ESTERASE ,URINE 1+ (NEGATIVE); NITRITE,URINE NEGATIVE (NEGATIVE); PH,URINE 7 (5-9); PROTEIN,URINE 3+ (NEGATIVE); UROBILINOGEN,URINE 4 MG/DL (NORMAL)
--- NOTE | 2017-05-31 09:57 | Diagnostic Imaging Report ---
INDICATION: History of cancer. Pain. 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 SI joints and pubic symphysis maintained. There is irregular mixed lucency and density over the left iliac wing. This may be overlapping structures but the possibility of a sclerotic lytic lesion not excluded. There is rather markedly advanced degenerative changes with joint space narrowing of the right hip. Essentially bone on bone appearance is present. Left hip is moderately narrowed but otherwise maintained. There is questionable areas of subtle lucency about the proximal femurs largest on the left. IMPRESSION: 1. Negative for acute fracture. 2. Marked severity osteoarthritis right hip essentially bone on bone present. 3. Very questionable lesion left iliac bone versus overlying contents. Questionable lucencies over the proximal femurs which underlying lytic lesions not excluded. Consideration might be given to nonemergent followup MRI if further assessment desired. Dictated by: Dictated on workstation # [id number]
[2017-05-31] MEDS ORDERED: PIPERACILLIN SODIUM/TAZOBACTAM 4.5 GM in NS (IVPB) 100 ML IV ONE (10:00)
[2017-05-31 10:05] LABS: BILIRUBIN,URINE 1+ (NEGATIVE)
[2017-05-31] MEDS ORDERED: VANCOMYCIN INJECTION 1,000 MG in NS (IVPB) 250 ML IV ONE (11:30)
[2017-05-31 11:36] LABS: PATH WILL NEED TO REVIEW SMEAR PATH TO REVIEW; RETICULOCYTE % 0.28 % (0.50-2.40)
[2017-05-31] MEDS ORDERED: RT-ALBUTEROL/IPRATROPIUM 3 ML (DUONEB) VIAL ONE ×2 (11:50→15:01)
[2017-05-31 12:10] LABS: BAND NEUTROPHILS 0 %; NEUTROPHILS % (MANUAL) 34 %
[2017-05-31 12:11] LABS: ANISOCYTOSIS SLIGHT; BASOPHILS % (MANUAL) 0 %; EOSINOPHILS % (MANUAL) 1 %; LYMPHOCYTES % (MANUAL) 55 %
[2017-05-31 12:12] LABS: PLATELET COUNT 30 10^3/uL (130-400)
--- NOTE | 2017-05-31 12:22 | Diagnostic Imaging Report ---
INDICATION: Difficulty breathing Upright portable chest shows cardiomegaly with mild pulmonary venous distention. There are interstitial infiltrates which are more prominent on the right than the left but stable compared to the earlier study. There is no effusion or pneumothorax. IMPRESSION: Stable chest. Dictated by: Dictated on workstation # [id number]
--- NOTE | 2017-05-31 14:02 | Consultation ---
History of Present Illness History of Present Illness Patient Consulted On(chanel/time) 05/31/17 13:54 Date Seen by Provider: May 31, 2017 Time Seen by Provider: 13:20 History of Present Illness This is a 56 year old male with known history of CLL/SLL diagnosed 2004 and treated with multiple regimens of chemotherapy who most recently has been taking 2 tabs of Imbruvica daily and was last seen on 05/04/17 when his WBC was 35.3 and patient was walking with a cane only. His [facility] states his right hip pain worsened significantly and patient was given Percocet for pain control. He has been sleeping more and unable to ambulate well even with a walker for past week. He and family denies recent use of illicit drugs. He was brought to the Emergency Department today with complaints of worsening right hip pain. ED evaluation showed patient was tachycardic, tachypneic with pulseox of 90 on 5L. Chest Xray was consistent with pneumonia. Lactic acid is elevated and platelets were low at 30,000. Allergies and Home Medications Allergies Coded Allergies: alprazolam (Unverified Adverse Reaction, Unknown, EZRA KEANE , 11/06/14) Home Medications Acetaminophen 500 Mg Tablet, 500-1,000 MG PO Q6H PRN for PAIN, (Reported) Albuterol Sulfate 1 Puff Puff, 2 PUFF INH Q4H PRN for SHORTNESS OF BREATH, ( Reported) Allopurinol 100 Mg Tablet, 300 MG PO MoWeFr, (Reported) TAKES 3 (100MG) TABLETS Allopurinol 100 Mg Tablet, 200 MG PO SuTuThSa, (Reported) TAKES 2 (100MG) TABLETS Amitriptyline HCl 50 Mg Tablet, 75 MG PO HS, (Reported) TAKES 1 & 1/2 (50MG) TABLETS Budesonide/Formoterol Fumarate 10.2 Gm Hfa.aer.ad, 2 PUFF IH BID, (Reported) Calcium Carbonate 500 Mg Tab.chew, 500 MG PO TID PRN for INDIGESTION, (Reported) Cetirizine HCl 10 Mg Tablet, 10 MG PO DAILY, (Reported) Cyclobenzaprine HCl 10 Mg Tablet, 10 MG PO BID, (Reported) Diazepam 10 Mg Tablet, 10 MG PO BID, (Reported) Escitalopram Oxalate 20 Mg Tablet, 20 MG PO DAILY, (Reported) Furosemide 40 Mg Tablet, 20 MG PO DAILY, (Reported) TAKES 1/2 (40MG) TABLET Hydralazine HCl 10 Mg Tablet, 20 MG PO HS, (Reported) TAKES 2 (10MG) TABLETS Hydrocodone Bit/Acetaminophen 1 Each Tablet, 1 TAB PO TID, (Reported) Ibrutinib 140 Mg Capsule, 280 MG PO DAILY, (Reported) TAKES 2 (140MG) CAPSULES Levalbuterol HCl 1.25 Mg/3 Ml Vial.neb, 1.25 MG NEB Q8H PRN for SHORTNESS OF BREATH, (Reported) Metoprolol Tartrate 50 Mg Tablet, 50 MG PO BID, (Reported) Montelukast Sodium 10 Mg Tablet, 10 MG PO HS, (Reported) Naproxen 500 Mg Tablet, 500 MG PO BID, (Reported) Omeprazole 40 Mg Capsule.dr, 40 MG PO DAILY, (Reported) Ondansetron HCl 8 Mg Tablet, 8 MG PO TID PRN for NAUSEA/VOMITING, (Reported) Oxycodone HCl/Acetaminophen 1 Each Tablet, 1 EACH PO Q4H PRN for pain, #20 Ref 0 Prescribed by: IBETH CABRERA on 05/25/17 1443 Potassium Chloride 20 Meq Tab.prt.sr, 20 MEQ PO BID, (Reported) Prednisone 5 Mg Tablet, 5 MG PO DAILY, (Reported) Prednisone 20 Mg Tab, 40 MG PO DAILY, #10 Ref 0 Prescribed by: IBETH CABRERA on 05/25/17 1421 Tiotropium [place] 1 Inh Aerp, 1 CAP IH DAILY, (Reported) Trazodone HCl 100 Mg Tablet, 100 MG PO BID, (Reported) Venlafaxine HCl 75 Mg Tab, 75 MG PO BID, (Reported) Past Gvlkvcd-Ztniar-Dgcquh Hx Patient Social History Alcohol Use: Past History Recreational Drug Use: No (ALCHOLIC) Drug of Choice: THC Smoking Status: Current Everyday Smoker Type Used: Cigarettes Recent Foreign Travel: No Contact w/Someone Who Travel: No Recent Infectious Disease Expo: No Recent Hopitalizations: No Immunizations Up To Date Tetanus Booster (TDap): Unknown PED Vaccines UTD: No Date of Pneumonia Vaccine: Sep 30, 2014 Date of Influenza Vaccine: Sep 30, 2016 Seasonal Allergies Seasonal Allergies: No Surgeries HX Surgeries: Yes (lymph node biopsy x3, port placed and removed) Surgeries: Orthopedic Respiratory Hx Respiratory Disorders: Yes (COPD/CHRONIC BRONCHITIS) Respiratory Disorders: Asthma, Chronic Bronchitis, Sleep Apnea, COPD ( supplemental oxygen at 3.5 L, CPAP), Emphysema Cardiovascular Hx Cardiac Disorders: Yes Cardiac Disorders: Hypertension Neurological Hx Neurological Disorders: No Reproductive System Hx Reproductive Disorders: No Sexually Transmitted Disease: No HIV/AIDS: No Genitourinary Hx Genitourinary Disorders: No Gastrointestinal Hx Gastrointestinal Disorders: Yes Gastrointestinal Disorders: Gastroesophageal Reflux, Hepatitis (hepatitis C) Musculoskeletal Hx Musculoskeletal Disorders: Yes (DJD CERVICAL SPINE. CHRONIC BILAT HIP PAIN) Musculoskeletal Disorders: Chronic Back Pain Endocrine Hx Endocrine Disorders: No HEENT HX ENT Disorders: Yes HEENT Disorders: Glaucoma Loss of Vision: Denies Hearing Impairment: Hard of Hearing Cancer Hx Cancer: Yes (CLL, SLL) Cancer: Leukemia, Lymphoma Psychosocial Hx Psychiatric Problems: Yes Behavioral Health Disorders: Anxiety, Depression Integumentary HX Skin/Integumentary Disorder: No Blood Transfusions Hx Blood Disorders: Yes (LYMPHOMA AND LEUKEMIA HISTORY/HEP C) Adverse Reaction to a Blood Tr: No Family Medical History Significant Family History: No Pertinent Family Hx Family Medial History: Alcoholism G8 BROTHER Colon cancer G8 BROTHER, , Onset:Unknown FHx: heart disease G8 BROTHER, Onset:Unknown G8 BROTHER, Onset:Unknown Hypertension 19 MOTHER, , Onset:Unknown Myocardial infarction 19 FATHER, , Onset:60 years & older 19 MOTHER, , Onset:Unknown G8 BROTHER, , Onset:Unknown G8 BROTHER, , Onset:Unknown Neoplasm Review of Systems-General Constitutional: see HPI, malaise, weakness Respiratory: cough, short of breath Musculoskeletal: back pain, joint pain Skin: rash Psychiatric/Neurological: Anxiety Physical Exam-General Problems Physical Exam Vital Signs Vital Sign - Last 12Hours 05/31/17 05/31/17 08:16 09:34 Temp 98.8 Pulse 132 Resp 20 B/P (MAP) 126/68 Pulse Ox 90 O2 Delivery Nasal Cannula O2 Flow Rate 5.00 Capillary Refill : Less Than 3 Seconds General Appearance: other (On Bipap mask, arousable to voice; ) HEENT: PERRL/EOMI Neck: non-tender, supple Respiratory: decreased breath sounds, crackles Cardiovascular: tachycardia Gastrointestinal: normal bowel sounds, non tender, soft Rectal: deferred Back: normal inspection, no CVA tenderness Extremities: inflammation (Left lower extremity redness and swelling), swelling Skin: rash (excoriated papular rash on sun exposed areas;) Comments Laboratory Tests 05/31/17 08:40 Laboratory Tests 05/31/17 08:40: Red Blood Count 3.39L, Hemoglobin 9.1L, Hematocrit 27L, Red Cell Distribution Width 15.4H, Platelet Count 30*L, Lymphocytes (%) (Auto) 48H, Absolute Reticulocyte Count 9L, Percent Reticulocyte Count 0.28L, Prothrombin Time 15.6H , Activated Partial Thromboplast Time 47H, D-Dimer 11.55H, Sodium Level 134L, Potassium Level 3.2L, Chloride Level 97L, Carbon Dioxide Level 19L, Anion Gap 18H, Blood Urea Nitrogen 64H, Creatinine 2.49H, Uric Acid 7.3H, Calcium Level 8.0L, Total Bilirubin 2.6H, B-Type Natriuretic Peptide 517.5H, Total Protein 5.4L, Albumin 2.5L 05/31/17 08:45: 05/31/17 09:17: Lactic Acid Level 4.06*H, C-Reactive Protein High Sensitivity 29.90H 05/31/17 09:51: Urine Specific [place] 1.005L, Urine Protein 3+H, Urine Bilirubin 1+H, Urine Urobilinogen 4H, Urine Leukocyte Esterase 1+H, Urine RBC (Auto) 3+H, Urine Amorphous Sediment LARGE ANGE URATESH, Urine Opiates Screen POSITIVEH, Urine Oxycodone Screen POSITIVEH, Ur Tricyclic Antidepressants Screen POSITIVEH, Urine Benzodiazepines Screen POSITIVEH, Urine Cannabinoids Screen POSITIVEH 05/31/17 11:16: Lactic Acid Level 3.92*H 05/31/17 13:15: Arterial Blood pH 7.32*L, Arterial Blood Partial Pressure O2 67L, Arterial Blood HCO3 18L, Arterial Blood Total CO2 19.1L, Arterial Blood Oxygen Saturation 91L, Arterial Blood Base Excess -7.1L Assessment/Plan Assessment/Plan Admission Diagnosis/Plan 1. Severe sepsis-tachycardia, tachypnea, possible evidence of cellulitis and pneumonia associated with elevated lactic acid. a. IV antibiotics initiated with IV vancomycin, levofloxacin and Zosyn 2. Right lower lobe pneumonia--receiving IV antibiotics as noted above a. On Bi-Pap when seen in ED department; 3. Thrombocytopenia--most likely related to sepsis; cannot exclude drug and or CLL as possible etiology. no evidence of acute bleed; will avoid use of anticoagulants; 4. Possible cellulitis left lower extremity 5. Acute renal failure a. monitor and adjust drug dosages b. Hypokalemia-careful replacement given elevated Cr; 6. Severe right hip pain in setting of Severe osteoarthritis 7. History of chronic lymphocytic leukemia/small lymphocytic lymphoma diagnosed 2004 treated with multiple regimens in the past. Most recent chemotherapy has been Ibrutinib (Imbruvica) 2 tabs daily; 8. History of polypharmacy abuse-status post illicit drug use associated with severe sepsis January 2017 9. Chronic hepatitis C 10. Multiple comorbidities including COPD, chronic tobaccoism, GERD, history of depression, history of excessive alcohol intake, and history of multiple prior head trauma. MASOOD MEYER MD May 31, 2017 14:02
[2017-05-31 14:06] LABS: ABG BASE EXCESS -7.1 MMOL/L (-2.5-2.5); ABG HCO3 18 MMOL/L (23-27); ABG OXYGEN SATURATION 91 % (94-100); ABG PCO2 36 MMHG (35-45); ABG PO2 67 MMHG (79-93); ABG TCO2 19.1 MMOL/L (21.0-31.0)
[2017-05-31 14:07] LABS: ABG PH 7.32 (7.37-7.43); ALLENS TEST YES-POS
[2017-05-31 14:08] LABS: PATIENT TEMP 97.9
[2017-05-31] MEDS: NS IV 1000 ML 1,000 ML IV SCH (14:10)
--- NOTE | 2017-05-31 14:19 | History & Physicial ([facility]) ---
CELINEFRANKLIN CORRIGAN MED STUDENT 05/31/17 1419: HPI History of Present Illness: Patient presented to the emergency department earlier today with a chief complaint of R hip pain. Patient is unable to be a historian because he is difficult to arouse and on BiPAP. The information provided in this report came from his fiserinae who was in the ICU room. The patient came to the ER last week due to his R hip pain and they gave him Percocet. The patient was having trouble walking and getting up out of chairs due to his pain. His fiancee states it is due to his "bone on bone" pain in his R hip. Fiancee states that he would drag his R leg behind him when he would use his walker and the patient would complain that his leg would go numb. Patient's fiancee states that she noticed the patient coughing up a foamy sputum yesterday. She states she noticed the patient breathing quickly. She denies the patient having a fever, chills, dysuria, or frequency. She states that the patient was most likely urinating less due to hip pain illicited when using the restroom. Patient's fiancee states that the patient quit drinking alcohol 4 months ago. She states that the patient has cut down on smoking recently and is now only smoking a pack a day. Source: family Exam Limitations: clinical condition Date seen by provider: May 31, 2017 Time Seen by Provider: 14:00 Attending Physician Elli Lopez MD PCP Apurva Paris DO Consult Date of Admission May 31, 2017 at 12:56 Home Medications Home Medications Reviewed patient Home Medication Reconciliation Form Allergies Coded Allergies: alprazolam (Unverified Adverse Reaction, Unknown, EZRA KEANE , 11/06/14) XMI-Gjzmla-Bmebmh Hx Patient Social History Alcohol Use: Past History (quite 4 mo. ago) Recreational Drug Use: No Drug of Choice: THC Smoking Status: Current Everyday Smoker Type Used: Cigarettes Recent Foreign Travel: No Contact w/other who traveled: No Recent Hopitalizations: No Recent Infectious Disease Expo: No Immunizations Up To Date Tetanus Booster (TDap): Unknown Date of Pneumonia Vaccine: Sep 30, 2014 Date of Influenza Vaccine: Sep 30, 2016 Family Medical History Significant Family History: No Pertinent Family Hx Family History: Alcoholism G8 BROTHER Colon cancer G8 BROTHER, , Onset:Unknown FHx: heart disease G8 BROTHER, Onset:Unknown G8 BROTHER, Onset:Unknown Hypertension 19 MOTHER, , Onset:Unknown Myocardial infarction 19 FATHER, , Onset:60 years & older 19 MOTHER, , Onset:Unknown G8 BROTHER, , Onset:Unknown G8 BROTHER, , Onset:Unknown Neoplasm Review of Systems ([facility]) Date Seen by Provider: May 31, 2017 Time Seen by Provider: 14:00 Constitutional: weakness (R leg) Respiratory: cough, short of breath Musculoskeletal: back pain, joint pain (R hip) [facility] Physical Exam Vital Signs VS - Last 72 Hours, by Label 05/31/17 05/31/17 05/31/17 05/31/17 08:16 08:16 09:34 09:37 Temp 98.8 Pulse 132 124 Resp 20 20 B/P (MAP) 126/68 125/95 Pulse Ox 90 95 O2 Delivery Nasal Cannula Nasal Cannula Nasal Cannula O2 Flow Rate 5.00 3.00 05/31/17 05/31/17 05/31/17 05/31/17 12:01 12:47 13:25 13:47 Pulse 132 132 134 Resp 31 18 22 Pulse Ox 92 94 95 97 O2 Delivery OxyMask NIV Bilevel O2 Flow Rate 4.00 40.00 35.00 05/31/17 15:11 Pulse 140 Resp 23 Pulse Ox 96 O2 Flow Rate 35.00 Capillary Refill : Less Than 3 Seconds General Appearance: moderate distress Respiratory: rales Cardiovascular: tachycardia Peripheral Pulses: 1+ Dorsalis Pedis (R), 1+ Left Dors-Pedis (L), 2+ Radial Pulses (R), 2+ Radial Pulses (L) Gastrointestinal: normal bowel sounds, tenderness Skin: warm/dry, other (erythematous rash on L calf, tender to touch) Assessment/Plan Assessment/Plan Admission Dx SEE BELOW Plan severe sepsis potential source of infection include pneumonia, cellulitis on L lower leg; continue administering fluids (75 mL/kg/hour), monitor for signs of decreasing oxygen saturation (which could be a consequence of worsening pulmonary edema with fluid overload); continue antibiotics, obtain sputum sample if able, monitor vitals acute kidney injury continue fluids and ABX; monitor Cr, BUN, GFR anion gap acidosis continue ABX to treat underlying septic infection elevated BNP monitor for signs of worsening fluid overload, consider decreasing fluids if oxygenation or BNP increases R hip pain, R leg weakness, back pain appreciate radiology impression on pelvis X-Ray (severe R hip OA), obtain MRI outpatient due to presence of lytic lesions on proximal femurs hypokalemia replace K+ IV elevated bilirubin treat underlying infection elevated D-dimer could be a consequence of pulmonary embolism (but cannot obtain CTA due to acute kidney injury, cannot treat with anticoagulation due to thrombocytopenia) , DIC, leukemia thrombocytopenia could be a consequence of DIC or leukemia; consult with Dr. Lopez; monitor, do not replace persistent anemia chronic, monitor Diagnosis/Problems: Copy Copies To 1: PRAMOD Alcantara BETHANY N MD 05/31/17 1630: HPI History of Present Illness: Of note- patient was in the hospital in January with severe sepsis with multi organ failure and pneumonia, ultimately requiring intubation and transfer and has history of leukemia for about 10 years. Time Seen by Provider: 14:30 Home Medications Allergies Coded Allergies: alprazolam (Unverified Adverse Reaction, Unknown, MAKES DIYA , 11/06/14) GAH-Tozxvr-Posogy Hx Patient Social History Smoking Status: Current Someday Smoker Past Medical History PMHx: Chronic bronchitis Degenerative disc disease Right hip osteoarthritis HTN CAD GERD CLL Chronic hepatitis C Polysubstance abuse SurgHx: Lymph node biopsy Bone marrow biopsy Family Medical History Significant Family History: Cancer, CAD Over 55 Years Old Review of Systems ([facility]) Time Seen by Provider: 14:30 Reviewed Test Results Reviewed Test Results Lab Laboratory Tests Test 05/31/17 08:40 05/31/17 08:45 05/31/17 09:17 05/31/17 09:51 Range/Units White Blood Count 5.0 4.3-11.0 10^3/uL Red Blood Count 3.39 L 4.35-5.85 10^6/uL Hemoglobin 9.1 L 13.3-17.7 G/DL Hematocrit 27 L 40-54 % Mean Corpuscular Volume 81 80-99 FL Mean Corpuscular Hemoglobin 27 25-34 PG Mean Corpuscular Hemoglobin Concent 33 32-36 G/DL Red Cell Distribution Width 15.4 H 10.0-14.5 % Platelet Count 30 *L 130-400 10^3/uL Mean Platelet Volume 7.4-10.4 FL Neutrophils (%) (Auto) 48 42-75 % Lymphocytes (%) (Auto) 48 H 12-44 % Monocytes (%) (Auto) 3 0-12 % Eosinophils (%) (Auto) 1 0-10 % Basophils (%) (Auto) 0 0-10 % Neutrophils # (Auto) 2.4 1.8-7.8 X 10^3 Lymphocytes # (Auto) 2.4 1.0-4.0 X 10^3 Monocytes # (Auto) 0.2 0.0-1.0 X 10^3 Eosinophils # (Auto) 0.1 0.0-0.3 10^3/uL Basophils # (Auto) 0.0 0.0-0.1 10^3/uL Neutrophils % (Manual) 34 % Lymphocytes % (Manual) 55 % Monocytes % (Manual) 10 % Eosinophils % (Manual) 1 % Basophils % (Manual) 0 % Band Neutrophils 0 % Anisocytosis SLIGHT Absolute Reticulocyte Count 9 L 24-90 10e9/L Percent Reticulocyte Count 0.28 L 0.50-2.40 % Prothrombin Time 15.6 H 12.2-14.7 SEC INR Comment 1.3 0.8-1.4 Activated Partial Thromboplast Time 47 H 24-35 SEC D-Dimer 11.55 H 0.00-0.49 UG/ML Sodium Level 134 L 135-145 MMOL/L Potassium Level 3.2 L 3.6-5.0 MMOL/L Chloride Level 97 L 98-107 MMOL/L Carbon Dioxide Level 19 L 21-32 MMOL/L Anion Gap 18 H 5-14 MMOL/L Blood Urea Nitrogen 64 H 7-18 MG/DL Creatinine 2.49 H 0.60-1.30 MG/DL Estimat Glomerular Filtration Rate 27 BUN/Creatinine Ratio 26 Glucose Level 95 70-105 MG/DL Uric Acid 7.3 H 2.6-7.2 MG/DL Calcium Level 8.0 L 8.5-10.1 MG/DL Total Bilirubin 2.6 H 0.1-1.0 MG/DL Aspartate Amino Transf (AST/SGOT) 22 5-34 U/L Alanine Aminotransferase (ALT/SGPT) 12 0-55 U/L Alkaline Phosphatase 106 40-136 U/L B-Type Natriuretic Peptide 517.5 H <100.0 PG/ML Total Protein 5.4 L 6.4-8.2 GM/DL Albumin 2.5 L 3.2-4.5 GM/DL Serum Alcohol < 10 <10 MG/DL Lactic Acid Level 4.06 *H 0.50-2.00 MMOL/L Ammonia 32 11-32 UMOL/L C-Reactive Protein High Sensitivity 29.90 H 0.00-0.50 MG/DL Urine Color YELLOW Urine Clarity SLIGHTLY CLOUDY Urine pH 7 5-9 Urine Specific [place]ell 1.005 L 1.016-1.022 Urine Protein 3+ H NEGATIVE Urine Glucose (UA) NEGATIVE NEGATIVE Urine Ketones NEGATIVE NEGATIVE Urine Nitrite NEGATIVE NEGATIVE Urine Bilirubin 1+ H NEGATIVE Urine Urobilinogen 4 H NORMAL MG/DL Urine Leukocyte Esterase 1+ H NEGATIVE Urine RBC (Auto) 3+ H NEGATIVE Urine RBC RARE /HPF Urine WBC NONE /HPF Urine Squamous Epithelial Cells NONE /HPF Urine Crystals NONE /LPF Urine Amorphous Sediment LARGE ANGE URATES H /LPF Urine Bacteria NEGATIVE /HPF Urine Casts NONE /LPF Urine Mucus NEGATIVE /LPF Urine Culture Indicated NO Urine Opiates Screen POSITIVE H NEGATIVE Urine Oxycodone Screen POSITIVE H NEGATIVE Urine Methadone Screen NEGATIVE NEGATIVE Urine Propoxyphene Screen NEGATIVE NEGATIVE Urine Barbiturates Screen NEGATIVE NEGATIVE Ur Tricyclic Antidepressants Screen POSITIVE H NEGATIVE Urine Phencyclidine Screen NEGATIVE NEGATIVE Urine Amphetamines Screen NEGATIVE NEGATIVE Urine Methamphetamines Screen NEGATIVE NEGATIVE Urine Benzodiazepines Screen POSITIVE H NEGATIVE Urine Cocaine Screen NEGATIVE NEGATIVE Urine Cannabinoids Screen POSITIVE H NEGATIVE Test 05/31/17 11:16 05/31/17 13:15 05/31/17 14:28 05/31/17 15:51 Range/Units Lactic Acid Level 3.92 *H 4.02 *H 0.50-2.00 MMOL/L Blood Gas Puncture Site LT RAD Blood Gas Patient Temperature 97.9 Arterial Blood pH 7.32 *L 7.37-7.43 Arterial Blood Partial Pressure CO2 36 35-45 MMHG Arterial Blood Partial Pressure O2 67 L 79-93 MMHG Arterial Blood HCO3 18 L 23-27 MMOL/L Arterial Blood Total CO2 19.1 L 21.0-31.0 MMOL/L Arterial Blood Oxygen Saturation 91 L 94-100 % Arterial Blood Base Excess -7.1 L -2.5-2.5 MMOL/L Prince Test YES-POS Blood Gas Ventilator Setting NO Blood Gas Inspired Oxygen 35%BIPAP White Blood Count 2.4 L 4.3-11.0 10^3/uL Red Blood Count 3.15 L 4.35-5.85 10^6/uL Hemoglobin 8.5 L 13.3-17.7 G/DL Hematocrit 26 L 40-54 % Mean Corpuscular Volume 82 80-99 FL Mean Corpuscular Hemoglobin 27 25-34 PG Mean Corpuscular Hemoglobin Concent 33 32-36 G/DL Red Cell Distribution Width 15.5 H 10.0-14.5 % Platelet Count 23 *L 130-400 10^3/uL Mean Platelet Volume 7.4-10.4 FL Neutrophils (%) (Auto) 46 42-75 % Lymphocytes (%) (Auto) 47 H 12-44 % Monocytes (%) (Auto) 6 0-12 % Eosinophils (%) (Auto) 2 0-10 % Basophils (%) (Auto) 0 0-10 % Neutrophils # (Auto) 1.1 L 1.8-7.8 X 10^3 Lymphocytes # (Auto) 1.2 1.0-4.0 X 10^3 Monocytes # (Auto) 0.1 0.0-1.0 X 10^3 Eosinophils # (Auto) 0.0 0.0-0.3 10^3/uL Basophils # (Auto) 0.0 0.0-0.1 10^3/uL Radiology CXR 05/31/17: "IMPRESSION: 1. Cardiac enlargement with at least mild severity pulmonary vascular congestion. 2. Scattered patchy areas of infiltrate within both lung allred could be reflective of underlying multifocal pneumonia. However, there is somewhat overall nodular appearance does raise concern for potential pulmonary metastatic disease. Slight mediastinal prominence and hilar prominence may be reflective of underlying lymphadenopathy. Continued followup imaging is recommended." Pelvis xray 05/31/17: "IMPRESSION: 1. Negative for acute fracture. 2. Marked severity osteoarthritis right hip essentially bone on bone present. 3. Very questionable lesion left iliac bone versus overlying contents. Questionable lucencies over the proximal femurs which underlying lytic lesions not excluded. Consideration might be given to nonemergent followup MRI if further assessment desired." Physical Exam-([facility]) Physical Exam Vital Signs VS - Last 72 Hours, by Label 05/31/17 05/31/17 05/31/17 05/31/17 08:16 08:16 09:34 09:37 Temp 98.8 Pulse 132 124 Resp 20 20 B/P (MAP) 126/68 125/95 Pulse Ox 90 95 O2 Delivery Nasal Cannula Nasal Cannula Nasal Cannula O2 Flow Rate 5.00 3.00 05/31/17 05/31/17 05/31/17 05/31/17 12:01 12:47 13:25 13:47 Pulse 132 132 134 Resp 31 18 22 Pulse Ox 92 94 95 97 O2 Delivery OxyMask NIV Bilevel O2 Flow Rate 4.00 40.00 35.00 05/31/17 15:11 Pulse 140 Resp 23 Pulse Ox 96 O2 Flow Rate 35.00 Respiratory: accessory muscle use, No wheezing Cardiovascular: no murmur Gastrointestinal: distended, tenderness (RUQ) Extremities: pedal edema (left 1+, right trace) Neurologic/Psychiatric: other (opens eyes to name, reponsive to pain, but does not answer questions) Skin: cool (right foot cooler than left), rash (excoriations and small ulcerations on legs and arms with patchy erythema) Assessment/Plan Assessment/Plan Plan Critically ill with severe sepsis secondary to most likely pneumonia with acute kidney injury, liver dysfunction, thrombocytopenia, anemia and lactic acidosis leading to increased anion gap metabolic acidosis. Blood cultures pending, zosyn , levofloxacin, vancomycin started for pneumonia, 30 ml/kg bolus given in ER with normal blood pressure but marked worsening of rales and increased respiratory distress requiring bipap- suspect fluid overload, discussed with Dr. Weller (consulted for critical care management) and will continue IVF at 75 ml/hr instead of 150 ml/hr for now as his blood pressure is above 90 systolic, continue to follow lactic acid level. May need pressor if blood pressure decreases. Tachycardia worsening, has elevated BNP but suspect tachycardia due to sepsis, however we are limited in ability to give continued fluid as noted- will consult Dr. Casas for Cardiology and consider lasix. Platelets very low, appreciate Heme/Onc opinion, expect due to severe sepsis or DIC, no evidence of bleeding at this time, monitor closely and treat sepsis as noted. Discussed with his fiancee that his situation is very tenuous given the difficult balance between different treatment goals- fluid resuscitation versus fluid overload, bleeding risk versus possible thrombosis. He has expressed previously his desire to be full code. Diagnosis/Problems: Copy Copies To 1: PRAMOD Alcantara ABBY MED STUDENT May 31, 2017 14:19 REY WINKLER MD May 31, 2017 16:30
[2017-05-31] MEDS ORDERED: NS IV 1000 ML 1,000 ML ONE (14:33)
[2017-05-31 14:38] LABS: BASOPHILS % (AUTO) 0 % (0-10); EOSINOPHILS % (AUTO) 2 % (0-10); LYMPHOCYTES # (AUTO) 1.2 X 10^3 (1.0-4.0); LYMPHOCYTES % (AUTO) 47 % (12-44); MEAN CORPUSCULAR HEMOGLOBIN 27 PG (25-34); MEAN CORPUSCULAR HGB CONC 33 G/DL (32-36); MEAN CORPUSCULAR VOLUME 82 FL (80-99); MONOCYTES # (AUTO) 0.1 X 10^3 (0.0-1.0); MONOCYTES % (AUTO) 6 % (0-12); NEUTROPHILS # (AUTO) 1.1 X 10^3 (1.8-7.8); NEUTROPHILS % (AUTO) 46 % (42-75); RED BLOOD COUNT 3.15 10^6/uL (4.35-5.85); RED CELL DISTRIBUTION WIDTH 15.5 % (10.0-14.5); WHITE BLOOD COUNT 2.4 10^3/uL (4.3-11.0)
[2017-05-31 14:40] LABS: PLATELET COUNT 23 10^3/uL (130-400)
[2017-05-31] MEDS ORDERED: RT-ALBUTEROL SULF 2.5 MG/3 ML PRE-MIX VIAL IH PRN (15:15)
[2017-05-31] MEDS ORDERED: VANCOMYCIN 750 MG/NS 250 ML IVPB IV NR ×2 (15:52)
[2017-05-31] MEDS ORDERED: LEVOFLOXACIN 750 MG/D5W 150 ML PRE-MIX IV SCH (16:00)
[2017-05-31] MEDS ORDERED: PIPERACILLIN/TAZOBACTAM 4.5 GM/NS100 ML IVPB IV SCH ×2 (16:00)
[2017-05-31] MEDS ORDERED: NOREPINEPHRINE 4 MG in D5W 250 ML (IVPB) 250 ML IV SCH (16:00)
[2017-05-31] MEDS: VASOPRESSIN INJECTION 20 UNIT in NS (IVPB) 50 ML IV SCH ×2 (16:18→21:22)
[2017-05-31] MEDS ORDERED: ADENOSINE 6 MG/2 ML (ADENOCARD) VIAL IV ONE ×3 (17:54→18:15)
[2017-05-31] MEDS: RT-ALBUTEROL/IPRATROPIUM 3 ML (DUONEB) VIAL INH SCH (18:00)
[2017-05-31] MEDS: POTASSIUM CL 10MEQ/50ML IVPB 50 ML IV SCH ×4 (18:32→21:29)
[2017-05-31] MEDS: MAGNESIUM 1 GM/100 ML IVPB 100 ML IV SCH ×2 (18:32→19:32)
[2017-05-31] MEDS ORDERED: PHENYLEPHRINE INJ 10 MG/ML (NEO-SYNEPHRINE 1%) ONE ×2 (19:01→19:03)
[2017-05-31] MEDS: PIPERACILLIN/TAZOBACTAM 4.5 GM/NS100 ML IVPB IV SCH ×2 (19:02)
[2017-05-31] MEDS ORDERED: D5W 250 ML (IVPB) 250 ML IV ONE ×2 (19:03→23:23)
--- NOTE | 2017-05-31 19:30 | Diagnostic Imaging Report ---
EXAMINATION: Bilateral lower extremity venous Doppler INDICATION: Leg pain and swelling Spectral and color flow imaging of the deep venous system of each lower extremity was performed. There are no prior studies available for comparison. There is generally good blood flow and compressibility at all levels of the deep venous system of each lower extremity. There is no sign of a deep venous thrombosis. IMPRESSION: There is no evidence for deep venous thrombosis of either lower extremity. Dictated by: Dictated on workstation # [id number]
[2017-05-31] MEDS: PHENYLEPHRINE INJECTION 10 MG in D5W 250 ML (IVPB) 249 ML IV SCH ×3 (20:09→23:42)
[2017-05-31] MEDS ORDERED: HYDROCORTISONE 100 MG/2 ML (Solu-CORTEF) VIAL ONE (20:29)
[2017-05-31] MEDS: HYDROCORTISONE 100 MG/2 ML (Solu-CORTEF) VIAL IV SCH (20:39)
[2017-05-31 20:54] LABS: CALCIUM 7.1 MG/DL (8.5-10.1); CREATININE SERUM 2.94 MG/DL (0.60-1.30); MAGNESIUM 2.1 MG/DL (1.8-2.4); POTASSIUM 3.5 MMOL/L (3.6-5.0)
[2017-05-31 21:00] LABS: ABG BASE EXCESS -9.6 MMOL/L (-2.5-2.5); ABG OXYGEN SATURATION 95 % (94-100); ABG PCO2 37 MMHG (35-45); ABG PO2 79 MMHG (79-93); ABG TCO2 17.5 MMOL/L (21.0-31.0)
[2017-05-31] MEDS ORDERED: VASOPRESSIN INJECTION 20 UNIT/ML VIAL ONE (21:03)
[2017-05-31 21:05] LABS: ABG HCO3 16 MMOL/L (23-27); ABG PH 7.26 (7.37-7.43); ALLENS TEST YES-POS; PATIENT TEMP 96.8
[2017-05-31] MEDS ORDERED: D5W 100 ML IVPB 100 ML IV ONE (21:05)
[2017-05-31] MEDS ORDERED: NS IV 500 ML 500 ML ONE (21:41)
[2017-05-31] MEDS ORDERED: VASOPRESSIN INJECTION 20 UNIT in NS (IVPB) 50 ML IV SCH (22:15)
--- NOTE | 2017-05-31 22:27 | Progress Note-Standard ---
Standard Progress Note Progress Notes/Assess & Plan Date Seen by Provider: May 31, 2017 Time Seen by Provider: 21:55 Progress/Assessment & Plan Anesthesia Note ([id number]) Called to ICU for intubation due to respiratory failure. Pt on BiPAP. Etomidate 20 mg IV and Succinylcholine 80 mg IV given for intubation. 8.0 cuffed ETT passed easily through vocal cords using [place] X-Blade. +EtCO2 color change and BS = B/L. ETT secured at 22 cm. 20 G Left Radial art. line placed and secured with tegaderm. Good waveform noted. Pt tolerated procedures well. Will be available if needed. AUGIE ALVAREZ DO May 31, 2017 22:27
[2017-05-31] MEDS ORDERED: MIDAZOLAM 5 MG/5 ML (VERSED) VIAL IV PRN (22:45)
[2017-05-31] MEDS ORDERED: fentaNYL (OMNICELL DRIP KIT ONLY) 250 MCG/5 ML AMP ONE (22:55)
[2017-05-31] MEDS ORDERED: NS (IVPB) 100 ML ONE (22:56)
[2017-05-31 23:00] LABS: ABG BASE EXCESS -10.6 MMOL/L (-2.5-2.5); ABG OXYGEN SATURATION 87 % (94-100); ABG PCO2 50 MMHG (35-45); ABG PO2 69 MMHG (79-93); ABG TCO2 18.2 MMOL/L (21.0-31.0)
[2017-05-31] MEDS ORDERED: ETOMIDATE IV SOLN 20 MG/10 ML VIAL IV ONE (23:00)
[2017-05-31] MEDS ORDERED: SUCCINYLCHOLINE INJ 100 MG/5 ML SYR INJ ONE (23:00)
[2017-05-31] MEDS ORDERED: ROCURONIUM 50 MG/5 ML (ZEMURON) VIAL IV ONE (23:00)
[2017-05-31 23:03] LABS: ABG HCO3 17 MMOL/L (23-27); ABG PH 7.15 (7.37-7.43); ALLENS TEST YES-POS; PATIENT TEMP 98.6
[2017-05-31] MEDS: fentaNYL INJECTION 1,250 MCG in NS (IVPB) 225 ML IV SCH (23:15)
[2017-05-31] MEDS ORDERED: NOREPINEPHRINE 4 MG/4 ML (LEVOPHED) AMP IV ONE (23:22)
[2017-05-31] MEDS: NOREPINEPHRINE 4 MG in D5W 250 ML (IVPB) 250 ML IV SCH (23:35)
[2017-06-01] VITALS (57 sets, daily range): BP systolic 28–161; BP diastolic 16–94
[2017-06-01 00:46] LABS: ABG HCO3 18 MMOL/L (23-27); ABG OXYGEN SATURATION 93 % (94-100); ABG PCO2 56 MMHG (35-45); ABG PO2 80 MMHG (79-93); ABG TCO2 19.5 MMOL/L (21.0-31.0)
[2017-06-01 00:47] LABS: ABG PH 7.12 (7.37-7.43)
[2017-06-01 00:48] LABS: ALLENS TEST YES-POS
[2017-06-01] MEDS: PHENYLEPHRINE INJECTION 10 MG in D5W 250 ML (IVPB) 249 ML IV SCH ×6 (00:59→07:03)
[2017-06-01] MEDS: PIPERACILLIN/TAZOBACTAM 4.5 GM/NS100 ML IVPB IV SCH ×6 (01:01→18:32)
[2017-06-01] MEDS: RT-ALBUTEROL/IPRATROPIUM 3 ML (DUONEB) VIAL INH SCH ×6 (01:15→21:45)
[2017-06-01] MEDS ORDERED: ROCURONIUM 50 MG/5 ML (ZEMURON) VIAL IV ONE ×3 (01:32→07:45)
[2017-06-01] MEDS ORDERED: NS (IVPB) 100 ML ONE (02:14)
[2017-06-01] MEDS ORDERED: NS (IVPB) 50 ML ONE (02:14)
[2017-06-01] MEDS ORDERED: fentaNYL (OMNICELL DRIP KIT ONLY) 250 MCG/5 ML AMP ONE (02:14)
[2017-06-01 04:04] LABS: BASOPHILS % (AUTO) 0 % (0-10); EOSINOPHILS # (AUTO) 0.2 10^3/uL (0.0-0.3); EOSINOPHILS % (AUTO) 6 % (0-10); LYMPHOCYTES # (AUTO) 1.4 X 10^3 (1.0-4.0); LYMPHOCYTES % (AUTO) 37 % (12-44); MEAN CORPUSCULAR HEMOGLOBIN 27 PG (25-34); MEAN CORPUSCULAR HGB CONC 33 G/DL (32-36); MEAN CORPUSCULAR VOLUME 82 FL (80-99); MONOCYTES # (AUTO) 0.3 X 10^3 (0.0-1.0); MONOCYTES % (AUTO) 9 % (0-12); NEUTROPHILS # (AUTO) 1.9 X 10^3 (1.8-7.8); NEUTROPHILS % (AUTO) 49 % (42-75); RED BLOOD COUNT 3.17 10^6/uL (4.35-5.85); RED CELL DISTRIBUTION WIDTH 16.2 % (10.0-14.5); WHITE BLOOD COUNT 3.9 10^3/uL (4.3-11.0)
[2017-06-01 04:05] LABS: ABG BASE EXCESS -9.8 MMOL/L (-2.5-2.5); ABG HCO3 18 MMOL/L (23-27); ABG OXYGEN SATURATION 98 % (94-100); ABG PCO2 54 MMHG (35-45); ABG PO2 133 MMHG (79-93); ABG TCO2 19.4 MMOL/L (21.0-31.0)
[2017-06-01 04:08] LABS: ABG PH 7.14 (7.37-7.43); ALLENS TEST YES-POS; PLATELET COUNT 22 10^3/uL (130-400)
[2017-06-01 04:15] LABS: INR 1.4 (0.8-1.4); PROTHROMBIN TIME PATIENT 16.5 SEC (12.2-14.7)
[2017-06-01 04:21] LABS: CALCIUM 7.1 MG/DL (8.5-10.1); CREATININE SERUM 3.16 MG/DL (0.60-1.30); PHOSPHORUS 5.8 MG/DL (2.3-4.7); POTASSIUM 4.9 MMOL/L (3.6-5.0)
[2017-06-01] MEDS: fentaNYL INJECTION 1,250 MCG in NS (IVPB) 225 ML IV SCH ×3 (04:26→19:22)
[2017-06-01] MEDS ORDERED: ATRACURIUM IV SCH ×2 (04:45)
[2017-06-01] MEDS ORDERED: NS IV SCH ×2 (04:45)
[2017-06-01] MEDS ORDERED: D5W 250 ML (IVPB) 250 ML IV ONE ×3 (04:45→06:13)
[2017-06-01] MEDS ORDERED: PHENYLEPHRINE INJ 10 MG/ML (NEO-SYNEPHRINE 1%) ONE ×2 (04:49→06:12)
[2017-06-01] MEDS ORDERED: NOREPINEPHRINE 4 MG/4 ML (LEVOPHED) AMP IV ONE (04:57)
[2017-06-01] MEDS: NOREPINEPHRINE 4 MG in D5W 250 ML (IVPB) 250 ML IV SCH ×4 (05:04→14:43)
[2017-06-01] MEDS ORDERED: RT-IPRATROPIUM (ATROVENT) 0.5MG/2.5ML AMP IH ONE (05:19)
[2017-06-01] MEDS: NS IV 1000 ML 1,000 ML IV SCH ×2 (05:40→17:06)
[2017-06-01] MEDS ORDERED: ACETAMINOPHEN 650 MG SUPP (TYLENOL) ONE (05:48)
[2017-06-01] MEDS ORDERED: ACETAMINOPHEN 650 MG SUPP (TYLENOL) PR PRN ×2 (06:00→22:15)
[2017-06-01] MEDS ORDERED: POTASSIUM CL 10MEQ/50ML IVPB 50 ML IV SCH (06:00)
[2017-06-01] MEDS ORDERED: KCL 20 MEQ TAB (K-DUR) PO SCH (06:00)
[2017-06-01] MEDS ORDERED: MAGNESIUM 1 GM/100 ML IVPB 100 ML IV SCH (06:00)
[2017-06-01] MEDS ORDERED: ACETAMINOPHEN 325 MG TABLET/CAPLET (TYLENOL) PO PRN (06:00)
[2017-06-01 06:02] LABS: ABG BASE EXCESS -10.2 MMOL/L (-2.5-2.5); ABG OXYGEN SATURATION 99 % (94-100); ABG PCO2 60 MMHG (35-45); ABG PO2 172 MMHG (79-93)
[2017-06-01 06:06] LABS: ABG HCO3 17 MMOL/L (23-27); ALLENS TEST YES-POS; PATIENT TEMP 102.4
[2017-06-01] MEDS: HYDROCORTISONE 100 MG/2 ML (Solu-CORTEF) VIAL IV SCH ×2 (06:44→13:09)
--- NOTE | 2017-06-01 06:48 | Pulmonary Consultation ---
History of Present Illness History of Present Illness Date of Consultation 06/01/17 06:43 Time Seen by Provider: 06:00 Date of Admission History of Present Illness 56yo with hx of CLL/SLL dx in 2004 and has had multiple regimens of chemotherapy. He presented to ED secondary to worsening right hip pain and progressive weakness. Pt now unable to ambulate even with his walker. Onset has been over about the last week. In the ED pt was found to be in severe sepsis with CXray showing pneumonia. Pt has had a similar prior episode here and at that time he was transferred to [facility]. Through the night patients clinical status has worsened. He was intubated and placed on ventilator. He is also currently requiring Levophed, vasopressin, and neosynephrine. He also had to be medically paralyzed and sedated secondary to his declining condition. Unable to obtain ROS secondary to pt being sedated on ventilator. Im consulted for ICU management. T Allergies and Home Medications Allergies Coded Allergies: alprazolam (Unverified Adverse Reaction, Unknown, EZRA KEANE , 11/06/14) Home Medications Acetaminophen 500 Mg Tablet, 500-1,000 MG PO Q6H PRN for PAIN, (Reported) TAKES 1-2 OF A (500 MG) TABLET Albuterol Sulfate 1 Puff Puff, 2 PUFF INH Q4H PRN for SHORTNESS OF BREATH, ( Reported) Allopurinol 100 Mg Tablet, 300 MG PO MoWeFr, (Reported) TAKES 3 (100MG) TABLETS Allopurinol 100 Mg Tablet, 200 MG PO SuTuThSa, (Reported) TAKES 2 (100MG) TABLETS Amitriptyline HCl 50 Mg Tablet, 50 MG PO HS, (Reported) Budesonide/Formoterol Fumarate 10.2 Gm Hfa.aer.ad, 2 PUFF IH BID, (Reported) Cetirizine HCl 10 Mg Tablet, 10 MG PO DAILY, (Reported) Diazepam 10 Mg Tablet, 10 MG PO BID, (Reported) Escitalopram Oxalate 20 Mg Tablet, 20 MG PO DAILY, (Reported) Fluticasone Propionate 16 Gm [place].susp, 1 SPRAY NSEACH DAILY, (Reported) Hydrocodone/Acetaminophen 1 Each Tablet, 1 TAB PO TID PRN for PAIN-MODERATE, ( Reported) Ibrutinib 140 Mg Capsule, 280 MG PO DAILY, (Reported) TAKES 2 (140MG) CAPSULES Metoprolol Tartrate 50 Mg Tablet, 50 MG PO BID, (Reported) Naproxen 500 Mg Tablet, 500 MG PO BID, (Reported) Omeprazole 40 Mg Capsule.dr, 40 MG PO DAILY, (Reported) Ondansetron HCl 8 Mg Tablet, 8 MG PO TID PRN for NAUSEA/VOMITING-1ST LINE, ( Reported) Tiotropium [place] 1 Inh Aerp, 1 CAP IH DAILY, (Reported) Triamcinolone Acet 15 Gm Cr, TP DAILY, (Reported) Venlafaxine HCl 75 Mg Tab, 75 MG PO BID, (Reported) Past Uykrhcl-Wptsla-Lnctur Hx Patient Social History Alcohol Use: Past History Recreational Drug Use: No Drug of Choice: THC Smoking Status: Current Someday Smoker Type Used: Cigarettes Recent Foreign Travel: No Contact w/Someone Who Travel: No Recent Infectious Disease Expo: No Recent Hopitalizations: No Physical Abuse Screen: No Sexual Abuse: No Immunizations Up To Date Tetanus Booster (TDap): Unknown PED Vaccines UTD: No Date of Pneumonia Vaccine: Sep 30, 2014 Date of Influenza Vaccine: Sep 30, 2016 Seasonal Allergies Seasonal Allergies: No Surgeries HX Surgeries: Yes (lymph node biopsy x3, port placed and removed) Surgeries: Orthopedic Respiratory Hx Respiratory Disorders: Yes (COPD/CHRONIC BRONCHITIS) Respiratory Disorders: Asthma, Chronic Bronchitis, Sleep Apnea, COPD, Emphysema Cardiovascular Hx Cardiac Disorders: Yes Cardiac Disorders: Hypertension Neurological Hx Neurological Disorders: No Reproductive System Hx Reproductive Disorders: No Sexually Transmitted Disease: No HIV/AIDS: No Genitourinary Hx Genitourinary Disorders: No Gastrointestinal Hx Gastrointestinal Disorders: Yes Gastrointestinal Disorders: Gastroesophageal Reflux, Hepatitis Musculoskeletal Hx Musculoskeletal Disorders: Yes (DJD CERVICAL SPINE. CHRONIC BILAT HIP PAIN) Musculoskeletal Disorders: Chronic Back Pain Endocrine Hx Endocrine Disorders: No HEENT HX ENT Disorders: Yes HEENT Disorders: Glaucoma Loss of Vision: Denies Hearing Impairment: Hard of Hearing Cancer Hx Cancer: Yes (CLL, SLL) Cancer: Leukemia, Lymphoma Psychosocial Hx Psychiatric Problems: Yes Behavioral Health Disorders: Anxiety, Depression Integumentary HX Skin/Integumentary Disorder: No Blood Transfusions Hx Blood Disorders: Yes (LYMPHOMA AND LEUKEMIA HISTORY/HEP C) Adverse Reaction to a Blood Tr: No Family Medical History Significant Family History: Cancer, CAD Over 55 Years Old Family Medial History: Alcoholism G8 BROTHER Colon cancer G8 BROTHER, , Onset:Unknown FHx: heart disease G8 BROTHER, Onset:Unknown G8 BROTHER, Onset:Unknown Hypertension 19 MOTHER, , Onset:Unknown Myocardial infarction 19 FATHER, , Onset:60 years & older 19 MOTHER, , Onset:Unknown G8 BROTHER, , Onset:Unknown G8 BROTHER, , Onset:Unknown Neoplasm Review of Systems Time Seen by Provider: 11:30 Exam Exam Vital Signs Date Time Temp Pulse Resp B/P (MAP) Pulse Ox O2 Delivery O2 Flow Rate FiO2 06/01/17 06:30 146 81/47 87 Mechanical Ventilator 100.00 94/52 06/01/17 06:20 100 06/01/17 06:15 154 27 161/80 100 Mechanical Ventilator 100.00 158/76 06/01/17 06:08 147 34 94 80 06/01/17 06:00 147 13 104/56 81 Mechanical Ventilator 85.00 104/59 06/01/17 05:56 103.1 06/01/17 05:45 149 95/46 92 Mechanical Ventilator 85.00 95/55 06/01/17 05:30 102.8 149 8 122/86 90 Mechanical Ventilator 85.00 122/72 06/01/17 05:28 149 34 92 85 06/01/17 05:22 149 11 95 Mechanical Ventilator 85.00 113/66 06/01/17 05:15 149 7 112/54 87 Mechanical Ventilator 75.00 96/60 06/01/17 05:00 149 12 114/50 97 Mechanical Ventilator 75.00 103/62 06/01/17 04:45 146 88/51 90 Mechanical Ventilator 75.00 70/41 06/01/17 04:30 147 8 110/94 90 Mechanical Ventilator 75.00 75/50 06/01/17 04:18 147 32 94 80 06/01/17 04:15 149 15 119/62 92 Mechanical Ventilator 75.00 83/49 06/01/17 04:00 98.0 151 11 114/63 99 Mechanical Ventilator 75.00 88/54 06/01/17 03:45 154 11 104/87 100 Mechanical Ventilator 75.00 91/58 06/01/17 03:30 154 14 122/82 100 Mechanical Ventilator 75.00 98/61 06/01/17 03:15 152 123/66 100 Mechanical Ventilator 75.00 110/67 06/01/17 03:10 151 32 100 80 06/01/17 03:00 151 6 132/87 100 Mechanical Ventilator 75.00 116/70 06/01/17 02:45 149 19 128/91 100 Mechanical Ventilator 75.00 114/72 06/01/17 02:30 149 18 126/73 100 Mechanical Ventilator 75.00 105/67 06/01/17 02:15 152 18 120/74 99 Mechanical Ventilator 75.00 119/73 06/01/17 02:00 152 19 96/81 100 Mechanical Ventilator 75.00 90/56 06/01/17 01:47 152 21 119/60 100 Mechanical Ventilator 75.00 99/61 06/01/17 01:43 151 46 100 80 06/01/17 01:30 152 20 119/60 100 Mechanical Ventilator 80.00 97/60 06/01/17 01:15 152 21 132/75 100 Mechanical Ventilator 80.00 99/61 06/01/17 01:15 152 39 100 80 06/01/17 01:00 152 22 145/71 98 Mechanical Ventilator 80.00 120/69 06/01/17 01:00 152 06/01/17 00:45 152 21 104/89 98 Mechanical Ventilator 80.00 92/58 06/01/17 00:30 151 24 120/72 99 Mechanical Ventilator 80.00 93/59 06/01/17 00:15 152 22 104/56 98 Mechanical Ventilator 80.00 92/57 06/01/17 00:00 98.0 149 24 114/74 97 Mechanical Ventilator 80.00 91/57 05/31/17 23:45 147 26 114/77 95 Mechanical Ventilator 80.00 86/54 05/31/17 23:34 147 36 94 100 05/31/17 23:30 147 26 100/45 93 Mechanical Ventilator 80.00 72/44 05/31/17 23:15 146 27 65/51 95 Mechanical Ventilator 80.00 72/44 05/31/17 23:00 144 24 102/67 94 Mechanical Ventilator 80.00 74/45 05/31/17 22:45 144 31 96/80 89 Mechanical Ventilator 80.00 78/46 05/31/17 22:30 141 27 107/76 99 Mechanical Ventilator 80.00 85/48 05/31/17 22:18 137 26 100 100 05/31/17 22:15 137 26 91/64 92 Mechanical Ventilator 100.00 89/50 05/31/17 22:00 133 26 92/65 93 NIV Bilevel 65.00 05/31/17 21:45 135 25 88/65 96 NIV Bilevel 65.00 05/31/17 21:30 138 21 94/60 96 NIV Bilevel 65.00 05/31/17 21:24 138 27 92 65.00 05/31/17 21:15 140 25 75/56 95 NIV Bilevel 65.00 05/31/17 21:00 140 32 52/43 96 NIV Bilevel 65.00 05/31/17 20:45 141 28 62/34 96 NIV Bilevel 65.00 05/31/17 20:30 142 25 78/59 96 NIV Bilevel 65.00 05/31/17 20:15 146 28 84/63 96 NIV Bilevel 60.00 05/31/17 20:11 144 25 92 50.00 05/31/17 20:00 96.8 147 23 67/54 90 NIV Bilevel 50.00 05/31/17 19:45 149 25 81/58 93 NIV Bilevel 50.00 05/31/17 19:30 149 26 89/58 94 NIV Bilevel 50.00 05/31/17 19:15 147 24 96/58 94 NIV Bilevel 50.00 05/31/17 19:00 147 05/31/17 19:00 147 25 79/58 100 NIV Bilevel 50.00 05/31/17 18:28 149 29 97 50.00 05/31/17 18:25 149 28 100 50.00 05/31/17 18:09 149 26 100 100.00 05/31/17 18:05 NIV Bilevel 50.00 05/31/17 18:00 149 26 94/61 94 NIV Bilevel 30.00 05/31/17 17:04 147 32 96 45.00 05/31/17 17:00 147 26 96/68 95 NIV Bilevel 30.00 05/31/17 16:15 98.5 NIV Bilevel 45.00 05/31/17 16:05 93 NIV Bilevel 45.00 05/31/17 16:00 144 24 109/58 93 NIV Bilevel 30.00 05/31/17 15:11 140 23 96 35.00 05/31/17 15:00 137 24 90/71 94 NIV Bilevel 30.00 05/31/17 14:00 137 21 102/75 95 NIV Bilevel 30.00 05/31/17 13:47 134 22 97 35.00 05/31/17 13:45 NIV Bilevel 30 05/31/17 13:35 98.3 134 24 106/70 96 NIV Bilevel 30.00 05/31/17 13:25 132 18 95 NIV Bilevel 05/31/17 12:47 132 31 94 40.00 05/31/17 12:01 92 OxyMask 4.00 05/31/17 09:37 124 20 125/95 95 Nasal Cannula 3.00 05/31/17 09:34 90 Nasal Cannula 5.00 05/31/17 08:16 Nasal Cannula 05/31/17 08:16 98.8 132 20 126/68 I & O 06/01/17 07:00 Intake Total 4000 ml Output Total 115 ml Balance 3885 ml General Appearance: WD/WN, Moderate Distress HEENT: Other (oropharynx extremely dry) Neck: Normal Inspection, Supple, No Carotid Bruit Respiratory: Accessory Muscle Use, Crackles (bibasilar), Wheezing Cardiovascular: No Edema, No Murmur, Tachycardia Capillary Refill: Less Than 3 Seconds Peripheral Pulses: 1+ Dorsalis Pedis (R), 1+ Left Dors-Pedis (L), 2+ Radial Pulses (R), 2+ Radial Pulses (L) Gastrointestinal: soft Extremity: Normal Capillary Refill, Swelling (mild lower extremity edema), Other (erythema and tenderness over the anterior left foot and ankle) Neurologic/Psychiatric: Other (sedated and paralyzed on ventilator) Lymphatic: No Adenopathy Results Lab Laboratory Tests 05/31/17 08:40 05/31/17 14:28 05/31/17 20:25 06/01/17 03:50 Assessment/Plan Assessment/Plan Severe sepsis with septic shock and multiorgan failure -Continue levophed, vasopressin, wean neosynephrin first -Pt is currently medically paralyzed. Will continue for now -Solucortef -Continue vancomycin, Levaquin, and Zosyn for now -Await baker cultures bacteremia with staph Aureus -Continue vancomycin and await sensitivities -Will continue Zosyn until all cultures are finalized. D/C Levaquin Acute respiratory failure with pneumonia and hx of COPD -Continue ventilator therapy -increase peep to 13 Severe metabolic/respiratory acidosis -repeat ABG pending post vent changes -Give 2 amps of HC03 pancytopenia/Thrombocytopenia with hx of CLL -hematology following Acute worsening renal failure with oliguria -Will give 2 liters of LR bolus Severe right hip pain/osteoarthritis Hx of illicit drug use - current UDS is + for marijuana Hx of alcohol use Chronic hepatitis C Pt has very poor prognosis. Currently he is a full code. Family is on their way in and I will discuss with them patients current condition and prognosis. 255.120 min spent with patient and medical staff including RN, surpervising RN, Dr. Lopez, Dr. Alex and pharmacy regarding patients current condition and prognosis. Family has decided to make patient a DNR they will let us know when they are ready for comfort care only. Clinical Quality Measures DVT/VTE Risk/Contraindication: Risk Factor Score Per Nursin RFS Level Per Nursing on Admit: 4+=Very High LOLA CLAIRE DO Jun 01, 2017 06:48
[2017-06-01] MEDS ORDERED: SODIUM BICARB 8.4% 50 MEQ/50 ML (ABBOTT) SYR ONE (06:49)
[2017-06-01] MEDS ORDERED: LACTATED RINGERS 1,000 ML IV ONE (06:49)
[2017-06-01 07:12] LABS: ABG BASE EXCESS -10.1 MMOL/L (-2.5-2.5); ABG HCO3 18 MMOL/L (23-27); ABG OXYGEN SATURATION 99 % (94-100); ABG PO2 243 MMHG (79-93); ABG TCO2 20.2 MMOL/L (21.0-31.0)
[2017-06-01 07:15] LABS: ABG PH 7.05 (7.37-7.43)
--- NOTE | 2017-06-01 07:15 | Diagnostic Imaging Report ---
INDICATION: Respiratory failure Comparison with 05/31/2017. FINDINGS: ET tube and NG tube are present in good position. Lungs show some improvement in aeration. Bilateral diffuse alveolar infiltrates remain present though are slightly less dense today. No pleural effusion. No cardiomegaly. No evidence of pneumothorax. IMPRESSION: 1. There are 5 lobe alveolar infiltrates showing slight improvement in overall aeration and slight decrease in infiltrate density since previous exam. 2. ET tube and NG tube appear in good position. Dictated by: Dictated on workstation # [id number]
[2017-06-01 07:16] LABS: ABG PCO2 73 MMHG (35-45); ALLENS TEST YES-POS; PATIENT TEMP 103.6
[2017-06-01] MEDS: PHENYLEPHRINE IV SCH ×4 (08:05→18:03)
[2017-06-01] MEDS: D5W IV SCH ×4 (08:05→18:03)
[2017-06-01] MEDS: SODIUM BICARBONATE 8.4% VIAL 100 MEQ in 1/2 NS IV SOLUTION 1,000 ML IV SCH ×2 (08:30→15:52)
--- NOTE | 2017-06-01 08:49 | Progress Note (SOAP) ---
Subjective Date Seen by Provider: Jun 01, 2017 Time Seen by Provider: 08:15 Subjective/Events-last exam Patient is now intubated in ICU and is receiving 3 pressors in addition to antibiotics. Family is at bedside and have requested that status be changed to DNR after hearing about poor prognosis from myself and Dr. Weller. Objective Exam Vital Signs Date Time Temp Pulse Resp B/P (MAP) Pulse Ox O2 Delivery O2 Flow Rate FiO2 06/01/17 08:00 Mechanical Ventilator 85.00 06/01/17 07:30 102.2 06/01/17 07:00 146 06/01/17 06:45 146 107/81 100 Mechanical Ventilator 100.00 112/64 06/01/17 06:44 103.9 06/01/17 06:30 146 81/47 87 Mechanical Ventilator 100.00 94/52 06/01/17 06:20 100 06/01/17 06:15 154 27 161/80 100 Mechanical Ventilator 100.00 158/76 06/01/17 06:08 147 34 94 80 06/01/17 06:00 147 13 104/56 81 Mechanical Ventilator 85.00 104/59 06/01/17 05:56 103.1 06/01/17 05:45 149 95/46 92 Mechanical Ventilator 85.00 95/55 06/01/17 05:30 102.8 149 8 122/86 90 Mechanical Ventilator 85.00 122/72 06/01/17 05:28 149 34 92 85 06/01/17 05:22 149 11 95 Mechanical Ventilator 85.00 113/66 06/01/17 05:15 149 7 112/54 87 Mechanical Ventilator 75.00 96/60 06/01/17 05:00 149 12 114/50 97 Mechanical Ventilator 75.00 103/62 06/01/17 04:45 146 88/51 90 Mechanical Ventilator 75.00 70/41 06/01/17 04:30 147 8 110/94 90 Mechanical Ventilator 75.00 75/50 06/01/17 04:18 147 32 94 80 06/01/17 04:15 149 15 119/62 92 Mechanical Ventilator 75.00 83/49 06/01/17 04:00 98.0 151 11 114/63 99 Mechanical Ventilator 75.00 88/54 06/01/17 03:45 154 11 104/87 100 Mechanical Ventilator 75.00 91/58 06/01/17 03:30 154 14 122/82 100 Mechanical Ventilator 75.00 98/61 06/01/17 03:15 152 123/66 100 Mechanical Ventilator 75.00 110/67 06/01/17 03:10 151 32 100 80 06/01/17 03:00 151 6 132/87 100 Mechanical Ventilator 75.00 116/70 06/01/17 02:45 149 19 128/91 100 Mechanical Ventilator 75.00 114/72 06/01/17 02:30 149 18 126/73 100 Mechanical Ventilator 75.00 105/67 06/01/17 02:15 152 18 120/74 99 Mechanical Ventilator 75.00 119/73 06/01/17 02:00 152 19 96/81 100 Mechanical Ventilator 75.00 90/56 06/01/17 01:47 152 21 119/60 100 Mechanical Ventilator 75.00 99/61 06/01/17 01:43 151 46 100 80 06/01/17 01:30 152 20 119/60 100 Mechanical Ventilator 80.00 97/60 06/01/17 01:15 152 21 132/75 100 Mechanical Ventilator 80.00 99/61 06/01/17 01:15 152 39 100 80 06/01/17 01:00 152 22 145/71 98 Mechanical Ventilator 80.00 120/69 06/01/17 01:00 152 06/01/17 00:45 152 21 104/89 98 Mechanical Ventilator 80.00 92/58 06/01/17 00:30 151 24 120/72 99 Mechanical Ventilator 80.00 93/59 06/01/17 00:15 152 22 104/56 98 Mechanical Ventilator 80.00 92/57 06/01/17 00:00 98.0 149 24 114/74 97 Mechanical Ventilator 80.00 91/57 05/31/17 23:45 147 26 114/77 95 Mechanical Ventilator 80.00 86/54 05/31/17 23:34 147 36 94 100 05/31/17 23:30 147 26 100/45 93 Mechanical Ventilator 80.00 72/44 05/31/17 23:15 146 27 65/51 95 Mechanical Ventilator 80.00 72/44 05/31/17 23:00 144 24 102/67 94 Mechanical Ventilator 80.00 74/45 05/31/17 22:45 144 31 96/80 89 Mechanical Ventilator 80.00 78/46 05/31/17 22:30 141 27 107/76 99 Mechanical Ventilator 80.00 85/48 05/31/17 22:18 137 26 100 100 05/31/17 22:15 137 26 91/64 92 Mechanical Ventilator 100.00 89/50 05/31/17 22:00 133 26 92/65 93 NIV Bilevel 65.00 05/31/17 21:45 135 25 88/65 96 NIV Bilevel 65.00 05/31/17 21:30 138 21 94/60 96 NIV Bilevel 65.00 05/31/17 21:24 138 27 92 65.00 05/31/17 21:15 140 25 75/56 95 NIV Bilevel 65.00 05/31/17 21:00 140 32 52/43 96 NIV Bilevel 65.00 05/31/17 20:45 141 28 62/34 96 NIV Bilevel 65.00 05/31/17 20:30 142 25 78/59 96 NIV Bilevel 65.00 05/31/17 20:15 146 28 84/63 96 NIV Bilevel 60.00 05/31/17 20:11 144 25 92 50.00 05/31/17 20:00 96.8 147 23 67/54 90 NIV Bilevel 50.00 05/31/17 19:45 149 25 81/58 93 NIV Bilevel 50.00 05/31/17 19:30 149 26 89/58 94 NIV Bilevel 50.00 05/31/17 19:15 147 24 96/58 94 NIV Bilevel 50.00 05/31/17 19:00 147 05/31/17 19:00 147 25 79/58 100 NIV Bilevel 50.00 05/31/17 18:28 149 29 97 50.00 05/31/17 18:25 149 28 100 50.00 05/31/17 18:09 149 26 100 100.00 05/31/17 18:05 NIV Bilevel 50.00 05/31/17 18:00 149 26 94/61 94 NIV Bilevel 30.00 05/31/17 17:04 147 32 96 45.00 05/31/17 17:00 147 26 96/68 95 NIV Bilevel 30.00 05/31/17 16:15 98.5 NIV Bilevel 45.00 05/31/17 16:05 93 NIV Bilevel 45.00 05/31/17 16:00 144 24 109/58 93 NIV Bilevel 30.00 05/31/17 15:11 140 23 96 35.00 05/31/17 15:00 137 24 90/71 94 NIV Bilevel 30.00 05/31/17 14:00 137 21 102/75 95 NIV Bilevel 30.00 05/31/17 13:47 134 22 97 35.00 05/31/17 13:45 NIV Bilevel 30 05/31/17 13:35 98.3 134 24 106/70 96 NIV Bilevel 30.00 05/31/17 13:25 132 18 95 NIV Bilevel 05/31/17 12:47 132 31 94 40.00 05/31/17 12:01 92 OxyMask 4.00 05/31/17 09:37 124 20 125/95 95 Nasal Cannula 3.00 05/31/17 09:34 90 Nasal Cannula 5.00 I & O 06/01/17 07:00 Intake Total 4100 ml Output Total 1275 ml Balance 2825 ml Capillary Refill : Less Than 3 Seconds General Appearance: Chronically ill, Other (Intubated and sedated;) Respiratory: Crackles, Respiratory Distress Cardiovascular: Tachycardia Gastrointestinal: normal bowel sounds, non tender, soft Results Lab Laboratory Tests 05/31/17 08:45: Magnesium Level 1.5L, Serum Alcohol < 10 05/31/17 09:17: Lactic Acid Level 4.06*H, Ammonia 32, C-Reactive Protein High Sensitivity 29.90H 05/31/17 09:41: 05/31/17 09:51: Urine Color YELLOW, Urine Clarity SLIGHTLY CLOUDY, Urine pH 7, Urine Specific Story 1.005L, Urine Protein 3+H, Urine Glucose (UA) NEGATIVE, Urine Ketones NEGATIVE, Urine Nitrite NEGATIVE, Urine Bilirubin 1+H, Urine Urobilinogen 4H, Urine Leukocyte Esterase 1+H, Urine RBC (Auto) 3+H, Urine RBC RARE, Urine WBC NONE, Urine Squamous Epithelial Cells NONE, Urine Crystals NONE, Urine Amorphous Sediment LARGE ANGE URATESH, Urine Bacteria NEGATIVE, Urine Casts NONE , Urine Mucus NEGATIVE, Urine Culture Indicated NO, Urine Opiates Screen POSITIVEH, Urine Oxycodone Screen POSITIVEH, Urine Methadone Screen NEGATIVE, Urine Propoxyphene Screen NEGATIVE, Urine Barbiturates Screen NEGATIVE, Ur Tricyclic Antidepressants Screen POSITIVEH, Urine Phencyclidine Screen NEGATIVE , Urine Amphetamines Screen NEGATIVE, Urine Methamphetamines Screen NEGATIVE, Urine Benzodiazepines Screen POSITIVEH, Urine Cocaine Screen NEGATIVE, Urine Cannabinoids Screen POSITIVEH 05/31/17 11:16: Lactic Acid Level 3.92*H 05/31/17 13:15: Blood Gas Puncture Site LT RAD, Blood Gas Patient Temperature 97.9, Arterial Blood pH 7.32*L, Arterial Blood Partial Pressure CO2 36, Arterial Blood Partial Pressure O2 67L, Arterial Blood HCO3 18L, Arterial Blood Total CO2 19.1L, Arterial Blood Oxygen Saturation 91L, Arterial Blood Base Excess -7.1L, Prince Test YES-POS, Blood Gas Ventilator Setting NO, Blood Gas Inspired Oxygen 35% BIPAP 05/31/17 14:28: White Blood Count 2.4L, Red Blood Count 3.15L, Hemoglobin 8.5L, Hematocrit 26L, Mean Corpuscular Volume 82, Mean Corpuscular Hemoglobin 27, Mean Corpuscular Hemoglobin Concent 33, Red Cell Distribution Width 15.5H, Platelet Count 23*L, Mean Platelet Volume , Neutrophils (%) (Auto) 46, Lymphocytes (%) (Auto) 47H, Monocytes (%) (Auto) 6, Eosinophils (%) (Auto) 2, Basophils (%) (Auto) 0, Neutrophils # (Auto) 1.1L, Lymphocytes # (Auto) 1.2, Monocytes # (Auto) 0.1, Eosinophils # (Auto) 0.0, Basophils # (Auto) 0.0 05/31/17 15:51: Lactic Acid Level 4.02*H 05/31/17 18:07: Glucometer 95 05/31/17 20:25: Sodium Level 136, Potassium Level 3.5L, Chloride Level 103, Carbon Dioxide Level 14L, Anion Gap 19H, Blood Urea Nitrogen 69H, Creatinine 2.94#H, Estimat Glomerular Filtration Rate 22, BUN/Creatinine Ratio 23, Glucose Level 94, Lactic Acid Level 5.00*H, Calcium Level 7.1L, Magnesium Level 2.1 05/31/17 20:55: Blood Gas Puncture Site LT RADIAL, Blood Gas Patient Temperature 96.8, Arterial Blood pH 7.26*L, Arterial Blood Partial Pressure CO2 37, Arterial Blood Partial Pressure O2 79, Arterial Blood HCO3 16*L, Arterial Blood Total CO2 17.5L, Arterial Blood Oxygen Saturation 95, Arterial Blood Base Excess -9.6L, Prince Test YES-POS, Blood Gas Ventilator Setting NO, Blood Gas Inspired Oxygen 65% 05/31/17 22:50: Blood Gas Puncture Site LEFT RADIAL, Blood Gas Patient Temperature 98.6, Arterial Blood pH 7.15*L, Arterial Blood Partial Pressure CO2 50H, Arterial Blood Partial Pressure O2 69L, Arterial Blood HCO3 17*L, Arterial Blood Total CO2 18.2L, Arterial Blood Oxygen Saturation 87L, Arterial Blood Base Excess - 10.6L, Prince Test YES-POS, Blood Gas Ventilator Setting YES, Blood Gas Inspired Oxygen 80% 06/01/17 00:35: Blood Gas Puncture Site LEFT RADIAL, Blood Gas Patient Temperature 98.0, Arterial Blood pH 7.12*L, Arterial Blood Partial Pressure CO2 56H, Arterial Blood Partial Pressure O2 80, Arterial Blood HCO3 18L, Arterial Blood Total CO2 19.5L, Arterial Blood Oxygen Saturation 93L, Arterial Blood Base Excess -10.0L, Prince Test YES-POS, Blood Gas Ventilator Setting YES, Blood Gas Inspired Oxygen 80%, Lactic Acid Level 3.34*H 06/01/17 00:39: Glucometer 164H 06/01/17 03:50: Blood Gas Puncture Site LT RADIAL, Blood Gas Patient Temperature 98.0, Arterial Blood pH 7.14*L, Arterial Blood Partial Pressure CO2 54H, Arterial Blood Partial Pressure O2 133H, Arterial Blood HCO3 18L, Arterial Blood Total CO2 19.4L, Arterial Blood Oxygen Saturation 98, Arterial Blood Base Excess -9.8L, Prince Test YES-POS, Blood Gas Ventilator Setting YES, Blood Gas Inspired Oxygen 75%, Lactic Acid Level 2.83*H, White Blood Count 3.9L, Red Blood Count 3.17L, Hemoglobin 8.6L, Hematocrit 26L, Mean Corpuscular Volume 82, Mean Corpuscular Hemoglobin 27, Mean Corpuscular Hemoglobin Concent 33, Red Cell Distribution Width 16.2H, Platelet Count 22*L, Mean Platelet Volume , Neutrophils (%) (Auto) 49, Lymphocytes (%) (Auto) 37, Monocytes (%) (Auto) 9, Eosinophils (%) (Auto) 6 , Basophils (%) (Auto) 0, Neutrophils # (Auto) 1.9, Lymphocytes # (Auto) 1.4, Monocytes # (Auto) 0.3, Eosinophils # (Auto) 0.2, Basophils # (Auto) 0.0, Prothrombin Time 16.5H, INR Comment 1.4, Activated Partial Thromboplast Time 31 , Sodium Level 131L, Potassium Level 4.9, Chloride Level 100, Carbon Dioxide Level 14L, Anion Gap 17H, Blood Urea Nitrogen 73H, Creatinine 3.16H, Estimat Glomerular Filtration Rate 21, BUN/Creatinine Ratio 23, Glucose Level 192H, Calcium Level 7.1L, Phosphorus Level 5.8H, Magnesium Level 2.0 06/01/17 05:50: Blood Gas Puncture Site LEFT RADIAL, Blood Gas Patient Temperature 102.4, Arterial Blood pH 7.10*L, Arterial Blood Partial Pressure CO2 60H, Arterial Blood Partial Pressure O2 172H, Arterial Blood HCO3 17*L, Arterial Blood Total CO2 19.0L, Arterial Blood Oxygen Saturation 99, Arterial Blood Base Excess - 10.2L, Prince Test YES-POS, Blood Gas Ventilator Setting YES, Blood Gas Inspired Oxygen 85% 06/01/17 06:59: Blood Gas Puncture Site LEFT RADIAL, Blood Gas Patient Temperature 103.6, Arterial Blood pH 7.05*L, Arterial Blood Partial Pressure CO2 73*H, Arterial Blood Partial Pressure O2 243H, Arterial Blood HCO3 18L, Arterial Blood Total CO2 20.2L, Arterial Blood Oxygen Saturation 99, Arterial Blood Base Excess - 10.1L, Prince Test YES-POS, Blood Gas Ventilator Setting YES, Blood Gas Inspired Oxygen 100% Microbiology 05/31/17 Blood Culture - Preliminary, Resulted Staphylococcus Aureus Assessment/Plan Assessment/Plan Assess & Plan/Chief Complaint 1. Staph aureus Severe sepsis-tachycardia, tachypnea, possible evidence of cellulitis and pneumonia associated with elevated lactic acid. a. Currently on IV antibiotics, vancomycin, levofloxacin and Zosyn b. Condition has worsened, developed septic shock, respiratory failure and is now intubated. c. Blood and sputum growing staph aureus; he is receiving vancomycin and Zosyn. Levofloxacin has been discontinued. 2. Status Post Respiratory Arrest/Right lower lobe pneumonia--receiving IV antibiotics as noted above a. Was On Bi-Pap when seen in ED department; b. Currently intubated in ICU 3. Pancytopenia--most likely related to severe sepsis; cannot exclude drug and or CLL as contributing etiologies. no evidence of acute bleed; will avoid use of anticoagulants; 4. Cellulitis left lower extremity-receiving IV antibiotics; follow-up sensitivities of staph aureus 5. Acute renal failure a. monitor and adjust drug dosages b. Hypokalemia-careful replacement given elevated Cr; 6. Severe right hip pain in setting of Severe osteoarthritis 7. History of chronic lymphocytic leukemia/small lymphocytic lymphoma diagnosed 2005 treated with multiple regimens in the past. Most recent chemotherapy has been Ibrutinib (Imbruvica) 2 tabs daily; 8. History of polypharmacy abuse-status post illicit drug use associated with severe sepsis January 2017 9. Chronic hepatitis C 10. Patient is DNR. Prognosis is very poor. Family is aware. 11. Multiple comorbidities including COPD, chronic tobaccoism, GERD, history of depression, history of excessive alcohol intake, and history of multiple prior head trauma. Clinical Quality Measures DVT/VTE Risk/Contraindication: Risk Factor Score Per Nursin RFS Level Per Nursing on Admit: 4+=Very High MASOOD MEYER MD Jun 01, 2017 08:49
[2017-06-01] MEDS: VASOPRESSIN INJECTION 20 UNIT in NS (IVPB) 50 ML IV SCH ×2 (08:55→17:06)
--- NOTE | 2017-06-01 08:58 | Diagnostic Imaging Report ---
INDICATION: Respiratory failure. EXAMINATION: Portable chest at 10:17 PM. FINDINGS: There is an ET tube projecting over the trachea. The left subclavian central line tip projects over the SVC. There are bilateral perihilar alveolar infiltrates which have increased slightly from earlier in the day. IMPRESSION: The bilateral alveolar perihilar infiltrates have shown a slight interval worsening since earlier in the day. Dictated by: Dictated on workstation # [id number]
[2017-06-01] MEDS ORDERED: RT-IPRATROPIUM (ATROVENT) 0.5MG/2.5ML AMP IH SCH (09:00)
--- NOTE | 2017-06-01 09:56 | Consultation-Cardiology ---
HPI-Cardiology Cardiology Consultation Date of Consultation 06/01/17 Date of Admission Time Seen by Provider: 08:30 Indication: tachycardia HPI 56 years old gentleman with history of CLL, on chemotherapy, was not feeling well for about a week, came into the emergency room and was noted to be in severe sepsis with septic shock, had pneumonia, patient was tachycardic and appeared to be narrow complex with sinus tachycardia, was borderline hypotensive , given IV fluid, condition continued to deteriorate until he was intubated. He is in multi-organ failure at this point. On multiple pressors, still tachycardic with a heart rate 130-150, narrow complex, he is sedated and paralyzed. Unable to provide any history, history was obtained by reviewing his records and discussing it with staff and family Home Medications & Allergies Allergies: Coded Allergies: alprazolam (Unverified Adverse Reaction, Unknown, EZRA KEANE , 11/06/14) Home Medication List Reviewed: Yes [id number] Hx Patient Social History Marital Status: Employed/Student: retired Alcohol Use: Past History Recreational Drug Use: No Drug of Choice: THC Smoking Status: Current Someday Smoker Type Used: Cigarettes Recent Foreign Travel: No Recent Infectious Disease Expo: No Recent Hopitalizations: No Physical Abuse Screen: No Sexual Abuse: No Immunizations Up To Date Tetanus Booster (TDap): Unknown Date of Pneumonia Vaccine: Sep 30, 2014 Date of Influenza Vaccine: Sep 30, 2016 Past Medical History past medical history as discussed below Family Medical History Significant Family History: Cancer, CAD Over 55 Years Old Family History: 19 FATHER, Myocardial infarction, Onset:60 years & older 19 MOTHER, Hypertension, Onset:Unknown Myocardial infarction, Onset:Unknown G8 BROTHER, Colon cancer, Onset:Unknown G8 BROTHER, Myocardial infarction, Onset:Unknown G8 BROTHER, Myocardial infarction, Onset:Unknown G8 BROTHER Alcoholism FHx: heart disease, Onset:Unknown G8 BROTHER FHx: heart disease, Onset:Unknown Relation not specified for: Neoplasm Constitutional: other ( Patient is sedated and paralyzed, unable to provide history, he was complaining of fatigue and lethargy in addition to severe joint pain) Reviewed Test Results Reviewed Test Results Lab Laboratory Tests Test 05/31/17 09:51 05/31/17 11:16 05/31/17 13:15 05/31/17 14:28 Range/Units Urine Color YELLOW Urine Clarity SLIGHTLY CLOUDY Urine pH 7 5-9 Urine Specific [place] 1.005 L 1.016-1.022 Urine Protein 3+ H NEGATIVE Urine Glucose (UA) NEGATIVE NEGATIVE Urine Ketones NEGATIVE NEGATIVE Urine Nitrite NEGATIVE NEGATIVE Urine Bilirubin 1+ H NEGATIVE Urine Urobilinogen 4 H NORMAL MG/DL Urine Leukocyte Esterase 1+ H NEGATIVE Urine RBC (Auto) 3+ H NEGATIVE Urine RBC RARE /HPF Urine WBC NONE /HPF Urine Squamous Epithelial Cells NONE /HPF Urine Crystals NONE /LPF Urine Amorphous Sediment LARGE ANGE URATES H /LPF Urine Bacteria NEGATIVE /HPF Urine Casts NONE /LPF Urine Mucus NEGATIVE /LPF Urine Culture Indicated NO Urine Opiates Screen POSITIVE H NEGATIVE Urine Oxycodone Screen POSITIVE H NEGATIVE Urine Methadone Screen NEGATIVE NEGATIVE Urine Propoxyphene Screen NEGATIVE NEGATIVE Urine Barbiturates Screen NEGATIVE NEGATIVE Ur Tricyclic Antidepressants Screen POSITIVE H NEGATIVE Urine Phencyclidine Screen NEGATIVE NEGATIVE Urine Amphetamines Screen NEGATIVE NEGATIVE Urine Methamphetamines Screen NEGATIVE NEGATIVE Urine Benzodiazepines Screen POSITIVE H NEGATIVE Urine Cocaine Screen NEGATIVE NEGATIVE Urine Cannabinoids Screen POSITIVE H NEGATIVE Lactic Acid Level 3.92 *H 0.50-2.00 MMOL/L Blood Gas Puncture Site LT RAD Blood Gas Patient Temperature 97.9 Arterial Blood pH 7.32 *L 7.37-7.43 Arterial Blood Partial Pressure CO2 36 35-45 MMHG Arterial Blood Partial Pressure O2 67 L 79-93 MMHG Arterial Blood HCO3 18 L 23-27 MMOL/L Arterial Blood Total CO2 19.1 L 21.0-31.0 MMOL/L Arterial Blood Oxygen Saturation 91 L 94-100 % Arterial Blood Base Excess -7.1 L -2.5-2.5 MMOL/L Prince Test YES-POS Blood Gas Ventilator Setting NO Blood Gas Inspired Oxygen 35%BIPAP White Blood Count 2.4 L 4.3-11.0 10^3/uL Red Blood Count 3.15 L 4.35-5.85 10^6/uL Hemoglobin 8.5 L 13.3-17.7 G/DL Hematocrit 26 L 40-54 % Mean Corpuscular Volume 82 80-99 FL Mean Corpuscular Hemoglobin 27 25-34 PG Mean Corpuscular Hemoglobin Concent 33 32-36 G/DL Red Cell Distribution Width 15.5 H 10.0-14.5 % Platelet Count 23 *L 130-400 10^3/uL Mean Platelet Volume 7.4-10.4 FL Neutrophils (%) (Auto) 46 42-75 % Lymphocytes (%) (Auto) 47 H 12-44 % Monocytes (%) (Auto) 6 0-12 % Eosinophils (%) (Auto) 2 0-10 % Basophils (%) (Auto) 0 0-10 % Neutrophils # (Auto) 1.1 L 1.8-7.8 X 10^3 Lymphocytes # (Auto) 1.2 1.0-4.0 X 10^3 Monocytes # (Auto) 0.1 0.0-1.0 X 10^3 Eosinophils # (Auto) 0.0 0.0-0.3 10^3/uL Basophils # (Auto) 0.0 0.0-0.1 10^3/uL Test 05/31/17 15:51 05/31/17 18:07 05/31/17 20:25 05/31/17 20:55 Range/Units Lactic Acid Level 4.02 *H 5.00 *H 0.50-2.00 MMOL/L Glucometer 95 70-110 MG/DL Sodium Level 136 135-145 MMOL/L Potassium Level 3.5 L 3.6-5.0 MMOL/L Chloride Level 103 98-107 MMOL/L Carbon Dioxide Level 14 L 21-32 MMOL/L Anion Gap 19 H 5-14 MMOL/L Blood Urea Nitrogen 69 H 7-18 MG/DL Creatinine 2.94 #H 0.60-1.30 MG/DL Estimat Glomerular Filtration Rate 22 BUN/Creatinine Ratio 23 Glucose Level 94 70-105 MG/DL Calcium Level 7.1 L 8.5-10.1 MG/DL Magnesium Level 2.1 1.8-2.4 MG/DL Blood Gas Puncture Site LT RADIAL Blood Gas Patient Temperature 96.8 Arterial Blood pH 7.26 *L 7.37-7.43 Arterial Blood Partial Pressure CO2 37 35-45 MMHG Arterial Blood Partial Pressure O2 79 79-93 MMHG Arterial Blood HCO3 16 *L 23-27 MMOL/L Arterial Blood Total CO2 17.5 L 21.0-31.0 MMOL/L Arterial Blood Oxygen Saturation 95 94-100 % Arterial Blood Base Excess -9.6 L -2.5-2.5 MMOL/L Prince Test YES-POS Blood Gas Ventilator Setting NO Blood Gas Inspired Oxygen 65% Test 05/31/17 22:50 06/01/17 00:35 06/01/17 00:39 06/01/17 03:50 Range/Units Blood Gas Puncture Site LEFT RADIAL LEFT RADIAL LT RADIAL Blood Gas Patient Temperature 98.6 98.0 98.0 Arterial Blood pH 7.15 *L 7.12 *L 7.14 *L 7.37-7.43 Arterial Blood Partial Pressure CO2 50 H 56 H 54 H 35-45 MMHG Arterial Blood Partial Pressure O2 69 L 80 133 H 79-93 MMHG Arterial Blood HCO3 17 *L 18 L 18 L 23-27 MMOL/L Arterial Blood Total CO2 18.2 L 19.5 L 19.4 L 21.0-31.0 MMOL/L Arterial Blood Oxygen Saturation 87 L 93 L 98 94-100 % Arterial Blood Base Excess -10.6 L -10.0 L -9.8 L -2.5-2.5 MMOL/L Prince Test YES-POS YES-POS YES-POS Blood Gas Ventilator Setting YES YES YES Blood Gas Inspired Oxygen 80% 80% 75% Lactic Acid Level 3.34 *H 2.83 *H 0.50-2.00 MMOL/L Glucometer 164 H 70-110 MG/DL White Blood Count 3.9 L 4.3-11.0 10^3/uL Red Blood Count 3.17 L 4.35-5.85 10^6/uL Hemoglobin 8.6 L 13.3-17.7 G/DL Hematocrit 26 L 40-54 % Mean Corpuscular Volume 82 80-99 FL Mean Corpuscular Hemoglobin 27 25-34 PG Mean Corpuscular Hemoglobin Concent 33 32-36 G/DL Red Cell Distribution Width 16.2 H 10.0-14.5 % Platelet Count 22 *L 130-400 10^3/uL Mean Platelet Volume 7.4-10.4 FL Neutrophils (%) (Auto) 49 42-75 % Lymphocytes (%) (Auto) 37 12-44 % Monocytes (%) (Auto) 9 0-12 % Eosinophils (%) (Auto) 6 0-10 % Basophils (%) (Auto) 0 0-10 % Neutrophils # (Auto) 1.9 1.8-7.8 X 10^3 Lymphocytes # (Auto) 1.4 1.0-4.0 X 10^3 Monocytes # (Auto) 0.3 0.0-1.0 X 10^3 Eosinophils # (Auto) 0.2 0.0-0.3 10^3/uL Basophils # (Auto) 0.0 0.0-0.1 10^3/uL Prothrombin Time 16.5 H 12.2-14.7 SEC INR Comment 1.4 0.8-1.4 Activated Partial Thromboplast Time 31 24-35 SEC Sodium Level 131 L 135-145 MMOL/L Potassium Level 4.9 3.6-5.0 MMOL/L Chloride Level 100 98-107 MMOL/L Carbon Dioxide Level 14 L 21-32 MMOL/L Anion Gap 17 H 5-14 MMOL/L Blood Urea Nitrogen 73 H 7-18 MG/DL Creatinine 3.16 H 0.60-1.30 MG/DL Estimat Glomerular Filtration Rate 21 BUN/Creatinine Ratio 23 Glucose Level 192 H 70-105 MG/DL Calcium Level 7.1 L 8.5-10.1 MG/DL Phosphorus Level 5.8 H 2.3-4.7 MG/DL Magnesium Level 2.0 1.8-2.4 MG/DL Test 06/01/17 05:50 06/01/17 06:59 06/01/17 09:03 Range/Units Blood Gas Puncture Site LEFT RADIAL LEFT RADIAL Blood Gas Patient Temperature 102.4 103.6 Arterial Blood pH 7.10 *L 7.05 *L 7.37-7.43 Arterial Blood Partial Pressure CO2 60 H 73 *H 35-45 MMHG Arterial Blood Partial Pressure O2 172 H 243 H 79-93 MMHG Arterial Blood HCO3 17 *L 18 L 23-27 MMOL/L Arterial Blood Total CO2 19.0 L 20.2 L 21.0-31.0 MMOL/L Arterial Blood Oxygen Saturation 99 99 94-100 % Arterial Blood Base Excess -10.2 L -10.1 L -2.5-2.5 MMOL/L Prince Test YES-POS YES-POS Blood Gas Ventilator Setting YES YES Blood Gas Inspired Oxygen 85% 100% Lactic Acid Level 2.46 *H 0.50-2.00 MMOL/L Radiology CXR 05/31/17: "IMPRESSION: 1. Cardiac enlargement with at least mild severity pulmonary vascular congestion. 2. Scattered patchy areas of infiltrate within both lung allred could be reflective of underlying multifocal pneumonia. However, there is somewhat overall nodular appearance does raise concern for potential pulmonary metastatic disease. Slight mediastinal prominence and hilar prominence may be reflective of underlying lymphadenopathy. Continued followup imaging is recommended." Pelvis xray 05/31/17: "IMPRESSION: 1. Negative for acute fracture. 2. Marked severity osteoarthritis right hip essentially bone on bone present. 3. Very questionable lesion left iliac bone versus overlying contents. Questionable lucencies over the proximal femurs which underlying lytic lesions not excluded. Consideration might be given to nonemergent followup MRI if further assessment desired. Physical Exam Vital Signs Vital Sign - Last 12Hours 05/31/17 05/31/17 05/31/17 05/31/17 01:40 08:16 09:34 13:45 Temp 98.8 Pulse 133 Resp 20 B/P (MAP) 126/68 Pulse Ox 90 O2 Delivery Nasal Cannula O2 Flow Rate 5.00 FiO2 30 Capillary Refill : Less Than 3 Seconds General Appearance: WD/WN, Severe Distress Eyes: Bilateral Eye EOMI, Bilateral Eye Normal Inspection, Bilateral Eye PERRL HEENT: TMs Normal, Pharynx Normal, Pale Conjunctivae (L) Neck: Normal Inspection, Supple Respiratory: Crackles, Decreased Breath Sounds, Rales, Respiratory Distress Cardiovascular: Systolic Murmur, Gallop/S3, Tachycardia Gastrointestinal: Normal Bowel Sounds, No Organomegaly, No Pulsatile Mass Back: Normal Inspection Extremity: Pedal Edema, Slow Capillary Refill Neurologic/Psychiatric: Other (sedated and intubated) Skin: Warm/Dry, Mottled, Petechia, Rash Lymphatic: No Adenopathy A/P-Cardiology Admission Diagnosis Acute respiratory failure Septic shock Acute renal failure Tachycardia Assessment/Plan Acute respiratory failure, pneumonia, multiorgan failure. Receiving antibiotics. Septic shock, hypotensive shock on multiple pressors. Continue with supportive care. Sinus tachycardia, secondary to septic shock and hypotension, receiving IV fluid , cannot tolerate beta blockers and/or calcium Blockers at this point. Staph aureus septicemia, grew in all tubes, high risk for endocarditis, patient is unstable for SVETLANA, we will do a transthoracic echo, patient is receiving dual antibiotics. Possible evidence of cellulitis and pneumonia with elevated lactic acid. Receiving vancomycin and Zosyn. Levaquin was discontinued after the blood cultures results Pancytopenia, probably secondary to sepsis. Acute renal failure, worsening renal function, patient will be unable to tolerate gentamicin at this point. 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
--- NOTE | 2017-06-01 11:05 | Progress Note (SOAP) ---
FRANKLIN BERGER MED STUDENT 06/01/17 11:05am: Subjective Subjective/Events-last exam Patient's severe sepsis conditioned has declined in the past 24 hours and is now in septic shock. Patient was receiving BiPAP until 10 PM and is now intubated (O2 flow rate is 85, FiO2 is 85, pulse ox is 92, arterial blood O2 saturation is 99, breathing rate is 34, tidal volume 520 mL, 10 cm PEEP). Patient has been medically paralyzed. Patient's temperature has fluctuated with one low temperature at 96.8 at 8 PM yesterday and is now febrile with temperatures of 102.8-103.9 since 5:30 this morning. Patient's pulse remains persistently elevated ranging from 132-154 in the past 24 hours. Patient's blood pressure is unstable with pressures ranging from 90/41 to 161/80 in the past two hours. Patient is currently on 3 pressors to maintain his blood pressure and organ perfusion. 03/01 blood cultures positive for MRSA. Patient is in multiorgan failure with damage to his liver (bilirubin elevated) and kidneys (elevated Cr and BUN, decreased GFR) most likely due to decreased organ perfusion. Patient's thrombocytopenia has worsened. Patient's anion gap acidosis has progressively worsened (pH 7.1, pCO2 60, pO2 172, HCO3 17) and is most likely a mixed respiratory and metabolic acidosis. Dr. Weller and Dr. Lopez have discussed the severity of the patient's condition with his family. Patient's family has decided to change his status to DNR. The family has been told about comfort care and is thinking about this option. Review of Systems Date Seen by Provider: Jun 01, 2017 Time Seen by Provider: 08:30 Objective Exam Last Set of Vital Signs Vital Signs Date Time Temp Pulse Resp B/P (MAP) Pulse Ox O2 Delivery O2 Flow Rate FiO2 06/01/17 10:00 128 16 130/74 92 Mechanical Ventilator 60.00 107/62 06/01/17 09:30 98.4 06/01/17 06:20 100 Capillary Refill : Less Than 3 Seconds I&O Bad tableGeneral: Other (intubated, medically paralyzed) Extremities: Other (cold distal extremities) Skin: Other (mottled areas bilaterally on his lower legs) Results/Procedures Lab Laboratory Tests Test 05/31/17 08:40 05/31/17 08:45 05/31/17 09:17 7/4/17 09:41 Range/Units White Blood Count 5.0 4.3-11.0 10^3/uL Red Blood Count 3.39 L 4.35-5.85 10^6/uL Hemoglobin 9.1 L 13.3-17.7 G/DL Hematocrit 27 L 40-54 % Mean Corpuscular Volume 81 80-99 FL Mean Corpuscular Hemoglobin 27 25-34 PG Mean Corpuscular Hemoglobin Concent 33 32-36 G/DL Red Cell Distribution Width 15.4 H 10.0-14.5 % Platelet Count 30 *L 130-400 10^3/uL Mean Platelet Volume 7.4-10.4 FL Neutrophils (%) (Auto) 48 42-75 % Lymphocytes (%) (Auto) 48 H 12-44 % Monocytes (%) (Auto) 3 0-12 % Eosinophils (%) (Auto) 1 0-10 % Basophils (%) (Auto) 0 0-10 % Neutrophils # (Auto) 2.4 1.8-7.8 X 10^3 Lymphocytes # (Auto) 2.4 1.0-4.0 X 10^3 Monocytes # (Auto) 0.2 0.0-1.0 X 10^3 Eosinophils # (Auto) 0.1 0.0-0.3 10^3/uL Basophils # (Auto) 0.0 0.0-0.1 10^3/uL Neutrophils % (Manual) 34 % Lymphocytes % (Manual) 55 % Monocytes % (Manual) 10 % Eosinophils % (Manual) 1 % Basophils % (Manual) 0 % Band Neutrophils 0 % Anisocytosis SLIGHT Absolute Reticulocyte Count 9 L 24-90 10e9/L Percent Reticulocyte Count 0.28 L 0.50-2.40 % Prothrombin Time 15.6 H 12.2-14.7 SEC INR Comment 1.3 0.8-1.4 Activated Partial Thromboplast Time 47 H 24-35 SEC D-Dimer 11.55 H 0.00-0.49 UG/ML Sodium Level 134 L 135-145 MMOL/L Potassium Level 3.2 L 3.6-5.0 MMOL/L Chloride Level 97 L 98-107 MMOL/L Carbon Dioxide Level 19 L 21-32 MMOL/L Anion Gap 18 H 5-14 MMOL/L Blood Urea Nitrogen 64 H 7-18 MG/DL Creatinine 2.49 H 0.60-1.30 MG/DL Estimat Glomerular Filtration Rate 27 BUN/Creatinine Ratio 26 Glucose Level 95 70-105 MG/DL Uric Acid 7.3 H 2.6-7.2 MG/DL Calcium Level 8.0 L 8.5-10.1 MG/DL Total Bilirubin 2.6 H 0.1-1.0 MG/DL Aspartate Amino Transf (AST/SGOT) 22 5-34 U/L Alanine Aminotransferase (ALT/SGPT) 12 0-55 U/L Alkaline Phosphatase 106 40-136 U/L B-Type Natriuretic Peptide 517.5 H <100.0 PG/ML Total Protein 5.4 L 6.4-8.2 GM/DL Albumin 2.5 L 3.2-4.5 GM/DL Magnesium Level 1.5 L 1.8-2.4 MG/DL Serum Alcohol < 10 <10 MG/DL Lactic Acid Level 4.06 *H 0.50-2.00 MMOL/L Ammonia 32 11-32 UMOL/L C-Reactive Protein High Sensitivity 29.90 H 0.00-0.50 MG/DL Test 05/31/17 09:51 05/31/17 11:16 05/31/17 13:15 05/31/17 14:28 Range/Units Urine Color YELLOW Urine Clarity SLIGHTLY CLOUDY Urine pH 7 5-9 Urine Specific Baxter 1.005 L 1.016-1.022 Urine Protein 3+ H NEGATIVE Urine Glucose (UA) NEGATIVE NEGATIVE Urine Ketones NEGATIVE NEGATIVE Urine Nitrite NEGATIVE NEGATIVE Urine Bilirubin 1+ H NEGATIVE Urine Urobilinogen 4 H NORMAL MG/DL Urine Leukocyte Esterase 1+ H NEGATIVE Urine RBC (Auto) 3+ H NEGATIVE Urine RBC RARE /HPF Urine WBC NONE /HPF Urine Squamous Epithelial Cells NONE /HPF Urine Crystals NONE /LPF Urine Amorphous Sediment LARGE ANGE URATES H /LPF Urine Bacteria NEGATIVE /HPF Urine Casts NONE /LPF Urine Mucus NEGATIVE /LPF Urine Culture Indicated NO Urine Opiates Screen POSITIVE H NEGATIVE Urine Oxycodone Screen POSITIVE H NEGATIVE Urine Methadone Screen NEGATIVE NEGATIVE Urine Propoxyphene Screen NEGATIVE NEGATIVE Urine Barbiturates Screen NEGATIVE NEGATIVE Ur Tricyclic Antidepressants Screen POSITIVE H NEGATIVE Urine Phencyclidine Screen NEGATIVE NEGATIVE Urine Amphetamines Screen NEGATIVE NEGATIVE Urine Methamphetamines Screen NEGATIVE NEGATIVE Urine Benzodiazepines Screen POSITIVE H NEGATIVE Urine Cocaine Screen NEGATIVE NEGATIVE Urine Cannabinoids Screen POSITIVE H NEGATIVE Lactic Acid Level 3.92 *H 0.50-2.00 MMOL/L Blood Gas Puncture Site LT RAD Blood Gas Patient Temperature 97.9 Arterial Blood pH 7.32 *L 7.37-7.43 Arterial Blood Partial Pressure CO2 36 35-45 MMHG Arterial Blood Partial Pressure O2 67 L 79-93 MMHG Arterial Blood HCO3 18 L 23-27 MMOL/L Arterial Blood Total CO2 19.1 L 21.0-31.0 MMOL/L Arterial Blood Oxygen Saturation 91 L 94-100 % Arterial Blood Base Excess -7.1 L -2.5-2.5 MMOL/L Prince Test YES-POS Blood Gas Ventilator Setting NO Blood Gas Inspired Oxygen 35%BIPAP White Blood Count 2.4 L 4.3-11.0 10^3/uL Red Blood Count 3.15 L 4.35-5.85 10^6/uL Hemoglobin 8.5 L 13.3-17.7 G/DL Hematocrit 26 L 40-54 % Mean Corpuscular Volume 82 80-99 FL Mean Corpuscular Hemoglobin 27 25-34 PG Mean Corpuscular Hemoglobin Concent 33 32-36 G/DL Red Cell Distribution Width 15.5 H 10.0-14.5 % Platelet Count 23 *L 130-400 10^3/uL Mean Platelet Volume 7.4-10.4 FL Neutrophils (%) (Auto) 46 42-75 % Lymphocytes (%) (Auto) 47 H 12-44 % Monocytes (%) (Auto) 6 0-12 % Eosinophils (%) (Auto) 2 0-10 % Basophils (%) (Auto) 0 0-10 % Neutrophils # (Auto) 1.1 L 1.8-7.8 X 10^3 Lymphocytes # (Auto) 1.2 1.0-4.0 X 10^3 Monocytes # (Auto) 0.1 0.0-1.0 X 10^3 Eosinophils # (Auto) 0.0 0.0-0.3 10^3/uL Basophils # (Auto) 0.0 0.0-0.1 10^3/uL Test 05/31/17 15:51 05/31/17 18:07 05/31/17 20:25 05/31/17 20:55 Range/Units Lactic Acid Level 4.02 *H 5.00 *H 0.50-2.00 MMOL/L Glucometer 95 70-110 MG/DL Sodium Level 136 135-145 MMOL/L Potassium Level 3.5 L 3.6-5.0 MMOL/L Chloride Level 103 98-107 MMOL/L Carbon Dioxide Level 14 L 21-32 MMOL/L Anion Gap 19 H 5-14 MMOL/L Blood Urea Nitrogen 69 H 7-18 MG/DL Creatinine 2.94 #H 0.60-1.30 MG/DL Estimat Glomerular Filtration Rate 22 BUN/Creatinine Ratio 23 Glucose Level 94 70-105 MG/DL Calcium Level 7.1 L 8.5-10.1 MG/DL Magnesium Level 2.1 1.8-2.4 MG/DL Blood Gas Puncture Site LT RADIAL Blood Gas Patient Temperature 96.8 Arterial Blood pH 7.26 *L 7.37-7.43 Arterial Blood Partial Pressure CO2 37 35-45 MMHG Arterial Blood Partial Pressure O2 79 79-93 MMHG Arterial Blood HCO3 16 *L 23-27 MMOL/L Arterial Blood Total CO2 17.5 L 21.0-31.0 MMOL/L Arterial Blood Oxygen Saturation 95 94-100 % Arterial Blood Base Excess -9.6 L -2.5-2.5 MMOL/L Prince Test YES-POS Blood Gas Ventilator Setting NO Blood Gas Inspired Oxygen 65% Test 05/31/17 22:50 06/01/17 00:35 06/01/17 00:39 06/01/17 03:50 Range/Units Blood Gas Puncture Site LEFT RADIAL LEFT RADIAL LT RADIAL Blood Gas Patient Temperature 98.6 98.0 98.0 Arterial Blood pH 7.15 *L 7.12 *L 7.14 *L 7.37-7.43 Arterial Blood Partial Pressure CO2 50 H 56 H 54 H 35-45 MMHG Arterial Blood Partial Pressure O2 69 L 80 133 H 79-93 MMHG Arterial Blood HCO3 17 *L 18 L 18 L 23-27 MMOL/L Arterial Blood Total CO2 18.2 L 19.5 L 19.4 L 21.0-31.0 MMOL/L Arterial Blood Oxygen Saturation 87 L 93 L 98 94-100 % Arterial Blood Base Excess -10.6 L -10.0 L -9.8 L -2.5-2.5 MMOL/L Prince Test YES-POS YES-POS YES-POS Blood Gas Ventilator Setting YES YES YES Blood Gas Inspired Oxygen 80% 80% 75% Lactic Acid Level 3.34 *H 2.83 *H 0.50-2.00 MMOL/L Glucometer 164 H 70-110 MG/DL White Blood Count 3.9 L 4.3-11.0 10^3/uL Red Blood Count 3.17 L 4.35-5.85 10^6/uL Hemoglobin 8.6 L 13.3-17.7 G/DL Hematocrit 26 L 40-54 % Mean Corpuscular Volume 82 80-99 FL Mean Corpuscular Hemoglobin 27 25-34 PG Mean Corpuscular Hemoglobin Concent 33 32-36 G/DL Red Cell Distribution Width 16.2 H 10.0-14.5 % Platelet Count 22 *L 130-400 10^3/uL Mean Platelet Volume 7.4-10.4 FL Neutrophils (%) (Auto) 49 42-75 % Lymphocytes (%) (Auto) 37 12-44 % Monocytes (%) (Auto) 9 0-12 % Eosinophils (%) (Auto) 6 0-10 % Basophils (%) (Auto) 0 0-10 % Neutrophils # (Auto) 1.9 1.8-7.8 X 10^3 Lymphocytes # (Auto) 1.4 1.0-4.0 X 10^3 Monocytes # (Auto) 0.3 0.0-1.0 X 10^3 Eosinophils # (Auto) 0.2 0.0-0.3 10^3/uL Basophils # (Auto) 0.0 0.0-0.1 10^3/uL Prothrombin Time 16.5 H 12.2-14.7 SEC INR Comment 1.4 0.8-1.4 Activated Partial Thromboplast Time 31 24-35 SEC Sodium Level 131 L 135-145 MMOL/L Potassium Level 4.9 3.6-5.0 MMOL/L Chloride Level 100 98-107 MMOL/L Carbon Dioxide Level 14 L 21-32 MMOL/L Anion Gap 17 H 5-14 MMOL/L Blood Urea Nitrogen 73 H 7-18 MG/DL Creatinine 3.16 H 0.60-1.30 MG/DL Estimat Glomerular Filtration Rate 21 BUN/Creatinine Ratio 23 Glucose Level 192 H 70-105 MG/DL Calcium Level 7.1 L 8.5-10.1 MG/DL Phosphorus Level 5.8 H 2.3-4.7 MG/DL Magnesium Level 2.0 1.8-2.4 MG/DL Test 06/01/17 05:50 06/01/17 06:59 06/01/17 09:03 Range/Units Blood Gas Puncture Site LEFT RADIAL LEFT RADIAL Blood Gas Patient Temperature 102.4 103.6 Arterial Blood pH 7.10 *L 7.05 *L 7.37-7.43 Arterial Blood Partial Pressure CO2 60 H 73 *H 35-45 MMHG Arterial Blood Partial Pressure O2 172 H 243 H 79-93 MMHG Arterial Blood HCO3 17 *L 18 L 23-27 MMOL/L Arterial Blood Total CO2 19.0 L 20.2 L 21.0-31.0 MMOL/L Arterial Blood Oxygen Saturation 99 99 94-100 % Arterial Blood Base Excess -10.2 L -10.1 L -2.5-2.5 MMOL/L Prince Test YES-POS YES-POS Blood Gas Ventilator Setting YES YES Blood Gas Inspired Oxygen 85% 100% Lactic Acid Level 2.46 *H 0.50-2.00 MMOL/L Radiology CXR 05/31/17: "IMPRESSION: 1. Cardiac enlargement with at least mild severity pulmonary vascular congestion. 2. Scattered patchy areas of infiltrate within both lung allred could be reflective of underlying multifocal pneumonia. However, there is somewhat overall nodular appearance does raise concern for potential pulmonary metastatic disease. Slight mediastinal prominence and hilar prominence may be reflective of underlying lymphadenopathy. Continued followup imaging is recommended." Pelvis xray 05/31/17: "IMPRESSION: 1. Negative for acute fracture. 2. Marked severity osteoarthritis right hip essentially bone on bone present. 3. Very questionable lesion left iliac bone versus overlying contents. Questionable lucencies over the proximal femurs which underlying lytic lesions not excluded. Consideration might be given to nonemergent followup MRI if further assessment desired. Assessment/Plan Assessment/Plan Admission Dx Plan Plan severe sepsis 05/31 potential source of infection include pneumonia, cellulitis on L lower leg; continue administering fluids (75 mL/kg/hour), monitor for signs of decreasing oxygen saturation (which could be a consequence of worsening pulmonary edema with fluid overload); continue antibiotics, obtain sputum sample if able, monitor vitals 06/01 declining condition with multiorgan failure; continue IV vancomycin and pip/ tazo but dc levofloxacin, blood cultures showed 4/4 positive for MRSA, continue IV fluids and monitor urine output; continue vasopressors for blood pressure control; monitor ventilator settings; lactic acid level elevated; wait for family to give decision about comfort care tachycardia 06/01 obtain TTE, cardiology consulted acute kidney injury 05/31 continue fluids and ABX; monitor Cr, BUN, GFR 06/01 most likely due to hypoperfusion, patient has decreased urine output; continue IV fluids and ABX anion gap acidosis 05/31 continue ABX to treat underlying septic infection 06/01 worsening acidosis most likely due to development of respiratory acidosis; patient received HCO3; if pH falls below 7.1 administer additional HCO3 thrombocytopenia 05/31 could be a consequence of DIC or leukemia; consult with Dr. Lopez; monitor, do not replace 06/01 at risk for GI bleeding due to low platelets and critical condition; start PPI for stress ulcer prophylaxis hypokalemia 05/31 replace K+ IV 06/01 resolved anemia 05/31 chronic, monitor 06/01 Hg remains low; likely due to hematologic malignancy or anemia of chronic disease Diagnosis/Problems: Clinical Quality Measures DVT/VTE Risk/Contraindication: Risk Factor Score Per Nursin RFS Level Per Nursing on Admit: 4+=Very High REY WINKLER MD 06/01/17 2:49pm: Objective Exam General: Other (intubated, medically paralyzed) Skin: Other (mottled areas bilaterally on his lower legs) Assessment/Plan Assessment/Plan Plan Patient with continued decline in condition, appreciate Critical Care management - prognosis is poor at this time given acute respiratory hypercapneic hypoxic respiratory failure requiring intubation and also requiring paralytics along with sedation due to intolerance of intubation with worsening tachycardia and difficulty ventilating. New onset of fever this am in spite of broad spectrum antibiotics started yesterday. Blood culture with staph aureus, sensitivity pending. Continue vanc/zosyn, pressure support with drips as required in addition to steroids. Acidosis worsening, acute renal insufficiency worsening- increasing aggressiveness of fluid replacement now that intubated. Continue sinus tachycardia concerning for risk of conversion to unstable rhythm, Cardiology consulted, echo pending. Diagnosis/Problems: Supervisory-Addendum Brief Supervisory Addendum Patient seen and examined with MSJcarlos Berger, agree with documentation unless otherwise noted in my additional sections. FRANKLIN BERGER MED STUDENT Jun 01, 2017 11:05 am REY WINKLER MD Jun 01, 2017 2:49 pm
[2017-06-01] MEDS ORDERED: METO50TA2 PO (11:09)
[2017-06-01] MEDS ORDERED: HYDR-3820 PO (11:09)
[2017-06-01] MEDS ORDERED: FLUT16SP22 NSEACH (11:09)
[2017-06-01] MEDS ORDERED: CETI10TA17 PO (11:09)
[2017-06-01] MEDS ORDERED: ESCI20TA45 PO (11:09)
[2017-06-01] MEDS ORDERED: TR1C15 TP (11:09)
[2017-06-01] MEDS ORDERED: PANTOPRAZOLE 40 MG/10 ML (PROTONIX) VIAL IV SCH (11:45)
[2017-06-01] MEDS ORDERED: VANCOMYCIN 1250 MG/NS 250 ML IVPB IV SCH ×2 (12:00)
--- OUTSIDE RECORDS SUMMARY | 2017-06-01 15:42 | XMS REPORT | Continuity of Care Document ---
Author Author [facility] Organization [facility] Address Unknown Phone Unavailable Care Team Providers Care Crew Person Name Role Phone No Pcp, Na PCP Unavailable Source Comments Some departments are not documenting in the electronic medical record. If you do not see the information that you expected, contact Release of Information in the Health Information Management department at [phone] for further assistance in locating additional records.[facility] Active Allergies and Adverse Reactions Allergen Noted [...] Active Problems Problem Noted Date Delirium tremens ([facility]) 02/09/2017 Alcohol withdrawal ([facility]) 02/07/2017 Acute hypoxemic respiratory failure ([facility]) 02/05/2017 Polysubstance abuse 02/05/2017 FÉLIX (acute kidney injury) ([facility]) 02/05/2017 Severe sepsis with acute organ dysfunction ([facility]) 02/05/2017 Chronic lymphocytic leukemia ([facility]) 02/05/2017 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
--- OUTSIDE RECORDS SUMMARY | 2017-06-01 16:02 | XMS REPORT | Continuity of Care Document ---
Author Author [facility] Organization [facility] Address Unknown Phone Unavailable Care Team Providers Care Felt Tipping Machine Tender Name Role Phone No Pcp, Na PCP Unavailable Source Comments Some departments are not documenting in the electronic medical record. If you do not see the information that you expected, contact Release of Information in the Health Information Management department at [phone] for further assistance in locating additional records.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
[2017-06-01 16:15] LABS: ABG BASE EXCESS -8.1 MMOL/L (-2.5-2.5); ABG HCO3 19 MMOL/L (23-27); ABG OXYGEN SATURATION 95 % (94-100); ABG PCO2 47 MMHG (35-45); ABG PO2 74 MMHG (79-93)
[2017-06-01 16:21] LABS: ABG PH 7.22 (7.37-7.43); PATIENT TEMP 97.2
[2017-06-01] MEDS ORDERED: morphine INJ 4 MG/ML 1 ML (VIAL/SYRINGE) ONE (21:51)
[2017-06-01] MEDS ORDERED: ARTIFICIAL TEARS OINT (LACRI-LUBE) 3.5 GM TUBE OU PRN (22:15)
[2017-06-01] MEDS ORDERED: ARTIFICAL TEARS 0.4 ML UNIT DOSE (REFRESH PLUS) OU PRN (22:15)
[2017-06-01] MEDS ORDERED: GLYCOPYRROLATE 0.2 MG/ML (ROBINUL) 2 ML VIAL IV PRN (22:15)
[2017-06-01] MEDS ORDERED: morphine INJ 4 MG/ML 1 ML (VIAL/SYRINGE) IV PRN (22:15)
[2017-06-01] MEDS ORDERED: RT-ALBUTEROL/IPRATROPIUM 3 ML (DUONEB) VIAL INH PRN (22:15)
[2017-06-01] MEDS ORDERED: ONDANSETRON 4 MG/2 ML (SDV) Z0FRAN IVP PRN (22:15)
[2017-06-01] MEDS ORDERED: PROMETHAZINE INJ 25 MG/ML (PHENERGAN) AMP IVP PRN (22:15)
[2017-06-01] MEDS ORDERED: LORazepam INJ 2 MG/ML (ATIVAN) VIAL IVP PRN (22:15)
[2017-06-01] MEDS ORDERED: SCOPOLAMINE 1.5 MG (TRANSDERM-SCOP) PATCH TOP SCH (22:15)
[2017-06-01] MEDS ORDERED: SALIVA STIMULANT MOUTH SPRAY (BIOTENE) 1.5 OZ MM PRN (22:15)
[2017-06-01] MEDS ORDERED: BISACODYL 10 MG SUPP (DULCOLAX) PR PRN (22:15)
[2017-06-02 07:37] LABS: LEGIONELLA PNEU ANTIGEN URINE Negative; STREP PNEUMOCOCCUS ANTIG Negative
[2017-06-02] MEDS ORDERED: TROUGH ORDER-PHARMACY XX NR (11:00)
[2017-06-02 14:05] LABS: MYCOPLASMA IGM IFA ANTIBODY <1:10 (<1:10)
--- NOTE | 2017-06-02 20:10 | Discharge Summary ---
Diagnosis/Chief Complaint Date of Admission May 31, 2017 at 12:56 Date of Discharge Jun 01, 2017 at 22:40 Admission Diagnosis Admission Diagnosis severe sepsis acute kidney injury anion gap acidosis lactic acidosis thrombocytopenia hypokalemia anemia of chronic disease Discharge Diagnosis septic shock 05/31 potential source of infection include pneumonia, cellulitis on L lower leg; continue administering fluids (75 mL/kg/hour), monitor for signs of decreasing oxygen saturation (which could be a consequence of worsening pulmonary edema with fluid overload); continue antibiotics, obtain sputum sample if able, monitor vitals 06/01 declining condition with multiorgan failure; continue IV vancomycin and pip/ tazo but dc levofloxacin, blood cultures showed 03/01 positive for MRSA, continue IV fluids and monitor urine output; continue vasopressors for blood pressure control; monitor ventilator settings; lactic acid level elevated; family decided to change goals of care to comfort, comfort care orders initiated, was extubated and shortly after tachycardia- likely secondary to sepsis/volume depletion 06/01 obtain TTE, cardiology consulted acute kidney injury 05/31 continue fluids and ABX; monitor Cr, BUN, GFR 06/01 most likely due to hypoperfusion, patient has decreased urine output; continue IV fluids and ABX anion gap acidosis 05/31 continue ABX to treat underlying septic infection 06/01 worsening acidosis most likely due to development of respiratory acidosis; patient received HCO3; if pH falls below 7.1 administer additional HCO3 thrombocytopenia 05/31 could be a consequence of DIC or leukemia; consult with Dr. Lopez; monitor, do not replace 06/01 at risk for GI bleeding due to low platelets and critical condition; start PPI for stress ulcer prophylaxis hypokalemia 05/31 replace K+ IV 06/01 resolved anemia 05/31 chronic, monitor 06/01 Hg remains low; likely due to hematologic malignancy or anemia of chronic disease Chief Complaint/HPI Chief Complaint/HPI Patient presented to the emergency department earlier today with a chief complaint of R hip pain. Patient is unable to be a historian because he is difficult to arouse and on BiPAP. The information provided in this report came from his fiancee who was in the ICU room. The patient came to the ER last week due to his R hip pain and they gave him Percocet. The patient was having trouble walking and getting up out of chairs due to his pain. His fiancee states it is due to his "bone on bone" pain in his R hip. Kwame states that he would drag his R leg behind him when he would use his walker and the patient would complain that his leg would go numb. Patient's kwame states that she noticed the patient coughing up a foamy sputum yesterday. She states she noticed the patient breathing quickly. She denies the patient having a fever, chills, dysuria, or frequency. She states that the patient was most likely urinating less due to hip pain illicited when using the restroom. Patient's kwame states that the patient quit drinking alcohol 4 months ago. She states that the patient has cut down on smoking recently and is now only smoking a pack a day. Discharge Summary-Simple/Stand Procedures Endotracheal Intubation Arterial line placement Consultations Discharge Physical Examination Allergies: Coded Allergies: alprazolam (Unverified Adverse Reaction, Unknown, MAKES DIYA , 11/06/14) Vitals & I&Os Vital Sign - Last 12Hours Date Time Temp Pulse Resp B/P (MAP) Pulse Ox O2 Delivery O2 Flow Rate FiO2 06/01/17 22:30 93 14 28/16 Nasal Cannula 2.00 06/01/17 22:00 99 06/01/17 20:05 50 06/01/17 20:00 98.7 Intake and Output 06/02/17 00:00 Intake Total 1696 ml Output Total 450 ml Balance 1246 ml Hospital Course See final discharge diagnosis. Labs Laboratory Tests Test 05/31/17 20:25 05/31/17 20:55 05/31/17 22:50 06/01/17 00:35 Range/Units Sodium Level 136 135-145 MMOL/L Potassium Level 3.5 L 3.6-5.0 MMOL/L Chloride Level 103 98-107 MMOL/L Carbon Dioxide Level 14 L 21-32 MMOL/L Anion Gap 19 H 5-14 MMOL/L Blood Urea Nitrogen 69 H 7-18 MG/DL Creatinine 2.94 #H 0.60-1.30 MG/DL Estimat Glomerular Filtration Rate 22 BUN/Creatinine Ratio 23 Glucose Level 94 70-105 MG/DL Lactic Acid Level 5.00 *H 3.34 *H 0.50-2.00 MMOL/L Calcium Level 7.1 L 8.5-10.1 MG/DL Magnesium Level 2.1 1.8-2.4 MG/DL Blood Gas Puncture Site LT RADIAL LEFT RADIAL LEFT RADIAL Blood Gas Patient Temperature 96.8 98.6 98.0 Arterial Blood pH 7.26 *L 7.15 *L 7.12 *L 7.37-7.43 Arterial Blood Partial Pressure CO2 37 50 H 56 H 35-45 MMHG Arterial Blood Partial Pressure O2 79 69 L 80 79-93 MMHG Arterial Blood HCO3 16 *L 17 *L 18 L 23-27 MMOL/L Arterial Blood Total CO2 17.5 L 18.2 L 19.5 L 21.0-31.0 MMOL/L Arterial Blood Oxygen Saturation 95 87 L 93 L 94-100 % Arterial Blood Base Excess -9.6 L -10.6 L -10.0 L -2.5-2.5 MMOL/L Prince Test YES-POS YES-POS YES-POS Blood Gas Ventilator Setting NO YES YES Blood Gas Inspired Oxygen 65% 80% 80% Test 06/01/17 00:39 06/01/17 03:50 06/01/17 05:50 06/01/17 06:59 Range/Units Glucometer 164 H 70-110 MG/DL White Blood Count 3.9 L 4.3-11.0 10^3/uL Red Blood Count 3.17 L 4.35-5.85 10^6/uL Hemoglobin 8.6 L 13.3-17.7 G/DL Hematocrit 26 L 40-54 % Mean Corpuscular Volume 82 80-99 FL Mean Corpuscular Hemoglobin 27 25-34 PG Mean Corpuscular Hemoglobin Concent 33 32-36 G/DL Red Cell Distribution Width 16.2 H 10.0-14.5 % Platelet Count 22 *L 130-400 10^3/uL Mean Platelet Volume 7.4-10.4 FL Neutrophils (%) (Auto) 49 42-75 % Lymphocytes (%) (Auto) 37 12-44 % Monocytes (%) (Auto) 9 0-12 % Eosinophils (%) (Auto) 6 0-10 % Basophils (%) (Auto) 0 0-10 % Neutrophils # (Auto) 1.9 1.8-7.8 X 10^3 Lymphocytes # (Auto) 1.4 1.0-4.0 X 10^3 Monocytes # (Auto) 0.3 0.0-1.0 X 10^3 Eosinophils # (Auto) 0.2 0.0-0.3 10^3/uL Basophils # (Auto) 0.0 0.0-0.1 10^3/uL Prothrombin Time 16.5 H 12.2-14.7 SEC INR Comment 1.4 0.8-1.4 Activated Partial Thromboplast Time 31 24-35 SEC Blood Gas Puncture Site LT RADIAL LEFT RADIAL LEFT RADIAL Blood Gas Patient Temperature 98.0 102.4 103.6 Arterial Blood pH 7.14 *L 7.10 *L 7.05 *L 7.37-7.43 Arterial Blood Partial Pressure CO2 54 H 60 H 73 *H 35-45 MMHG Arterial Blood Partial Pressure O2 133 H 172 H 243 H 79-93 MMHG Arterial Blood HCO3 18 L 17 *L 18 L 23-27 MMOL/L Arterial Blood Total CO2 19.4 L 19.0 L 20.2 L 21.0-31.0 MMOL/L Arterial Blood Oxygen Saturation 98 99 99 94-100 % Arterial Blood Base Excess -9.8 L -10.2 L -10.1 L -2.5-2.5 MMOL/L Prince Test YES-POS YES-POS YES-POS Blood Gas Ventilator Setting YES YES YES Blood Gas Inspired Oxygen 75% 85% 100% Sodium Level 131 L 135-145 MMOL/L Potassium Level 4.9 3.6-5.0 MMOL/L Chloride Level 100 98-107 MMOL/L Carbon Dioxide Level 14 L 21-32 MMOL/L Anion Gap 17 H 5-14 MMOL/L Blood Urea Nitrogen 73 H 7-18 MG/DL Creatinine 3.16 H 0.60-1.30 MG/DL Estimat Glomerular Filtration Rate 21 BUN/Creatinine Ratio 23 Glucose Level 192 H 70-105 MG/DL Lactic Acid Level 2.83 *H 0.50-2.00 MMOL/L Calcium Level 7.1 L 8.5-10.1 MG/DL Phosphorus Level 5.8 H 2.3-4.7 MG/DL Magnesium Level 2.0 1.8-2.4 MG/DL Test 06/01/17 09:03 06/01/17 11:58 06/01/17 13:36 06/01/17 16:10 Range/Units Lactic Acid Level 2.46 *H 2.99 *H 0.50-2.00 MMOL/L Glucometer 121 H 70-110 MG/DL Blood Gas Puncture Site ARTLINE Blood Gas Patient Temperature 97.2 Arterial Blood pH 7.22 *L 7.37-7.43 Arterial Blood Partial Pressure CO2 47 H 35-45 MMHG Arterial Blood Partial Pressure O2 74 L 79-93 MMHG Arterial Blood HCO3 19 L 23-27 MMOL/L Arterial Blood Total CO2 20.0 L 21.0-31.0 MMOL/L Arterial Blood Oxygen Saturation 95 94-100 % Arterial Blood Base Excess -8.1 L -2.5-2.5 MMOL/L Prince Test NA Blood Gas Ventilator Setting YES Blood Gas Inspired Oxygen 50% Test 06/01/17 18:41 Range/Units Glucometer 109 70-110 MG/DL Radiology Reviewed CXR 05/31/17: "IMPRESSION: 1. Cardiac enlargement with at least mild severity pulmonary vascular congestion. 2. Scattered patchy areas of infiltrate within both lung allred could be reflective of underlying multifocal pneumonia. However, there is somewhat overall nodular appearance does raise concern for potential pulmonary metastatic disease. Slight mediastinal prominence and hilar prominence may be reflective of underlying lymphadenopathy. Continued followup imaging is recommended." Pelvis xray 05/31/17: "IMPRESSION: 1. Negative for acute fracture. 2. Marked severity osteoarthritis right hip essentially bone on bone present. 3. Very questionable lesion left iliac bone versus overlying contents. Questionable lucencies over the proximal femurs which underlying lytic lesions not excluded. Consideration might be given to nonemergent followup MRI if further assessment desired. Discharge Condition at discharge Clinical Quality Measures DVT/VTE Risk/Contraindication: Risk Factor Score Per Nursin RFS Level Per Nursing on Admit: 4+=Very High Contraindications-Pharm: Other *list below* Other: Low platelets Comfort Measures/ Type of Care: Comfort Measures REY WINKLER MD Jun 02, 2017 20:10
== END 2017-06-01 22:40 | disposition expired | DRG 871 ==
LOC: EDUNIT# 08:16 → ER 08:17 → ICU 12:56
PROVIDERS: ADMIT Family Medicine; ATTEND Family Medicine
PROC: 5A1945Z Respiratory Ventilation, 24-96 Consecutive Hours (ICD-10-PCS; principal; 2017-05-31)
DX: A41.02 Sepsis due to Methicillin resistant Staphylococcus aureus; J44.0 Chronic obstructive pulmonary disease with (acute) lower respiratory infection; B95.62 Methicillin resistant Staphylococcus aureus infection as the cause of diseases classified elsewhere; L03.116 Cellulitis of left lower limb; F10.21 Alcohol dependence, in remission; M10.9 Gout, unspecified; C91.10 Chronic lymphocytic leukemia of B-cell type not having achieved remission; J44.1 Chronic obstructive pulmonary disease with (acute) exacerbation; E87.2 Acidosis; R65.21 Severe sepsis with septic shock; K21.9 Gastro-esophageal reflux disease without esophagitis; J96.00 Acute respiratory failure, unspecified whether with hypoxia or hypercapnia; F17.210 Nicotine dependence, cigarettes, uncomplicated; F32.9 Major depressive disorder, single episode, unspecified; M16.11 Unilateral primary osteoarthritis, right hip; B18.2 Chronic viral hepatitis C; N17.9 Acute kidney failure, unspecified; I10 Essential (primary) hypertension; J18.9 Pneumonia, unspecified organism; F12.90 Cannabis use, unspecified, uncomplicated; Z66 Do not resuscitate; D61.818 Other pancytopenia; E87.6 Hypokalemia
CPT/HCPCS: 36415; 51702; 71010; 72170; 80048; 80053; 80306; 80320; 81000; 82140; 82805; 82962; 83605; 83735; 83880; 84100; 84550; 85007; 85025; 85027; 85045; 85379; 85610; 85730; 86141; 86738; 86850; 86900; 86901; 86920; 87040; 87070; 87077; 87081; 87186; 87205; 87449; 87899; 93005; 93306; 93970; 94002; 94003; 94640; 94660; 94799; 96361; 96365; 96367; 96375; 96376